=== PATIENT | male | born 1950 | race Caucasian/White ===

== ENCOUNTER 2017-05-16 13:02 | Inpatient (IN) | payer MEDICARE ==
[2017-05-16] MEDS ORDERED: Sodium Chloride 0.9% 1,000 ML IV ONE (13:52)
--- NOTE | 2017-05-16 14:17 | C.PDOC ---
History Of Present Illness 66 y/o male,with history of HTN and diabetes, presents to the ER complaining of cough, sore throat, and subjective fever for the past few days. Patient is also complaining of dizziness and had a near syncopal episode today. 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 Patient does not have any other complaints. Time Seen by Provider: 05/16/17 13:48 Chief Complaint (Nursing): Flu-like Symptoms History Per: Patient History/Exam Limitations: no limitations Onset/Duration Of Symptoms: Days Current Symptoms Are (Timing): Still Present Associated Symptoms: Fever, Sore Throat, Cough Past Medical History Reviewed: Historical Data, Nursing Documentation, Vital Signs Vital Signs: Last Vital Signs Temp 97.9 F 05/16/17 13:12 Pulse 77 05/16/17 16:26 Resp 16 05/16/17 16:26 BP 112/59 L 05/16/17 16:26 Pulse Ox 97 05/16/17 18:13 - Medical History PMH: HTN, Hypercholesterolemia, Seizures Surgical History: No Surg Hx Family History: States: No Known Family Hx - Social History Hx Alcohol Use: No Hx Substance Use: No Review Of Systems Except As Marked, All Systems Reviewed And Found Negative. Constitutional: Positive for: Fever. Negative for: Chills ENT: Positive for: Throat Pain Respiratory: Positive for: Cough. Negative for: Shortness of Breath Neurological: Positive for: Dizziness Physical Exam - Physical Exam Appears: Non-toxic, No Acute Distress Skin: Normal Color, Warm Head: Atraumatic, Normacephalic Eye(s): bilateral: Normal Inspection, PERRL Ear(s): Bilateral: Normal Nose: Normal Oral Mucosa: Moist Throat: Erythema (pharyngeal erythema), No Exudate Neck: Supple Chest: Symmetrical Cardiovascular: Rhythm Regular Respiratory: Normal Breath Sounds, No Accessory Muscle Use, No Rales, No Rhonchi , No Wheezing Extremity: Normal ROM Neurological/Psych: Oriented x3, Normal Speech, Normal Cognition, Normal Motor, Normal Sensation ED Course And Treatment - Laboratory Results Result Diagrams: 05/16/17 14:14 05/16/17 14:14 O2 Sat by Pulse Oximetry: 97 (RA) Pulse Ox Interpretation: Normal Medical Decision Making Medical Decision Making: 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 for sepsis, pna, influenza, lPlan: --Labs --Urinalysis --ECG --CXR --Flu Swab --Rapid Strep pt reassesed, no previous cr. suspect anna. influenza pos. possible infiltrate, mild la. no sirs, no code sepsis. discussed with dr mccain, accepts. Disposition - Disposition Disposition: HOSPITALIZED Disposition Time: 18:13 Condition: STABLE - Clinical Impression Clinical Impression: Influenza, Acute kidney injury, Pneumonia - Scribe Statement The provider has reviewed the documentation as recorded by the Scribe Daquan Solorzano Provider Attestation: All medical record entries made by the Scribe were at my direction and personally dictated by me. I have reviewed the chart and agree that the record accurately reflects my personal performance of the history, physical exam, medical decision making, and the department course for this patient. I have also personally directed, reviewed, and agree with the discharge instructions and disposition. Decision To Admit - Pt Status Changed To: Hospital Disposition Of: Inpatient - Admit Certification Admit to Inpatient:: After my assessment, the patient will require hospitalization for at least two midnights. This is because of the severity of symptoms shown, intensity of services needed, and/or the medical risk in this patient being treated as an outpatient. - InPatient: Physician Admission Certification: I certify that this patient requires 2 or more midnights of care for the following reason:: anna, influenza, needs admission. - . Bed Request Type: Telemetry Admitting Physician: Donta Mccain Jr. Patient Diagnosis: Influenza, Acute kidney injury, Pneumonia
[2017-05-16 14:18] LABS: BASO % 0.1 % (0.0-2.0); EOS # 0.1 K/uL (0.0-0.7); EOS % 2.4 % (0.0-4.0); LYMPH # 0.9 K/uL (1.0-4.3); LYMPH % 16.9 % (20.0-40.0); MEAN CELL VOLUME 93.5 fL (80.0-94.0); MEAN CORPUSCULAR HEMOGLOBIN 31.4 pg (27.0-31.0); MEAN CORPUSCULAR HGB CONC 33.6 g/dL (33.0-37.0); MEAN PLATELET VOLUME 8.3 fL (7.2-11.7); MONO # 0.7 K/uL (0.0-0.8); MONO % 11.8 % (0.0-10.0); NEUT # 3.8 K/uL (1.8-7.0); NEUT % 68.8 % (50.0-75.0); RBC 3.19 Mil/uL (4.40-5.90); RED CELL DISTRIBUTION WIDTH 13.9 % (11.5-14.5); WHITE BLOOD COUNT 5.6 K/uL (4.8-10.8)
[2017-05-16 14:33] LABS: INR 1.2
[2017-05-16 14:35] LABS: ALBUMIN 3.5 g/dL (3.5-5.0); CALCIUM 7.9 mg/dl (8.6-10.4)
[2017-05-16 14:36] LABS: SQUAMOUS EPITHIAL 2 /hpf (0-5); URINE BACTERIA RARE (<OCC); URINE BILIRUBIN NEGATIVE (NEGATIVE); URINE BLOOD NEGATIVE (NEGATIVE); URINE CLARITY Hazy (Clear); URINE COLOR Amber (YELLOW); URINE GLUCOSE (UA) 1+ mg/dL (Normal); URINE LEUKOCYTE ESTERASE NEG Leu/uL (Negative); URINE NITRATE NEGATIVE (NEGATIVE); URINE PROTEIN 3+ mg/dL (NEGATIVE)
--- NOTE | 2017-05-16 14:37 | RAD ---
Chest x-ray single frontal view History: Chest pain. Comparison: None available. Findings: Mild venous congestion. Patchy increased markings at the left lung base and right infrahilar region which may represent mild infiltrate and or atelectasis. Clinical correlation. Cardiomegaly. Degenerative changes in the spine and shoulders. Impression: Mild venous congestion. Patchy increased markings at the left lung base and right infrahilar region which may represent mild infiltrate and or atelectasis. Clinical correlation. Cardiomegaly.
[2017-05-16] MEDS ORDERED: Azithromycin 500 MG in Sodium Chloride 0.9% 250 ML IVPB STA (14:39)
[2017-05-16] MEDS ORDERED: cefTRIAXone 2 GM in Sodium Chloride 0.9% 100 ML IVPB STA (14:39)
[2017-05-16 14:47] LABS: TROPONIN I 0.016 ng/mL (0.00-0.120)
[2017-05-16 14:50] LABS: VENOUS BLOOD GAS BASE EXCESS -5.3 mmol/L (0.0-2.0); VENOUS BLOOD GAS PCO2 49 mmHg (40-60); VENOUS BLOOD GAS PO2 29 mm/Hg (30-55); VENOUS BLOOD PH 7.26 (7.32-7.43)
--- NOTE | 2017-05-16 17:15 | CP.PCM.HP ---
History of Present Illness - History of Present Illness History of Present Illness: 66 year old male with a past medical history of hypertension, Type 2 Diabetes, and seizures who comes in complaining of cough, sore throat for the past three days. The patient reports taking Robutussin with little improvement in his symptoms. The patient reports also reports phlegm that is yellow in color. The patient also reports his being a sick contact. The patient denies any chest pain, nausea, vomiting, abdominal pain, fevers, chills, changes in vision , syncopal episodes, numbness or tingling in the hands or feet, weight loss, or any other complaints. PMD: Dr. Scott PMhx:HTN, seizures, Type 2 Diabetes Medications: Can't name them. Patient said his would bring them in tomorrow. Past surgical history: Foot surgery Social history: Jaiden tobacco use. Drinks alcohol occasionally. Jaiden illicit drug use. Lives with . Doesn't work Present on Admission - Present on Admission Any Indicators Present on Admission: No Review of Systems - Constitutional Constitutional: absent: Chills, Headache, Night Sweats, Weakness - EENT Eyes: absent: Blurred Vision, Discharge, Dry Eye, Other Visual Disturbances, Loss of Vision Ears: absent: Ear Discharge, Dizziness Nose/Mouth/Throat: absent: Nasal Congestion, Nose Pain, Bleeding Gums, Dysphagia , Mouth Pain, Facial Pain - Cardiovascular Cardiovascular: absent: Chest Pain, Irregular Heart Rhythm, Leg Edema, Palpitations, Pedal Edema - Respiratory Respiratory: Cough, Change in Mucous Color. absent: Dyspnea, Hemoptysis, Pain on Inspiration - Gastrointestinal Gastrointestinal: absent: Belching, Change in Stool Character, Diarrhea, Fecal Incontinence, Heartburn, Loose Stools, Nausea, Temesmus, Vomiting - Musculoskeletal Musculoskeletal: absent: Abnormal Gait, Arthralgias, Back Pain, Myalgias - Integumentary Integumentary: absent: Bleeding Lesions, Changing Lesions, Rash, Striae, Swelling, Unusual Bruising - Neurological Neurological: absent: Abnormal Hearing, Dizziness, Numbness, Headaches, Syncope , Vertigo, Weakness - Psychiatric Psychiatric: absent: Anxiety, Confusion, Depression, Hopelessness, Panic Attacks - Endocrine Endocrine: absent: Polydipsia, Polyphagia, Polyuria - Hematologic/Lymphatic Hematologic: absent: Lymphadenopathy Past Patient History - Past Social History Smoking Status: Never Smoked - CARDIAC Hx Hypercholesterolemia: Yes Hx Hypertension: Yes - NEUROLOGICAL Hx Seizures: Yes - ENDOCRINE/METABOLIC Hx Diabetes Mellitus Type 2: Yes - MUSCULOSKELETAL/RHEUMATOLOGICAL Hx Gout: Yes - PSYCHIATRIC Hx Substance Use: No Meds Allergies/Adverse Reactions: Allergies Allergy/AdvReac Type Severity Reaction Status Date / Time No Known Allergies Allergy Verified 05/16/17 13:16 Results - Vital Signs Recent Vital Signs: Last Vital Signs Temp 97.9 F 05/16/17 13:12 Pulse 77 05/16/17 16:26 Resp 16 05/16/17 16:26 BP 112/59 L 05/16/17 16:26 Pulse Ox 97 05/16/17 16:26 - Labs Result Diagrams: 05/16/17 14:14 05/16/17 14:14 Labs: Laboratory Results - last 24 hr 05/16/17 05/16/17 05/16/17 13:18 14:14 14:14 WBC 5.6 RBC 3.19 L Hgb 10.0 L Hct 29.9 L MCV 93.5 MCH 31.4 H MCHC 33.6 RDW 13.9 Plt Count 149 MPV 8.3 Neut % (Auto) 68.8 Lymph % (Auto) 16.9 L [place] % (Auto) 11.8 H Eos % (Auto) 2.4 Baso % (Auto) 0.1 Neut # 3.8 Lymph # 0.9 L [place] # 0.7 Eos # 0.1 Baso # 0.0 PT 13.0 H INR 1.2 APTT 27 pO2 VBG pH VBG pCO2 VBG HCO3 VBG Total CO2 VBG O2 Sat (Calc) VBG Base Excess VBG Potassium Glucose Lactate Sodium Potassium Chloride Carbon Dioxide Anion Gap BUN Creatinine Est GFR ( Amer) Est GFR (Non-Af Amer) POC Glucose (mg/dL) 223 H Random Glucose Calcium Total Bilirubin AST ALT Alkaline Phosphatase Troponin I Total Protein Albumin Globulin Albumin/Globulin Ratio Venous Blood Potassium Urine Color Urine Clarity Urine pH Ur Specific [place] Urine Protein Urine Glucose (UA) Urine Ketones Urine Blood Urine Nitrate Urine Bilirubin Urine Urobilinogen Ur Leukocyte Esterase Urine WBC (Auto) Urine RBC (Auto) Ur Squamous Epith Cells Urine Bacteria Influenza Typ A,B (EIA) Grp A Beta Strep Ag 05/16/17 05/16/17 05/16/17 14:14 14:17 14:17 WBC RBC Hgb Hct MCV MCH MCHC RDW Plt Count MPV Neut % (Auto) Lymph % (Auto) [place] % (Auto) Eos % (Auto) Baso % (Auto) Neut # Lymph # [place] # Eos # Baso # PT INR APTT pO2 VBG pH VBG pCO2 VBG HCO3 VBG Total CO2 VBG O2 Sat (Calc) VBG Base Excess VBG Potassium Glucose Lactate Sodium 131 L Potassium 4.6 Chloride 100 Carbon Dioxide 22 Anion Gap 13 BUN 28 H Creatinine 2.2 H Est GFR ( Amer) 37 Est GFR (Non-Af Amer) 30 POC Glucose (mg/dL) Random Glucose 247 H Calcium 7.9 L Total Bilirubin 0.4 AST 20 ALT 25 Alkaline Phosphatase 103 Troponin I 0.0160 Total Protein 6.9 Albumin 3.5 Globulin 3.4 Albumin/Globulin Ratio 1.0 Venous Blood Potassium Urine Color Urine Clarity Urine pH Ur Specific [place] Urine Protein Urine Glucose (UA) Urine Ketones Urine Blood Urine Nitrate Urine Bilirubin Urine Urobilinogen Ur Leukocyte Esterase Urine WBC (Auto) Urine RBC (Auto) Ur Squamous Epith Cells Urine Bacteria Influenza Typ A,B (EIA) Pos for influenza a H Grp A Beta Strep Ag Negative 05/16/17 05/16/17 14:28 14:35 WBC RBC Hgb Hct MCV MCH MCHC RDW Plt Count MPV Neut % (Auto) Lymph % (Auto) [place] % (Auto) Eos % (Auto) Baso % (Auto) Neut # Lymph # [place] # Eos # Baso # PT INR APTT pO2 29 L VBG pH 7.26 L VBG pCO2 49 VBG HCO3 19.3 VBG Total CO2 23.5 VBG O2 Sat (Calc) 58.0 VBG Base Excess -5.3 L VBG Potassium 4.6 Glucose 266 H Lactate 2.3 H Sodium 132.0 Potassium Chloride 104.0 Carbon Dioxide Anion Gap BUN Creatinine Est GFR ( Amer) Est GFR (Non-Af Amer) POC Glucose (mg/dL) Random Glucose Calcium Total Bilirubin AST ALT Alkaline Phosphatase Troponin I Total Protein Albumin Globulin Albumin/Globulin Ratio Venous Blood Potassium 4.6 Urine Color Holly Urine Clarity Hazy Urine pH 5.0 Ur Specific [place] 1.024 Urine Protein 3+ H Urine Glucose (UA) 1+ H Urine Ketones Negative Urine Blood Negative Urine Nitrate Negative Urine Bilirubin Negative Urine Urobilinogen 2.0 Ur Leukocyte Esterase Neg Urine WBC (Auto) 3 Urine RBC (Auto) 3 Ur Squamous Epith Cells 2 Urine Bacteria Rare Influenza Typ A,B (EIA) Grp A Beta Strep Ag Assessment & Plan - Assessment and Plan (Free Text) Assessment: 66 male with a past medical history of hypertension, Type 2 DM, and seizures who was admitted for flu. Plan: 1. Influenza -Rapid flud positive in the Emergency Department. -Received 75mg [place]fu in the E.D. -Continue Tamiflu 75MG PO BID -IV fluids NS @100cc/hr 2. History of hypertension -Restart home medications -Patient couldn't recall the name of his medications. Patient said he would have a family member bring the prescriptions tomorrow. 3. History of Type 2 D.M. -Hold home medications -I.S.S. low -Carbohydrate consistent diet (Low) -Esthelas MARIFER. 4.History of seizures -Restart home medications Prophylaxis -Pepcid 20mg Daily -Heparin 5000 units Q12. Will discuss with Dr. Meza.
[2017-05-16] MEDS ORDERED: Sodium Chloride 0.9% 1,000 ML ONE (18:00)
[2017-05-16 20:06] VITALS: RESP 20
[2017-05-16] MEDS: (Novolin R) Insulin Human Regular 100 units/ml vial SC SCH (21:41)
[2017-05-17 00:30] VITALS: O2SAT 95
[2017-05-17] MEDS: Sodium Chloride 0.9% 1,000 ML IV SCH ×2 (02:27→06:28)
[2017-05-17] MEDS: (Novolin R) Insulin Human Regular 100 units/ml vial SC SCH ×2 (07:37→12:00)
[2017-05-17 08:01] VITALS: PULSE 63
--- NOTE | 2017-05-17 08:14 | CP.PCM.PN ---
Subjective - Date & Time of Evaluation Date of Evaluation: 05/17/17 Time of Evaluation: 08:14 Objective - Vital Signs/Intake and Output Vital Signs (last 24 hours): Temp Pulse Resp BP Pulse Ox 98.2 F 63 20 136/66 95 05/16/17 23:50 05/17/17 08:00 05/16/17 23:50 05/16/17 23:50 05/16/17 23:50 Intake and Output: 05/17/17 05/17/17 06:59 18:59 Intake Total 700 Balance 700 - Medications Medications: Current Medications Enoxaparin Sodium (Lovenox) 40 mg SC DAILY [facility] Famotidine (Pepcid) 20 mg PO DAILY [facility] Sodium Chloride (Sodium Chloride 0.9%) 1,000 mls @ 100 mls/hr IV .Q10H [facility] Last Admin: 05/17/17 06:28 Dose: 100 mls/hr Insulin Human Regular (Novolin R) 0 unit SC ACHS [facility] PRN Reason: Protocol Last Admin: 05/17/17 07:37 Dose: Not Given Oseltamivir Phosphate (Tamiflu Cap) 75 mg PO BID [facility] Stop: 05/21/17 17:28 Last Admin: 05/16/17 18:31 Dose: 75 mg - Labs Labs: 05/16/17 14:14 05/16/17 14:14 PT 13.0 SECONDS (9.7-12.2) H 05/16/17 14:14 INR 1.2 05/16/17 14:14 APTT 27 SECONDS (21-34) 05/16/17 14:14
[2017-05-17 08:21] VITALS: BP 161/81; TEMP 98
[2017-05-17 08:23] LABS: BASO % 0.5 % (0.0-2.0); EOS # 0.2 K/uL (0.0-0.7); EOS % 5.6 % (0.0-4.0); HEMOGLOBIN 10.4 g/dL (12.0-18.0); LYMPH # 1.4 K/uL (1.0-4.3); LYMPH % 32.7 % (20.0-40.0); MEAN CELL VOLUME 93.4 fL (80.0-94.0); MEAN CORPUSCULAR HEMOGLOBIN 31.2 pg (27.0-31.0); MEAN CORPUSCULAR HGB CONC 33.4 g/dL (33.0-37.0); MEAN PLATELET VOLUME 8.3 fL (7.2-11.7); MONO # 0.5 K/uL (0.0-0.8); MONO % 12.4 % (0.0-10.0); NEUT # 2.1 K/uL (1.8-7.0); NEUT % 48.8 % (50.0-75.0); NRBC % 0.1 % (0.0-2.0); RBC 3.34 Mil/uL (4.40-5.90); RED CELL DISTRIBUTION WIDTH 13.5 % (11.5-14.5); WHITE BLOOD COUNT 4.2 K/uL (4.8-10.8)
[2017-05-17 08:46] LABS: ALB/GLOB RATIO 1.1 (1.0-2.1); ALBUMIN 3.6 g/dL (3.5-5.0); CALCIUM 7.8 mg/dl (8.6-10.4); MAGNESIUM 1.6 mg/dL (1.6-2.3)
[2017-05-17] MEDS ORDERED: Enoxaparin 40 mg Syringe SC SCH (10:00)
--- NOTE | 2017-05-17 12:02 | CP.PCM.DIS ---
Provider - Provider Date of Admission: 05/16/17 14:59 Attending physician: Donta Meza Jr, MD Primary care physician: Dr. Awan Time Spent in preparation of Discharge (in minutes): 45 Hospital Course - Lab Results Lab Results: Most Recent Lab Values WBC 4.2 K/uL (4.8-10.8) L 05/17/17 08:16 RBC 3.34 Mil/uL (4.40-5.90) L 05/17/17 08:16 Hgb 10.4 g/dL (12.0-18.0) L 05/17/17 08:16 Hct 31.2 % (35.0-51.0) L 05/17/17 08:16 MCV 93.4 fL (80.0-94.0) 05/17/17 08:16 MCH 31.2 pg (27.0-31.0) H 05/17/17 08:16 MCHC 33.4 g/dL (33.0-37.0) 05/17/17 08:16 RDW 13.5 % (11.5-14.5) 05/17/17 08:16 Plt Count 156 K/uL (130-400) 05/17/17 08:16 MPV 8.3 fL (7.2-11.7) 05/17/17 08:16 Neut % (Auto) 48.8 % (50.0-75.0) L 05/17/17 08:16 Lymph % (Auto) 32.7 % (20.0-40.0) 05/17/17 08:16 [place] % (Auto) 12.4 % (0.0-10.0) H 05/17/17 08:16 Eos % (Auto) 5.6 % (0.0-4.0) H 05/17/17 08:16 Baso % (Auto) 0.5 % (0.0-2.0) 05/17/17 08:16 Neut # 2.1 K/uL (1.8-7.0) 05/17/17 08:16 Lymph # 1.4 K/uL (1.0-4.3) 05/17/17 08:16 [place] # 0.5 K/uL (0.0-0.8) 05/17/17 08:16 Eos # 0.2 K/uL (0.0-0.7) 05/17/17 08:16 Baso # 0.0 K/uL (0.0-0.2) 05/17/17 08:16 PT 13.0 SECONDS (9.7-12.2) H 05/16/17 14:14 INR 1.2 05/16/17 14:14 APTT 27 SECONDS (21-34) 05/16/17 14:14 pO2 29 mm/Hg (30-55) L 05/16/17 14:35 VBG pH 7.26 (7.32-7.43) L 05/16/17 14:35 VBG pCO2 49 mmHg (40-60) 05/16/17 14:35 VBG HCO3 19.3 mmol/L 05/16/17 14:35 VBG Total CO2 23.5 mmol/L (22-28) 05/16/17 14:35 VBG O2 Sat (Calc) 58.0 % (40-65) 05/16/17 14:35 VBG Base Excess -5.3 mmol/L (0.0-2.0) L 05/16/17 14:35 VBG Potassium 4.6 mmol/L (3.6-5.2) 05/16/17 14:35 Sodium 132.0 mmol/l (132-148) 05/16/17 14:35 Chloride 104.0 mmol/L (98-107) 05/16/17 14:35 Glucose 266 mg/dl (75-110) H 05/16/17 14:35 Lactate 2.3 mmol/L (0.7-2.1) H 05/16/17 14:35 Sodium 135 mmol/L (132-148) 05/17/17 08:16 Potassium 4.3 mmol/L (3.6-5.2) 05/17/17 08:16 Chloride 108 mmol/L (98-107) H 05/17/17 08:16 Carbon Dioxide 21 mmol/L (22-30) L 05/17/17 08:16 Anion Gap 11 (10-20) 05/17/17 08:16 BUN 23 mg/dL (9-20) H 05/17/17 08:16 Creatinine 1.8 mg/dL (0.8-1.5) H 05/17/17 08:16 Est GFR ( Amer) 46 05/17/17 08:16 Est GFR (Non-Af Amer) 38 05/17/17 08:16 POC Glucose (mg/dL) 95 mg/dL (65-110) 05/17/17 06:22 Random Glucose 101 mg/dL (75-110) 05/17/17 08:16 Lactic Acid 1.1 mmol/L (0.7-2.1) 05/16/17 20:55 Calcium 7.8 mg/dl (8.6-10.4) L 05/17/17 08:16 Phosphorus 3.1 mg/dL (2.5-4.5) 05/17/17 08:16 Magnesium 1.6 mg/dL (1.6-2.3) 05/17/17 08:16 Total Bilirubin 0.3 mg/dL (0.2-1.3) 05/17/17 08:16 AST 18 U/L (17-59) 05/17/17 08:16 ALT 19 U/L (21-72) L D 05/17/17 08:16 Alkaline Phosphatase 99 U/L (38-126) 05/17/17 08:16 Troponin I 0.0160 ng/mL (0.00-0.120) 05/16/17 14:14 Total Protein 6.8 g/dL (6.3-8.3) 05/17/17 08:16 Albumin 3.6 g/dL (3.5-5.0) 05/17/17 08:16 Globulin 3.2 gm/dL (2.2-3.9) 05/17/17 08:16 Albumin/Globulin Ratio 1.1 (1.0-2.1) 05/17/17 08:16 Venous Blood Potassium 4.6 mmol/L (3.6-5.2) 05/16/17 14:35 Urine Color [place] (YELLOW) 05/16/17 14:28 Urine Clarity Hazy (Clear) 05/16/17 14:28 Urine pH 5.0 (5.0-8.0) 05/16/17 14:28 Ur Specific [place] 1.024 (1.003-1.030) 05/16/17 14:28 Urine Protein 3+ mg/dL (NEGATIVE) H 05/16/17 14:28 Urine Glucose (UA) 1+ mg/dL (Normal) H 05/16/17 14:28 Urine Ketones Negative mg/dL (NEGATIVE) 05/16/17 14:28 Urine Blood Negative (NEGATIVE) 05/16/17 14:28 Urine Nitrate Negative (NEGATIVE) 05/16/17 14:28 Urine Bilirubin Negative (NEGATIVE) 05/16/17 14:28 Urine Urobilinogen 2.0 mg/dL (0.2-1.0) 05/16/17 14:28 Ur Leukocyte Esterase Neg [place]/uL (Negative) 05/16/17 14:28 Urine WBC (Auto) 3 /hpf (0-5) 05/16/17 14:28 Urine RBC (Auto) 3 /hpf (0-3) 05/16/17 14:28 Ur Squamous Epith Cells 2 /hpf (0-5) 05/16/17 14:28 Urine Bacteria Rare (<OCC) 05/16/17 14:28 Influenza Typ A,B (EIA) Pos for influenza a (NEGATIVE) H 05/16/17 14:17 Grp A Beta Strep Ag Negative (NEGATIVE) 05/16/17 14:17 - Hospital Course Hospital Course: HPI: 66 year old male with a past medical history of hypertension, Type 2 Diabetes, and seizures who comes in complaining of cough, sore throat for the past three days. The patient reports taking Robutussin with little improvement in his symptoms. The patient reports also reports phlegm that is yellow in color. The patient also reports his being a sick contact. The patient denies any chest pain, nausea, vomiting, abdominal pain, fevers, chills, changes in vision, syncopal episodes, numbness or tingling in the hands or feet , weight loss, or any other complaints. PMD: Dr. Scott PMhx:HTN, seizures, Type 2 Diabetes Medications: Can't name them. Patient said his would bring them in tomorrow. Past surgical history: Foot surgery Social history: Jaiden tobacco use. Drinks alcohol occasionally. Jaiden illicit drug use. Lives with . Doesn't work Hospital Course: Patient was admitted on 05/16/17 for influenza. In the ED, labs were drawn and IV fluids and Tamiflu were given. Patient was transferred to the floors and placed on droplet precautions. Patient was continued on influenza twice daily. Patient was seen and examined at bedside today in no acute distress. Patient's was a bedside. Patient reports feeling well and has no complaints. Patient denies chest pain, abdominal pain, nausea, vomiting, fevers , chills, headaches, shortness of breath, cough, and leg pain/swelling. Patient is stable for discharge to home as per Dr. Meza. Patient must continue Tamiflu 75mg PO BID for 3 more days (to complete total of 5 days). Patient should follow up with their PMD within one week of discharge. This is a brief summary of the hospital course. Please see EMR for more details. Discharge Exam - Head Exam Head Exam: ATRAUMATIC, NORMAL INSPECTION - Eye Exam Eye Exam: EOMI, Normal appearance - ENT Exam ENT Exam: Mucous Membranes Moist - Respiratory Exam Respiratory Exam: Clear to PA & Lateral, NORMAL BREATHING PATTERN, UNREMARKABLE. absent: Rales, Rhonchi, Wheezes, Respiratory Distress - Cardiovascular Exam Cardiovascular Exam: REGULAR RHYTHM, +S1, +S2 - GI/Abdominal Exam GI & Abdominal Exam: Normal Bowel Sounds, Soft. absent: Distended, Firm, Tenderness - Extremities Exam Extremities exam: normal inspection - Neurological Exam Neurological exam: Alert, Oriented x3 - Psychiatric Exam Psychiatric exam: Normal Affect, Normal Mood - Skin Skin Exam: Dry, Intact, Normal Color, Warm Discharge Plan - Discharge Medications Prescriptions: Oseltamivir [Tamiflu Cap] 75 mg PO BID 3 Days cap - Follow Up Plan Condition: STABLE Disposition: HOME/ ROUTINE Instructions: Acute Kidney Injury (DC), Influenza (DC), Pneumonia (DC) Additional Instructions: Patient is stable for discharge to home. Patient must continue all home medications. Patient must continue taking new medications as prescribed: Tamiflu 75mg PO BID - take 1 tablet twice a day for 3 days. Patient must follow up with their PMD within one week of discharge. If symptoms worsen or reoccur, patient should return to the ED.
--- NOTE | 2017-05-17 23:10 | CARD ---
APPROVED REPORT EKG Measurement Heart [id number] <Conclusion> Sinus bradycardia Left axis deviation Inferior infarct, age undetermined Abnormal ECG
== END 2017-05-17 15:29 | disposition home or self-care (01) | DRG 194 ==
LOC: C.ER 13:02 → C.9E 14:59 → C.5S 18:33
PROVIDERS: ADMIT Internal Medicine; ATTEND Internal Medicine
DX: J11.00 Influenza due to unidentified influenza virus with unspecified type of pneumonia (principal); J18.9 Pneumonia, unspecified organism; N17.9 Acute kidney failure, unspecified; E11.9 Type 2 diabetes mellitus without complications; I10 Essential (primary) hypertension; E78.00 Pure hypercholesterolemia, unspecified

== ENCOUNTER 2018-05-21 11:43 | Inpatient (IN) | payer MEDICARE ==
[2018-05-21] MEDS ORDERED: Albuterol-Ipratrop 3 mg / 0.5 (3 ml) UD ONE (11:51)
[2018-05-21] MEDS ORDERED: Albuterol-Ipratrop 3 mg / 0.5 (3 ml) UD INH STA (12:18)
--- NOTE | 2018-05-21 12:18 | C.PDOC ---
History Of Present Illness 67 years old male with PMHx of diabetes, HTN, seizures, and CHF presents to ED for complaints of worsening shortness of breath and leg swelling that began 2 weeks ago. Patient states "I can't breathe." Denies fever, chills, or chest pain. Patient is compliant with his medications. Time Seen by Provider: 05/21/18 12:15 Chief Complaint (Nursing): Shortness Of Breath History Per: Patient History/Exam Limitations: no limitations Onset/Duration Of Symptoms: Days Current Symptoms Are (Timing): Still Present Current Respiratory Medications: See Home Med List Associated Symptoms: denies: Fever, Chills Recent travel outside of the [place]: No Past Medical History Reviewed: Historical Data, Nursing Documentation, Vital Signs Vital Signs: Last Vital Signs Temp 97.6 F 05/21/18 11:57 Pulse 75 05/21/18 11:57 Resp 20 05/21/18 11:57 BP 151/69 H 05/21/18 11:57 Pulse Ox 100 05/21/18 11:57 - Medical History PMH: CHF, Diabetes, HTN, Hypercholesterolemia, Seizures Family History: States: No Known Family Hx - Social History Hx Alcohol Use: Yes Hx Substance Use: No - Immunization History Hx Tetanus Toxoid Vaccination: No Hx Influenza Vaccination: No Hx Pneumococcal Vaccination: No Review Of Systems Constitutional: Negative for: Fever, Chills Cardiovascular: Negative for: Chest Pain Respiratory: Positive for: Shortness of Breath, Wheezing. Negative for: Cough Gastrointestinal: Negative for: Nausea, Vomiting, Abdominal Pain, Diarrhea Skin: Positive for: Other (Leg swelling ). Negative for: Rash Neurological: Negative for: Weakness, Numbness Physical Exam - Physical Exam Appears: Non-toxic, No Acute Distress, Other (Uncomfortable. ) Skin: Warm, Dry, No Rash Head: Atraumatic, Normacephalic Eye(s): bilateral: Normal Inspection, PERRL, EOMI Oral Mucosa: Moist Neck: Normal ROM, Supple Chest: Symmetrical, No Tenderness Cardiovascular: Rhythm Regular, No Murmur Respiratory: Rales ([place] upper right side), Wheezing (Scattered expiratory left lower side ), Other (Patient was examined after Duoneb was adminstered. ) Gastrointestinal/Abdominal: Bowel Sounds (Active ), Soft, Tenderness, No Distention, No Guarding, No Rebound Extremity: Normal ROM, Pedal Edema, Other (3+ Pitting edema bilaterally. Darkened appearing skin on bilateral lower extremities) Extremity: Bilateral: Normal ROM Pulses: Left Radial: Normal, Right Radial: Normal Neurological/Psych: Oriented x3, Normal Speech Gait: Steady ED Course And Treatment - Laboratory Results Result Diagrams: 05/21/18 12:18 05/21/18 12:18 O2 Sat by Pulse Oximetry: 100 (RA) Pulse Ox Interpretation: Normal - Other Rad CXR X-Ray: Viewed By Me, Read By Radiologist Interpretation: Impression: Moderate to severe venous congestion. Moderate left and small right pleural effusion. Consolidative changes in the mid to lower lung zones. Cardiomegaly. Medical Decision Making Medical Decision Making: Plan: * EKG * Blood work * CXR * Lasix * Duoneb/peak flow [address] Tiaog Ellington, will admit to telemtery to his service. old lab reviewed form last admit one year ago with worsening renal function. hgb decreasing from 10 to 8.6 with no acitve bleeding. EKG: * Sinus Rhythm at 74 bpm with frequent premature ventricular complexes * Low voltage QRS * Possible inferior infarct, age undetermined * Cannot rule out anterior infarct, age undetermined Disposition Discussed With Dr.: Stephen Ellington Doctor Will See Patient In The: Hospital - Disposition Disposition: HOSPITALIZED Disposition Time: 13:40 Condition: STABLE - Clinical Impression Clinical Impression: CHF exacerbation, Worsening renal function - PA / DESKTOP PUBLISHING OPERATOR / Resident Statement MD/DO has reviewed & agrees with the documentation as recorded. - Scribe Statement The provider has reviewed the documentation as recorded by the Carl Ashley All medical record entries made by the Addisonibpat were at my direction and personally dictated by me. I have reviewed the chart and agree that the record accurately reflects my personal performance of the history, physical exam, medical decision making, and the department course for this patient. I have also personally directed, reviewed, and agree with the discharge instructions and disposition.
[2018-05-21 12:28] LABS: BASO % 0.6 % (0.0-2.0); EOS # 0.3 K/uL (0.0-0.7); EOS % 5.6 % (0.0-4.0); HEMOGLOBIN 8.6 g/dL (12.0-18.0); LYMPH # 1.1 K/uL (1.0-4.3); LYMPH % 20.1 % (20.0-40.0); MEAN CORPUSCULAR HEMOGLOBIN 31.5 pg (27.0-31.0); MEAN CORPUSCULAR HGB CONC 32.3 g/dL (33.0-37.0); MEAN PLATELET VOLUME 9.3 fL (7.2-11.7); MONO # 0.5 K/uL (0.0-0.8); MONO % 8.4 % (0.0-10.0); NEUT # 3.7 K/uL (1.8-7.0); NEUT % 65.3 % (50.0-75.0); RBC 2.72 Mil/uL (4.40-5.90); RED CELL DISTRIBUTION WIDTH 14.7 % (11.5-14.5); WHITE BLOOD COUNT 5.7 K/uL (4.8-10.8)
[2018-05-21 12:32] LABS: MEAN CELL VOLUME 97.6 fL (80.0-94.0)
[2018-05-21 12:33] LABS: INR 1.2; PROTHROMBIN TIME 13.5 SECONDS (9.7-12.2)
[2018-05-21 12:40] LABS: ALB/GLOB RATIO 1.4 (1.0-2.1); ALT/SGPT 22 U/L (21-72); AST/SGOT 22 U/L (17-59); BLOOD UREA NITROGEN 41 mg/dL (9-20); CALCIUM 7.8 mg/dl (8.6-10.4); GFR NON-AFRICAN AMERICAN 23
[2018-05-21 12:53] LABS: B-TYPE NATRIURETIC PEPTIDE 1550 pg/mL (0-900)
--- NOTE | 2018-05-21 13:35 | RAD ---
Chest x-ray single frontal view HISTORY: Shortness of breath. Comparison: 05/16/2017 Findings: Moderate to severe venous congestion. Moderate left and small right pleural effusion. Consolidative changes in the mid to lower lung zones. Cardiomegaly. Degenerative changes in the spine and shoulders. Impression: Moderate to severe venous congestion. Moderate left and small right pleural effusion. Consolidative changes in the mid to lower lung zones. Cardiomegaly.
--- NOTE | 2018-05-21 15:02 | CP.PCM.HP ---
<Rob Baumann E - Last Filed: 05/21/18 19:44> History of Present Illness - History of Present Illness History of Present Illness: CC: Shortness of breath HPI: Patient is a 67 year old female with past medical history of HTN, seizures, Type 2 Diabetes, CHF (diagnosed 5 years ago), Chronic kidney disease, and Gout, who presents to the ED with his with complaints of worsening s hortness of breath and bilateral leg swelling for the past two weeks. Patient states that he has been sleeping more propped up with 3 pillow for the past 2 weeks and he has noted that he can only walk up to a 1/2 block before he has to catch his breath. Patient has noted some weight gain, bilateral leg heaviness and tightness of his footwear for the past 2-3 weeks. Patient admits to shortness of breath, non-productive cough, orthopnea, nocturnal cough, dizziness, subjective fever and chills but denies any symptoms of chest pain, palpitations, nausea, vomiting, abdominal pain, headache, blurry vision, hematochezia, urinary symptoms and recent travels. 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 PMD: Dr. Lance Awan PMHx: HTN, seizures, Type 2 Diabetes, CHF (diagnosed 5 years ago), Chronic k idney disease, and Gout PSHx: Right foot surgery FHx: Father (Heart Disease) and Mother: 85, no medical problems Medications: Norvasc 10mg PO daily, Valsartan-HCTZ 320/12.5mg PO daily, Lipitor 40mg PO HS, Keppra 500mg PO BID, Januvia 100mg PO daily, Tradjenta 5mg PO daily, Allopurinol 100mg PO daily Allergies: NKDA Social Hx: Lives with , Disabled. Denies former or current use of tobacco or illicit drug. Admit social ETOH Present on Admission - Present on Admission Any Indicators Present on Admission: No Review of Systems - Constitutional Constitutional: Chills, Weight Gain. absent: Fever, Headache - EENT Eyes: absent: Blurred Vision, Change in Vision, Discharge - Cardiovascular Cardiovascular: Dyspnea, Dyspnea on Exertion, Edema, Leg Edema, Lightheadedness, Orthopnea, Paroxysmal Nocturnal Dyspnea, Pedal Edema. absent: Chest Pain, Chest Pain with Activity, Diaphoresis, Palpitations - Respiratory Respiratory: Cough, Dyspnea, Dyspnea on Exertion. absent: Wheezing, Snoring, Stridor, Pain on Inspiration - Gastrointestinal Gastrointestinal: absent: Abdominal Pain, Belching, Diarrhea, Hematemesis, Hematochezia, Nausea, Vomiting - Neurological Neurological: Dizziness. absent: Confusion, Headaches, Lack of Coordination, Loss of Vision, Paresthesias, Syncope - Endocrine Endocrine: Fatigue. absent: Palpitations Past Patient History - Past Medical History & Family History Past Medical History?: Yes - Past Social History Smoking Status: Never Smoked - CARDIAC Hx Congestive Heart Failure: Yes Hx Hypercholesterolemia: Yes Hx Hypertension: Yes - PULMONARY Hx Respiratory Disorders: No - NEUROLOGICAL Hx Seizures: Yes - HEENT Hx HEENT Problems: No - RENAL Hx Chronic Kidney Disease: No - ENDOCRINE/METABOLIC Hx Diabetes Mellitus Type 2: Yes - HEMATOLOGICAL/ONCOLOGICAL Hx Blood Disorders: No - INTEGUMENTARY Hx Dermatological Problems: No - MUSCULOSKELETAL/RHEUMATOLOGICAL Hx Falls: No Hx Gout: Yes - GASTROINTESTINAL Hx Gastrointestinal Disorders: No - GENITOURINARY/GYNECOLOGICAL Hx Genitourinary Disorders: No - PSYCHIATRIC Hx Substance Use: No - SURGICAL HISTORY Hx Surgeries: Yes Hx Orthopedic Surgery: Yes (Right foot) - ANESTHESIA Hx Anesthesia: Yes Meds Allergies/Adverse Reactions: Allergies Allergy/AdvReac Type Severity Reaction Status Date / Time No Known Allergies Allergy Verified 05/16/17 13:16 Physical Exam - Constitutional Appears: Non-toxic, No Acute Distress - Head Exam Head Exam: ATRAUMATIC, NORMAL INSPECTION - Eye Exam Eye Exam: EOMI, Normal appearance - ENT Exam ENT Exam: Mucous Membranes Moist - Respiratory Exam Respiratory Exam: Decreased Breath Sounds, Rales, NORMAL BREATHING PATTERN Additional comments: Decreased breath sounds and rales at the lower lobes bilaterally - Cardiovascular Exam Cardiovascular Exam: REGULAR RHYTHM, +S1, +S2. absent: Tachycardia - GI/Abdominal Exam GI & Abdominal Exam: Normal Bowel Sounds, Soft. absent: Distended, Firm, Guarding, Tenderness Additional comments: Mild heptajugular reflex - Extremities Exam Extremities exam: Positive for: pedal edema Additional comments: +3 pitting edema to the level of the knee bilaterally - Neurological Exam Neurological exam: Alert, Oriented x3 - Psychiatric Exam Psychiatric exam: Normal Affect - Skin Skin Exam: Normal Color Results - Vital Signs Recent Vital Signs: Last Vital Signs Temp 97.6 F 05/21/18 11:57 Pulse 72 05/21/18 14:22 Resp 18 05/21/18 14:22 BP 122/68 05/21/18 14:22 Pulse Ox 100 05/21/18 14:22 - Labs Result Diagrams: 05/21/18 12:18 05/21/18 12:18 Labs: Laboratory Results - last 24 hr 05/21/18 05/21/18 05/21/18 12:18 12:18 12:18 WBC 5.7 RBC 2.72 L Hgb 8.6 L Hct 26.5 L MCV 97.6 H D MCH 31.5 H MCHC 32.3 L RDW 14.7 H Plt Count 148 MPV 9.3 Neut % (Auto) 65.3 Lymph % (Auto) 20.1 [place] % (Auto) 8.4 Eos % (Auto) 5.6 H Baso % (Auto) 0.6 Neut # (Auto) 3.7 Lymph # (Auto) 1.1 [place] # (Auto) 0.5 Eos # (Auto) 0.3 Baso # (Auto) 0.0 PT 13.5 H INR 1.2 APTT 34 Sodium 144 Potassium 5.2 Chloride 118 H Carbon Dioxide 16 L Anion Gap 15 BUN 41 H Creatinine 2.8 H Est GFR ( Amer) 28 Est GFR (Non-Af Amer) 23 Random Glucose 226 H D Calcium 7.8 L Total Bilirubin 0.3 AST 22 ALT 22 Alkaline Phosphatase 125 Troponin I < 0.0120 NT-Pro-B Natriuret Pep 1550 H Total Protein 6.9 Albumin 4.0 Globulin 2.9 Albumin/Globulin Ratio 1.4 Assessment & Plan (1) CHF exacerbation Assessment and Plan: Consultation: - Cardiology, Dr. Cage---> help appreciated * Management as per recommendation Labs: Pro-BNP: 1,550 Troponin: <0.0120, f/u subsequent BANDAR X2 and respective EKGs F/u Lipid Panel, TSH and Free T4 and Hemoglobin A1C Imaging: - EKG: NSR, low voltage, T-wave inferiorlateral leads - Chest X-ray: Moderate to severe venous congestion. Moderate left and small right pleural effusion. Consolidative changes in the mid to lower lung zones.Cardiomegaly. Medication * Lasix 20mg IV BID * Continue coreg 25mg PO BID * Hold ACEi or ARBs due to acute on chronic renal failure * Daily weight * Monitor input and output * Fluid restriction at 800ml * Heart healthy with low sodium Status: Acute (2) Pedal edema Assessment and Plan: 2/2 CHF exacerbation * F/u venous doppler Status: Acute (3) Renal failure (ARF), acute on chronic Assessment and Plan: Nephrology, Dr. Morfin * Management as per recommendation Renal US (08/12/15): Increased echogenicity of the bilateral renal cortices suggestive for medical renal disease. Continue to monitor with labs Home dose of HCTZ, Cozaar and Januvia held at the moment. Please clarify with nephro if it is appropriate to resume Status: Acute (4) Diabetes Assessment and Plan: F/u HgbA1c Accuchecks ISS- Medium Dose Home medication: Tradjenta 5mg PO daily not available inpatient Home medication: Januvia 100mg PO daily held in light of acute on chronic renal failure Status: Acute (5) Hypertension Assessment and Plan: Monitor with vital signs Q4H Home medications: Valsartan-HCTZ 320/12.5mg PO daily (Inpatient equivalent- HCTZ 12.5 mg PO QD and Cozaar 100mg PO QD) held in light of acute on chronic renal failure. Please clarify with senior adults director if these medications can be resume Continue coreg 25mg PO BID Status: Acute (6) History of seizure Assessment and Plan: Resume Keppra 500mg PO BID once blood level of keppra as resulted Status: Acute (7) History of gout Assessment and Plan: Continue home medication: * Allopurinol 100mg PO daily Status: Acute (8) Prophylactic measure Assessment and Plan: GI: Protonix 40mg PO daily DVT: Heparin 5,000 units SC Q8H, SCDs contraindicated due to bilateral leg edema All plans and management discussed with Jai Salmeron Status: Acute <Casimiro Salmeron H - Last Filed: 05/28/18 07:04> Results - Vital Signs Recent Vital Signs: Last Vital Signs Temp 98.5 F 05/28/18 01:44 Pulse 75 05/28/18 01:44 Resp 20 05/28/18 01:44 BP 139/72 05/28/18 01:44 Pulse Ox 99 05/28/18 01:44 - Labs Result Diagrams: 05/27/18 08:24 05/27/18 08:24 Labs: Laboratory Results - last 24 hr 05/27/18 05/27/18 05/27/18 08:24 08:24 08:24 WBC 7.1 RBC 2.42 L Hgb 7.8 L Hct 23.7 L MCV 97.9 H MCH 32.4 H MCHC 33.1 RDW 14.5 Plt Count 129 L MPV 9.9 Neut % (Auto) 66.4 Lymph % (Auto) 14.7 L [place] % (Auto) 14.2 H Eos % (Auto) 4.4 H Baso % (Auto) 0.3 Neut # (Auto) 4.7 Lymph # (Auto) 1.0 [place] # (Auto) 1.0 H Eos # (Auto) 0.3 Baso # (Auto) 0.0 Sodium 138 Potassium 4.8 Chloride 106 Carbon Dioxide 21 L Anion Gap 15 BUN 76 H Creatinine 3.6 H Est GFR ( Amer) 21 Est GFR (Non-Af Amer) 17 POC Glucose (mg/dL) Random Glucose 123 H Calcium 7.7 L Phosphorus 4.9 H Magnesium 1.9 Total Bilirubin 0.2 AST 51 ALT 66 Alkaline Phosphatase 126 NT-Pro-B Natriuret Pep 2530 H Total Protein 6.4 Albumin 3.7 Globulin 2.7 Albumin/Globulin Ratio 1.4 Procalcitonin 0.15 L 05/27/18 05/27/18 05/27/18 11:18 17:09 21:17 WBC RBC Hgb Hct MCV MCH MCHC RDW Plt Count MPV Neut % (Auto) Lymph % (Auto) [place] % (Auto) Eos % (Auto) Baso % (Auto) Neut # (Auto) Lymph # (Auto) [place] # (Auto) Eos # (Auto) Baso # (Auto) Sodium Potassium Chloride Carbon Dioxide Anion Gap BUN Creatinine Est GFR ( Amer) Est GFR (Non-Af Amer) POC Glucose (mg/dL) 218 H 276 H 348 H Random Glucose Calcium Phosphorus Magnesium Total Bilirubin AST ALT Alkaline Phosphatase NT-Pro-B Natriuret Pep Total Protein Albumin Globulin Albumin/Globulin Ratio Procalcitonin 05/28/18 05:50 WBC RBC Hgb Hct MCV MCH MCHC RDW Plt Count MPV Neut % (Auto) Lymph % (Auto) [place] % (Auto) Eos % (Auto) Baso % (Auto) Neut # (Auto) Lymph # (Auto) [place] # (Auto) Eos # (Auto) Baso # (Auto) Sodium Potassium Chloride Carbon Dioxide Anion Gap BUN Creatinine Est GFR ( Amer) Est GFR (Non-Af Amer) POC Glucose (mg/dL) 265 H Random Glucose Calcium Phosphorus Magnesium Total Bilirubin AST ALT Alkaline Phosphatase NT-Pro-B Natriuret Pep Total Protein Albumin Globulin Albumin/Globulin Ratio Procalcitonin Attending/Attestation - Attestation I have personally seen and examined this patient.: Yes I have fully participated in the care of the patient.: Yes I have reviewed all pertinent clinical information: Yes
[2018-05-21] MEDS ORDERED: Lactobacillus Acidophilus 500 MU Cap PO SCH (18:00)
[2018-05-21] MEDS ORDERED: Pantoprazole 20 mg EC Tab PO ONE (19:42)
[2018-05-21 20:01] LABS: CK-MB 2.16 ng/mL (0.0-3.38)
--- NOTE | 2018-05-21 23:10 | CP.PCM.CON ---
History of Present Illness - History of Present Illness History of Present Illness: Patient seen and evaluated 67 M with hx of HTN, DM2, CKD admitted for CHF exacerbation Needs full cardiac work up Physical Examination - Head Exam Head Exam: ATRAUMATIC, NORMAL INSPECTION - Eye Exam Eye Exam: EOMI, Normal appearance, PERRL Pupil Exam: NORMAL ACCOMODATION, PERRL. absent: Irregular, Unequal - ENT Exam ENT Exam: Mucous Membranes Moist, Normal Oropharynx - Respiratory Exam Respiratory Exam: Clear to Ausculation Bilateral, NORMAL BREATHING PATTERN. absent: Prolonged Expiratory Phase, Respiratory Distress - Cardiovascular Exam Cardiovascular Exam: REGULAR RHYTHM, +S1, +S2. absent: RRR, Rubs - GI/Abdominal Exam GI & Abdominal Exam: Soft, Normal Bowel Sounds. absent: Hyperactive Bowel Sounds - Extremities Exam Extremities Exam: Full ROM, Pedal Edema - Back Exam Back Exam: NORMAL INSPECTION. absent: CVA tenderness (R), paraspinal tenderness - Neurological Exam Neurological Exam: Alert, Awake, Oriented x3 - Psychiatric Exam Psychiatric exam: Normal Affect, Normal Mood. absent: Depressed - Skin Skin Exam: Dry, Intact Assessment and Plan - Assessment and Plan (Free Text) Assessment: 67 year old male with a past medical history of hypertension, dm2, ckd, gout, and chf who presents to the hospital for chf exacerbation. Plan: 1. Acute on chronic diastolic heart failure Troponin (-)x3 BNP elevated on admission but patient has component of kidney dysfunction. Doppler taken. Final read pending. -NPO after midnight -Lexiscan in the A.M. tomorrow Medications: Lasix 40mg IVP Q12 Coreg 25mg PO BID [facility]AL[facility] Cozaar Held Crestor 10mg PO HS 2.CKD Nephrology consulted. Help appreciated Medications: Procrit 10,000 MWF Ferrlicet 125 mg IVP Daily Fergon 324mg PO TID KALYANI Nephrovite 1 TAB PO 800 KALAYNI 3.DM Januvia 25mg PO Daily Past Patient History - Past Medical History & Family History Past Medical History?: Yes - Past Social History Smoking Status: Never Smoked - CARDIAC Hx Congestive Heart Failure: Yes Hx Hypercholesterolemia: Yes Hx Hypertension: Yes - PULMONARY Hx Respiratory Disorders: No - NEUROLOGICAL Hx Seizures: Yes - HEENT Hx HEENT Problems: No - RENAL Hx Chronic Kidney Disease: No - ENDOCRINE/METABOLIC Hx Diabetes Mellitus Type 2: Yes - HEMATOLOGICAL/ONCOLOGICAL Hx Blood Disorders: No - INTEGUMENTARY Hx Dermatological Problems: No - MUSCULOSKELETAL/RHEUMATOLOGICAL Hx Falls: No Hx Gout: Yes - GASTROINTESTINAL Hx Gastrointestinal Disorders: No - GENITOURINARY/GYNECOLOGICAL Hx Genitourinary Disorders: No - PSYCHIATRIC Hx Substance Use: No - SURGICAL HISTORY Hx Surgeries: Yes Hx Orthopedic Surgery: Yes (Right foot) - ANESTHESIA Hx Anesthesia: Yes Meds Allergies/Adverse Reactions: Allergies Allergy/AdvReac Type Severity Reaction Status Date / Time No Known Allergies Allergy Verified 05/16/17 13:16 - Medications Medications: Current Medications Allopurinol (Zyloprim) 100 mg PO DAILY [facility] Amlodipine Besylate (Norvasc) 10 mg PO DAILY [facility] Carvedilol (Coreg) 25 mg PO BID KALYANI Last Admin: 05/21/18 18:08 Dose: 25 mg Furosemide (Lasix) 20 mg IVP BID [facility] Heparin Sodium (Porcine) (Heparin) 5,000 units SC Q8 [facility] Hydrochlorothiazide (Microzide) 12.5 mg PO DAILY [facility] Insulin Aspart (Novolog) 0 unit SC ACHS [facility]ALYANI; Protocol Losartan Potassium (Cozaar) 100 mg PO DAILY [facility] Rosuvastatin Calcium (Crestor) 20 mg PO HS [facility] Sitagliptin Phosphate (Januvia) 100 mg PO DAILY [facility] Results - Vital Signs Recent Vital Signs: Last Vital Signs Temp 98 F 05/21/18 19:26 Pulse 70 05/21/18 19:26 Resp 16 05/21/18 19:26 BP 126/70 05/21/18 19:26 Pulse Ox 96 05/21/18 19:26 - Labs Result Diagrams: 05/27/18 08:24 05/27/18 08:24 Labs: Laboratory Results - last 24 hr 05/21/18 05/21/18 05/21/18 12:18 12:18 12:18 WBC 5.7 RBC 2.72 L Hgb 8.6 L Hct 26.5 L MCV 97.6 H D MCH 31.5 H MCHC 32.3 L RDW 14.7 H Plt Count 148 MPV 9.3 Neut % (Auto) 65.3 Lymph % (Auto) 20.1 [place] % (Auto) 8.4 Eos % (Auto) 5.6 H Baso % (Auto) 0.6 Neut # (Auto) 3.7 Lymph # (Auto) 1.1 [place] # (Auto) 0.5 Eos # (Auto) 0.3 Baso # (Auto) 0.0 PT 13.5 H INR 1.2 APTT 34 Sodium 144 Potassium 5.2 Chloride 118 H Carbon Dioxide 16 L Anion Gap 15 BUN 41 H Creatinine 2.8 H Est GFR ( Amer) 28 Est GFR (Non-Af Amer) 23 Random Glucose 226 H D Calcium 7.8 L Total Bilirubin 0.3 AST 22 ALT 22 Alkaline Phosphatase 125 Total Creatine Kinase CK-MB (Mass) Troponin I < 0.0120 NT-Pro-B Natriuret Pep 1550 H Total Protein 6.9 Albumin 4.0 Globulin 2.9 Albumin/Globulin Ratio 1.4 05/21/18 19:29 WBC RBC Hgb Hct MCV MCH MCHC RDW Plt Count MPV Neut % (Auto) Lymph % (Auto) [place] % (Auto) Eos % (Auto) Baso % (Auto) Neut # (Auto) Lymph # (Auto) [place] # (Auto) Eos # (Auto) Baso # (Auto) PT INR APTT Sodium Potassium Chloride Carbon Dioxide Anion Gap BUN Creatinine Est GFR ( Amer) Est GFR (Non-Af Amer) Random Glucose Calcium Total Bilirubin AST ALT Alkaline Phosphatase Total Creatine Kinase 140 CK-MB (Mass) 2.16 Troponin I < 0.0120 NT-Pro-B Natriuret Pep Total Protein Albumin Globulin Albumin/Globulin Ratio
[2018-05-22] MEDS: (Novolog) Insulin Aspart, Recombinant 100 u/ml 10 ml vial SC SCH ×5 (00:51→21:40)
[2018-05-22 03:40] LABS: CK-MB 1.69 ng/mL (0.0-3.38)
[2018-05-22 06:34] LABS: ALB/GLOB RATIO 1.3 (1.0-2.1); ALBUMIN 3.7 g/dL (3.5-5.0); CALCIUM 8.3 mg/dl (8.6-10.4)
--- NOTE | 2018-05-22 08:30 | CP.PCM.PN ---
<Cynthia Radford - Last Filed: 05/22/18 19:47> Subjective - Date & Time of Evaluation Date of Evaluation: 05/22/18 Time of Evaluation: 08:29 - Subjective Subjective: PGY-1 Cynthia Radford D.O. Medicine progress note for Dr. Barbosa's service: Patient was seen and examined this morning. He says that he feels a little better. Cough is improved. He says he is fine at rest and sitting down. He becomes SOB when walking and lying flat. He typically uses 3-4 pillows to sleep. He reports his leg swelling is the same. Also, he reports he has had to loosen his belt recently. Denies chest pain. Denies scrotal swelling. Objective - Vital Signs/Intake and Output Vital Signs (last 24 hours): Temp Pulse Resp BP Pulse Ox 98 F 68 17 125/70 96 05/22/18 06:55 05/22/18 06:55 05/22/18 06:55 05/22/18 06:55 05/22/18 06:55 - Medications Medications: Current Medications Allopurinol (Zyloprim) 100 mg PO DAILY [facility] Amlodipine Besylate (Norvasc) 10 mg PO DAILY [facility] Carvedilol (Coreg) 25 mg PO BID [facility] Last Admin: 05/21/18 18:08 Dose: 25 mg Furosemide (Lasix) 20 mg IVP BID [facility] Heparin Sodium (Porcine) (Heparin) 5,000 units SC Q8 [facility] Last Admin: 05/22/18 06:22 Dose: 5,000 units Hydrochlorothiazide (Microzide) 12.5 mg PO DAILY [facility] Insulin Aspart (Novolog) 0 unit SC ACHS [facility]; Protocol Last Admin: 05/22/18 07:37 Dose: Not Given Losartan Potassium (Cozaar) 100 mg PO DAILY [facility] Rosuvastatin Calcium (Crestor) 20 mg PO HS [facility] Sitagliptin Phosphate (Januvia) 100 mg PO DAILY [facility] - Labs Labs: 05/21/18 12:18 05/22/18 06:25 PT 13.5 SECONDS (9.7-12.2) H 05/21/18 12:18 INR 1.2 05/21/18 12:18 APTT 34 SECONDS (21-34) 05/21/18 12:18 - Constitutional Appears: Non-toxic, No Acute Distress - Head Exam Head Exam: ATRAUMATIC, NORMAL INSPECTION - Eye Exam Eye Exam: EOMI, Normal appearance, PERRL - ENT Exam ENT Exam: Mucous Membranes Moist - Neck Exam Neck Exam: Normal Inspection - Respiratory Exam Respiratory Exam: Rales, NORMAL BREATHING PATTERN. absent: Respiratory Distress - Cardiovascular Exam Cardiovascular Exam: RRR, +S1, +S2 - GI/Abdominal Exam GI & Abdominal Exam: Soft. absent: Distended, Tenderness - Extremities Exam Additional comments: b/l pedal edema 3+ up to just below patellas chronic skin changes on ankles and feet consistent with venous stasis - Back Exam Back Exam: NORMAL INSPECTION - Neurological Exam Neurological Exam: Alert, Awake, CN II-XII Intact, Normal Gait (slow), Oriented x3 - Psychiatric Exam Psychiatric exam: Normal Affect, Normal Mood - Skin Skin Exam: Dry, Intact, Normal Color, Warm Assessment and Plan - Assessment and Plan (Free Text) Assessment: Patient is a 67 year old female with history of HTN, seizures, T2DM, CHF, and CKD who presented with SOB and pedal edema. Plan: Congestive heart failure acute exacerbation - BNP 1550 - TSH, free T4 wnl - BANDAR negative x3 - Venous Dopplers: - Echo: normal EF, dilated LA, mod TR - Daily weights - Strict Is&Os - Fluid restriction - Lexiscan pending - Cardiology consulted ([place]) Acute on chronic renal failure - BUN 28, Cr 2.8- monitor - Renal US: enlarged prostate - Procrit 10,000 MWF - Ferrlicet 125 mg IVP daily - Fergon 324mg PO TID - Nephrovite PO daily - Nephrology consulted ([place]) Anemia- suspect related to kidney failure - B12, folate wnl - Iron low (43), ferritin wnl Type 2 diabetes mellitus - A1c 8.6 - Lipids pending - Accuchecks ACHS - Hypoglycemia protocol - ISS medium - Januvia 25 mg PO daily (renally dosed) Hypertension - Vitals Q6H - Coreg 25 mg PO BID Seizure disorder - Keppra level pending - Home dose Keppra 500 mg PO BID- held H/o Gout - Uric acid 8.7 - Allopurinol 100 mg PO daily Ppx: VTE: Heparin 5000 units SC Q8H GI: PTX 40 mg PO daily Code status: full code Case discussed with attending, Dr. Barbosa. <Lynn Barbosa V - Last Filed: 05/26/18 22:49> Objective - Vital Signs/Intake and Output Vital Signs (last 24 hours): Temp Pulse Resp BP Pulse Ox 97.8 F 78 20 147/66 94 L 05/26/18 16:00 05/26/18 16:00 05/26/18 16:00 05/26/18 22:14 05/26/18 16:00 Intake and Output: 05/26/18 05/27/18 18:59 06:59 Intake Total 100 Output Total 500 Balance -400 - Medications Medications: Current Medications Allopurinol (Zyloprim) 300 mg PO DAILY [facility] Last Admin: 05/26/18 09:51 Dose: 300 mg Carvedilol (Coreg) 25 mg PO BID [facility] Last Admin: 05/26/18 17:49 Dose: 25 mg Cyanocobalamin (Vitamin B12 1000 Mcg Tab) 1,000 mcg PO DAILY [facility] Last Admin: 05/26/18 09:52 Dose: 1,000 mcg Epoetin Scott (Procrit) 10,000 unit SC MWF [facility] Last Admin: 05/26/18 09:58 Dose: 10,000 unit Ferrous Gluconate (Fergon) 324 mg PO TID [facility] Last Admin: 05/26/18 17:49 Dose: 324 mg Furosemide (Lasix) 40 mg IVP Q12H [facility] Last Admin: 05/26/18 22:14 Dose: 40 mg Heparin Sodium (Porcine) (Heparin) 5,000 units SC Q8 [facility] Last Admin: 05/26/18 22:16 Dose: 5,000 units Ferric Sodium Gluconate Complex 125 mg/ Sodium Chloride 110 mls @ 100 mls/hr IVPB DAILY [facility] Stop: 05/30/18 17:01 Last Admin: 05/26/18 10:00 Dose: 100 mls/hr Insulin Aspart (Novolog) 0 unit SC ACHS [facility]; Protocol Last Admin: 05/26/18 21:38 Dose: Not Given Levetiracetam (Keppra) 500 mg PO BID [facility] Last Admin: 05/26/18 17:49 Dose: 500 mg Rosuvastatin Calcium (Crestor) 10 mg PO HS [facility] Last Admin: 05/26/18 22:16 Dose: 10 mg Sitagliptin Phosphate (Januvia) 25 mg PO DAILY [facility] Last Admin: 05/26/18 09:51 Dose: 25 mg Sodium Bicarbonate (Sodium Bicarbonate Tab) 1,300 mg PO BID [facility] Last Admin: 05/26/18 17:48 Dose: 1,300 mg Tamsulosin HCl (Flomax) 0.4 mg PO DAILY [facility] Last Admin: 05/26/18 09:52 Dose: 0.4 mg Vitamin B Complex/Vit C/Folic Acid (Nephro-Priscilla) 1 tab PO 0800 [facility] Last Admin: 05/26/18 09:52 Dose: 1 tab - Labs Labs: 05/26/18 07:04 05/26/18 07:04 PT 13.5 SECONDS (9.7-12.2) H 05/21/18 12:18 INR 1.2 05/21/18 12:18 APTT 34 SECONDS (21-34) 05/21/18 12:18 Attending/Attestation - Attestation I have personally seen and examined this patient.: Yes I have fully participated in the care of the patient.: Yes I have reviewed all pertinent clinical information, including history, physical exam and plan: Yes Notes (Text): This is late computer entry for 05/22/18. Patient seen, examined and case discussed with medical lab specialist. Patient seen upstairs on the 5th floor. Patient reports dyspnea on exertion. Attempted to walk the patient over one lap on the floor where patient is visibly short of breathe. Patient has completed venous doppler and echocardiogram and ordered for renal US. Renal and cardiology on board. Assessment/Plan 1. 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 moderate left and small right pleural effusion. consolidative changes in the mid to lower lung zones. cardiomegaly. * Chest xray (05/22/18): right lower lobe infiltrate/right pleural effusion. left bechdalek's hernia. No visible infiltrate left lung. 2. Acute on chronic renal failure Assessment/Plan * Nephrology (Dr. 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 Prevoid urinary bladder volume 81.4ml. Postvoid urinary bladder volume 8.1ML. Right ureteral jet is not identifed. Enlarged prostate gland. * Procrit 10,000 MWF * Ferrlicet 125 mg IVP daily * Fergon 324mg PO TID * Nephrovite PO daily 3. Anemia- suspect related to kidney failure Assessment/Plan * suspect anemia of chronic disease given underlying renal disease * B12, folate wnl * Iron low (43), ferritin wnl * Ferrlicet 125 mg IVP daily * Fergon 324mg PO TID 4. Type 2 diabetes mellitus Assessment/Plan * A1c 8.6 * Lipid panel ordered * Accuchecks ACHS * Hypoglycemia protocol * ISS medium * Changed Januvia 100mg PO to Januvia 25 mg PO daily (renally dosed) 5. Hypertension Assessment/Plan * monitor vital signs * Coreg 25 mg PO BID 6. History of Seizure disorder Assessment/Plan * Keppra level pending * Home dose Keppra 500 mg PO BID- held 7. H/o Gout Assessment/Plan * Uric acid 8.7 * Allopurinol 100 mg PO daily 8. Ppx: Assessment/Plan * VTE: Heparin 5000 units SC Q8H * GI: Protonix 40 mg PO daily
--- NOTE | 2018-05-22 09:42 | CP.PCM.PN ---
<LucilleDeni - Last Filed: 05/22/18 18:01> Subjective - Date & Time of Evaluation Date of Evaluation: 05/22/18 Time of Evaluation: 09:41 - Subjective Subjective: Dr. Cage Cardiology Service. Patient seen and examined at bedside. Per nursing no acute events occurred overnight. Patient does report some shortness of breath and swelling in his lower extremities bilaterally. Patient denies any chest pain, fevers, chills ,headaches, nausea, vomiting, abdominal pain, syncopal episodes, or any other complaints. Objective - Vital Signs/Intake and Output Vital Signs (last 24 hours): Temp Pulse Resp BP Pulse Ox 98 F 68 17 125/70 96 05/22/18 06:55 05/22/18 06:55 05/22/18 06:55 05/22/18 06:55 05/22/18 06:55 - Medications Medications: Current Medications Allopurinol (Zyloprim) 100 mg PO DAILY [facility] Amlodipine Besylate (Norvasc) 10 mg PO DAILY [facility] Carvedilol (Coreg) 25 mg PO BID [facility] Last Admin: 05/21/18 18:08 Dose: 25 mg Furosemide (Lasix) 20 mg IVP BID [facility] Heparin Sodium (Porcine) (Heparin) 5,000 units SC Q8 [facility] Last Admin: 05/22/18 06:22 Dose: 5,000 units Hydrochlorothiazide (Microzide) 12.5 mg PO DAILY [facility] Insulin Aspart (Novolog) 0 unit SC ACHS [facility]; Protocol Last Admin: 05/22/18 07:37 Dose: Not Given Losartan Potassium (Cozaar) 100 mg PO DAILY [facility] Rosuvastatin Calcium (Crestor) 10 mg PO HS [facility] Sitagliptin Phosphate (Januvia) 100 mg PO DAILY [facility] - Labs Labs: 05/21/18 12:18 05/22/18 06:25 PT 13.5 SECONDS (9.7-12.2) H 05/21/18 12:18 INR 1.2 05/21/18 12:18 APTT 34 SECONDS (21-34) 05/21/18 12:18 - Head Exam Head Exam: ATRAUMATIC, NORMAL INSPECTION - Eye Exam Eye Exam: EOMI, Normal appearance, PERRL Pupil Exam: NORMAL ACCOMODATION, PERRL. absent: Irregular, Unequal - ENT Exam ENT Exam: Mucous Membranes Moist, Normal Oropharynx - Respiratory Exam Respiratory Exam: Clear to Ausculation Bilateral, NORMAL BREATHING PATTERN. absent: Prolonged Expiratory Phase, Respiratory Distress - Cardiovascular Exam Cardiovascular Exam: REGULAR RHYTHM, +S1, +S2. absent: RRR, Rubs - GI/Abdominal Exam GI & Abdominal Exam: Soft, Normal Bowel Sounds. absent: Hyperactive Bowel Sounds - Extremities Exam Extremities Exam: Full ROM, Pedal Edema - Back Exam Back Exam: NORMAL INSPECTION. absent: CVA tenderness (R), paraspinal tenderness - Neurological Exam Neurological Exam: Alert, Awake, Oriented x3 - Psychiatric Exam Psychiatric exam: Normal Affect, Normal Mood. absent: Depressed - Skin Skin Exam: Dry, Intact Assessment and Plan - Assessment and Plan (Free Text) Assessment: 67 year old male with a past medical history of hypertension, dm2, ckd, gout, and chf who presents to the hospital for chf exacerbation. Plan: 1. Acute on chronic diastolic heart failure Troponin (-)x3 BNP elevated on admission but patient has component of kidney dysfunction. Doppler taken. Final read pending. -NPO after midnight -Lexiscan in the A.M. tomorrow Medications: Lasix 40mg IVP Q12 Coreg 25mg PO BID [facility] Cozaar Held Crestor 10mg PO HS 2.CKD Nephrology consulted. Help appreciated Medications: Procrit 10,000 MWF Ferrlicet 125 mg IVP Daily Fergon 324mg PO TID [facility] Nephrovite 1 TAB PO 800 [facility] 3.DM Januvia 25mg PO Daily Plan discussed with Attending Dr. Cage. Deni Adkins, PGY-2 <Barrett Cage - Last Filed: 05/22/18 22:05> Objective - Vital Signs/Intake and Output Vital Signs (last 24 hours): Temp Pulse Resp BP Pulse Ox 97.7 F 66 20 125/69 97 05/22/18 17:13 05/22/18 17:13 05/22/18 17:13 05/22/18 21:42 05/22/18 17:13 - Medications Medications: Current Medications Allopurinol (Zyloprim) 100 mg PO DAILY [facility] Last Admin: 05/22/18 12:18 Dose: 100 mg Amlodipine Besylate (Norvasc) 10 mg PO DAILY [facility] Last Admin: 05/22/18 12:18 Dose: 10 mg Carvedilol (Coreg) 25 mg PO BID [facility] Last Admin: 05/22/18 17:39 Dose: 25 mg Epoetin Scott (Procrit) 10,000 unit SC MWF [facility] Last Admin: 05/22/18 13:34 Dose: 10,000 unit Ferric Sodium Gluconate Complex (Ferrlecit) 125 mg IVPB DAILY [facility] Stop: 05/30/18 17:01 Last Admin: 05/22/18 17:40 Dose: 125 mg Ferrous Gluconate (Fergon) 324 mg PO TID [facility] Last Admin: 05/22/18 17:40 Dose: 324 mg Furosemide (Lasix) 40 mg IVP Q12 [facility] Last Admin: 05/22/18 21:42 Dose: 40 mg Heparin Sodium (Porcine) (Heparin) 5,000 units SC Q8 [facility] Last Admin: 05/22/18 21:42 Dose: 5,000 units Hydrochlorothiazide (Microzide) 12.5 mg PO DAILY [facility] Influenza Virus Vaccine (Flucelvax Quad [id number] Syr) 60 mcg IM .ONCE ONE Stop: 05/24/18 10:01 Insulin Aspart (Novolog) 0 unit SC ACHS [facility]; Protocol Last Admin: 05/22/18 21:40 Dose: Not Given Losartan Potassium (Cozaar) 100 mg PO DAILY [facility] Pneumococcal Polyvalent Vaccine (Pneumovax 23 Vaccine) 0.5 ml IM .ONCE ONE Stop: 05/24/18 10:01 Rosuvastatin Calcium (Crestor) 10 mg PO HS [facility] Last Admin: 05/22/18 21:42 Dose: 10 mg Sitagliptin Phosphate (Januvia) 25 mg PO DAILY [facility] Last Admin: 05/22/18 13:34 Dose: 25 mg Sodium Bicarbonate (Sodium Bicarbonate Tab) 1,300 mg PO BID [facility] Last Admin: 05/22/18 17:39 Dose: 1,300 mg Vitamin B Complex/Vit C/Folic Acid (Nephro-Priscilla) 1 tab PO 0800 [facility] - Labs Labs: 05/22/18 19:50 05/22/18 06:25 PT 13.5 SECONDS (9.7-12.2) H 05/21/18 12:18 INR 1.2 05/21/18 12:18 APTT 34 SECONDS (21-34) 05/21/18 12:18 Assessment and Plan - Assessment and Plan (Free Text) Plan: Patient seen and evaluated personally by me. Plan of care d/w the medical staff services manager and as documented
[2018-05-22] MEDS ORDERED: Home Med 1 UNIT (Linagliptin [Tradjenta] 5 MG) PO SCH (10:00)
--- NOTE | 2018-05-22 12:01 | RAD ---
Date of service: 05/22/2018 HISTORY: Shortness of breath COMPARISON: 05/21/2018 single-view chest. 05/16/2017 single-view chest. TECHNIQUE: Chest PA and lateral FINDINGS: LUNGS: Left lower lobe infiltrate better seen on the current study, best seen on the lateral view. Right lower lobe infiltrate. PLEURA: Small right pleural effusion. CARDIOVASCULAR: No aortic atherosclerotic calcification present. Normal cardiac size. No pulmonary vascular congestion. OSSEOUS STRUCTURES: No significant abnormalities. VISUALIZED UPPER ABDOMEN: Normal. OTHER FINDINGS: Diaphragmatic hernia (Bochdalek's) on the left. IMPRESSION: Right lower lobe infiltrate/right pleural effusion. Left Bochdalek's hernia. No visible infiltrate left lung.
[2018-05-22 13:06] LABS: IRON 43 ug/dL (49-181)
[2018-05-22 13:07] LABS: URIC ACID 8.7 mg/dL (3.5-8.5)
[2018-05-22 13:18] LABS: % IRON SATURATION 15 (20-55); TOTAL IRON BINDING CAPACITY 280 ug/dL (250-450)
[2018-05-22 13:19] LABS: COMPLEMENT C4 24.2 mg/dL (14.0-44.0)
[2018-05-22] MEDS: Epoetin Alfa 10,000 unit/ml Dialysis SC SCH (13:34)
[2018-05-22 13:48] LABS: HIV 1&2 ANTIBODY NEGATIVE (NEGATIVE)
[2018-05-22 13:57] LABS: HEPATITIS C ANTIBODY NEGATIVE (NEGATIVE)
--- NOTE | 2018-05-22 15:04 | CP.PCM.CON ---
History of Present Illness - History of Present Illness History of Present Illness: Nephrology Consultation Note: Assessment: Stable Acute Kidney Injury (N17.9) likely due to cardio-renal syndrome. possible progression of CKD 3 Diabetic chronic Kidney Disease (E11.22) Hypertensive Chronic Kidney Disease (I12.9) Chronic Kidney Disease (N18.3) Stage 3 with ? mg proteinuria (R80.9) likely due to DM/HTN Anemia (D64.9), metabolic acidosis HTN (I12.9) CHF exacerbation, fluid overload Plan No acute need for renal replacement therapy at this time. Hypertension control with meds as ordered. Maintain hemodynamics stable. Avoid hypotension. Patient ARB held due to recent MICHELLE. will resume once volume status optimized and stable renal function Monitor Input/Output, daily weights and renal function with basic metabolic panel started iron, MVI and epogen. PRBC as needed added sodium bicarb 1300 mg bid diurese with IV lasix 80 mg bid. may need metolazone to add if not adequate response cardiology evaluation Check urine analysis, spot protein/creatinine, albumin/creatinine ratio, uric acid, renal and bladder sonogram Check GN work up as C3, C4, DINORAH, Anti dsDNA, HIV/Hep B and Hep C serology Anemia work up with TSAT/Ferritin/Vitamin B12/folate, serum protein electrophoresis with immunofixation, serum free light chain assay (Pender/Lambda) Check for 25-OH vitamin D, iPTH, phosphorus level. Dose meds/antibiotics for reduced GFR. Avoid fleets enema/magnesium based laxatives. Avoid nephrotoxins/NSAIDs/ iodinated contrast (unless needed emergently) Glycemic control Further work up/management as per primary team Thanks for allowing me to participate in care of your patient. Will follow patient with you. Please call if any Qs. had d/w team Dr Jovan Haynes Office: [phone] Chief Complaint; SOB Reason for consult: Acute Kidney Injury on CKD HPI: Pt is a with hx of diabetes Mellitus (>10 years) with retinopathy s/p laser surgery, hypertension (>10 years) CKF, CKD 3 with baseline cr 1.8-22 in apr 2017 seizure presented with complaints of worsening SOB on exertion and lying down. admitted for CHF exacerbation. renal consult for MICHELLE on CKD 3. pt c/o leg swelling, cough. admits to drinking etoh 2 times a week, few sips of tequila as per per. denies smoking/drugs. not aware about kidney disease in past Denies OTC/herbal meds or NSAIDs No recent iodinated contrast exposure. No obvious episodes of low BP. ROS: Cardiovascular: No chest pain. Pulmonary: c/o shortness of breath Gastrointestinal: denies abdominal pain No nausea. No vomiting. Genitourinary: No pain while urinating. Denies blood in urine. has nocturia 3-4 times/night All other negative except as mentioned in HPI Physical Examination: General Appearance: Comfortable, in no acute respiratory distress, co-operative . Vitals reviewed and noted as below Head; Atraumatic, normocephalic ENT: no ulcers no thrush. Tongue is midline. Oropharynx: no rash or ulcers. EYES: Pupils are equal, round and reactive to light accommodation. Eye muscles and extraocular movement intact. Sclera is anicteric. Neck; supple no lymphadenopathy, no thyromegaly or bruit Lungs: Normal respiratory rate/effort. Breath sounds bilateral reduced at bases with crackles Heart: Normal rate. s1s2 normal. No rub or gallop. Extremities: 2-3+ edema. No varicose veins Neurological: Patient is alert, awake and oriented to person, place and time. No focal deficit. Strength bilateral appropriate and equal Skin: Warm and dry. Normal turgor. No rash. Palpitation: Normal elasticity for age Abdomen: Abdomen is soft. Bowel sounds +. There is no abdominal tenderness, no guarding/rigidity no organomegaly. ? ascites. Psych: limited insight and normal affect/mood MSK: no joint tenderness or swelling. Digits and nails normal, no deformity : kidney or bladder not palpable Labs/imaging reviewed. Past medical history, past surgical history, family history, social history, allergy reviewed and noted as below Family hx: no hx of CKD. Rest non-contributory Past Patient History - Past Medical History & Family History Past Medical History?: Yes - Past Social History Smoking Status: Never Smoked - CARDIAC Hx Congestive Heart Failure: Yes Hx Hypercholesterolemia: Yes Hx Hypertension: Yes - PULMONARY Hx Respiratory Disorders: No - NEUROLOGICAL Hx Seizures: Yes - HEENT Hx HEENT Problems: No - RENAL Hx Chronic Kidney Disease: No - ENDOCRINE/METABOLIC Hx Diabetes Mellitus Type 2: Yes - HEMATOLOGICAL/ONCOLOGICAL Hx Blood Disorders: No - INTEGUMENTARY Hx Dermatological Problems: No - MUSCULOSKELETAL/RHEUMATOLOGICAL Hx Falls: No Hx Gout: Yes - GASTROINTESTINAL Hx Gastrointestinal Disorders: No - GENITOURINARY/GYNECOLOGICAL Hx Genitourinary Disorders: No - PSYCHIATRIC Hx Substance Use: No - SURGICAL HISTORY Hx Surgeries: Yes Hx Orthopedic Surgery: Yes (Right foot) - ANESTHESIA Hx Anesthesia: Yes Meds Allergies/Adverse Reactions: Allergies Allergy/AdvReac Type Severity Reaction Status Date / Time No Known Allergies Allergy Verified 05/16/17 13:16 - Medications Medications: Current Medications Allopurinol (Zyloprim) 100 mg PO DAILY [facility] Last Admin: 05/22/18 12:18 Dose: 100 mg Amlodipine Besylate (Norvasc) 10 mg PO DAILY [facility] Last Admin: 05/22/18 12:18 Dose: 10 mg Carvedilol (Coreg) 25 mg PO BID [facility] Last Admin: 05/22/18 12:18 Dose: 25 mg Epoetin Scott (Procrit) 10,000 unit SC MWF [facility] Last Admin: 05/22/18 13:34 Dose: 10,000 unit Ferrous Gluconate (Fergon) 324 mg PO TID [facility] Last Admin: 05/22/18 13:46 Dose: 324 mg Furosemide (Lasix) 20 mg IVP BID [facility] Heparin Sodium (Porcine) (Heparin) 5,000 units SC Q8 [facility] Last Admin: 05/22/18 13:34 Dose: 5,000 units Hydrochlorothiazide (Microzide) 12.5 mg PO DAILY [facility] Influenza Virus Vaccine (Flucelvax Quad [id number] Syr) 60 mcg IM .ONCE ONE Stop: 05/24/18 10:01 Insulin Aspart (Novolog) 0 unit SC ACHS [facility]; Protocol Last Admin: 05/22/18 13:35 Dose: 3 units Losartan Potassium (Cozaar) 100 mg PO DAILY [facility] Pneumococcal Polyvalent Vaccine (Pneumovax 23 Vaccine) 0.5 ml IM .ONCE ONE Stop: 05/24/18 10:01 Rosuvastatin Calcium (Crestor) 10 mg PO HS [facility] Sitagliptin Phosphate (Januvia) 25 mg PO DAILY [facility] Last Admin: 05/22/18 13:34 Dose: 25 mg Sodium Bicarbonate (Sodium Bicarbonate Tab) 1,300 mg PO BID [facility] Last Admin: 05/22/18 13:34 Dose: 1,300 mg Vitamin B Complex/Vit C/Folic Acid (Nephro-Priscilla) 1 tab PO 0800 [facility] Results - Vital Signs Recent Vital Signs: Last Vital Signs Temp 97.6 F 05/22/18 13:25 Pulse 69 05/22/18 13:25 Resp 18 05/22/18 13:25 BP 135/75 05/22/18 13:25 Pulse Ox 94 L 05/22/18 13:25 - Labs Result Diagrams: 05/21/18 12:18 05/22/18 06:25 Labs: Laboratory Results - last 24 hr 05/21/18 05/22/18 05/22/18 19:29 00:43 03:09 Sodium Potassium Chloride Carbon Dioxide Anion Gap BUN Creatinine Est GFR ( Amer) Est GFR (Non-Af Amer) POC Glucose (mg/dL) 193 H Random Glucose Hemoglobin A1c Uric Acid Calcium Iron TIBC % Saturation Ferritin Total Bilirubin AST ALT Alkaline Phosphatase Total Creatine Kinase 140 127 CK-MB (Mass) 2.16 1.69 Troponin I < 0.0120 < 0.0120 Total Protein Albumin Globulin Albumin/Globulin Ratio Free T4 TSH 3rd Generation Complement C3 Complement C4 Hep Bs Antibody Hepatitis C Antibody HIV 1&2 Antibody Screen 05/22/18 05/22/18 05/22/18 03:09 03:09 03:09 Sodium Potassium Chloride Carbon Dioxide Anion Gap BUN Creatinine Est GFR ( Amer) Est GFR (Non-Af Amer) POC Glucose (mg/dL) Random Glucose Hemoglobin A1c 8.6 H Uric Acid Calcium Iron TIBC % Saturation Ferritin Total Bilirubin AST ALT Alkaline Phosphatase Total Creatine Kinase CK-MB (Mass) Troponin I Total Protein Albumin Globulin Albumin/Globulin Ratio Free T4 0.80 TSH 3rd Generation 3.12 Complement C3 Complement C4 Hep Bs Antibody Hepatitis C Antibody HIV 1&2 Antibody Screen 05/22/18 05/22/18 05/22/18 06:25 07:18 12:17 Sodium 144 Potassium 5.2 Chloride 120 H Carbon Dioxide 14 L Anion Gap 15 BUN 52 H Creatinine 2.8 H Est GFR ( Amer) 28 Est GFR (Non-Af Amer) 23 POC Glucose (mg/dL) 139 H 201 H Random Glucose 160 H D Hemoglobin A1c Uric Acid Calcium 8.3 L Iron TIBC % Saturation Ferritin Total Bilirubin 0.2 AST 28 ALT 28 Alkaline Phosphatase 124 Total Creatine Kinase CK-MB (Mass) Troponin I Total Protein 6.5 Albumin 3.7 Globulin 2.8 Albumin/Globulin Ratio 1.3 Free T4 TSH 3rd Generation Complement C3 Complement C4 Hep Bs Antibody Hepatitis C Antibody HIV 1&2 Antibody Screen 05/22/18 05/22/18 05/22/18 12:49 12:49 12:49 Sodium Potassium Chloride Carbon Dioxide Anion Gap BUN Creatinine Est GFR ( Amer) Est GFR (Non-Af Amer) POC Glucose (mg/dL) Random Glucose Hemoglobin A1c Uric Acid 8.7 H Calcium Iron 43 L TIBC 280 % Saturation 15 L Ferritin 49.0 Total Bilirubin AST ALT Alkaline Phosphatase Total Creatine Kinase CK-MB (Mass) Troponin I Total Protein Albumin Globulin Albumin/Globulin Ratio Free T4 TSH 3rd Generation Complement C3 Complement C4 Hep Bs Antibody Negative Hepatitis C Antibody Negative HIV 1&2 Antibody Screen Negative 05/22/18 12:49 Sodium Potassium Chloride Carbon Dioxide Anion Gap BUN Creatinine Est GFR ( Amer) Est GFR (Non-Af Amer) POC Glucose (mg/dL) Random Glucose Hemoglobin A1c Uric Acid Calcium Iron TIBC % Saturation Ferritin Total Bilirubin AST ALT Alkaline Phosphatase Total Creatine Kinase CK-MB (Mass) Troponin I Total Protein Albumin Globulin Albumin/Globulin Ratio Free T4 TSH 3rd Generation Complement C3 104.0 Complement C4 24.2 Hep Bs Antibody Hepatitis C Antibody HIV 1&2 Antibody Screen
[2018-05-22 15:21] LABS: HEPATITIS B SURFACE AG Negative (NEGATIVE)
[2018-05-22 15:25] LABS: HEPATITIS B CORE AB NEGATIVE (NEGATIVE)
[2018-05-22 15:55] LABS: FOLATE 9.9 ng/mL
[2018-05-22] MEDS: Ferric Sodium Gluconat Complex 62.5 mg/5 ml Vial IVPB SCH (17:40)
--- NOTE | 2018-05-22 18:40 | US ---
Date of service: 05/22/2018 PROCEDURE: Renal/urinary bladder ultrasound HISTORY: MICHELLE. please assess for PVR as well COMPARISON: None available. TECHNIQUE: Sonogram of the kidneys and urinary bladder. FINDINGS: RIGHT KIDNEY: Measures: 10.4 x 5.4 x 5.6 cm. No obstructing calculus, hydronephrosis, or renal cyst identified. LEFT KIDNEY: Measures: 11.9 x 5.4 x 5.0 cm. No obstructing calculus, hydronephrosis, or renal cyst identified. OTHER FINDINGS: Prevoid urinary bladder measures 6.7 x 3.8 x 4.1 cm, calculated volume 81.4 mL. Postvoid urinary bladder 3.8 x 1.5 x 2.7 cm, calculated volume 8.1 mL. Right ureteral jet is not identified. Right ureteral jet is present. The prostate gland measures approximately 4.3 x 3.4 x 4.3 cm. IMPRESSION: No obstructing calculus, hydronephrosis, or renal cyst identified. Prevoid urinary bladder volume 81.4 mL. Postvoid urinary bladder volume 8.1 mL. Right ureteral jet is not identified. Right ureteral jet is present. Enlarged prostate gland. Recommend correlation with PSA.
--- NOTE | 2018-05-22 18:44 | CARD ---
APPROVED REPORT Date of service: 05/22/2018 EXAM: Two-dimensional and M-mode echocardiogram with Doppler and color Doppler. INDICATION Dyspnea Congestive Heart Failure pedal edema ,ckd RISK FACTORS Hypertension Hyperlipidemia Diabetes 2D DIMENSIONS IVSd0.9 (0.7-1.1cm)LVDd5.8 (3.9-5.9cm) PWd1.1 (0.7-1.1cm)LA [id number] (18-58mL) LVDs4.0 (2.5-4.0cm)FS (%) 30.6 % LVEF (%)57.3 (>50%)LVEF (Calderon's)54.25 % M-Mode DIMENSIONS Left Atrium (MM)4.89 (2.5-4.0cm)IVSd0.81 (0.7-1.1cm) Aortic Root3.43 (2.2-3.7cm)LVDd7.17 (4.0-5.6cm) Aortic Cusp Exc.2.30 (1.5-2.0cm)PWd0.89 (0.7-1.1cm) FS (%) 32 %LVDs4.87 (2.0-3.8cm) LVEF (%)59 (>50%) Mitral Valve MV E Gyzkgbtj700.4cm/sMV A Xqsafczh48.8cm/sE/A ratio1.6 TDI Lateral E' Peak V8.29cm/sMedial E' Peak V6.74cm/sE/Lateral E'15.4 E/Medial E'18.9 Tricuspid Valve TR Peak [id number]/sTR Peak Gr.[id number] LEFT VENTRICLE The left ventricle is normal size. There is normal left ventricular wall thickness. The left ventricular function is normal. The left ventricular ejection fraction is within the normal range. There is normal LV segmental wall motion. The left ventricular diastolic function is normal. RIGHT VENTRICLE The right ventricle is normal size. ATRIA The left atrium is mildly dilated. The right atrium size is normal. AORTIC VALVE The aortic valve is normal in structure. MITRAL VALVE Mitral regurgitation is trace. TRICUSPID VALVE There is moderate tricuspid regurgitation. <Conclusion> Normal LV systolic function. Dilated LA. Trace MR. Moderate TR.
[2018-05-22 20:11] LABS: BASO % 0.5 % (0.0-2.0); EOS # 0.3 K/uL (0.0-0.7); EOS % 5.2 % (0.0-4.0); HEMOGLOBIN 7.8 g/dL (12.0-18.0); LYMPH # 1.4 K/uL (1.0-4.3); LYMPH % 20.9 % (20.0-40.0); MEAN CELL VOLUME 97.8 fL (80.0-94.0); MEAN CORPUSCULAR HEMOGLOBIN 31.4 pg (27.0-31.0); MEAN CORPUSCULAR HGB CONC 32.1 g/dL (33.0-37.0); MEAN PLATELET VOLUME 9.3 fL (7.2-11.7); MONO # 0.7 K/uL (0.0-0.8); MONO % 10.5 % (0.0-10.0); NEUT # 4.2 K/uL (1.8-7.0); NEUT % 62.9 % (50.0-75.0); RBC 2.49 Mil/uL (4.40-5.90); RED CELL DISTRIBUTION WIDTH 14.6 % (11.5-14.5); WHITE BLOOD COUNT 6.6 K/uL (4.8-10.8)
--- NOTE | 2018-05-23 07:21 | CP.PCM.PN ---
<Cynthia Radford - Last Filed: 05/23/18 19:53> Subjective - Date & Time of Evaluation Date of Evaluation: 05/23/18 Time of Evaluation: 07:20 - Subjective Subjective: PGY-1 Cynthia Radford D.O. Medicine progress note for Dr. Barbosa's service: Patient was seen and examined this morning. He says his breathing is better but he is still concerned about his edema. He is tolerating diet and urinating without symptoms. Denies chest pain. Objective - Vital Signs/Intake and Output Vital Signs (last 24 hours): Temp Pulse Resp BP Pulse Ox 97.4 F L 70 20 133/74 98 05/22/18 23:00 05/23/18 04:17 05/22/18 23:00 05/22/18 23:00 05/22/18 23:00 - Medications Medications: Current Medications Allopurinol (Zyloprim) 100 mg PO DAILY [facility] Last Admin: 05/22/18 12:18 Dose: 100 mg Amlodipine Besylate (Norvasc) 10 mg PO DAILY [facility] Last Admin: 05/22/18 12:18 Dose: 10 mg Carvedilol (Coreg) 25 mg PO BID [facility] Last Admin: 05/22/18 17:39 Dose: 25 mg Epoetin Scott (Procrit) 10,000 unit SC MWF [facility] Last Admin: 05/22/18 13:34 Dose: 10,000 unit Ferric Sodium Gluconate Complex (Ferrlecit) 125 mg IVPB DAILY [facility] Stop: 05/30/18 17:01 Last Admin: 05/22/18 17:40 Dose: 125 mg Ferrous Gluconate (Fergon) 324 mg PO TID [facility] Last Admin: 05/22/18 17:40 Dose: 324 mg Furosemide (Lasix) 40 mg IVP Q12 [facility] Last Admin: 05/22/18 21:42 Dose: 40 mg Heparin Sodium (Porcine) (Heparin) 5,000 units SC Q8 [facility] Last Admin: 05/23/18 05:48 Dose: 5,000 units Hydrochlorothiazide (Microzide) 12.5 mg PO DAILY [facility] Influenza Virus Vaccine (Flucelvax Quad [id number] Syr) 60 mcg IM .ONCE ONE Stop: 05/24/18 10:01 Insulin Aspart (Novolog) 0 unit SC ACHS [facility]; Protocol Last Admin: 05/22/18 21:40 Dose: Not Given Losartan Potassium (Cozaar) 100 mg PO DAILY [facility] Pneumococcal Polyvalent Vaccine (Pneumovax 23 Vaccine) 0.5 ml IM .ONCE ONE Stop: 05/24/18 10:01 Rosuvastatin Calcium (Crestor) 10 mg PO HS [facility] Last Admin: 05/22/18 21:42 Dose: 10 mg Sitagliptin Phosphate (Januvia) 25 mg PO DAILY [facility] Last Admin: 05/22/18 13:34 Dose: 25 mg Sodium Bicarbonate (Sodium Bicarbonate Tab) 1,300 mg PO BID [facility] Last Admin: 05/22/18 17:39 Dose: 1,300 mg Vitamin B Complex/Vit C/Folic Acid (Nephro-Priscilla) 1 tab PO 0800 [facility] - Labs Labs: 05/22/18 19:50 05/22/18 06:25 PT 13.5 SECONDS (9.7-12.2) H 05/21/18 12:18 INR 1.2 05/21/18 12:18 APTT 34 SECONDS (21-34) 05/21/18 12:18 - Additional Findings Additional findings: - Constitutional Appears: Non-toxic, No Acute Distress - Head Exam Head Exam: ATRAUMATIC, NORMAL INSPECTION - Eye Exam Eye Exam: EOMI, Normal appearance, PERRL - ENT Exam ENT Exam: Mucous Membranes Moist - Neck Exam Neck Exam: Normal Inspection - Respiratory Exam Respiratory Exam: Rales, NORMAL BREATHING PATTERN. absent: Respiratory Distress - Cardiovascular Exam Cardiovascular Exam: RRR, +S1, +S2 - GI/Abdominal Exam GI & Abdominal Exam: Soft. absent: Distended, Tenderness - Extremities Exam Additional comments: b/l pedal edema 2+ up to just below patellas chronic skin changes on ankles and feet consistent with venous stasis - Back Exam Back Exam: NORMAL INSPECTION - Neurological Exam Neurological Exam: Alert, Awake, CN II-XII Intact, Normal Gait (slow), Oriented x3 - Psychiatric Exam Psychiatric exam: Normal Affect, Normal Mood - Skin Skin Exam: Dry, Intact, Normal Color, Warm Assessment and Plan - Assessment and Plan (Free Text) Assessment: Patient is a 67 year old female with history of HTN, seizures, T2DM, CHF, and CKD who presented with SOB and pedal edema. Treatign acute CHF exacerbation. Also found to have acute on chronic renal failure. Patient had stress test and cardiology recommends a cardiac cath. Plan: Congestive heart failure acute exacerbation - BNP 1550 - TSH, free T4 wnl - BANDAR negative x3 - Venous Dopplers: no DVT - Echo: normal EF, dilated LA, mod TR - Daily weights - Strict Is&Os - Fluid restriction - f/u Lexiscan - Compression stockings - Lasix 40 mg IV Q12H - Coreg 25 mg PO BID - Cardiology consulted ([place])- rec cardiac cath Acute on chronic renal failure - BUN 49, Cr 2.5- monitor - Renal US: enlarged prostate - Procrit 10,000 MWF - Ferrlicet 125 mg IVP daily - Fergon 324mg PO TID - Nephrovite PO daily - Sodium bicarb 1300 mg PO BID - Nephrology consulted ([place]) Anemia- suspect related to kidney failure - B12, folate wnl - Iron low (43), ferritin wnl - Procrit 10,000 MWF Type 2 diabetes mellitus - A1c 8.6 - Lipids pending - Accuchecks ACHS - Hypoglycemia protocol - ISS medium - Januvia 25 mg PO daily (renally dosed) Hypertension - Vitals Q6H - Patient on Losartan and HCTZ at home- holding due to kidney function - Coreg 25 mg PO BID - Lasix 40 mg IV Q12H Seizure disorder - Keppra level pending - Home dose Keppra 500 mg PO BID- held H/o Gout - Uric acid 8.7 - Allopurinol 100 mg PO daily Ppx: VTE: Heparin 5000 units SC Q8H GI: PTX 40 mg PO daily Code status: full code Case discussed with attending, Dr. Barbosa. <Lynn Barbosa V - Last Filed: 05/26/18 22:57> Objective - Vital Signs/Intake and Output Vital Signs (last 24 hours): Temp Pulse Resp BP Pulse Ox 97.8 F 78 20 147/66 94 L 05/26/18 16:00 05/26/18 16:00 05/26/18 16:00 05/26/18 22:14 05/26/18 16:00 Intake and Output: 05/26/18 05/27/18 18:59 06:59 Intake Total 100 Output Total 500 Balance -400 - Medications Medications: Current Medications Allopurinol (Zyloprim) 300 mg PO DAILY [facility] Last Admin: 05/26/18 09:51 Dose: 300 mg Carvedilol (Coreg) 25 mg PO BID [facility] Last Admin: 05/26/18 17:49 Dose: 25 mg Cyanocobalamin (Vitamin B12 1000 Mcg Tab) 1,000 mcg PO DAILY [facility] Last Admin: 05/26/18 09:52 Dose: 1,000 mcg Epoetin Scott (Procrit) 10,000 unit SC MWF [facility] Last Admin: 05/26/18 09:58 Dose: 10,000 unit Ferrous Gluconate (Fergon) 324 mg PO TID [facility] Last Admin: 05/26/18 17:49 Dose: 324 mg Furosemide (Lasix) 40 mg IVP Q12H [facility] Last Admin: 05/26/18 22:14 Dose: 40 mg Heparin Sodium (Porcine) (Heparin) 5,000 units SC Q8 [facility] Last Admin: 05/26/18 22:16 Dose: 5,000 units Ferric Sodium Gluconate Complex 125 mg/ Sodium Chloride 110 mls @ 100 mls/hr I VPB DAILY [facility] Stop: 05/30/18 17:01 Last Admin: 05/26/18 10:00 Dose: 100 mls/hr Insulin Aspart (Novolog) 0 unit SC ACHS [facility]; Protocol Last Admin: 05/26/18 21:38 Dose: Not Given Levetiracetam (Keppra) 500 mg PO BID [facility] Last Admin: 05/26/18 17:49 Dose: 500 mg Rosuvastatin Calcium (Crestor) 10 mg PO HS [facility] Last Admin: 05/26/18 22:16 Dose: 10 mg Sitagliptin Phosphate (Januvia) 25 mg PO DAILY [facility] Last Admin: 05/26/18 09:51 Dose: 25 mg Sodium Bicarbonate (Sodium Bicarbonate Tab) 1,300 mg PO BID [facility] Last Admin: 05/26/18 17:48 Dose: 1,300 mg Tamsulosin HCl (Flomax) 0.4 mg PO DAILY [facility] Last Admin: 05/26/18 09:52 Dose: 0.4 mg Vitamin B Complex/Vit C/Folic Acid (Nephro-Priscilla) 1 tab PO 0800 [facility] Last Admin: 05/26/18 09:52 Dose: 1 tab - Labs Labs: 05/26/18 07:04 05/26/18 07:04 PT 13.5 SECONDS (9.7-12.2) H 05/21/18 12:18 INR 1.2 05/21/18 12:18 APTT 34 SECONDS (21-34) 05/21/18 12:18 Attending/Attestation - Attestation I have personally seen and examined this patient.: Yes I have fully participated in the care of the patient.: Yes I have reviewed all pertinent clinical information, including history, physical exam and plan: Yes Notes (Text): This is late computer entry for 05/23/18. Patient seen, examined and case discussed with day-time resident. Patient underwent stress test in the morning with cardiology; patient seen in the afternoon. Patient reports symptoms about the same. W Assessment/Plan 1. Congestive heart failure acute exacerbation, suspected systolic Assessment/Plan * Cardiology (Dr. Cage) employment educational coord-->help appreciated * Ordered for stress test-->follow-up * Monitor on telemetry * Daily weights * Monitor intake and output * Coreg 25mg PO BID * HCTZ 12.5mg PO daily * Cozaar 100mg PO daily--Hold given borderline hyperkalemia * Crestor 10mg POqHS * BNP 1550 * TSH, free T4 wnl * BANDAR negative x3 * Venous Dopplers: no evidence of deep or superficial vein thrombosis, valvular incompetence of right and left poplitel and greater saphenous veins. * Echo: normal EF, dilated LA, mod TR * Diuresis; dosing adjusted between cardiology and nephrology * Chest xray (05/21/18): moderate to severe venous congestion. moderate left and small right pleural effusion. consolidative changes in the mid to lower lung zones. cardiomegaly. * Chest xray (05/22/18): right lower lobe infiltrate/right pleural effusion. left bechdalek's hernia. No visible infiltrate left lung. 2. Acute on chronic renal failure Assessment/Plan * Nephrology (Dr. Morfin) employment educational coord-->help appreciated * BUN 28, Cr 2.8- monitor * Renal US (05/22/18): no obstructing calculus, hydronephrosis, or renal cyst identified. Prevoid urinary bladder volume 81.4ml. Postvoid urinary bladder volume 8.1ML. Right ureteral jet is not identifed. Enlarged prostate gland. * Procrit 10,000 MWF * Ferrlicet 125 mg IVP daily * Fergon 324mg PO TID * Nephrovite PO daily 3. Anemia- suspect related to kidney failure Assessment/Plan * suspect anemia of chronic disease given underlying renal disease * B12, folate wnl * Iron low (43), ferritin wnl * Ferrlicet 125 mg IVP daily * Fergon 324mg PO TID 4. Type 2 diabetes mellitus Assessment/Plan * A1c 8.6 * Lipid panel ordered * Accuchecks ACHS * Hypoglycemia protocol * ISS medium * Changed Januvia 100mg PO to Januvia 25 mg PO daily (renally dosed) 5. Hypertension Assessment/Plan * monitor vital signs * Coreg 25 mg PO BID 6. History of Seizure disorder Assessment/Plan * Keppra level pending * Home dose Keppra 500 mg PO BID- held 7. H/o Gout Assessment/Plan * Uric acid 8.7 * Allopurinol 100 mg PO daily 8. Leg edema Assessment/Plan * suspect secondary to CHF * venous dopplers negative for DVT * Will provide aron stockings and elevate the legs to reduce edema 9. Ppx: Assessment/Plan * VTE: Heparin 5000 units SC Q8H * GI: Protonix 40 mg PO daily
[2018-05-23 07:23] LABS: BASO % 0.4 % (0.0-2.0); EOS # 0.4 K/uL (0.0-0.7); EOS % 5.9 % (0.0-4.0); HEMOGLOBIN 9.1 g/dL (12.0-18.0); LYMPH # 1.3 K/uL (1.0-4.3); LYMPH % 18.6 % (20.0-40.0); MEAN CELL VOLUME 96.7 fL (80.0-94.0); MEAN CORPUSCULAR HEMOGLOBIN 31.7 pg (27.0-31.0); MEAN CORPUSCULAR HGB CONC 32.8 g/dL (33.0-37.0); MEAN PLATELET VOLUME 9.4 fL (7.2-11.7); MONO # 0.7 K/uL (0.0-0.8); MONO % 9.9 % (0.0-10.0); NEUT # 4.6 K/uL (1.8-7.0); NEUT % 65.2 % (50.0-75.0); RBC 2.86 Mil/uL (4.40-5.90); RED CELL DISTRIBUTION WIDTH 14.2 % (11.5-14.5)
[2018-05-23 07:40] LABS: SQUAMOUS EPITHIAL 1 /hpf (0-5); URINE BILIRUBIN NEGATIVE (NEGATIVE); URINE BLOOD NEGATIVE (NEGATIVE); URINE CLARITY Clear (Clear); URINE COLOR Yellow (YELLOW); URINE GLUCOSE (UA) NORMAL (Normal); URINE HYALINE CAST 0-2 /lpf (0-2); URINE LEUKOCYTE ESTERASE NEG Leu/uL (Negative); URINE PROTEIN 1+ mg/dL (NEGATIVE); URINE UROBILINOGEN NORMAL mg/dL (0.2-1.0)
[2018-05-23] MEDS: (Novolog) Insulin Aspart, Recombinant 100 u/ml 10 ml vial SC SCH ×4 (07:43→21:20)
[2018-05-23 08:12] LABS: ALB/GLOB RATIO 1.4 (1.0-2.1); ALBUMIN 4.4 g/dL (3.5-5.0); CALCIUM 8.6 mg/dl (8.6-10.4)
[2018-05-23] MEDS ORDERED: Caffeine Citrated **INJ** 20 MG/ML IV ONE (08:33)
[2018-05-23] MEDS: Multivitamin Vitamin B Complex (Nephro-Vite) Tab PO SCH (08:53)
[2018-05-23] MEDS ORDERED: Ergocalciferol 50,000 Intl Units Cap PO ONE (10:28)
[2018-05-23] MEDS: Ferric Sodium Gluconat Complex 62.5 mg/5 ml Vial IVPB SCH (10:53)
--- NOTE | 2018-05-23 11:06 | VASCLAB ---
Date of service: 05/22/2018 PROCEDURE: Lower Extremity Venous Duplex Exam. HISTORY: Bilateral pedal edema PRIORS: None. TECHNIQUE: Bilateral common femoral, femoral, popliteal and posterior tibial, peroneal and great saphenous veins were evaluated. Flow was assessed with color Doppler, compressibility, assessment of phasic flow and augmentation response. Report prepared by Shaka Glover, BS, RVT FINDINGS: RIGHT: 1. Common Femoral Vein: 1.1. Compressibility - Fully compressible: Thrombus - None : Flow - Phasic: Augmentation -Normal: Reflux - None. 2. Femoral Vein: 2.1. Compressibility - Fully compressible: Thrombus - None : Flow - Phasic: Augmentation -Normal: Reflux - None. 3. Popliteal Vein: 3.1. Compressibility - Fully compressible: Thrombus - None : Flow - Phasic: Augmentation -Normal: Reflux - Yes. 4. Posterior Tibial Vein: 4.1. Compressibility - Fully compressible: Thrombus - None: Flow - Phasic: Augmentation -Normal: Reflux - None. 5. Peroneal Vein: 5.1. Compressibility - Fully compressible: Thrombus - None: Flow - Phasic: Augmentation -Normal: Reflux - None. 6. Great Saphenous Vein: 6.1. Compressibility - Fully compressible: Thrombus - None: Flow - Phasic: Augmentation - Normal: Reflux - Yes. LEFT: 1. Common Femoral Vein: 1.1. Compressibility - Fully compressible: Thrombus - None: Flow - Phasic: Augmentation -Normal: Reflux - None. 2. Femoral Vein: 2.1. Compressibility - Fully compressible: Thrombus - None: Flow - Phasic: Augmentation -Normal: Reflux - None. 3. Popliteal Vein: 3.1. Compressibility - Fully compressible: Thrombus - None : Flow - Phasic: Augmentation -Normal: Reflux - Yes. 4. Posterior Tibial Vein: 4.1. Compressibility - Fully compressible: Thrombus - None: Flow - Phasic: Augmentation -Normal: Reflux - None. 5. Peroneal Vein: 5.1. Compressibility - Fully compressible: Thrombus - None: Flow - Phasic: Augmentation -Normal: Reflux - None. 6. Great Saphenous Vein: 6.1. Compressibility - Fully compressible: Thrombus - None: Flow - Phasic: Augmentation - Normal: Reflux - Yes. OTHER FINDINGS: Right: None significant. Left: None significant. IMPRESSION: Right: No evidence of deep or superficial vein thrombosis of the right lower extremity. Valvular incompetence of the right popliteal and greater saphenous veins. Left: No evidence of deep or superficial vein thrombosis of the left lower extremity. Valvular incompetence of the left popliteal and greater saphenous veins.
--- NOTE | 2018-05-23 12:39 | CP.PCM.PN ---
Subjective - Date & Time of Evaluation Date of Evaluation: 05/23/18 Time of Evaluation: 12:38 - Subjective Subjective: Nephrology Consultation Note: Assessment: Stable Acute Kidney Injury (N17.9) likely due to cardio-renal syndrome. possible progression of CKD 3 Diabetic chronic Kidney Disease (E11.22) Hypertensive Chronic Kidney Disease (I12.9) Chronic Kidney Disease (N18.3) Stage 3 with ? mg proteinuria (R80.9) likely due to DM/HTN Anemia (D64.9), metabolic acidosis HTN (I12.9) CHF exacerbation, fluid overload Plan No acute need for renal replacement therapy at this time. Hypertension control with meds as ordered. Maintain hemodynamics stable. Avoid hypotension. Patient ARB held due to recent MICHELLE. will resume once volume status optimized and stable renal function Monitor Input/Output, daily weights and renal function with basic metabolic panel started iron, MVI and epogen. PRBC as needed added sodium bicarb 1300 mg bid diurese with IV lasix bid. may need metolazone to add and/or increase lasix dose if not adequate response cardiology evaluation added b12 and vitamin d once a month as well Check urine analysis, spot protein/creatinine, albumin/creatinine ratio, uric acid, renal and bladder sonogram Check GN work up as C3, C4, DINORAH, Anti dsDNA, HIV/Hep B and Hep C serology Anemia work up with TSAT/Ferritin/Vitamin B12/folate, serum protein electrophoresis with immunofixation, serum free light chain assay ([place]/Lambda) Check for 25-OH vitamin D, iPTH, phosphorus level. Dose meds/antibiotics for reduced GFR. Avoid fleets enema/magnesium based laxatives. Avoid nephrotoxins/NSAIDs/ iodinated contrast (unless needed emergent ly) Glycemic control Further work up/management as per primary team Thanks for allowing me to participate in care of your patient. Will follow patient with you. Please call if any Qs. had d/w team Dr Jovan Haynes Office: [phone] Chief Complaint; SOB Reason for consult: Acute Kidney Injury on CKD HPI: Pt is a with hx of diabetes Mellitus (>10 years) with retinopathy s/p laser surgery, hypertension (>10 years) CKF, CKD 3 with baseline cr 1.8-22 in apr 2017 seizure presented with complaints of worsening SOB on exertion and lying down. admitted for CHF exacerbation. renal consult for MICHELLE on CKD 3. pt c/o leg swelling, cough. admits to drinking etoh 2 times a week, few sips of tequila as per per. denies smoking/drugs. not aware about kidney disease in past Denies OTC/herbal meds or NSAIDs No recent iodinated contrast exposure. No obvious episodes of low BP. ROS: Cardiovascular: No chest pain. Pulmonary: improved shortness of breath Gastrointestinal: denies abdominal pain No nausea. No vomiting. Genitourinary: No pain while urinating. Denies blood in urine. has nocturia 3-4 times/night All other negative except as mentioned in HPI Physical Examination: General Appearance: Comfortable, in no acute respiratory distress, co-operative . Vitals reviewed and noted as below Head; Atraumatic, normocephalic ENT: no ulcers no thrush. Tongue is midline. Oropharynx: no rash or ulcers. EYES: Pupils are equal, round and reactive to light accommodation. Eye muscles and extraocular movement intact. Sclera is anicteric. Neck; supple no lymphadenopathy, no thyromegaly or bruit Lungs: Normal respiratory rate/effort. Breath sounds bilateral reduced at bases with crackles Heart: Normal rate. s1s2 normal. No rub or gallop. Extremities: 2-3+ edema. No varicose veins Neurological: Patient is alert, awake and oriented to person, place and time. No focal deficit. Strength bilateral appropriate and equal Skin: Warm and dry. Normal turgor. No rash. Palpitation: Normal elasticity for age Abdomen: Abdomen is soft. Bowel sounds +. There is no abdominal tenderness, no guarding/rigidity no organomegaly. ? ascites. Psych: limited insight and normal affect/mood MSK: no joint tenderness or swelling. Digits and nails normal, no deformity : kidney or bladder not palpable Labs/imaging reviewed. Past medical history, past surgical history, family history, social history, allergy reviewed and noted as below Family hx: no hx of CKD. Rest non-contributory Objective - Vital Signs/Intake and Output Vital Signs (last 24 hours): Temp Pulse Resp BP Pulse Ox 97.9 F 68 20 131/65 97 05/23/18 08:00 05/23/18 12:00 05/23/18 08:00 05/23/18 08:00 05/23/18 08:00 Intake and Output: 05/23/18 05/23/18 06:59 18:59 Intake Total 0 Balance 0 - Medications Medications: Current Medications Allopurinol (Zyloprim) 300 mg PO DAILY [facility] Amlodipine Besylate (Norvasc) 10 mg PO DAILY [facility] Last Admin: 05/23/18 10:53 Dose: Not Given Carvedilol (Coreg) 25 mg PO BID [facility] Last Admin: 05/23/18 10:52 Dose: Not Given Cyanocobalamin (Vitamin B12 1000 Mcg Tab) 1,000 mcg PO DAILY [facility] Last Admin: 05/23/18 10:53 Dose: Not Given Epoetin Scott (Procrit) 10,000 unit SC MWF [facility] Last Admin: 05/22/18 13:34 Dose: 10,000 unit Ferric Sodium Gluconate Complex (Ferrlecit) 125 mg IVPB DAILY [facility] Stop: 05/30/18 17:01 Last Admin: 05/23/18 10:53 Dose: Not Given Ferrous Gluconate (Fergon) 324 mg PO TID [facility] Last Admin: 05/23/18 10:53 Dose: Not Given Furosemide (Lasix) 40 mg IVP Q12 [facility] Last Admin: 05/23/18 10:53 Dose: Not Given Heparin Sodium (Porcine) (Heparin) 5,000 units SC Q8 [facility] Last Admin: 05/23/18 05:48 Dose: 5,000 units Hydrochlorothiazide (Microzide) 12.5 mg PO DAILY [facility] Influenza Virus Vaccine (Flucelvax Quad [id number] Syr) 60 mcg IM .ONCE ONE Stop: 05/24/18 10:01 Insulin Aspart (Novolog) 0 unit SC ACHS [facility]; Protocol Last Admin: 05/23/18 07:43 Dose: Not Given Losartan Potassium (Cozaar) 100 mg PO DAILY [facility] Pneumococcal Polyvalent Vaccine (Pneumovax 23 Vaccine) 0.5 ml IM .ONCE ONE Stop: 05/24/18 10:01 Rosuvastatin Calcium (Crestor) 10 mg PO HS [facility] Last Admin: 05/22/18 21:42 Dose: 10 mg Sitagliptin Phosphate (Januvia) 25 mg PO DAILY [facility] Last Admin: 05/23/18 10:53 Dose: Not Given Sodium Bicarbonate (Sodium Bicarbonate Tab) 1,300 mg PO BID [facility] Last Admin: 05/23/18 10:53 Dose: Not Given Vitamin B Complex/Vit C/Folic Acid (Nephro-Priscilla) 1 tab PO 0800 [facility] Last Admin: 05/23/18 08:53 Dose: Not Given - Labs Labs: 05/23/18 07:14 05/23/18 07:14 PT 13.5 SECONDS (9.7-12.2) H 05/21/18 12:18 INR 1.2 05/21/18 12:18 APTT 34 SECONDS (21-34) 05/21/18 12:18
--- NOTE | 2018-05-23 17:50 | CP.PCM.PN ---
<Deni Adkins - Last Filed: 05/23/18 17:55> Subjective - Date & Time of Evaluation Date of Evaluation: 05/23/18 Time of Evaluation: 09:50 - Subjective Subjective: Dr. Cage Cardiology Service. Patient seen and examined at bedside. Per nursing no acute events occurred overnight. Patient does report some shortness of breath. Patient denies any chest pain, fevers, chills ,headaches, nausea, vomiting, abdominal pain, syncopal episodes, or any other complaints. Objective - Vital Signs/Intake and Output Vital Signs (last 24 hours): Temp Pulse Resp BP Pulse Ox 97.3 F L 67 20 139/79 97 05/23/18 16:00 05/23/18 16:00 05/23/18 16:00 05/23/18 17:36 05/23/18 16:00 Intake and Output: 05/23/18 05/23/18 06:59 18:59 Intake Total 0 Balance 0 - Medications Medications: Current Medications Allopurinol (Zyloprim) 300 mg PO DAILY [facility] Amlodipine Besylate (Norvasc) 10 mg PO DAILY [facility] Last Admin: 05/23/18 10:53 Dose: Not Given Carvedilol (Coreg) 25 mg PO BID [facility] Last Admin: 05/23/18 17:36 Dose: 25 mg Cyanocobalamin (Vitamin B12 1000 Mcg Tab) 1,000 mcg PO DAILY [facility] Last Admin: 05/23/18 10:53 Dose: Not Given Epoetin Scott (Procrit) 10,000 unit SC MWF [facility] Last Admin: 05/22/18 13:34 Dose: 10,000 unit Ferric Sodium Gluconate Complex (Ferrlecit) 125 mg IVPB DAILY [facility] Stop: 05/30/18 17:01 Last Admin: 05/23/18 10:53 Dose: Not Given Ferrous Gluconate (Fergon) 324 mg PO TID [facility] Last Admin: 05/23/18 17:37 Dose: 324 mg Furosemide (Lasix) 40 mg IVP Q12 [facility] Last Admin: 05/23/18 10:53 Dose: Not Given Heparin Sodium (Porcine) (Heparin) 5,000 units SC Q8 [facility] Last Admin: 05/23/18 14:26 Dose: Not Given Hydrochlorothiazide (Microzide) 12.5 mg PO DAILY [facility] Influenza Virus Vaccine (Flucelvax Quad [id number] Syr) 60 mcg IM .ONCE ONE Stop: 05/24/18 10:01 Insulin Aspart (Novolog) 0 unit SC ACHS [facility]; Protocol Last Admin: 05/23/18 17:37 Dose: 2 units Losartan Potassium (Cozaar) 100 mg PO DAILY [facility] Pneumococcal Polyvalent Vaccine (Pneumovax 23 Vaccine) 0.5 ml IM .ONCE ONE Stop: 05/24/18 10:01 Rosuvastatin Calcium (Crestor) 10 mg PO HS [facility] Last Admin: 05/22/18 21:42 Dose: 10 mg Sitagliptin Phosphate (Januvia) 25 mg PO DAILY [facility] Last Admin: 05/23/18 10:53 Dose: Not Given Sodium Bicarbonate (Sodium Bicarbonate Tab) 1,300 mg PO BID [facility] Last Admin: 05/23/18 17:37 Dose: 1,300 mg Vitamin B Complex/Vit C/Folic Acid (Nephro-Priscilla) 1 tab PO 0800 [facility] Last Admin: 05/23/18 08:53 Dose: Not Given - Labs Labs: 05/23/18 07:14 05/23/18 07:14 PT 13.5 SECONDS (9.7-12.2) H 05/21/18 12:18 INR 1.2 05/21/18 12:18 APTT 34 SECONDS (21-34) 05/21/18 12:18 - Head Exam Head Exam: ATRAUMATIC, NORMAL INSPECTION - Eye Exam Eye Exam: EOMI, Normal appearance, PERRL Pupil Exam: NORMAL ACCOMODATION - ENT Exam ENT Exam: Mucous Membranes Moist, Normal Oropharynx - Respiratory Exam Respiratory Exam: Clear to Ausculation Bilateral, NORMAL BREATHING PATTERN. absent: Respiratory Distress - Cardiovascular Exam Cardiovascular Exam: REGULAR RHYTHM, +S1, +S2. absent: Rubs - GI/Abdominal Exam GI & Abdominal Exam: Soft, Normal Bowel Sounds. absent: Hyperactive Bowel Sounds - Neurological Exam Neurological Exam: Alert, Awake, Oriented x3 - Psychiatric Exam Psychiatric exam: Normal Affect, Normal Mood - Skin Skin Exam: Dry, Intact Assessment and Plan - Assessment and Plan (Free Text) Assessment: 67 year old male with a past medical history of hypertension, dm2, ckd, gout, and chf who presents to the hospital for chf exacerbation. Plan: 1. Acute on chronic diastolic heart failure Troponin (-)x3 BNP elevated on admission but patient has component of kidney dysfunction. Doppler Negative Patient would benefit from Cardiac catherization. Will obtain Nephrology Clearance from Dr. Haynes. Medications: Lasix 40mg IVP Q12 Coreg 25mg PO BID [facility] Cozaar Held Crestor 10mg PO HS Novasc 10mg PO Daily 2.CKD Nephrology consulted. Help appreciated Medications: Procrit 10,000 MWF Ferrlicet 125 mg IVP Daily Fergon 324mg PO TID [facility] Nephrovite 1 TAB PO 800 [facility] 3.DM Januvia 25mg PO Daily 4.Gout Allopurinol 300mg PO Daily PPX -Heparin 5000 units SC Q8 [facility] Dispo: Patient will undergo Cardiac cath pending Nephrology clearance from Dr. Haynes. Plan discussed with Attending Dr. Cage. Deni Adkins, PGY-2 <Barrett Cage - Last Filed: 05/24/18 23:00> Objective - Vital Signs/Intake and Output Vital Signs (last 24 hours): Temp Pulse Resp BP Pulse Ox 97.8 F 62 20 118/66 95 05/24/18 18:23 05/24/18 20:36 05/24/18 18:23 05/24/18 18:23 05/24/18 18:23 Intake and Output: 05/24/18 05/25/18 18:59 06:59 Intake Total 400 Balance 400 - Medications Medications: Current Medications Allopurinol (Zyloprim) 300 mg PO DAILY [facility] Last Admin: 05/24/18 10:15 Dose: 300 mg Amlodipine Besylate (Norvasc) 10 mg PO DAILY [facility] Last Admin: 05/24/18 10:14 Dose: 10 mg Carvedilol (Coreg) 25 mg PO BID [facility] Last Admin: 05/24/18 17:22 Dose: 25 mg Cyanocobalamin (Vitamin B12 1000 Mcg Tab) 1,000 mcg PO DAILY [facility] Last Admin: 05/24/18 10:15 Dose: 1,000 mcg Epoetin Scott (Procrit) 10,000 unit SC MWF [facility] Last Admin: 05/24/18 08:37 Dose: 10,000 unit Ferrous Gluconate (Fergon) 324 mg PO TID [facility] Last Admin: 05/24/18 17:23 Dose: 324 mg Furosemide (Lasix) 40 mg IVP Q12 [facility] Last Admin: 05/23/18 21:42 Dose: 40 mg Heparin Sodium (Porcine) (Heparin) 5,000 units SC Q8 [facility] Last Admin: 05/24/18 21:31 Dose: 5,000 units Hydrochlorothiazide (Microzide) 12.5 mg PO DAILY [facility] Ferric Sodium Gluconate Complex 125 mg/ Sodium Chloride 110 mls @ 100 mls/hr IVPB DAILY [facility] Stop: 05/30/18 17:01 Last Admin: 05/24/18 10:15 Dose: 100 mls/hr Insulin Aspart (Novolog) 0 unit SC ACHS [facility]; Protocol Last Admin: 05/24/18 21:28 Dose: Not Given Losartan Potassium (Cozaar) 100 mg PO DAILY [facility] Rosuvastatin Calcium (Crestor) 10 mg PO HS [facility] Last Admin: 05/24/18 21:32 Dose: 10 mg Sitagliptin Phosphate (Januvia) 25 mg PO DAILY [facility] Last Admin: 05/24/18 10:15 Dose: 25 mg Sodium Bicarbonate (Sodium Bicarbonate Tab) 1,300 mg PO BID [facility] Last Admin: 05/24/18 18:02 Dose: 1,300 mg Vitamin B Complex/Vit C/Folic Acid (Nephro-Priscilla) 1 tab PO 0800 [facility] Last Admin: 05/24/18 08:37 Dose: 1 tab - Labs Labs: 05/24/18 07:34 05/24/18 07:34 PT 13.5 SECONDS (9.7-12.2) H 05/21/18 12:18 INR 1.2 05/21/18 12:18 APTT 34 SECONDS (21-34) 05/21/18 12:18 Assessment and Plan - Assessment and Plan (Free Text) Assessment: Patient seen and evaluated personally by me. Plan of care d/w the certified medical asst and as documented
--- NOTE | 2018-05-24 06:57 | CP.PCM.PN ---
<Cynthia Radford - Last Filed: 05/24/18 10:41> Subjective - Date & Time of Evaluation Date of Evaluation: 05/24/18 Time of Evaluation: 06:57 - Subjective Subjective: PGY-1 Cynthia Radford D.O. Medicine progress note for Dr. Barbosa's service: social services director [place] #[id number] Patient was seen and examined this morning. Explained to patient the potential need for cardiac cath and the coinciding risk of needing dialysis following contrast. All concerns and questions were addressed. Patient says that his breathing is better, and he used just 2 pillows last night. His leg swelling is still present but improved. He is now wearing the compression stockings. He has not walked around much. Denies fevers/chills, chest pain, N/V/D/C. Objective - Vital Signs/Intake and Output Vital Signs (last 24 hours): Temp Pulse Resp BP Pulse Ox 97.8 F 69 20 110/62 94 L 05/23/18 23:13 05/23/18 23:35 05/23/18 23:13 05/23/18 23:13 05/23/18 23:13 - Medications Medications: Current Medications Allopurinol (Zyloprim) 300 mg PO DAILY [facility] Amlodipine Besylate (Norvasc) 10 mg PO DAILY [facility] Last Admin: 05/23/18 10:53 Dose: Not Given Carvedilol (Coreg) 25 mg PO BID [facility] Last Admin: 05/23/18 17:36 Dose: 25 mg Cyanocobalamin (Vitamin B12 1000 Mcg Tab) 1,000 mcg PO DAILY [facility] Last Admin: 05/23/18 10:53 Dose: Not Given Epoetin Scott (Procrit) 10,000 unit SC MWF [facility] Last Admin: 05/22/18 13:34 Dose: 10,000 unit Ferric Sodium Gluconate Complex (Ferrlecit) 125 mg IVPB DAILY [facility] Stop: 05/30/18 17:01 Last Admin: 05/23/18 10:53 Dose: Not Given Ferrous Gluconate (Fergon) 324 mg PO TID [facility] Last Admin: 05/23/18 17:37 Dose: 324 mg Furosemide (Lasix) 40 mg IVP Q12 [facility] Last Admin: 05/23/18 21:42 Dose: 40 mg Heparin Sodium (Porcine) (Heparin) 5,000 units SC Q8 [facility] Last Admin: 05/24/18 06:38 Dose: 5,000 units Hydrochlorothiazide (Microzide) 12.5 mg PO DAILY [facility] Influenza Virus Vaccine (Flucelvax Quad [id number] Syr) 60 mcg IM .ONCE ONE Stop: 05/24/18 10:01 Insulin Aspart (Novolog) 0 unit SC ACHS [facility]; Protocol Last Admin: 05/23/18 21:20 Dose: Not Given Losartan Potassium (Cozaar) 100 mg PO DAILY [facility] Pneumococcal Polyvalent Vaccine (Pneumovax 23 Vaccine) 0.5 ml IM .ONCE ONE Stop: 05/24/18 10:01 Rosuvastatin Calcium (Crestor) 10 mg PO HS [facility] Last Admin: 05/23/18 21:41 Dose: 10 mg Sitagliptin Phosphate (Januvia) 25 mg PO DAILY [facility] Last Admin: 05/23/18 10:53 Dose: Not Given Sodium Bicarbonate (Sodium Bicarbonate Tab) 1,300 mg PO BID [facility] Last Admin: 05/23/18 17:37 Dose: 1,300 mg Vitamin B Complex/Vit C/Folic Acid (Nephro-Priscilla) 1 tab PO 0800 [facility] Last Admin: 05/23/18 08:53 Dose: Not Given - Labs Labs: 05/23/18 07:14 05/23/18 07:14 PT 13.5 SECONDS (9.7-12.2) H 05/21/18 12:18 INR 1.2 05/21/18 12:18 APTT 34 SECONDS (21-34) 05/21/18 12:18 - Additional Findings Additional findings: - Constitutional Appears: Non-toxic, No Acute Distress - Head Exam Head Exam: ATRAUMATIC, NORMAL INSPECTION - Eye Exam Eye Exam: EOMI, Normal appearance, PERRL - ENT Exam ENT Exam: Mucous Membranes Moist - Neck Exam Neck Exam: Normal Inspection - Respiratory Exam Respiratory Exam: NORMAL BREATHING PATTERN, Clear to auscultation. absent: Respiratory Distress - Cardiovascular Exam Cardiovascular Exam: RRR, +S1, +S2 - GI/Abdominal Exam GI & Abdominal Exam: Soft. absent: Distended, Tenderness - Extremities Exam Additional comments: b/l pedal edema 2+ up to mid tibia chronic skin changes on ankles and feet consistent with venous stasis - Back Exam Back Exam: NORMAL INSPECTION - Neurological Exam Neurological Exam: Alert, Awake, CN II-XII Intact, Oriented x3 - Psychiatric Exam Psychiatric exam: Normal Affect, Normal Mood - Skin Skin Exam: Dry, Intact, Normal Color, Warm Assessment and Plan - Assessment and Plan (Free Text) Assessment: Patient is a 67 year old female with history of HTN, seizures, T2DM, CHF, and CKD who presented with SOB and pedal edema. Treating acute CHF exacerbation. Also found to have acute on chronic renal failure. Patient had stress test and cardiology recommends a cardiac cath. Nephrology reports that the patient is high risk for nephropathy and needing dialysis following cath/contrast. Plan: Congestive heart failure acute exacerbation - BNP 1550 on admission - TSH, free T4 wnl - BANDAR negative x3 - Venous Dopplers: no DVT - Echo: normal EF, dilated LA, mod TR - Daily weights - Strict Is&Os - Fluid restriction - Lexiscan: abnormal- f/u full report - Compression stockings - Lasix 40 mg IV Q12H- hold for 2 days as per nephro - Coreg 25 mg PO BID - Cardiology consulted ([place])- rec cardiac cath Acute on chronic renal failure - BUN 52, Cr 2.6- monitor - Renal US: enlarged prostate - Microalb/Cr ratio elevated (111) - Random urine total protein elevated (315) - Vit D low (24.3) - Complement, dsDNA Ab, random urine creatinen wnl - Procrit 10,000 MWF - Ferrlicet 125 mg IV daily - Fergon 324 mg PO TID - Nephrovite PO daily - Sodium bicarb 1300 mg PO BID - Nephrology consulted ([place])- high risk for PCI, Oz score 16 (post- PCI nephropathy risk 57.3%, requiring dialysis 12.6%) Anemia- suspect related to kidney failure/chronic disease - B12, folate wnl - Iron low (43), ferritin wnl - Procrit 10,000 MWF - Vit B12 1000 mcg PO daily Type 2 diabetes mellitus, chronic - A1c 8.6 - Lipids pending - Accuchecks ACHS - Hypoglycemia protocol - ISS medium - Januvia 25 mg PO daily (renally dosed) Hypertension - Vitals Q6H - Patient on Losartan and HCTZ at home- holding due to kidney function - Coreg 25 mg PO BID - Norvasc 10 mg PO daily - Lasix 40 mg IV Q12H- hold for 2 days as per nephro Seizure disorder - Keppra level pending - Home dose Keppra 500 mg PO BID- held H/o Gout - Uric acid 8.7 - Allopurinol 100 mg PO daily Ppx: VTE: Heparin 5000 units SC Q8H GI: PTX 40 mg PO daily Code status: full code Case discussed with attending, Dr. Barbosa. <Lynn Barbosa V - Last Filed: 05/26/18 23:04> Objective - Vital Signs/Intake and Output Vital Signs (last 24 hours): Temp Pulse Resp BP Pulse Ox 97.8 F 67 20 118/66 95 05/24/18 18:23 05/24/18 18:23 05/24/18 18:23 05/24/18 18:23 05/24/18 18:23 - Medications Medications: Current Medications Allopurinol (Zyloprim) 300 mg PO DAILY [facility] Last Admin: 05/24/18 10:15 Dose: 300 mg Amlodipine Besylate (Norvasc) 10 mg PO DAILY [facility] Last Admin: 05/24/18 10:14 Dose: 10 mg Carvedilol (Coreg) 25 mg PO BID [facility] Last Admin: 05/24/18 17:22 Dose: 25 mg Cyanocobalamin (Vitamin B12 1000 Mcg Tab) 1,000 mcg PO DAILY [facility] Last Admin: 05/24/18 10:15 Dose: 1,000 mcg Epoetin Scott (Procrit) 10,000 unit SC MWF [facility] Last Admin: 05/24/18 08:37 Dose: 10,000 unit Ferrous Gluconate (Fergon) 324 mg PO TID [facility] Last Admin: 05/24/18 17:23 Dose: 324 mg Furosemide (Lasix) 40 mg IVP Q12 [facility] Last Admin: 05/23/18 21:42 Dose: 40 mg Heparin Sodium (Porcine) (Heparin) 5,000 units SC Q8 [facility] Last Admin: 05/24/18 13:21 Dose: 5,000 units Hydrochlorothiazide (Microzide) 12.5 mg PO DAILY [facility] Ferric Sodium Gluconate Complex 125 mg/ Sodium Chloride 110 mls @ 100 mls/hr IVPB DAILY [facility] Stop: 05/30/18 17:01 Last Admin: 05/24/18 10:15 Dose: 100 mls/hr Insulin Aspart (Novolog) 0 unit SC ACHS [facility]; Protocol Last Admin: 05/24/18 17:24 Dose: 2 units Losartan Potassium (Cozaar) 100 mg PO DAILY [facility] Rosuvastatin Calcium (Crestor) 10 mg PO HS [facility] Last Admin: 05/23/18 21:41 Dose: 10 mg Sitagliptin Phosphate (Januvia) 25 mg PO DAILY [facility] Last Admin: 05/24/18 10:15 Dose: 25 mg Sodium Bicarbonate (Sodium Bicarbonate Tab) 1,300 mg PO BID [facility] Last Admin: 05/24/18 18:02 Dose: 1,300 mg Vitamin B Complex/Vit C/Folic Acid (Nephro-Priscilla) 1 tab PO 0800 [facility] Last Admin: 05/24/18 08:37 Dose: 1 tab - Labs Labs: 05/24/18 07:34 05/24/18 07:34 PT 13.5 SECONDS (9.7-12.2) H 05/21/18 12:18 INR 1.2 05/21/18 12:18 APTT 34 SECONDS (21-34) 05/21/18 12:18 Attending/Attestation - Attestation I have personally seen and examined this patient.: Yes I have fully participated in the care of the patient.: Yes I have reviewed all pertinent clinical information, including history, physical exam and plan: Yes Notes (Text): This is late computer entry for 05/24/18. Patient seen, examined, and case discussed with day-time resident. Patient seen this morning with [employer] financial aid. Nephrology has seen to the patient has indicated given cardiology's recommendation for cardiac cath that patient is high risk for contrast induced nephropathy and would likely need dialysis. He has had brief discussion with patient but it is shocked from hearing the news. I have spoken with the patient followin with the assistance of the [employer] financial aid given cardiology is on concern there is a problem of patient's coronary arteries based on the stress test (official report is pending) however the cath requires contrast to allow the procurement buyer to view the coronaries but will adversely impact his kidneys which may prompted dialysis. I did speak with the residents on the cardiology service to better explain to patient regarding his heart issue. Nephrology has recommended diuretic today and tomorrow to see if creatinine improves and has informed cardiology who will hold off cath until kidneys are improved. Assessment/Plan 1. 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 * Echo: normal EF, dilated LA, mod TR * hold Diuresis until 05/25/18 * Chest xray (05/21/18): moderate to severe venous congestion. moderate left and small right pleural effusion. consolidative changes in the mid to lower lung zones. cardiomegaly. * Chest xray (05/22/18): right lower lobe infiltrate/right pleural effusion. left bechdalek's hernia. No visible infiltrate left lung. 2. Acute on chronic renal failure Assessment/Plan * Nephrology (Dr. 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 Prevoid urinary bladder volume 81.4ml. Postvoid urinary bladder volume 8.1ML. Right ureteral jet is not identifed. Enlarged prostate gland. * Procrit 10,000 MWF * Ferrlicet 125 mg IVP daily * Fergon 324mg PO TID * Nephrovite PO daily * lasix on hold per nephrology 3. Anemia- suspect related to kidney failure Assessment/Plan * suspect anemia of chronic disease given underlying renal disease * B12, folate wnl * Iron low (43), ferritin wnl * Ferrlicet 125 mg IVP daily * Fergon 324mg PO TID 4. Type 2 diabetes mellitus Assessment/Plan * A1c 8.6 * Lipid panel ordered * Accuchecks ACHS * Hypoglycemia protocol * ISS medium * Changed Januvia 100mg PO to Januvia 25 mg PO daily (renally dosed) 5. Hypertension Assessment/Plan * monitor vital signs * Coreg 25 mg PO BID 6. History of Seizure disorder Assessment/Plan * Keppra level pending * Home dose Keppra 500 mg PO BID- held 7. H/o Gout Assessment/Plan * Uric acid 8.7 * Allopurinol 100 mg PO daily 8. Leg edema Assessment/Plan * suspect secondary to CHF * venous dopplers negative for DVT * Will provide aron stockings and elevate the legs to reduce edema 9. Ppx: Assessment/Plan * VTE: Heparin 5000 units SC Q8H * GI: Protonix 40 mg PO daily
[2018-05-24] MEDS: (Novolog) Insulin Aspart, Recombinant 100 u/ml 10 ml vial SC SCH ×4 (07:09→21:28)
[2018-05-24 07:42] LABS: BASO % 0.2 % (0.0-2.0); EOS # 0.3 K/uL (0.0-0.7); EOS % 5.3 % (0.0-4.0); HEMOGLOBIN 8.1 g/dL (12.0-18.0); LYMPH # 1.4 K/uL (1.0-4.3); LYMPH % 22.8 % (20.0-40.0); MEAN CELL VOLUME 97.3 fL (80.0-94.0); MEAN CORPUSCULAR HEMOGLOBIN 31.9 pg (27.0-31.0); MEAN CORPUSCULAR HGB CONC 32.8 g/dL (33.0-37.0); MEAN PLATELET VOLUME 9.6 fL (7.2-11.7); MONO # 0.8 K/uL (0.0-0.8); MONO % 12.9 % (0.0-10.0); NEUT # 3.7 K/uL (1.8-7.0); NEUT % 58.8 % (50.0-75.0); NRBC % 0.1 % (0.0-2.0); RBC 2.53 Mil/uL (4.40-5.90); RED CELL DISTRIBUTION WIDTH 14.2 % (11.5-14.5); WHITE BLOOD COUNT 6.3 K/uL (4.8-10.8)
[2018-05-24 08:01] LABS: ALB/GLOB RATIO 1.3 (1.0-2.1); ALBUMIN 3.7 g/dL (3.5-5.0); CALCIUM 8.3 mg/dl (8.6-10.4)
[2018-05-24] MEDS: Multivitamin Vitamin B Complex (Nephro-Vite) Tab PO SCH (08:37)
[2018-05-24] MEDS: Epoetin Alfa 10,000 unit/ml Dialysis SC SCH (08:37)
--- NOTE | 2018-05-24 09:49 | CP.PCM.PN ---
<Deni Adkins - Last Filed: 05/24/18 18:20> Subjective - Date & Time of Evaluation Date of Evaluation: 05/24/18 Time of Evaluation: 09:49 - Subjective Subjective: Dr. Cage Cardiology Service. Patient seen and examined at bedside. Per nursing no acute events occurred overnight. Patient does report some shortness of breath. Patient denies any chest pain, fevers, chills ,headaches, nausea, vomiting, abdominal pain, syncopal episodes, or any other complaints. Objective - Vital Signs/Intake and Output Vital Signs (last 24 hours): Temp Pulse Resp BP Pulse Ox 97.8 F 69 20 110/62 94 L 05/23/18 23:13 05/23/18 23:35 05/23/18 23:13 05/23/18 23:13 05/23/18 23:13 - Medications Medications: Current Medications Allopurinol (Zyloprim) 300 mg PO DAILY [facility] Amlodipine Besylate (Norvasc) 10 mg PO DAILY [facility] Last Admin: 05/23/18 10:53 Dose: Not Given Carvedilol (Coreg) 25 mg PO BID [facility] Last Admin: 05/23/18 17:36 Dose: 25 mg Cyanocobalamin (Vitamin B12 1000 Mcg Tab) 1,000 mcg PO DAILY [facility] Last Admin: 05/23/18 10:53 Dose: Not Given Epoetin Scott (Procrit) 10,000 unit SC MWF [facility] Last Admin: 05/24/18 08:37 Dose: 10,000 unit Ferrous Gluconate (Fergon) 324 mg PO TID [facility] Last Admin: 05/23/18 17:37 Dose: 324 mg Furosemide (Lasix) 40 mg IVP Q12 [facility] Last Admin: 05/23/18 21:42 Dose: 40 mg Heparin Sodium (Porcine) (Heparin) 5,000 units SC Q8 [facility] Last Admin: 05/24/18 06:38 Dose: 5,000 units Hydrochlorothiazide (Microzide) 12.5 mg PO DAILY [facility] Ferric Sodium Gluconate Complex 125 mg/ Sodium Chloride 110 mls @ 100 mls/hr IVPB DAILY [facility] Stop: 05/30/18 17:01 Influenza Virus Vaccine (Flucelvax Quad [id number] Syr) 60 mcg IM .ONCE ONE Stop: 05/24/18 10:01 Insulin Aspart (Novolog) 0 unit SC ACHS [facility]; Protocol Last Admin: 05/24/18 07:09 Dose: Not Given Losartan Potassium (Cozaar) 100 mg PO DAILY [facility] Pneumococcal Polyvalent Vaccine (Pneumovax 23 Vaccine) 0.5 ml IM .ONCE ONE Stop: 05/24/18 10:01 Rosuvastatin Calcium (Crestor) 10 mg PO HS [facility] Last Admin: 05/23/18 21:41 Dose: 10 mg Sitagliptin Phosphate (Januvia) 25 mg PO DAILY [facility] Last Admin: 05/23/18 10:53 Dose: Not Given Sodium Bicarbonate (Sodium Bicarbonate Tab) 1,300 mg PO BID [facility] Last Admin: 05/23/18 17:37 Dose: 1,300 mg Vitamin B Complex/Vit C/Folic Acid (Nephro-Priscilla) 1 tab PO 0800 [facility] Last Admin: 05/24/18 08:37 Dose: 1 tab - Labs Labs: 05/24/18 07:34 05/24/18 07:34 PT 13.5 SECONDS (9.7-12.2) H 05/21/18 12:18 INR 1.2 05/21/18 12:18 APTT 34 SECONDS (21-34) 05/21/18 12:18 - Head Exam Head Exam: ATRAUMATIC, NORMAL INSPECTION - Eye Exam Eye Exam: EOMI, Normal appearance, PERRL Pupil Exam: NORMAL ACCOMODATION - ENT Exam ENT Exam: Mucous Membranes Moist, Normal Oropharynx - Neck Exam Neck Exam: Normal Inspection. absent: Lymphadenopathy, Thyromegaly - Respiratory Exam Respiratory Exam: Clear to Ausculation Bilateral, NORMAL BREATHING PATTERN. absent: Prolonged Expiratory Phase, Respiratory Distress - Cardiovascular Exam Cardiovascular Exam: +S1, +S2 - GI/Abdominal Exam GI & Abdominal Exam: Soft, Normal Bowel Sounds. absent: Hyperactive Bowel So unds - Extremities Exam Extremities Exam: Full ROM. absent: Pedal Edema - Back Exam Back Exam: NORMAL INSPECTION. absent: CVA tenderness (R), paraspinal tenderness - Neurological Exam Neurological Exam: Alert, Awake, CN II-XII Intact - Psychiatric Exam Psychiatric exam: Normal Affect, Normal Mood - Skin Skin Exam: Dry, Intact Assessment and Plan - Assessment and Plan (Free Text) Assessment: 67 year old male with a past medical history of hypertension, dm2, ckd, gout, and chf who presents to the hospital for chf exacerbation. Plan: Plan: 1. Acute on chronic diastolic heart failure Troponin (-)x3 BNP elevated on admission but patient has component of kidney dysfunction. Doppler Negative Patient would benefit from Cardiac catherization, however patient current kidney dysfunction puts him at a high risk for complications post cardiac cath. At this time patient not cleared for cardiac catherization. Medications: Lasix 40mg IVP Q12 Held Coreg 25mg PO BID [facility] Cozaar Held Crestor 10mg PO HS Novasc 10mg PO Daily 2.CKD Nephrology consulted. Help appreciated Medications: Procrit 10,000 MWF Ferrlicet 125 mg IVP Daily Fergon 324mg PO TID [facility] Nephrovite 1 TAB PO 800 [facility] 3.DM Januvia 25mg PO Daily 4.Gout Allopurinol 300mg PO Daily PPX -Heparin 5000 units SC Q8 [facility] Dispo: Patient will hold off on cardiac catherization at this time. Plan discussed with Attending Dr. Cage. Deni Adkins, PGY-2 <Barrett Cage - Last Filed: 05/24/18 23:01> Objective - Vital Signs/Intake and Output Vital Signs (last 24 hours): Temp Pulse Resp BP Pulse Ox 97.8 F 62 20 118/66 95 05/24/18 18:23 05/24/18 20:36 05/24/18 18:23 05/24/18 18:23 05/24/18 18:23 Intake and Output: 05/24/18 05/25/18 18:59 06:59 Intake Total 400 Balance 400 - Medications Medications: Current Medications Allopurinol (Zyloprim) 300 mg PO DAILY [facility] Last Admin: 05/24/18 10:15 Dose: 300 mg Amlodipine Besylate (Norvasc) 10 mg PO DAILY [facility] Last Admin: 05/24/18 10:14 Dose: 10 mg Carvedilol (Coreg) 25 mg PO BID [facility] Last Admin: 05/24/18 17:22 Dose: 25 mg Cyanocobalamin (Vitamin B12 1000 Mcg Tab) 1,000 mcg PO DAILY [facility] Last Admin: 05/24/18 10:15 Dose: 1,000 mcg Epoetin Scott (Procrit) 10,000 unit SC MWF [facility] Last Admin: 05/24/18 08:37 Dose: 10,000 unit Ferrous Gluconate (Fergon) 324 mg PO TID [facility] Last Admin: 05/24/18 17:23 Dose: 324 mg Furosemide (Lasix) 40 mg IVP Q12 [facility] Last Admin: 05/23/18 21:42 Dose: 40 mg Heparin Sodium (Porcine) (Heparin) 5,000 units SC Q8 [facility] Last Admin: 05/24/18 21:31 Dose: 5,000 units Hydrochlorothiazide (Microzide) 12.5 mg PO DAILY [facility] Ferric Sodium Gluconate Complex 125 mg/ Sodium Chloride 110 mls @ 100 mls/hr IVPB DAILY [facility] Stop: 05/30/18 17:01 Last Admin: 05/24/18 10:15 Dose: 100 mls/hr Insulin Aspart (Novolog) 0 unit SC ACHS [facility]; Protocol Last Admin: 05/24/18 21:28 Dose: Not Given Losartan Potassium (Cozaar) 100 mg PO DAILY [facility] Rosuvastatin Calcium (Crestor) 10 mg PO HS [facility] Last Admin: 05/24/18 21:32 Dose: 10 mg Sitagliptin Phosphate (Januvia) 25 mg PO DAILY [facility] Last Admin: 05/24/18 10:15 Dose: 25 mg Sodium Bicarbonate (Sodium Bicarbonate Tab) 1,300 mg PO BID [facility] Last Admin: 05/24/18 18:02 Dose: 1,300 mg Vitamin B Complex/Vit C/Folic Acid (Nephro-Priscilla) 1 tab PO 0800 [facility] Last Admin: 05/24/18 08:37 Dose: 1 tab - Labs Labs: 05/24/18 07:34 05/24/18 07:34 PT 13.5 SECONDS (9.7-12.2) H 05/21/18 12:18 INR 1.2 05/21/18 12:18 APTT 34 SECONDS (21-34) 05/21/18 12:18 Assessment and Plan - Assessment and Plan (Free Text) Plan: Patient seen and evaluated personally by me. Plan of care d/w the medical re sident and as documented
[2018-05-24] MEDS ORDERED: Pneumococcal 23-Valent Vaccine IM ONE (10:00)
[2018-05-24] MEDS ORDERED: Influenza Vaccine 60 mcg/0.5 mL SYR (4YR UP) IM ONE (10:00)
[2018-05-24] MEDS: Ferric Sodium Gluconat Complex 125 MG in Sodium Chloride 0.9% 100 ML IVPB SCH (10:15)
[2018-05-24 11:20] LABS: ALBUMIN (PEP) 3.7 g/dL (3.8-4.8); ALPHA-1-GLOBULIN (PEP) 0.4 g/dL (0.2-0.3)
--- NOTE | 2018-05-24 11:24 | CP.PCM.PN ---
Subjective - Date & Time of Evaluation Date of Evaluation: 05/24/18 Time of Evaluation: 11:20 - Subjective Subjective: Nephrology Consultation Note: Assessment: Stable Acute Kidney Injury (N17.9) likely due to cardio-renal syndrome. possible progression of CKD 3 Diabetic chronic Kidney Disease (E11.22) Hypertensive Chronic Kidney Disease (I12.9) Chronic Kidney Disease (N18.3) Stage 3 with ? mg proteinuria (R80.9) likely due to DM/HTN Anemia (D64.9), metabolic acidosis HTN (I12.9) CHF exacerbation, fluid overload Plan No acute need for renal replacement therapy at this time. Hypertension control with meds as ordered. Maintain hemodynamics stable. Avoid hypotension. Patient ARB held due to recent MICHELLE. will resume once volume status optimized and stable renal function Monitor Input/Output, daily weights and renal function with basic metabolic panel started iron, MVI and epogen. PRBC as needed added sodium bicarb 1300 mg bid diurese with IV lasix bid. may need metolazone to add and/or increase lasix dose if not adequate response cardiology evaluation added b12 and vitamin d once a month as well he is planned for cardiac cath as with abnormal stress test. pt will be at increased risk of contrast induced nephropathy including need for dialysis. unable to give him IVF to reduce risk. suggest to hold lasix x 2 days. minimize volume to contrast. 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 Check urine analysis, spot protein/creatinine, albumin/creatinine ratio, uric acid, renal and bladder sonogram Check GN work up as C3, C4, DINORAH, Anti dsDNA, HIV/Hep B and Hep C serology Anemia work up with TSAT/Ferritin/Vitamin B12/folate, serum protein electrophoresis with immunofixation, serum free light chain assay ([place]/Lambda) Check for 25-OH vitamin D, iPTH, phosphorus level. Dose meds/antibiotics for reduced GFR. Avoid fleets enema/magnesium based laxatives. Avoid nephrotoxins/NSAIDs/ iodinated contrast (unless needed emergently) Glycemic control Further work up/management as per primary team Thanks for allowing me to participate in care of your patient. Will follow patient with you. Please call if any Qs. had d/w team and patient Dr Jovan Haynes Office: [phone] Chief Complaint; SOB Reason for consult: Acute Kidney Injury on CKD HPI: Pt is a with hx of diabetes Mellitus (>10 years) with retinopathy s/p las er surgery, hypertension (>10 years) CKF, CKD 3 with baseline cr 1.8-22 in apr 2017 seizure presented with complaints of worsening SOB on exertion and lying down. admitted for CHF exacerbation. renal consult for MICHELLE on CKD 3. pt c/o leg swelling, cough. admits to drinking etoh 2 times a week, few sips of tequila as per per. denies smoking/drugs. not aware about kidney disease in past Denies OTC/herbal meds or NSAIDs No recent iodinated contrast exposure. No obvious episodes of low BP. ROS: Cardiovascular: No chest pain. Pulmonary: improved shortness of breath Gastrointestinal: denies abdominal pain No nausea. No vomiting. Genitourinary: No pain while urinating. Denies blood in urine. has nocturia 3-4 times/night All other negative except as mentioned in HPI Physical Examination: General Appearance: Comfortable, in no acute respiratory distress, co-operative . Vitals reviewed and noted as below Head; Atraumatic, normocephalic ENT: no ulcers no thrush. Tongue is midline. Oropharynx: no rash or ulcers. EYES: Pupils are equal, round and reactive to light accommodation. Eye muscles and extraocular movement intact. Sclera is anicteric. Neck; supple no lymphadenopathy, no thyromegaly or bruit Lungs: Normal respiratory rate/effort. Breath sounds bilateral clearer Heart: Normal rate. s1s2 normal. No rub or gallop. Extremities: 2-3+ edema. No varicose veins Neurological: Patient is alert, awake and oriented to person, place and time. No focal deficit. Strength bilateral appropriate and equal Skin: Warm and dry. Normal turgor. No rash. Palpitation: Normal elasticity for age Abdomen: Abdomen is soft. Bowel sounds +. There is no abdominal tenderness, no guarding/rigidity no organomegaly. ? ascites. Psych: limited insight and normal affect/mood MSK: no joint tenderness or swelling. Digits and nails normal, no deformity : kidney or bladder not palpable Labs/imaging reviewed. Past medical history, past surgical history, family history, social history, allergy reviewed and noted as below Family hx: no hx of CKD. Rest non-contributory Objective - Vital Signs/Intake and Output Vital Signs (last 24 hours): Temp Pulse Resp BP Pulse Ox 97.8 F 69 20 127/54 L 94 L 05/23/18 23:13 05/23/18 23:35 05/23/18 23:13 05/24/18 10:15 05/23/18 23:13 - Medications Medications: Current Medications Allopurinol (Zyloprim) 300 mg PO DAILY [facility] Last Admin: 05/24/18 10:15 Dose: 300 mg Amlodipine Besylate (Norvasc) 10 mg PO DAILY [facility] Last Admin: 05/24/18 10:14 Dose: 10 mg Carvedilol (Coreg) 25 mg PO BID [facility] Last Admin: 05/24/18 10:15 Dose: 25 mg Cyanocobalamin (Vitamin B12 1000 Mcg Tab) 1,000 mcg PO DAILY [facility] Last Admin: 05/24/18 10:15 Dose: 1,000 mcg Epoetin Scott (Procrit) 10,000 unit SC MWF [facility] Last Admin: 05/24/18 08:37 Dose: 10,000 unit Ferrous Gluconate (Fergon) 324 mg PO TID [facility] Last Admin: 05/24/18 10:15 Dose: 324 mg Furosemide (Lasix) 40 mg IVP Q12 [facility] Last Admin: 05/23/18 21:42 Dose: 40 mg Heparin Sodium (Porcine) (Heparin) 5,000 units SC Q8 [facility] Last Admin: 05/24/18 06:38 Dose: 5,000 units Hydrochlorothiazide (Microzide) 12.5 mg PO DAILY [facility] Ferric Sodium Gluconate Complex 125 mg/ Sodium Chloride 110 mls @ 100 mls/hr IVPB DAILY [facility] Stop: 05/30/18 17:01 Last Admin: 05/24/18 10:15 Dose: 100 mls/hr Insulin Aspart (Novolog) 0 unit SC ACHS [facility]; Protocol Last Admin: 05/24/18 07:09 Dose: Not Given Losartan Potassium (Cozaar) 100 mg PO DAILY [facility] Rosuvastatin Calcium (Crestor) 10 mg PO HS [facility] Last Admin: 05/23/18 21:41 Dose: 10 mg Sitagliptin Phosphate (Januvia) 25 mg PO DAILY [facility] Last Admin: 05/24/18 10:15 Dose: 25 mg Sodium Bicarbonate (Sodium Bicarbonate Tab) 1,300 mg PO BID [facility] Last Admin: 05/24/18 10:15 Dose: 1,300 mg Vitamin B Complex/Vit C/Folic Acid (Nephro-Priscilla) 1 tab PO 0800 [facility] Last Admin: 05/24/18 08:37 Dose: 1 tab - Labs Labs: 05/24/18 07:34 05/24/18 07:34 PT 13.5 SECONDS (9.7-12.2) H 05/21/18 12:18 INR 1.2 05/21/18 12:18 APTT 34 SECONDS (21-34) 05/21/18 12:18
--- NOTE | 2018-05-24 22:41 | CARD ---
APPROVED REPORT Date of service: 05/21/2018 EKG Measurement Heart [id number] [id number] <Conclusion> Complete Heart block premature ventricular complexes Low voltage QRS Possible Inferior infarct, age undetermined Cannot rule out Anterior infarct, age undetermined Abnormal ECG
--- NOTE | 2018-05-24 22:54 | CARD ---
APPROVED REPORT Date of service: 05/23/2018 Protocol: LEXISCAN Test Type: LEXISCAN Test Indications: CP Medications: LIST Medical History: CP Target HR: 154 bpm Resting ECG: NSR W/ POOR RWAVE FROM V1-V3 Resting Heart Rate: 71 bpm Resting Blood Pressure: 132/80mmHg submaximum (85%): 131 bpm TEST SUMMARY PREINFSNHYPERV.03:[id number]/80.1. INFUSIONDOSE 100:[id number]/80.0. [id number]/80.0. PROCEDURE Pharmacologic stress testing was performed using 0.4mg per 5ml of regadenoson given intravenously over 7-10 seconds. POST EXERCISE Reason for Termination: Protocol Completed Target HR: No Max HR: 71 bpm 51% of Maximum Predicted HR: 154 bpm Exercise duration: 00:30 min:sec, 0 Stage Exercise capacity: 1.0METs Max Blood Pressure: 134/80mmHg Blood Pressure response to exercise: normal resting BP - appropriate response Heart Rate response to exercise: appropriate Chest Pain: No, none Angina index: 0 Arrhythmia: Yes, VPB'S ST Change: No, none Deviation: 0 mm INTERPRETATION Stress EKG Conclusion: NEGATIVE LEXISCAN STRESS TEST VPB NORMAL BP RESPONSE TO LEXISCAN NUCLEAR STUDIES TO BE READ SEPARATELY EXAM: Myocardial Perfusion STRESS/REST Imaging Protocol The imaging protocol used to acquire images was Stress Tc-99m/rest Tc-99m 1 day Rest Spect myocardial perfusion imaging was performed in supine position 45 minutes following the injection of 32.5 mCi of Tc-99 Myoview. Gated Stress Spect was performed 45 minutes after intravenous 12.8 mCi Tc-99 Myoview injection. The images were gated to evaluate regional wall motion and calculate ventricular ejection fraction.Images were reconstructed using backfilter projection method in short horizontal and verticle long axis. Spect slices were generated. RESTING DATA EOO715.57cyWD8.50L/min1/3 Pk. Filling Rate1.00EDV/sec LV Time to Pk. Filling Sotv421.85msec FZZ961.00mlMyocardial Wkjf357.00gLV Time to Pk. Ejection Dlrc396.25msec Pk. Fill Rate2.40EDV/secAv. Heart Rate65.00bpm EF45.00%Pk. Emptying Rate2.13ESV/sec STRESS DATA OBM750.40joVX2.60L/min ESV91.00mlMyocardial Tlnt742.00g Pk. Fill Rate1.93EDV/sec EF52.00%Pk. Emptying Rate2.17ESV/sec 1/3 Pk. Filling Rate0.87EDV/secRegional WT score at stress:0.00 LV Time to Pk. Filling Rate:202.77msecRegional WM score at stress:0.00 LV Time to Pk. Ejection Rate:306.58msecSummed WT score at stress:8.00 Av. Heart Rate68.00bpmSummed WM score at stress:2.00 LV Perf. Quant 17 Seg. SSS6.00 17 Seg. SRS3.00 17 Seg. SDS3.00 Stress Defect Extent (% LAD)6.90Rest Defect Extent (% LAD)0.00Rev. Defect Extent (% LAD)6.90 Stress Defect Extent (% LCX)8.80Rest Defect Extent (% LCX)10.00Rev. Defect Extent (% LCX)0.00 Stress Defect Extent (% RCA)5.60Rest Defect Extent (% RCA)1.10Rev. Defect Extent (% RCA)2.20 Stress Defect Extent (% SANG)10.00Rest Defect Extent (% SANG)7.00Rev. Defect Extent (% SANG)5.70 IMPRESSION Normal Myocardial Perfusion exercise stress study Left Ventricle LV Function:Left ventricle systolic function is normal. The Ejection Fraction is 50-55%. Regional Wall Motion:No regional wall motion abnormalities noted. Metabolism/Perfusion Defects: There is no stress-induced ischemia. There are no perfusion/metabolism defects. Conclusion 1. There is no stress-induced ischemia. 2. Left ventricle systolic function is normal. 3. The Ejection Fraction is 50-55%.
--- NOTE | 2018-05-25 06:24 | CP.PCM.PN ---
<Cynthia Radford - Last Filed: 05/25/18 16:39> Subjective - Date & Time of Evaluation Date of Evaluation: 05/25/18 Time of Evaluation: 06:23 - Subjective Subjective: PGY-1 Cynthia Radford D.O. Medicine progress note for Dr. Barbosa's service: Patient was seen and examined this morning. Patient is sitting up in a chair at bedside. He says that his breathing is still bothering him but nasal cannula makes him more comfortable. He reprots his leg swelling has improved since starting to wear the comrpession stocking. He denies VILLALPADNO, chest pain, abdominal pain, N/V/D/C. Objective - Vital Signs/Intake and Output Vital Signs (last 24 hours): Temp Pulse Resp BP Pulse Ox 97.9 F 69 20 116/71 97 05/24/18 23:00 05/24/18 23:25 05/24/18 23:00 05/24/18 23:00 05/24/18 23:00 Intake and Output: 05/24/18 05/25/18 18:59 06:59 Intake Total 400 Balance 400 - Medications Medications: Current Medications Allopurinol (Zyloprim) 300 mg PO DAILY [facility] Last Admin: 05/24/18 10:15 Dose: 300 mg Amlodipine Besylate (Norvasc) 10 mg PO DAILY [facility] Last Admin: 05/24/18 10:14 Dose: 10 mg Carvedilol (Coreg) 25 mg PO BID [facility] Last Admin: 05/24/18 17:22 Dose: 25 mg Cyanocobalamin (Vitamin B12 1000 Mcg Tab) 1,000 mcg PO DAILY [facility] Last Admin: 05/24/18 10:15 Dose: 1,000 mcg Epoetin Scott (Procrit) 10,000 unit SC MWF [facility] Last Admin: 05/24/18 08:37 Dose: 10,000 unit Ferrous Gluconate (Fergon) 324 mg PO TID [facility] Last Admin: 05/24/18 17:23 Dose: 324 mg Furosemide (Lasix) 40 mg IVP Q12 [facility] Last Admin: 05/23/18 21:42 Dose: 40 mg Heparin Sodium (Porcine) (Heparin) 5,000 units SC Q8 [facility] Last Admin: 05/24/18 21:31 Dose: 5,000 units Hydrochlorothiazide (Microzide) 12.5 mg PO DAILY [facility] Ferric Sodium Gluconate Complex 125 mg/ Sodium Chloride 110 mls @ 100 mls/hr IVPB DAILY [facility] Stop: 05/30/18 17:01 Last Admin: 05/24/18 10:15 Dose: 100 mls/hr Insulin Aspart (Novolog) 0 unit SC ACHS [facility]; Protocol Last Admin: 05/24/18 21:28 Dose: Not Given Losartan Potassium (Cozaar) 100 mg PO DAILY [facility] Rosuvastatin Calcium (Crestor) 10 mg PO HS [facility] Last Admin: 05/24/18 21:32 Dose: 10 mg Sitagliptin Phosphate (Januvia) 25 mg PO DAILY [facility] Last Admin: 05/24/18 10:15 Dose: 25 mg Sodium Bicarbonate (Sodium Bicarbonate Tab) 1,300 mg PO BID [facility] Last Admin: 05/24/18 18:02 Dose: 1,300 mg Vitamin B Complex/Vit C/Folic Acid (Nephro-Priscilla) 1 tab PO 0800 [facility] Last Admin: 05/24/18 08:37 Dose: 1 tab - Labs Labs: 05/24/18 07:34 05/24/18 07:34 PT 13.5 SECONDS (9.7-12.2) H 05/21/18 12:18 INR 1.2 05/21/18 12:18 APTT 34 SECONDS (21-34) 05/21/18 12:18 - Additional Findings Additional findings: - Constitutional Appears: Non-toxic, No Acute Distress - Head Exam Head Exam: ATRAUMATIC, NORMAL INSPECTION - Eye Exam Eye Exam: EOMI, Normal appearance, PERRL - ENT Exam ENT Exam: Mucous Membranes Moist - Neck Exam Neck Exam: Normal Inspection - Respiratory Exam Respiratory Exam: NORMAL BREATHING PATTERN, Rales L>R. absent: Respiratory Distress NC 2L - Cardiovascular Exam Cardiovascular Exam: RRR, +S1, +S2 - GI/Abdominal Exam GI & Abdominal Exam: Soft. absent: Distended, Tenderness - Extremities Exam Additional comments: b/l knee-high compression stockings- 2+ pedal edema - Back Exam Back Exam: NORMAL INSPECTION - Neurological Exam Neurological Exam: Alert, Awake, CN II-XII Intact, Oriented x3 - Psychiatric Exam Psychiatric exam: Normal Affect, Normal Mood - Skin Skin Exam: Dry, Intact, Normal Color, Warm Assessment and Plan - Assessment and Plan (Free Text) Assessment: Patient is a 67 year old female with history of HTN, seizures, T2DM, CHF, and CKD who presented with SOB and pedal edema. Treating acute CHF exacerbation. Also found to have acute on chronic renal failure. Patient had stress test and cardiology recommends a cardiac cath. Nephrology reports that the patient is high risk for nephropathy and needing dialysis following cath/contrast. Patient is now complaining of urinary retention. Abdomen is distended. Plan: Congestive heart failure acute exacerbation - BNP 1550 on admission - TSH, free T4 wnl - BANDAR negative x3 - Venous Dopplers: no DVT - Echo: normal EF, dilated LA, mod TR - Lexiscan: normal, EF 50-55% - Daily weights - Strict Is&Os - Fluid restriction - Compression stockings - Lasix 40 mg IV Q12H- hold for 2 days as per nephro - Coreg 25 mg PO BID - Cardiology consulted ([place])- rec cardiac cath when kidney fucntion improves Acute on chronic renal failure, worsening - BUN 52, Cr 2.6- monitor - Renal US: enlarged prostate - Microalb/Cr ratio elevated (111) - Random urine total protein elevated (315) - Vit D low (24.3) - Complement, dsDNA Ab, random urine creatinen wnl - Procrit 10,000 MWF - Ferrlicet 125 mg IV daily - Fergon 324 mg PO TID - Nephrovite PO daily - Sodium bicarb 1300 mg PO BID - Nephrology consulted ([place])- high risk for PCI, Oz score 16 (post- PCI nephropathy risk 57.3%, requiring dialysis 12.6%) Abdominal distention- reported history of heavy alcohol use - LFTs wnl - INR wnl - Liver US pending Urinary retention - Bladder scan PRN - Straight cath PRN - Repeat renal/bladder US pending Anemia, stable- suspect related to kidney failure/chronic disease - B12, folate wnl - Iron low (43), ferritin wnl - Procrit 10,000 MWF - Vit B12 1000 mcg PO daily Type 2 diabetes mellitus, chronic - A1c 8.6 - Lipid panel wnl: TG 116, chol 84, LDL 45, HDL 25 - Accuchecks ACHS - Hypoglycemia protocol - ISS medium - Januvia 25 mg PO daily (renally dosed) Hypertension, controlled - Vitals Q6H - Patient on Losartan and HCTZ at home- holding due to kidney function - Coreg 25 mg PO BID - Norvasc 10 mg PO daily - Lasix 40 mg IV Q12H- hold for 2 days as per nephro () Seizure disorder - Keppra level 21.9 - Resume Keppra 500 mg PO BID H/o Gout - Uric acid 8.7 - Allopurinol 100 mg PO daily Ppx: VTE: Heparin 5000 units SC Q8H GI: Protonix 40 mg PO daily Code status: full code Case discussed with attending, Dr. Barbosa. <Lynn Barbosa V - Last Filed: 05/26/18 23:13> Objective - Vital Signs/Intake and Output Vital Signs (last 24 hours): Temp Pulse Resp BP Pulse Ox 97.8 F 78 20 147/66 94 L 05/26/18 16:00 05/26/18 16:00 05/26/18 16:00 05/26/18 22:14 05/26/18 16:00 Intake and Output: 05/26/18 05/27/18 18:59 06:59 Intake Total 100 Output Total 500 450 Balance -400 -450 - Medications Medications: Current Medications Allopurinol (Zyloprim) 300 mg PO DAILY [facility] Last Admin: 05/26/18 09:51 Dose: 300 mg Carvedilol (Coreg) 25 mg PO BID [facility] Last Admin: 05/26/18 17:49 Dose: 25 mg Cyanocobalamin (Vitamin B12 1000 Mcg Tab) 1,000 mcg PO DAILY [facility] Last Admin: 05/26/18 09:52 Dose: 1,000 mcg Epoetin Scott (Procrit) 10,000 unit SC MWF [facility] Last Admin: 05/26/18 09:58 Dose: 10,000 unit Ferrous Gluconate (Fergon) 324 mg PO TID [facility] Last Admin: 05/26/18 17:49 Dose: 324 mg Furosemide (Lasix) 40 mg IVP Q12H [facility] Last Admin: 05/26/18 22:14 Dose: 40 mg Heparin Sodium (Porcine) (Heparin) 5,000 units SC Q8 [facility] Last Admin: 05/26/18 22:16 Dose: 5,000 units Ferric Sodium Gluconate Complex 125 mg/ Sodium Chloride 110 mls @ 100 mls/hr IVPB DAILY [facility] Stop: 05/30/18 17:01 Last Admin: 05/26/18 10:00 Dose: 100 mls/hr Insulin Aspart (Novolog) 0 unit SC ACHS [facility]; Protocol Last Admin: 05/26/18 21:38 Dose: Not Given Levetiracetam (Keppra) 500 mg PO BID [facility] Last Admin: 05/26/18 17:49 Dose: 500 mg Rosuvastatin Calcium (Crestor) 10 mg PO HS [facility] Last Admin: 05/26/18 22:16 Dose: 10 mg Sitagliptin Phosphate (Januvia) 25 mg PO DAILY [facility] Last Admin: 05/26/18 09:51 Dose: 25 mg Sodium Bicarbonate (Sodium Bicarbonate Tab) 1,300 mg PO BID [facility] Last Admin: 05/26/18 17:48 Dose: 1,300 mg Tamsulosin HCl (Flomax) 0.4 mg PO DAILY [facility] Last Admin: 05/26/18 09:52 Dose: 0.4 mg Vitamin B Complex/Vit C/Folic Acid (Nephro-Priscilla) 1 tab PO 0800 [facility] Last Admin: 05/26/18 09:52 Dose: 1 tab - Labs Labs: 05/26/18 07:04 05/26/18 07:04 PT 13.5 SECONDS (9.7-12.2) H 05/21/18 12:18 INR 1.2 05/21/18 12:18 APTT 34 SECONDS (21-34) 05/21/18 12:18 Attending/Attestation - Attestation I have personally seen and examined this patient.: Yes I have fully participated in the care of the patient.: Yes I have reviewed all pertinent clinical information, including history, physical exam and plan: Yes Notes (Text): This is late computer entry for 05/25/18. Patient seen, examined and case discussed with day-time resident. Discussed with nephrology, patient has admitted that his alcohol use is not as occasional as he had originally described; f/u abdominal US to check liver for cirrhosis/ascites. Patient reports he is having bowel movements. Patient also he is urinating less. Patient ordered for bladder scan by nursing staff, but it is limited secondary to obese habitus. Will check renal/bladder US given abrupt increase in Creatinine, straight cath which patient has refused. and start Flomax given enlarged prostate noted in prior scan. Will ordered chest xray given patient is off diuresis to attempt to optimize kidney for potential cardiac cath. Assessment/Plan 1. Congestive heart failure acute exacerbation, suspected systolic Assessment/Plan * Cardiology (Dr. 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 * Echo: normal EF, dilated LA, mod TR * hold Diuresis until 05/25/18 * Chest xray (05/21/18): moderate to severe venous congestion. moderate left and small right pleural effusion. consolidative changes in the mid to lower lung zones. cardiomegaly. * Chest xray (05/22/18): right lower lobe infiltrate/right pleural effusion. left bechdalek's hernia. No visible infiltrate left lung. 2. Acute on chronic renal failure Assessment/Plan * Nephrology (Dr. Morfin) cable television program director-->help appreciated * BUN 28, Cr 2.8- monitor * Renal US (05/22/18): no obstructing calculus, hydronephrosis, or renal cyst i dentified. Prevoid urinary bladder volume 81.4ml. Postvoid urinary bladder volume 8.1ML. Right ureteral jet is not identifed. Enlarged prostate gland. * Procrit 10,000 MWF * Ferrlicet 125 mg IVP daily * Fergon 324mg PO TID * Nephrovite PO daily * lasix on hold per nephrology * Sodium bicarbonate tab 1300mg PO BID 3. Anemia- suspect related to kidney failure Assessment/Plan * suspect anemia of chronic disease given underlying renal disease * B12, folate wnl * Iron low (43), ferritin wnl * Ferrlicet 125 mg IVP daily * Fergon 324mg PO TID 4. Type 2 diabetes mellitus Assessment/Plan * A1c 8.6 * Lipid panel ordered * Accuchecks ACHS * Hypoglycemia protocol * ISS medium * Changed Januvia 100mg PO to Januvia 25 mg PO daily (renally dosed) 5. Hypertension Assessment/Plan * monitor vital signs * Coreg 25 mg PO BID * Norvasc 10mg PO daily 6. History of Seizure disorder Assessment/Plan * Keppra level pending * Home dose Keppra 500 mg PO BID- held 7. H/o Gout Assessment/Plan * Uric acid 8.7 * Allopurinol 300 mg PO daily 8. Leg edema Assessment/Plan * suspect secondary to CHF * venous dopplers negative for DVT * Will provide aron stockings and elevate the legs to reduce edema 9. Hyperkalemia Assessment/Plan * Given duoneb X1, and Kayexlate 15gm PO X1 * monitor BMP 10. Abdominal Distension Assessment/Plan * Check abdominal US r/o cirrhosis in light of alcohol use history 11. Urinary retention Assessment/Plan * Renal US (05/22/18): no obstructing calculus, hydronephrosis, or renal cyst identified. Prevoid urinary bladder volume 81.4ml. Postvoid urinary bladder v olume 8.1ML. Right ureteral jet is not identifed. Enlarged prostate gland. * Urinary straight cath-->patient refusing * Bladder scan by nursing staff * Repeat bladder/renal US * Patient off diuresis since 05/24/18 12. Ppx: Assessment/Plan * VTE: Heparin 5000 units SC Q8H * GI: Protonix 40 mg PO daily
[2018-05-25] MEDS: (Novolog) Insulin Aspart, Recombinant 100 u/ml 10 ml vial SC SCH ×4 (07:52→22:20)
[2018-05-25 07:55] LABS: BASO % 0.4 % (0.0-2.0); EOS # 0.3 K/uL (0.0-0.7); EOS % 4.8 % (0.0-4.0); HEMOGLOBIN 8.4 g/dL (12.0-18.0); LYMPH # 1.1 K/uL (1.0-4.3); LYMPH % 16.6 % (20.0-40.0); MEAN CELL VOLUME 97.8 fL (80.0-94.0); MEAN CORPUSCULAR HEMOGLOBIN 32.1 pg (27.0-31.0); MEAN CORPUSCULAR HGB CONC 32.8 g/dL (33.0-37.0); MEAN PLATELET VOLUME 9.8 fL (7.2-11.7); MONO # 0.8 K/uL (0.0-0.8); MONO % 12.4 % (0.0-10.0); NEUT # 4.3 K/uL (1.8-7.0); NEUT % 65.8 % (50.0-75.0); NRBC % 0.1 % (0.0-2.0); RBC 2.62 Mil/uL (4.40-5.90); RED CELL DISTRIBUTION WIDTH 14.4 % (11.5-14.5); WHITE BLOOD COUNT 6.6 K/uL (4.8-10.8)
[2018-05-25] MEDS: Multivitamin Vitamin B Complex (Nephro-Vite) Tab PO SCH (08:20)
[2018-05-25 09:00] LABS: ALB/GLOB RATIO 1.4 (1.0-2.1); ALBUMIN 4.1 g/dL (3.5-5.0); CALCIUM 8.2 mg/dl (8.6-10.4)
[2018-05-25] MEDS: Ferric Sodium Gluconat Complex 125 MG in Sodium Chloride 0.9% 100 ML IVPB SCH (10:51)
[2018-05-25] MEDS ORDERED: Albuterol-Ipratrop 3 mg / 0.5 (3 ml) UD INH STA (11:45)
--- NOTE | 2018-05-25 14:17 | CP.PCM.PN ---
Subjective - Date & Time of Evaluation Date of Evaluation: 05/25/18 Time of Evaluation: 14:15 - Subjective Subjective: Nephrology Consultation Note: Assessment: Stable Acute Kidney Injury (N17.9) likely due to cardio-renal syndrome. possible progression of CKD 3 Diabetic chronic Kidney Disease (E11.22) Hypertensive Chronic Kidney Disease (I12.9) Chronic Kidney Disease (N18.3) Stage 3 with ? mg proteinuria (R80.9) likely due to DM/HTN Anemia (D64.9), metabolic acidosis HTN (I12.9) CHF exacerbation, fluid overload Plan No acute need for renal replacement therapy at this time. Hypertension control with meds as ordered. Maintain hemodynamics stable. Avoid hypotension. Patient ARB held due to recent MICHELLE. will resume once volume status optimized and stable renal function. d/c norvasc as BP low side Monitor Input/Output, daily weights and renal function with basic metabolic panel started iron, MVI and epogen. PRBC as needed added sodium bicarb 1300 mg bid diuretics on hold due to MICHELLE and possible need of cardiac cath cardiology evaluation added b12 and vitamin d once a month as well check urine Na/cr, Eos and liver sono eval for alcoholic cirrhosis he is planned for cardiac cath as with abnormal stress test. pt will be at in creased risk of contrast induced nephropathy including need for dialysis. unable to give him IVF to reduce risk. suggest to hold lasix x 2 days. minimize volume to contrast. pt and dry curer to further decide on pros/cons, risks/benefits of coronary angiogram. Check urine analysis, spot protein/creatinine, albumin/creatinine ratio, uric acid, renal and bladder sonogram Check GN work up as C3, C4, DINORAH, Anti dsDNA, HIV/Hep B and Hep C serology Anemia work up with TSAT/Ferritin/Vitamin B12/folate, serum protein electrophoresis with immunofixation, serum free light chain assay ([place]/Lambda) Check for 25-OH vitamin D, iPTH, phosphorus level. Dose meds/antibiotics for reduced GFR. Avoid fleets enema/magnesium based laxatives. Avoid nephrotoxins/NSAIDs/ iodinated contrast (unless needed emergently) Glycemic control Further work up/management as per primary team Thanks for allowing me to participate in care of your patient. Will follow patient with you. Please call if any Qs. had d/w team and patient, Dr Jovan Haynes Office: [phone] Chief Complaint; SOB Reason for consult: Acute Kidney Injury on CKD HPI: Pt is a with hx of diabetes Mellitus (>10 years) with retinopathy s/p laser surgery, hypertension (>10 years) CKF, CKD 3 with baseline cr 1.8-22 in apr 2017 seizure presented with complaints of worsening SOB on exertion and lying down. admitted for CHF exacerbation. renal consult for MICHELLE on CKD 3. pt c/o leg swelling, cough. admits to drinking etoh 2 times a week, few sips of tequila as per per. denies smoking/drugs. not aware about kidney disease in past Denies OTC/herbal meds or NSAIDs No recent iodinated contrast exposure. No obvious episodes of low BP. ROS: Cardiovascular: No chest pain. Pulmonary: improved shortness of breath Gastrointestinal: denies abdominal pain No nausea. No vomiting. Genitourinary: No pain while urinating. Denies blood in urine. All other negative except as mentioned in HPI Physical Examination: General Appearance: Comfortable, in no acute respiratory distress, co-operative . Vitals reviewed and noted as below Head; Atraumatic, normocephalic ENT: no ulcers no thrush. Tongue is midline. Oropharynx: no rash or ulcers. EYES: Pupils are equal, round and reactive to light accommodation. Eye muscles and extraocular movement intact. Sclera is anicteric. Neck; supple no lymphadenopathy, no thyromegaly or bruit Lungs: Normal respiratory rate/effort. Breath sounds bilateral clearer Heart: Normal rate. s1s2 normal. No rub or gallop. Extremities: 1-2+ edema. No varicose veins. hyperpigmented changes in legs with some rash noted, pt says long time Neurological: Patient is alert, awake and oriented to person, place and time. No focal deficit. Strength bilateral appropriate and equal Skin: Warm and dry. Normal turgor. Palpitation: Normal elasticity for age Abdomen: Abdomen is soft. Bowel sounds +. There is no abdominal tenderness, no guarding/rigidity no organomegaly. ? ascites. Psych: limited insight and normal affect/mood MSK: no joint tenderness or swelling. Digits and nails normal, no deformity : kidney or bladder not palpable Labs/imaging reviewed. Past medical history, past surgical history, family history, social history, allergy reviewed and noted as below Family hx: no hx of CKD. Rest non-contributory Objective - Vital Signs/Intake and Output Vital Signs (last 24 hours): Temp Pulse Resp BP Pulse Ox 98.5 F 70 20 96/61 L 96 05/25/18 07:00 05/25/18 12:03 05/25/18 07:00 05/25/18 07:00 05/25/18 07:00 Intake and Output: 05/25/18 05/25/18 06:59 18:59 Intake Total 400 Balance 400 - Medications Medications: Current Medications Allopurinol (Zyloprim) 300 mg PO DAILY [facility] Last Admin: 05/25/18 09:19 Dose: 300 mg Carvedilol (Coreg) 25 mg PO BID [facility] Last Admin: 05/25/18 09:20 Dose: Not Given Cyanocobalamin (Vitamin B12 1000 Mcg Tab) 1,000 mcg PO DAILY [facility] Last Admin: 05/25/18 09:19 Dose: 1,000 mcg Epoetin Scott (Procrit) 10,000 unit SC MWF [facility] Last Admin: 05/24/18 08:37 Dose: 10,000 unit Ferrous Gluconate (Fergon) 324 mg PO TID [facility] Last Admin: 05/25/18 09:20 Dose: 324 mg Furosemide (Lasix) 40 mg IVP Q12 [facility] Last Admin: 05/23/18 21:42 Dose: 40 mg Heparin Sodium (Porcine) (Heparin) 5,000 units SC Q8 [facility] Last Admin: 05/25/18 13:41 Dose: 5,000 units Ferric Sodium Gluconate Complex 125 mg/ Sodium Chloride 110 mls @ 100 mls/hr IVPB DAILY [facility] Stop: 05/30/18 17:01 Last Admin: 05/25/18 10:51 Dose: 100 mls/hr Insulin Aspart (Novolog) 0 unit SC ACHS [facility]; Protocol Last Admin: 05/25/18 12:21 Dose: 2 units Rosuvastatin Calcium (Crestor) 10 mg PO HS [facility] Last Admin: 05/24/18 21:32 Dose: 10 mg Sitagliptin Phosphate (Januvia) 25 mg PO DAILY [facility] Last Admin: 05/25/18 09:19 Dose: 25 mg Sodium Bicarbonate (Sodium Bicarbonate Tab) 1,300 mg PO BID [facility] Last Admin: 05/25/18 09:19 Dose: 1,300 mg Vitamin B Complex/Vit C/Folic Acid (Nephro-Priscilla) 1 tab PO 0800 [facility] Last Admin: 05/25/18 08:20 Dose: 1 tab - Labs Labs: 05/25/18 07:30 05/25/18 07:30 PT 13.5 SECONDS (9.7-12.2) H 05/21/18 12:18 INR 1.2 05/21/18 12:18 APTT 34 SECONDS (21-34) 05/21/18 12:18
--- NOTE | 2018-05-25 18:18 | US ---
Date of service: 05/25/2018 PROCEDURE: Ultrasound urinary bladder HISTORY: eval for retention/obstruction COMPARISON: None TECHNIQUE: Standard protocol for this study/examination. FINDINGS: Urinary bladder is not visible. The patient voided prior to the examination. IMPRESSION: Nondiagnostic examination of the urinary bladder.
--- NOTE | 2018-05-25 18:19 | US ---
Date of service: 05/25/2018 HISTORY: Please eval for ascites and cirrhosis COMPARISON: None. TECHNIQUE: 05/22/2018 renal ultrasound.. FINDINGS: LIVER: Measures 21.1 cm in length. Hepatopedal blood flow. Fatty infiltration manifest ultrasonographically as increased echogenicity of the liver parenchyma. No mass. No intrahepatic bile duct dilatation. Nodular contour to the liver consistent with clinically suspected cirrhosis. GALLBLADDER: Unremarkable. No gallstones. COMMON BILE DUCT: Measures 4.3 mm. No stones. No dilatation. PANCREAS: Unremarkable as visualized. No mass. No ductal dilatation. RIGHT KIDNEY: Measures 5.8 x 11.2 cm in length. Normal echogenicity. No calculus, mass, or hydronephrosis. AORTA: No aneurysmal dilatation. IVC: Unremarkable. OTHER FINDINGS: None . IMPRESSION: Hepatomegaly, hepatic steatosis. Nodular contour to the liver consistent with cirrhosis. No visible ascites.
--- NOTE | 2018-05-25 18:31 | RAD ---
Date of service: 05/25/2018 HISTORY: chf COMPARISON: 05/22/2018. FINDINGS: LUNGS: No discrete infiltrate currently seen. PLEURA: No significant pleural effusion identified, no pneumothorax apparent. CARDIOVASCULAR: No atherosclerotic calcification present Cardiomegaly, pulmonary vascular congestion. OSSEOUS STRUCTURES: No significant abnormalities. VISUALIZED UPPER ABDOMEN: Normal. OTHER FINDINGS: None. IMPRESSION: Acute CHF.
--- NOTE | 2018-05-25 23:42 | CP.PCM.PN ---
Subjective - Date & Time of Evaluation Date of Evaluation: 05/25/18 Time of Evaluation: 18:20 - Subjective Subjective: Patient's creatine is worsening Will hold off cath till renal function baseline Renal on case Physical Examination - Head Exam Head Exam: ATRAUMATIC, NORMAL INSPECTION - Eye Exam Eye Exam: EOMI, Normal appearance, PERRL Pupil Exam: NORMAL ACCOMODATION - ENT Exam ENT Exam: Mucous Membranes Moist, Normal Oropharynx - Neck Exam Neck Exam: Normal Inspection. absent: Lymphadenopathy, Thyromegaly - Respiratory Exam Respiratory Exam: Clear to Ausculation Bilateral, NORMAL BREATHING PATTERN. absent: Prolonged Expiratory Phase, Respiratory Distress - Cardiovascular Exam Cardiovascular Exam: +S1, +S2 - GI/Abdominal Exam GI & Abdominal Exam: Soft, Normal Bowel Sounds. absent: Hyperactive Bowel Sounds - Extremities Exam Extremities Exam: Full ROM. absent: Pedal Edema - Back Exam Back Exam: NORMAL INSPECTION. absent: CVA tenderness (R), paraspinal tenderness - Neurological Exam Neurological Exam: Alert, Awake, CN II-XII Intact - Psychiatric Exam Psychiatric exam: Normal Affect, Normal Mood - Skin Skin Exam: Dry, Intact Assessment and Plan - Assessment and Plan (Free Text) Assessment: 67 year old male with a past medical history of hypertension, dm2, ckd, gout, and chf who presents to the hospital for chf exacerbation. Plan: Plan: 1. Acute on chronic diastolic heart failure Troponin (-)x3 BNP elevated on admission but patient has component of kidney dysfunction. Doppler Negative Patient would benefit from Cardiac catherization, however patient current kidney dysfunction puts him at a high risk for complications post cardiac cath. At this time patient not cleared for cardiac catherization. Medications: Lasix 40mg IVP Q12 Held Coreg 25mg PO BID [facility] Cozaar Held Crestor 10mg PO HS Novasc 10mg PO Daily 2.CKD Nephrology consulted. Help appreciated Medications: Procrit 10,000 MWF Ferrlicet 125 mg IVP Daily Fergon 324mg PO TID [facility] Nephrovite 1 TAB PO 800 [facility] 3.DM Januvia 25mg PO Daily 4.Gout Allopurinol 300mg PO Daily PPX -Heparin 5000 units SC Q8 [facility] Dispo: Patient will hold off on cardiac catherization at this time. Plan discussed with Attending Dr. Cage. Deni Adkins, PGY-2 <Barrett Cage - Last Filed: 05/24/18 23:01> Objective - Vital Signs/Intake and Output Vital Signs (last 24 hours): Temp Pulse Resp BP Pulse Ox 97.8 F 62 20 118/66 95 05/24/18 18:23 05/24/18 20:36 05/24/18 18:23 05/24/18 18:23 05/24/18 18:23 Intake and Output: 05/24/18 05/25/18 18:59 06:59 Intake Total 400 Balance 400 Objective - Vital Signs/Intake and Output Vital Signs (last 24 hours): Temp Pulse Resp BP Pulse Ox 97.9 F 76 20 120/75 95 05/25/18 16:00 05/25/18 23:25 05/25/18 16:00 05/25/18 18:12 05/25/18 16:00 - Medications Medications: Current Medications Allopurinol (Zyloprim) 300 mg PO DAILY [facility] Last Admin: 05/25/18 09:19 Dose: 300 mg Carvedilol (Coreg) 25 mg PO BID [facility] Last Admin: 05/25/18 18:12 Dose: 25 mg Cyanocobalamin (Vitamin B12 1000 Mcg Tab) 1,000 mcg PO DAILY [facility] Last Admin: 05/25/18 09:19 Dose: 1,000 mcg Epoetin Scott (Procrit) 10,000 unit SC MWF [facility] Last Admin: 05/24/18 08:37 Dose: 10,000 unit Ferrous Gluconate (Fergon) 324 mg PO TID [facility] Last Admin: 05/25/18 18:12 Dose: 324 mg Furosemide (Lasix) 40 mg IVP Q12 [facility] Last Admin: 05/23/18 21:42 Dose: 40 mg Heparin Sodium (Porcine) (Heparin) 5,000 units SC Q8 [facility] Last Admin: 05/25/18 22:19 Dose: 5,000 units Ferric Sodium Gluconate Complex 125 mg/ Sodium Chloride 110 mls @ 100 mls/hr IVPB DAILY [facility] Stop: 05/30/18 17:01 Last Admin: 05/25/18 10:51 Dose: 100 mls/hr Insulin Aspart (Novolog) 0 unit SC ACHS [facility]; Protocol Last Admin: 05/25/18 22:20 Dose: Not Given Levetiracetam (Keppra) 500 mg PO BID [facility] Last Admin: 05/25/18 18:12 Dose: 500 mg Rosuvastatin Calcium (Crestor) 10 mg PO HS [facility] Last Admin: 05/25/18 22:20 Dose: 10 mg Sitagliptin Phosphate (Januvia) 25 mg PO DAILY [facility] Last Admin: 05/25/18 09:19 Dose: 25 mg Sodium Bicarbonate (Sodium Bicarbonate Tab) 1,300 mg PO BID [facility] Last Admin: 05/25/18 18:12 Dose: 1,300 mg Tamsulosin HCl (Flomax) 0.4 mg PO DAILY [facility] Last Admin: 05/25/18 18:12 Dose: 0.4 mg Vitamin B Complex/Vit C/Folic Acid (Nephro-Priscilla) 1 tab PO 0800 [facility] Last Admin: 05/25/18 08:20 Dose: 1 tab - Labs Labs: 05/25/18 07:30 05/25/18 07:30 PT 13.5 SECONDS (9.7-12.2) H 05/21/18 12:18 INR 1.2 05/21/18 12:18 APTT 34 SECONDS (21-34) 05/21/18 12:18
--- NOTE | 2018-05-26 07:10 | CP.PCM.PN ---
<Cynthia Radford - Last Filed: 05/26/18 14:16> Subjective - Date & Time of Evaluation Date of Evaluation: 05/26/18 Time of Evaluation: 07:10 - Subjective Subjective: PGY-1 Cynthia Radford D.O. Medicine progress note for Dr. Barbosa's service: Patient was seen and examined this morning. He is complaining of increased shortness of breath and is requiring nasal cannula. Patient had urinary retention yesterday but was able to urinate on his own afterwards (200 cc). His swelling is improved from admission but still present with the compression stockings. Patient denies VILLALPANDO, chest pain, abdominal pain. Additionally, patient told another provider that he typically drinks 1 pint of vodka per day. Addressed this with patient as his abdomen is becoming more distended as well. Objective - Vital Signs/Intake and Output Vital Signs (last 24 hours): Temp Pulse Resp BP Pulse Ox 97.9 F 72 20 145/69 97 05/26/18 00:00 05/26/18 00:00 05/26/18 00:00 05/26/18 00:00 05/26/18 00:00 - Medications Medications: Current Medications Allopurinol (Zyloprim) 300 mg PO DAILY [facility] Last Admin: 05/25/18 09:19 Dose: 300 mg Carvedilol (Coreg) 25 mg PO BID [facility] Last Admin: 05/25/18 18:12 Dose: 25 mg Cyanocobalamin (Vitamin B12 1000 Mcg Tab) 1,000 mcg PO DAILY [facility] Last Admin: 05/25/18 09:19 Dose: 1,000 mcg Epoetin Scott (Procrit) 10,000 unit SC MWF [facility] Last Admin: 05/24/18 08:37 Dose: 10,000 unit Ferrous Gluconate (Fergon) 324 mg PO TID [facility] Last Admin: 05/25/18 18:12 Dose: 324 mg Furosemide (Lasix) 40 mg IVP Q12 [facility] Last Admin: 05/23/18 21:42 Dose: 40 mg Heparin Sodium (Porcine) (Heparin) 5,000 units SC Q8 [facility] Last Admin: 05/26/18 06:39 Dose: 5,000 units Ferric Sodium Gluconate Complex 125 mg/ Sodium Chloride 110 mls @ 100 mls/hr IVPB DAILY [facility] Stop: 05/30/18 17:01 Last Admin: 05/25/18 10:51 Dose: 100 mls/hr Insulin Aspart (Novolog) 0 unit SC ACHS [facility]; Protocol Last Admin: 05/25/18 22:20 Dose: Not Given Levetiracetam (Keppra) 500 mg PO BID [facility] Last Admin: 05/25/18 18:12 Dose: 500 mg Rosuvastatin Calcium (Crestor) 10 mg PO HS [facility] Last Admin: 05/25/18 22:20 Dose: 10 mg Sitagliptin Phosphate (Januvia) 25 mg PO DAILY [facility] Last Admin: 05/25/18 09:19 Dose: 25 mg Sodium Bicarbonate (Sodium Bicarbonate Tab) 1,300 mg PO BID [facility] Last Admin: 05/25/18 18:12 Dose: 1,300 mg Tamsulosin HCl (Flomax) 0.4 mg PO DAILY [facility] Last Admin: 05/25/18 18:12 Dose: 0.4 mg Vitamin B Complex/Vit C/Folic Acid (Nephro-Priscilla) 1 tab PO 0800 [facility] Last Admin: 05/25/18 08:20 Dose: 1 tab - Labs Labs: 05/25/18 07:30 05/25/18 07:30 PT 13.5 SECONDS (9.7-12.2) H 05/21/18 12:18 INR 1.2 05/21/18 12:18 APTT 34 SECONDS (21-34) 05/21/18 12:18 - Additional Findings Additional findings: - Constitutional Appears: Non-toxic, No Acute Distress - Head Exam Head Exam: ATRAUMATIC, NORMAL INSPECTION - Eye Exam Eye Exam: EOMI, Normal appearance, PERRL - ENT Exam ENT Exam: Mucous Membranes Moist - Neck Exam Neck Exam: Normal Inspection - Respiratory Exam Respiratory Exam: Tachypnea, Rales L>R. absent: Respiratory Distress NC 4L - Cardiovascular Exam Cardiovascular Exam: RRR, +S1, +S2 - GI/Abdominal Exam GI & Abdominal Exam: Soft. absent: Distended, Tenderness - Extremities Exam Additional comments: b/l knee-high compression stockings, 2+ pedal edema - Back Exam Back Exam: NORMAL INSPECTION - Neurological Exam Neurological Exam: Alert, Awake, CN II-XII Intact, Oriented x3 - Psychiatric Exam Psychiatric exam: Normal Affect, Normal Mood - Skin Skin Exam: Dry, Intact, Normal Color, Warm Assessment and Plan - Assessment and Plan (Free Text) Assessment: Patient is a 67 year old female with history of HTN, seizures, T2DM, CHF, and CKD who presented with SOB and pedal edema. Treating acute CHF exacerbation. Also found to have acute on chronic renal failure. Patient had stress test and cardiology recommends a cardiac cath. Nephrology reports that the patient is high risk for nephropathy and needing dialysis following cath/contrast. Kidney function continues to decline. Nephrology recommended holding Lasix for 2 days, but patient is retaining more fluid and breathing is worsening. Plan: Congestive heart failure acute exacerbation - BNP 1550 on admission - TSH, free T4 wnl - BANDAR negative x3 - Venous Dopplers: no DVT - Echo: normal EF, dilated LA, mod TR - Lexiscan: normal, EF 50-55% - CXR (05/25): acute CHF - f/u repeat CXR post IV Lasix - Daily weights - Strict Is&Os - Fluid restriction 1200 mL - Compression stockings - Lasix 40 mg IV Q12H- hold for 2 days as per nephro - Resume on 05/26 - Coreg 25 mg PO BID - BiPAP started on 05/26 - Cardiology consulted ([place])- rec cardiac cath when kidney function improves - Pulmonology consulted ([place]) Acute on chronic renal failure, worsening - BUN 71, Cr 3.9 - Renal US: enlarged prostate - Microalb/Cr ratio elevated (111) - Random urine total protein elevated (315) - Vit D low (24.3) - Complement, dsDNA Ab, random urine creatinine wnl - Procrit 10,000 MWF - Ferrlicet 125 mg IV daily - Fergon 324 mg PO TID - Nephrovite PO daily - Sodium bicarb 1300 mg PO BID - Nephrology consulted ([place])- high risk for PCI, Oz score 16 (post- PCI nephropathy risk 57.3%, requiring dialysis 12.6%) Abdominal distention- suspect cirrhosis/ascites +/- urinary retention - LFTs wnl - INR wnl - Liver US: hepatomegaly, steatosis, nodular (cirrhosis) Urinary retention - Bladder scan PRN - Repeat bladder US: inconclusive as patient voided before imaging - Insert Lemons 05/26 - Start Flomax 0.4 mg PO daily Anemia, stable- suspect related to kidney failure/chronic disease - B12, folate wnl - Iron low (43), ferritin wnl - Procrit 10,000 MWF - Vit B12 1000 mcg PO daily Type 2 diabetes mellitus, chronic - A1c 8.6 - Lipid panel wnl: TG 116, chol 84, LDL 45, HDL 25 - Accuchecks ACHS - Hypoglycemia protocol - ISS medium - Januvia 25 mg PO daily (renally dosed) Hypertension, controlled - Vitals Q6H - Patient on Losartan and HCTZ at home- holding due to kidney function - Coreg 25 mg PO BID - Norvasc 10 mg PO daily - Lasix 40 mg IV Q12H Seizure disorder - Keppra level 21.9 - Resume Keppra 500 mg PO BID Alcohol use disorder - Liver US: hepatomegaly, steatosis, nodular (cirrhosis) - Cessation counseling H/o Gout - Uric acid 8.7 - Allopurinol 100 mg PO daily Ppx: VTE: Heparin 5000 units SC Q8H GI: Protonix 40 mg PO daily Code status: full code Case discussed with attending, Dr. Barbosa. <Lynn Barbosa V - Last Filed: 05/26/18 23:23> Objective - Vital Signs/Intake and Output Vital Signs (last 24 hours): Temp Pulse Resp BP Pulse Ox 97.8 F 78 20 147/66 94 L 05/26/18 16:00 05/26/18 16:00 05/26/18 16:00 05/26/18 22:14 05/26/18 16:00 Intake and Output: 05/26/18 05/27/18 18:59 06:59 Intake Total 100 Output Total 500 450 Balance -400 -450 - Medications Medications: Current Medications Allopurinol (Zyloprim) 300 mg PO DAILY [facility] Last Admin: 05/26/18 09:51 Dose: 300 mg Carvedilol (Coreg) 25 mg PO BID [facility] Last Admin: 05/26/18 17:49 Dose: 25 mg Cyanocobalamin (Vitamin B12 1000 Mcg Tab) 1,000 mcg PO DAILY [facility] Last Admin: 05/26/18 09:52 Dose: 1,000 mcg Epoetin Scott (Procrit) 10,000 unit SC MWF [facility] Last Admin: 05/26/18 09:58 Dose: 10,000 unit Ferrous Gluconate (Fergon) 324 mg PO TID [facility] Last Admin: 05/26/18 17:49 Dose: 324 mg Furosemide (Lasix) 40 mg IVP Q12H [facility] Last Admin: 05/26/18 22:14 Dose: 40 mg Heparin Sodium (Porcine) (Heparin) 5,000 units SC Q8 [facility] Last Admin: 05/26/18 22:16 Dose: 5,000 units Ferric Sodium Gluconate Complex 125 mg/ Sodium Chloride 110 mls @ 100 mls/hr IVPB DAILY [facility] Stop: 05/30/18 17:01 Last Admin: 05/26/18 10:00 Dose: 100 mls/hr Insulin Aspart (Novolog) 0 unit SC ACHS [facility]; Protocol Last Admin: 05/26/18 21:38 Dose: Not Given Levetiracetam (Keppra) 500 mg PO BID [facility] Last Admin: 05/26/18 17:49 Dose: 500 mg Rosuvastatin Calcium (Crestor) 10 mg PO HS [facility] Last Admin: 05/26/18 22:16 Dose: 10 mg Sitagliptin Phosphate (Januvia) 25 mg PO DAILY [facility] Last Admin: 05/26/18 09:51 Dose: 25 mg Sodium Bicarbonate (Sodium Bicarbonate Tab) 1,300 mg PO BID [facility] Last Admin: 05/26/18 17:48 Dose: 1,300 mg Tamsulosin HCl (Flomax) 0.4 mg PO DAILY [facility] Last Admin: 05/26/18 09:52 Dose: 0.4 mg Vitamin B Complex/Vit C/Folic Acid (Nephro-Priscilla) 1 tab PO 0800 [facility] Last Admin: 05/26/18 09:52 Dose: 1 tab - Labs Labs: 05/26/18 07:04 05/26/18 07:04 PT 13.5 SECONDS (9.7-12.2) H 05/21/18 12:18 INR 1.2 05/21/18 12:18 APTT 34 SECONDS (21-34) 05/21/18 12:18 Attending/Attestation - Attestation I have personally seen and examined this patient.: Yes I have fully participated in the care of the patient.: Yes I have reviewed all pertinent clinical information, including history, physical exam and plan: Yes Notes (Text): Patient seen, examined and case discussed with day-time resident. Patient noted increase work of breathing; likely fluid overload. Gave dose of Lasiv 40mg IV and placed on bipap on the patient. Discussed with cardiology who has recommended pulm eval for COPD. Discussed with pulm, recommend for duonebs, continue bipap, and likely SOB secondary to fluid overload state by both renal/cardiac issues. Patient's UA noted for esinophila-->discussed with pulm and renal; renal will re-evaluate the patient for starting steroids tomorrow. Renal is also considering renal biopsy for the patient for possible AIN. Note patient has not been on antibiotics nor NSAId on the admission, Abdominal US noted for cirrhosis. We had the assistance for translation by resident PGY1- Beny Aguilar to explain to and patient that patient is having issues with both his heart and renal which are both involved with regulating fluid and causing the fluid to essentially to back up for the patient. Patient after much needing convincing allowed us to put in a lemons. Assessment/Plan 1. Congestive heart failure acute exacerbation, diastolic Assessment/Plan * Cardiology (Dr. Cage) expanded function dental assistant-->help appreciated * Ordered for stress test-->follow-up * Monitor on telemetry * Daily weights * Monitor intake and output * Coreg 25mg PO BID * HCTZ 12.5mg PO daily * Cozaar 100mg PO daily--Hold given borderline hyperkalemia * Crestor 10mg POqHS * BNP 1550-->repeat BNP tomorrow * TSH, free T4 wnl * BANDAR negative x3 * Venous Dopplers: no evidence of deep or superficial vein thrombosis, valvular incompetence of right and left poplitel and greater saphenous veins. * Echo: normal EF, dilated LA, mod TR * hold Diuresis until 05/25/18 * Chest xray (05/21/18): moderate to severe venous congestion. moderate left and small right pleural effusion. consolidative changes in the mid to lower lung zones. cardiomegaly. * Chest xray (05/22/18): right lower lobe infiltrate/right pleural effusion. left bechdalek's hernia. No visible infiltrate left lung. * Chest xray (05/26/18): no active disease 2. Acute on chronic renal failure Assessment/Plan * Nephrology (Dr. Morfin) expanded function dental assistant-->help appreciated * BUN 28, Cr 2.8- monitor * Renal US (05/22/18): no obstructing calculus, hydronephrosis, or renal cyst identified. Prevoid urinary bladder volume 81.4ml. Postvoid urinary bladder volume 8.1ML. Right ureteral jet is not identifed. Enlarged prostate gland. * Procrit 10,000 MWF * Ferrlicet 125 mg IVP daily * Fergon 324mg PO TID * Nephrovite PO daily * lasix on hold per nephrology * Sodium bicarbonate tab 1300mg PO BID 3. Anemia- suspect related to kidney failure Assessment/Plan * suspect anemia of chronic disease given underlying renal disease * B12, folate wnl * Iron low (43), ferritin wnl * Ferrlicet 125 mg IVP daily * Fergon 324mg PO TID 4. Type 2 diabetes mellitus Assessment/Plan * A1c 8.6 * Lipid panel ordered * Accuchecks ACHS * Hypoglycemia protocol * ISS medium * Changed Januvia 100mg PO to Januvia 25 mg PO daily (renally dosed) 5. Hypertension Assessment/Plan * monitor vital signs * Coreg 25 mg PO BID * Norvasc 10mg PO daily 6. History of Seizure disorder Assessment/Plan * Keppra level pending * Home dose Keppra 500 mg PO BID- held 7. H/o Gout Assessment/Plan * Uric acid 8.7 * Allopurinol 300 mg PO daily 8. Leg edema Assessment/Plan * suspect secondary to CHF * venous dopplers negative for DVT * Will provide aron stockings and elevate the legs to reduce edema 9. Hyperkalemia Assessment/Plan * Given duoneb X1, and Kayexlate 15gm PO X1 * monitor BMP 10. Abdominal Distension Assessment/Plan * Abdominal US (05/25/18): hepatomeglay, hepatic steatosis. nodular contour to the liver consistent with cirrhosis. no visible ascites 11. Urinary retention Assessment/Plan * Renal US (05/22/18): no obstructing calculus, hydronephrosis, or renal cyst identified. Prevoid urinary bladder volume 81.4ml. Postvoid urinary bladder volume 8.1ML. Right ureteral jet is not identifed. Enlarged prostate gland. 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 Ppx: Assessment/Plan * VTE: Heparin 5000 units SC Q8H * GI: Protonix 40 mg PO daily
[2018-05-26 07:19] LABS: EOS # 0.3 K/uL (0.0-0.7); HEMOGLOBIN 8.1 g/dL (12.0-18.0); LYMPH # 1.2 K/uL (1.0-4.3); MONO # 0.9 K/uL (0.0-0.8); WHITE BLOOD COUNT 6.5 K/uL (4.8-10.8)
[2018-05-26 07:25] LABS: BASO % 0.3 % (0.0-2.0); EOS % 4.5 % (0.0-4.0); LYMPH % 17.9 % (20.0-40.0); MEAN CELL VOLUME 97.3 fL (80.0-94.0); MEAN CORPUSCULAR HEMOGLOBIN 32.3 pg (27.0-31.0); MEAN CORPUSCULAR HGB CONC 33.2 g/dL (33.0-37.0); MONO % 13.3 % (0.0-10.0); NEUT # 4.2 K/uL (1.8-7.0); NRBC % 0.2 % (0.0-2.0); RBC 2.52 Mil/uL (4.40-5.90); RED CELL DISTRIBUTION WIDTH 14.5 % (11.5-14.5)
[2018-05-26 07:48] LABS: ALB/GLOB RATIO 1.4 (1.0-2.1); ALBUMIN 3.7 g/dL (3.5-5.0); CALCIUM 7.7 mg/dl (8.6-10.4)
[2018-05-26] MEDS: (Novolog) Insulin Aspart, Recombinant 100 u/ml 10 ml vial SC SCH ×4 (07:51→21:38)
[2018-05-26 09:19] LABS: CREATININE, RANDOM URINE 207.7 mg/dL
[2018-05-26] MEDS: Multivitamin Vitamin B Complex (Nephro-Vite) Tab PO SCH (09:52)
[2018-05-26] MEDS: Epoetin Alfa 10,000 unit/ml Dialysis SC SCH (09:58)
[2018-05-26] MEDS: Ferric Sodium Gluconat Complex 125 MG in Sodium Chloride 0.9% 100 ML IVPB SCH (10:00)
--- NOTE | 2018-05-26 14:20 | RAD ---
Date of service: 05/26/2018 HISTORY: copd COMPARISON: 05/25/2018 FINDINGS: LUNGS: No active pulmonary disease. PLEURA: No significant pleural effusion identified, no pneumothorax apparent. CARDIOVASCULAR: No aortic atherosclerotic calcification present. Normal cardiac size. No pulmonary vascular congestion. OSSEOUS STRUCTURES: No significant abnormalities. VISUALIZED UPPER ABDOMEN: Normal. OTHER FINDINGS: None. IMPRESSION: No active disease.
--- NOTE | 2018-05-26 15:35 | CP.PCM.PN ---
Subjective - Date & Time of Evaluation Date of Evaluation: 05/26/18 Time of Evaluation: 15:32 - Subjective Subjective: Nephrology Consultation Note: Assessment: Stable Acute Kidney Injury (N17.9) ? hemodynamic. ? AIN as also with eosinophiluria and peripheral eosinophilia Diabetic chronic Kidney Disease (E11.22) Hypertensive Chronic Kidney Disease (I12.9) Chronic Kidney Disease (N18.3) Stage 3 with ? mg proteinuria (R80.9) likely due to DM/HTN Anemia (D64.9), metabolic acidosis HTN (I12.9) CHF exacerbation, fluid overload alcoholic cirrhosis of liver Plan No acute need for renal replacement therapy at this time but may be needed soon and will need close follow up. d/w pt and using italian interpretor and they agreed for it if needed Hypertension control with meds as ordered. Maintain hemodynamics stable. Avoid hypotension. Patient ARB held due to recent MICHELLE. will resume once volume status optimized and stable renal function. Monitor Input/Output, daily weights and renal function with basic metabolic panel started iron, MVI and epogen. PRBC as needed added sodium bicarb 1300 mg bid diuretics resumed and agreed with it cardiology evaluation added b12 and vitamin d once a month as well may consider kidney biopsy next week Check urine analysis, spot protein/creatinine, albumin/creatinine ratio, uric acid, renal and bladder sonogram Check GN work up as C3, C4, DINORAH, Anti dsDNA, HIV/Hep B and Hep C serology Anemia work up with TSAT/Ferritin/Vitamin B12/folate, serum protein electrophoresis with immunofixation, serum free light chain assay ([place]/Lambda) Check for 25-OH vitamin D, iPTH, phosphorus level. Dose meds/antibiotics for reduced GFR. Avoid fleets enema/magnesium based laxatives. Avoid nephrotoxins/NSAIDs/ iodinated contrast (unless needed emergently) Glycemic control Further work up/management as per primary team Thanks for allowing me to participate in care of your patient. Will follow patient with you. Please call if any Qs. had d/w team and patient, Dr Jovan Haynes Office: [phone] Chief Complaint; SOB Reason for consult: Acute Kidney Injury on CKD HPI: Pt is a with hx of diabetes Mellitus (>10 years) with retinopathy s/p laser surgery, hypertension (>10 years) CKF, CKD 3 with baseline cr 1.8-22 in apr 2017 seizure presented with complaints of worsening SOB on exertion and lying down. admitted for CHF exacerbation. renal consult for MICHELLE on CKD 3. pt c/o leg swelling, cough. admits to drinking etoh 2 times a week, few sips of tequila as per per. denies smoking/drugs. not aware about kidney disease in past Denies OTC/herbal meds or NSAIDs No recent iodinated contrast exposure. No obvious episodes of low BP. ROS: Cardiovascular: No chest pain. Pulmonary: c/o shortness of breath Gastrointestinal: denies abdominal pain No nausea. No vomiting. Genitourinary: No pain while urinating. Denies blood in urine. All other negative except as mentioned in HPI Physical Examination: General Appearance: Comfortable, in no acute respiratory distress, co-operative . Vitals reviewed and noted as below Head; Atraumatic, normocephalic ENT: no ulcers no thrush. Tongue is midline. Oropharynx: no rash or ulcers. EYES: Pupils are equal, round and reactive to light accommodation. Eye muscles and extraocular movement intact. Sclera is anicteric. Neck; supple no lymphadenopathy, no thyromegaly or bruit Lungs: Normal respiratory rate/effort. Breath sounds bilateral reduced at bases with crackles Heart: Normal rate. s1s2 normal. No rub or gallop. Extremities: 1-2+ edema. No varicose veins. hyperpigmented changes in legs with some rash noted, pt says long time Neurological: Patient is alert, awake and oriented to person, place and time. No focal deficit. Strength bilateral appropriate and equal Skin: Warm and dry. Normal turgor. Palpitation: Normal elasticity for age Abdomen: Abdomen is soft. Bowel sounds +. There is no abdominal tenderness, no guarding/rigidity no organomegaly. ? ascites. Psych: limited insight and normal affect/mood MSK: no joint tenderness or swelling. Digits and nails normal, no deformity : kidney or bladder not palpable Labs/imaging reviewed. Past medical history, past surgical history, family history, social history, allergy reviewed and noted as below Family hx: no hx of CKD. Rest non-contribu Objective - Vital Signs/Intake and Output Vital Signs (last 24 hours): Temp Pulse Resp BP Pulse Ox 97.9 F 77 20 122/67 100 05/26/18 07:52 05/26/18 08:07 05/26/18 08:00 05/26/18 09:52 05/26/18 08:00 Intake and Output: 05/26/18 05/26/18 06:59 18:59 Intake Total 100 Output Total 500 Balance -400 - Medications Medications: Current Medications Allopurinol (Zyloprim) 300 mg PO DAILY [facility] Last Admin: 05/26/18 09:51 Dose: 300 mg Carvedilol (Coreg) 25 mg PO BID [facility] Last Admin: 05/26/18 09:52 Dose: 25 mg Cyanocobalamin (Vitamin B12 1000 Mcg Tab) 1,000 mcg PO DAILY [facility] Last Admin: 05/26/18 09:52 Dose: 1,000 mcg Epoetin Scott (Procrit) 10,000 unit SC MWF [facility] Last Admin: 05/26/18 09:58 Dose: 10,000 unit Ferrous Gluconate (Fergon) 324 mg PO TID [facility] Last Admin: 05/26/18 13:10 Dose: 324 mg Furosemide (Lasix) 40 mg IVP Q12H [facility] Heparin Sodium (Porcine) (Heparin) 5,000 units SC Q8 [facility] Last Admin: 05/26/18 13:10 Dose: 5,000 units Ferric Sodium Gluconate Complex 125 mg/ Sodium Chloride 110 mls @ 100 mls/hr IVPB DAILY [facility] Stop: 05/30/18 17:01 Last Admin: 05/26/18 10:00 Dose: 100 mls/hr Insulin Aspart (Novolog) 0 unit SC ACHS [facility]; Protocol Last Admin: 05/26/18 13:11 Dose: Not Given Levetiracetam (Keppra) 500 mg PO BID [facility] Last Admin: 05/26/18 09:51 Dose: 500 mg Rosuvastatin Calcium (Crestor) 10 mg PO HS [facility] Last Admin: 05/25/18 22:20 Dose: 10 mg Sitagliptin Phosphate (Januvia) 25 mg PO DAILY [facility] Last Admin: 05/26/18 09:51 Dose: 25 mg Sodium Bicarbonate (Sodium Bicarbonate Tab) 1,300 mg PO BID [facility] Last Admin: 05/26/18 09:52 Dose: 1,300 mg Tamsulosin HCl (Flomax) 0.4 mg PO DAILY [facility] Last Admin: 05/26/18 09:52 Dose: 0.4 mg Vitamin B Complex/Vit C/Folic Acid (Nephro-Priscilla) 1 tab PO 0800 [facility] Last Admin: 05/26/18 09:52 Dose: 1 tab - Labs Labs: 05/26/18 07:04 05/26/18 07:04 PT 13.5 SECONDS (9.7-12.2) H 05/21/18 12:18 INR 1.2 05/21/18 12:18 APTT 34 SECONDS (21-34) 05/21/18 12:18
--- NOTE | 2018-05-26 15:53 | CP.PCM.CON ---
History of Present Illness - History of Present Illness History of Present Illness: Reason for consultation: Shortness of breath 67-year-old male with history of hypertension, CKD, seizure disorder presented with worsening shortness of breath. Shortness of breath initially on exertion but now complaining of shortness of breath at rest. Patient was placed on BiPAP. Patient also history of acute on chronic diastolic CHF. Patient complaining of swelling of the legs and cough. Patient admits to drinking alcohol 2 times a week but denies smoking or any drug use. Review of Systems - Review of Systems All systems: reviewed and no additional remarkable complaints except (Shortness of breath) Past Patient History - Past Medical History & Family History Past Medical History?: Yes - Past Social History Smoking Status: Former Smoker - CARDIAC Hx Congestive Heart Failure: Yes Hx Hypercholesterolemia: Yes Hx Hypertension: Yes - PULMONARY Hx Respiratory Disorders: No - NEUROLOGICAL Hx Seizures: Yes - HEENT Hx HEENT Problems: No - RENAL Hx Chronic Kidney Disease: No - ENDOCRINE/METABOLIC Hx Diabetes Mellitus Type 2: Yes - HEMATOLOGICAL/ONCOLOGICAL Hx Blood Disorders: No - INTEGUMENTARY Hx Dermatological Problems: No - MUSCULOSKELETAL/RHEUMATOLOGICAL Hx Falls: No - GASTROINTESTINAL Hx Gastrointestinal Disorders: No - GENITOURINARY/GYNECOLOGICAL Hx Genitourinary Disorders: No - PSYCHIATRIC Hx Substance Use: No - SURGICAL HISTORY Hx Surgeries: Yes Hx Orthopedic Surgery: Yes (Right foot) - ANESTHESIA Hx Anesthesia: Yes Meds Allergies/Adverse Reactions: Allergies Allergy/AdvReac Type Severity Reaction Status Date / Time No Known Allergies Allergy Verified 05/16/17 13:16 - Medications Medications: Current Medications Allopurinol (Zyloprim) 300 mg PO DAILY [facility] Last Admin: 05/26/18 09:51 Dose: 300 mg Carvedilol (Coreg) 25 mg PO BID [facility] Last Admin: 05/26/18 09:52 Dose: 25 mg Cyanocobalamin (Vitamin B12 1000 Mcg Tab) 1,000 mcg PO DAILY [facility] Last Admin: 05/26/18 09:52 Dose: 1,000 mcg Epoetin Scott (Procrit) 10,000 unit SC MWF [facility] Last Admin: 05/26/18 09:58 Dose: 10,000 unit Ferrous Gluconate (Fergon) 324 mg PO TID [facility] Last Admin: 05/26/18 13:10 Dose: 324 mg Furosemide (Lasix) 40 mg IVP Q12H [facility] Heparin Sodium (Porcine) (Heparin) 5,000 units SC Q8 [facility] Last Admin: 05/26/18 13:10 Dose: 5,000 units Ferric Sodium Gluconate Complex 125 mg/ Sodium Chloride 110 mls @ 100 mls/hr IVPB DAILY [facility] Stop: 05/30/18 17:01 Last Admin: 05/26/18 10:00 Dose: 100 mls/hr Insulin Aspart (Novolog) 0 unit SC ACHS [facility]; Protocol Last Admin: 05/26/18 13:11 Dose: Not Given Levetiracetam (Keppra) 500 mg PO BID [facility] Last Admin: 05/26/18 09:51 Dose: 500 mg Rosuvastatin Calcium (Crestor) 10 mg PO HS [facility] Last Admin: 05/25/18 22:20 Dose: 10 mg Sitagliptin Phosphate (Januvia) 25 mg PO DAILY [facility] Last Admin: 05/26/18 09:51 Dose: 25 mg Sodium Bicarbonate (Sodium Bicarbonate Tab) 1,300 mg PO BID [facility] Last Admin: 05/26/18 09:52 Dose: 1,300 mg Tamsulosin HCl (Flomax) 0.4 mg PO DAILY [facility] Last Admin: 05/26/18 09:52 Dose: 0.4 mg Vitamin B Complex/Vit C/Folic Acid (Nephro-Priscilla) 1 tab PO 0800 [facility] Last Admin: 05/26/18 09:52 Dose: 1 tab Physical Exam - Head Exam Head Exam: ATRAUMATIC, NORMOCEPHALIC - ENT Exam ENT Exam: Mucous Membranes Moist - Neck Exam Neck exam: Positive for: Normal Inspection - Respiratory Exam Respiratory Exam: Rales - Cardiovascular Exam Cardiovascular Exam: REGULAR RHYTHM - GI/Abdominal Exam GI & Abdominal Exam: Normal Bowel Sounds, Soft - Extremities Exam Extremities exam: Positive for: pedal edema Results - Vital Signs Recent Vital Signs: Last Vital Signs Temp 97.9 F 05/26/18 07:52 Pulse 77 05/26/18 08:07 Resp 20 05/26/18 08:00 BP 122/67 05/26/18 09:52 Pulse Ox 100 05/26/18 08:00 - Labs Result Diagrams: 05/26/18 07:04 05/26/18 07:04 Labs: Laboratory Results - last 24 hr 05/23/18 05/25/18 05/25/18 07:14 16:40 21:20 WBC RBC Hgb Hct MCV MCH MCHC RDW Plt Count MPV Neut % (Auto) Lymph % (Auto) [place] % (Auto) Eos % (Auto) Baso % (Auto) Neut # (Auto) Lymph # (Auto) [place] # (Auto) Eos # (Auto) Baso # (Auto) Sodium Potassium Chloride Carbon Dioxide Anion Gap BUN Creatinine Est GFR ( Amer) Est GFR (Non-Af Amer) POC Glucose (mg/dL) 140 H 181 H Random Glucose Calcium Phosphorus Magnesium Total Bilirubin AST ALT Alkaline Phosphatase Total Protein Albumin Globulin Albumin/Globulin Ratio Urine Eosinophils Ur Random Creatinine Ur Random Sodium Tot Jane/Lambda Ratio 2.65 H Jane Light Chain Anal 350 Lambda Light Chain Anal 132 05/26/18 05/26/18 05/26/18 07:04 07:04 07:46 WBC 6.5 RBC 2.52 L Hgb 8.1 L Hct 24.5 L MCV 97.3 H MCH 32.3 H MCHC 33.2 RDW 14.5 Plt Count 130 MPV 10.0 Neut % (Auto) 64.0 Lymph % (Auto) 17.9 L [place] % (Auto) 13.3 H Eos % (Auto) 4.5 H Baso % (Auto) 0.3 Neut # (Auto) 4.2 Lymph # (Auto) 1.2 [place] # (Auto) 0.9 H Eos # (Auto) 0.3 Baso # (Auto) 0.0 Sodium 137 Potassium 4.8 Chloride 108 H Carbon Dioxide 21 L Anion Gap 14 BUN 71 H Creatinine 3.9 H Est GFR ( Amer) 19 Est GFR (Non-Af Amer) 16 POC Glucose (mg/dL) 134 H Random Glucose 141 H Calcium 7.7 L Phosphorus 4.4 Magnesium 1.8 Total Bilirubin 0.2 AST 69 H D ALT 62 Alkaline Phosphatase 125 Total Protein 6.4 Albumin 3.7 Globulin 2.7 Albumin/Globulin Ratio 1.4 Urine Eosinophils Ur Random Creatinine Ur Random Sodium Tot Jane/Lambda Ratio Jane Light Chain Anal Lambda Light Chain Anal 05/26/18 05/26/18 05/26/18 09:09 09:09 11:41 WBC RBC Hgb Hct MCV MCH MCHC RDW Plt Count MPV Neut % (Auto) Lymph % (Auto) [place] % (Auto) Eos % (Auto) Baso % (Auto) Neut # (Auto) Lymph # (Auto) [place] # (Auto) Eos # (Auto) Baso # (Auto) Sodium Potassium Chloride Carbon Dioxide Anion Gap BUN Creatinine Est GFR ( Amer) Est GFR (Non-Af Amer) POC Glucose (mg/dL) 158 H Random Glucose Calcium Phosphorus Magnesium Total Bilirubin AST ALT Alkaline Phosphatase Total Protein Albumin Globulin Albumin/Globulin Ratio Urine Eosinophils Positive H Ur Random Creatinine 207.7 Ur Random Sodium 29 Tot Jane/Lambda Ratio Jane Light Chain Anal Lambda Light Chain Anal Assessment & Plan (1) CHF exacerbation Assessment and Plan: Shortness of breath most likely secondary to renal failure/fluid overload and acute on chronic diastolic CHF Continue BiPAP as needed Nephrology workup including autoimmune panel. Consider hemodialysis Follow-up chest x-ray Trial of bronchodilators and steroids Status: Acute (2) Pedal edema Status: Acute (3) Renal failure (ARF), acute on chronic Status: Acute
[2018-05-27] MEDS: Albuterol-Ipratrop 3 mg / 0.5 (3 ml) UD INH SCH ×4 (01:30→19:12)
[2018-05-27] MEDS: (Novolog) Insulin Aspart, Recombinant 100 u/ml 10 ml vial SC SCH ×4 (08:05→21:52)
[2018-05-27] MEDS: Multivitamin Vitamin B Complex (Nephro-Vite) Tab PO SCH (08:13)
[2018-05-27 08:38] LABS: BASO % 0.3 % (0.0-2.0); EOS # 0.3 K/uL (0.0-0.7); EOS % 4.4 % (0.0-4.0); HEMOGLOBIN 7.8 g/dL (12.0-18.0); LYMPH % 14.7 % (20.0-40.0); MEAN CELL VOLUME 97.9 fL (80.0-94.0); MEAN CORPUSCULAR HEMOGLOBIN 32.4 pg (27.0-31.0); MEAN CORPUSCULAR HGB CONC 33.1 g/dL (33.0-37.0); MEAN PLATELET VOLUME 9.9 fL (7.2-11.7); MONO % 14.2 % (0.0-10.0); NEUT # 4.7 K/uL (1.8-7.0); NEUT % 66.4 % (50.0-75.0); NRBC % 0.1 % (0.0-2.0); RBC 2.42 Mil/uL (4.40-5.90); RED CELL DISTRIBUTION WIDTH 14.5 % (11.5-14.5); WHITE BLOOD COUNT 7.1 K/uL (4.8-10.8)
[2018-05-27 08:56] LABS: ALB/GLOB RATIO 1.4 (1.0-2.1); ALBUMIN 3.7 g/dL (3.5-5.0); CALCIUM 7.7 mg/dl (8.6-10.4)
[2018-05-27] MEDS: Ferric Sodium Gluconat Complex 125 MG in Sodium Chloride 0.9% 100 ML IVPB SCH (10:55)
--- NOTE | 2018-05-27 12:02 | CP.PCM.PN ---
Subjective - Date & Time of Evaluation Date of Evaluation: 05/27/18 Time of Evaluation: 12:00 - Subjective Subjective: Nephrology Consultation Note: Assessment: Stable Acute Kidney Injury (N17.9) ? hemodynamic. ? AIN as also with eosinophiluria and peripheral eosinophilia Diabetic chronic Kidney Disease (E11.22) Hypertensive Chronic Kidney Disease (I12.9) Chronic Kidney Disease (N18.3) Stage 3 with ? mg proteinuria (R80.9) likely due to DM/HTN Anemia (D64.9), metabolic acidosis HTN (I12.9) CHF exacerbation, fluid overload alcoholic cirrhosis of liver Plan No acute need for renal replacement therapy at this time but may be needed soon and will need close follow up. d/w pt and using kinyarwanda interpretor and they agreed for it if needed Hypertension control with meds as ordered. Maintain hemodynamics stable. Avoid hypotension. Patient ARB held due to recent MICHELLE. will resume once volume status optimized and stable renal function. Monitor Input/Output, daily weights and renal function with basic metabolic panel started iron, MVI and epogen. PRBC as needed added sodium bicarb 1300 mg bid diuretics resumed and agreed with it cardiology evaluation added b12 and vitamin d once a month as well plan for kidney biopsy next week. he was recommended about it and gave educational material to read. will address further questions, if pt or family has them. DDAVP 15 mcg before biopsy. consulted IR. likely will need PRBC transfusion to target 9-10 atleast before the biopsy. empiric prednisone 60 mg/d added for possible AIN. d/c allopurinol Check urine analysis, spot protein/creatinine, albumin/creatinine ratio, uric acid, renal and bladder sonogram Check GN work up as C3, C4, DINORAH, Anti dsDNA, HIV/Hep B and Hep C serology Anemia work up with TSAT/Ferritin/Vitamin B12/folate, serum protein electrophoresis with immunofixation, serum free light chain assay ([place]/Lambda) Check for 25-OH vitamin D, iPTH, phosphorus level. Dose meds/antibiotics for reduced GFR. Avoid fleets enema/magnesium based laxatives. Avoid nephrotoxins/NSAIDs/ iodinated contrast (unless needed emergently) Glycemic control Further work up/management as per primary team Thanks for allowing me to participate in care of your patient. Will follow patient with you. Please call if any Qs. had d/w team and patient, Dr Jovan Haynes Office: [phone] Chief Complaint; SOB Reason for consult: Acute Kidney Injury on CKD HPI: Pt is a with hx of diabetes Mellitus (>10 years) with retinopathy s/p laser surgery, hypertension (>10 years) CKF, CKD 3 with baseline cr 1.8-22 in apr 2017 seizure presented with complaints of worsening SOB on exertion and lying down. admitted for CHF exacerbation. renal consult for MICHELLE on CKD 3. pt c/o leg swelling, cough. admits to drinking etoh 2 times a week, few sips of tequila as per per. denies smoking/drugs. not aware about kidney disease in past Denies OTC/herbal meds or NSAIDs No recent iodinated contrast exposure. No obvious episodes of low BP. ROS: Cardiovascular: No chest pain. Pulmonary: improved shortness of breath Gastrointestinal: denies abdominal pain No nausea. No vomiting. Genitourinary: No pain while urinating. Denies blood in urine. All other negative except as mentioned in HPI Physical Examination: General Appearance: Comfortable, in no acute respiratory distress, co-operative . Vitals reviewed and noted as below Head; Atraumatic, normocephalic ENT: no ulcers no thrush. Tongue is midline. Oropharynx: no rash or ulcers. EYES: Pupils are equal, round and reactive to light accommodation. Eye muscles and extraocular movement intact. Sclera is anicteric. Neck; supple no lymphadenopathy, no thyromegaly or bruit Lungs: Normal respiratory rate/effort. Breath sounds bilateral improved Heart: Normal rate. s1s2 normal. No rub or gallop. Extremities: 1+ edema. No varicose veins. hyperpigmented changes in legs with some rash noted, pt says long time Neurological: Patient is alert, awake and oriented to person, place and time. No focal deficit. Strength bilateral appropriate and equal Skin: Warm and dry. Normal turgor. Palpitation: Normal elasticity for age Abdomen: Abdomen is soft. Bowel sounds +. There is no abdominal tenderness, no guarding/rigidity no organomegaly. ? ascites. Psych: limited insight and normal affect/mood MSK: no joint tenderness or swelling. Digits and nails normal, no deformity : kidney or bladder not palpable Labs/imaging reviewed. Past medical history, past surgical history, family history, social history, allergy reviewed and noted as below Family hx: no hx of CKD. Rest non-contribu Objective - Vital Signs/Intake and Output Vital Signs (last 24 hours): Temp Pulse Resp BP Pulse Ox 98.0 F 78 18 128/65 96 05/27/18 07:51 05/27/18 11:54 05/27/18 07:51 05/27/18 10:21 05/27/18 10:21 Intake and Output: 05/27/18 05/27/18 06:59 18:59 Output Total 1100 Balance -1100 - Medications Medications: Current Medications Albuterol/Ipratropium (Duoneb 3 Mg/0.5 Mg (3 Ml) Ud) 3 ml INH RQ6 [facility] Last Admin: 05/27/18 08:01 Dose: 3 ml Carvedilol (Coreg) 25 mg PO BID [facility] Last Admin: 05/27/18 10:16 Dose: 25 mg Cyanocobalamin (Vitamin B12 1000 Mcg Tab) 1,000 mcg PO DAILY [facility] Last Admin: 05/27/18 10:19 Dose: 1,000 mcg Epoetin Scott (Procrit) 10,000 unit SC MWF [facility] Last Admin: 05/26/18 09:58 Dose: 10,000 unit Ferrous Gluconate (Fergon) 324 mg PO TID [facility] Last Admin: 05/27/18 10:19 Dose: 324 mg Furosemide (Lasix) 40 mg IVP Q12H [facility] Last Admin: 05/27/18 08:13 Dose: 40 mg Ferric Sodium Gluconate Complex 125 mg/ Sodium Chloride 110 mls @ 100 mls/hr IVPB DAILY [facility] Stop: 05/30/18 17:01 Last Admin: 05/27/18 10:55 Dose: 100 mls/hr Desmopressin Acetate 15 mcg/ (Sodium Chloride) 53.75 mls @ 100 mls/hr IV ONCE ONE Stop: 05/29/18 12:29 Insulin Aspart (Novolog) 0 unit SC ACHS [facility]; Protocol Last Admin: 05/27/18 08:05 Dose: Not Given Levetiracetam (Keppra) 500 mg PO BID [facility] Last Admin: 05/27/18 10:16 Dose: 500 mg Prednisone (Prednisone Tab) 60 mg PO DAILY [facility] Stop: 06/09/18 10:01 Last Admin: 05/27/18 10:17 Dose: 60 mg Rosuvastatin Calcium (Crestor) 10 mg PO HS [facility] Last Admin: 05/26/18 22:16 Dose: 10 mg Sitagliptin Phosphate (Januvia) 25 mg PO DAILY [facility] Last Admin: 05/27/18 10:16 Dose: 25 mg Sodium Bicarbonate (Sodium Bicarbonate Tab) 1,300 mg PO BID [facility] Last Admin: 05/27/18 10:16 Dose: 1,300 mg Tamsulosin HCl (Flomax) 0.4 mg PO DAILY [facility] Last Admin: 05/27/18 10:16 Dose: 0.4 mg Vitamin B Complex/Vit C/Folic Acid (Nephro-Priscilla) 1 tab PO 0800 [facility] Last Admin: 05/27/18 08:13 Dose: 1 tab - Labs Labs: 05/27/18 08:24 05/27/18 08:24 PT 13.5 SECONDS (9.7-12.2) H 05/21/18 12:18 INR 1.2 05/21/18 12:18 APTT 34 SECONDS (21-34) 05/21/18 12:18
--- NOTE | 2018-05-27 12:23 | CP.PCM.PN ---
Subjective - Date & Time of Evaluation Date of Evaluation: 05/27/18 Time of Evaluation: 11:00 - Subjective Subjective: Patient seen and examined Patient states that breathing is slightly better On BiPAP during the night and as needed Denies cough, denies fever chills, denies chest pain Objective - Vital Signs/Intake and Output Vital Signs (last 24 hours): Temp Pulse Resp BP Pulse Ox 98.0 F 78 18 128/65 96 05/27/18 07:51 05/27/18 11:54 05/27/18 07:51 05/27/18 10:21 05/27/18 10:21 Intake and Output: 05/27/18 05/27/18 06:59 18:59 Output Total 1100 Balance -1100 - Medications Medications: Current Medications Albuterol/Ipratropium (Duoneb 3 Mg/0.5 Mg (3 Ml) Ud) 3 ml INH RQ6 [facility] Last Admin: 05/27/18 08:01 Dose: 3 ml Carvedilol (Coreg) 25 mg PO BID [facility] Last Admin: 05/27/18 10:16 Dose: 25 mg Cyanocobalamin (Vitamin B12 1000 Mcg Tab) 1,000 mcg PO DAILY [facility] Last Admin: 05/27/18 10:19 Dose: 1,000 mcg Epoetin Scott (Procrit) 10,000 unit SC MWF [facility] Last Admin: 05/26/18 09:58 Dose: 10,000 unit Ferrous Gluconate (Fergon) 324 mg PO TID [facility] Last Admin: 05/27/18 10:19 Dose: 324 mg Furosemide (Lasix) 40 mg IVP Q12H [facility] Last Admin: 05/27/18 08:13 Dose: 40 mg Ferric Sodium Gluconate Complex 125 mg/ Sodium Chloride 110 mls @ 100 mls/hr IVPB DAILY [facility] Stop: 05/30/18 17:01 Last Admin: 05/27/18 10:55 Dose: 100 mls/hr Desmopressin Acetate 15 mcg/ (Sodium Chloride) 53.75 mls @ 100 mls/hr IV ONCE ONE Stop: 05/29/18 13:32 Insulin Aspart (Novolog) 0 unit SC ACHS [facility]; Protocol Last Admin: 05/27/18 08:05 Dose: Not Given Levetiracetam (Keppra) 500 mg PO BID [facility] Last Admin: 05/27/18 10:16 Dose: 500 mg Prednisone (Prednisone Tab) 60 mg PO DAILY [facility] Stop: 06/09/18 10:01 Last Admin: 05/27/18 10:17 Dose: 60 mg Rosuvastatin Calcium (Crestor) 10 mg PO HS [facility] Last Admin: 05/26/18 22:16 Dose: 10 mg Sitagliptin Phosphate (Januvia) 25 mg PO DAILY [facility] Last Admin: 05/27/18 10:16 Dose: 25 mg Sodium Bicarbonate (Sodium Bicarbonate Tab) 1,300 mg PO BID [facility] Last Admin: 05/27/18 10:16 Dose: 1,300 mg Tamsulosin HCl (Flomax) 0.4 mg PO DAILY [facility] Last Admin: 05/27/18 10:16 Dose: 0.4 mg Vitamin B Complex/Vit C/Folic Acid (Nephro-Priscilla) 1 tab PO 0800 [facility] Last Admin: 05/27/18 08:13 Dose: 1 tab - Labs Labs: 05/27/18 08:24 05/27/18 08:24 PT 13.5 SECONDS (9.7-12.2) H 05/21/18 12:18 INR 1.2 05/21/18 12:18 APTT 34 SECONDS (21-34) 05/21/18 12:18 - Head Exam Head Exam: ATRAUMATIC, NORMOCEPHALIC - ENT Exam ENT Exam: Mucous Membranes Moist - Neck Exam Neck Exam: Normal Inspection - Respiratory Exam Respiratory Exam: Clear to Ausculation Bilateral - Cardiovascular Exam Cardiovascular Exam: REGULAR RHYTHM - GI/Abdominal Exam GI & Abdominal Exam: Soft, Normal Bowel Sounds Assessment and Plan (1) Renal failure (ARF), acute on chronic Assessment & Plan: Shortness of breath multifactorial Started on p.o. prednisone Continue BiPAP as needed For renal biopsy next week Status: Acute (2) CHF exacerbation Status: Acute (3) Pedal edema Status: Acute
--- NOTE | 2018-05-27 15:22 | CP.PCM.PN ---
Subjective - Date & Time of Evaluation Date of Evaluation: 05/26/18 Time of Evaluation: 16:20 - Subjective Subjective: Patient's creatine is worsening Will hold off cath till renal function baseline Renal on case Physical Examination - Head Exam Head Exam: ATRAUMATIC, NORMAL INSPECTION - Eye Exam Eye Exam: EOMI, Normal appearance, PERRL Pupil Exam: NORMAL ACCOMODATION - ENT Exam ENT Exam: Mucous Membranes Moist, Normal Oropharynx - Neck Exam Neck Exam: Normal Inspection. absent: Lymphadenopathy, Thyromegaly - Respiratory Exam Respiratory Exam: Clear to Ausculation Bilateral, NORMAL BREATHING PATTERN. absent: Prolonged Expiratory Phase, Respiratory Distress - Cardiovascular Exam Cardiovascular Exam: +S1, +S2 - GI/Abdominal Exam GI & Abdominal Exam: Soft, Normal Bowel Sounds. absent: Hyperactive Bowel Sounds - Extremities Exam Extremities Exam: Full ROM. absent: Pedal Edema - Back Exam Back Exam: NORMAL INSPECTION. absent: CVA tenderness (R), paraspinal tenderness - Neurological Exam Neurological Exam: Alert, Awake, CN II-XII Intact - Psychiatric Exam Psychiatric exam: Normal Affect, Normal Mood - Skin Skin Exam: Dry, Intact Assessment and Plan - Assessment and Plan (Free Text) Assessment: 67 year old male with a past medical history of hypertension, dm2, ckd, gout, and chf who presents to the hospital for chf exacerbation. Plan: Plan: 1. Acute on chronic diastolic heart failure Troponin (-)x3 BNP elevated on admission but patient has component of kidney dysfunction. Doppler Negative Patient would benefit from Cardiac catherization, however patient current kidney dysfunction puts him at a high risk for complications post cardiac cath. At this time patient not cleared for cardiac catherization. Medications: Lasix 40mg IVP Q12 Held Coreg 25mg PO BID [facility] Cozaar Held Crestor 10mg PO HS Novasc 10mg PO Daily 2.CKD Nephrology consulted. Help appreciated Medications: Procrit 10,000 MWF Ferrlicet 125 mg IVP Daily Fergon 324mg PO TID [facility] Nephrovite 1 TAB PO 800 [facility] 3.DM Januvia 25mg PO Daily 4.Gout Allopurinol 300mg PO Daily PPX -Heparin 5000 units SC Q8 [facility] Dispo: Patient will hold off on cardiac catherization at this time. Objective - Vital Signs/Intake and Output Vital Signs (last 24 hours): Temp Pulse Resp BP Pulse Ox 98.0 F 78 18 128/65 96 02/02/19 07:51 05/27/18 11:54 05/27/18 07:51 05/27/18 10:21 05/27/18 10:21 Intake and Output: 05/27/18 05/27/18 06:59 18:59 Intake Total 110 Output Total 1100 550 Balance -1100 -440 - Medications Medications: Current Medications Albuterol/Ipratropium (Duoneb 3 Mg/0.5 Mg (3 Ml) Ud) 3 ml INH RQ6 [facility] Last Admin: 05/27/18 13:41 Dose: 3 ml Carvedilol (Coreg) 25 mg PO BID [facility] Last Admin: 05/27/18 10:16 Dose: 25 mg Cyanocobalamin (Vitamin B12 1000 Mcg Tab) 1,000 mcg PO DAILY [facility] Last Admin: 05/27/18 10:19 Dose: 1,000 mcg Epoetin Scott (Procrit) 10,000 unit SC MWF [facility] Last Admin: 05/26/18 09:58 Dose: 10,000 unit Ferrous Gluconate (Fergon) 324 mg PO TID [facility] Last Admin: 05/27/18 13:02 Dose: 324 mg Furosemide (Lasix) 40 mg IVP Q12H [facility] Last Admin: 05/27/18 08:13 Dose: 40 mg Ferric Sodium Gluconate Complex 125 mg/ Sodium Chloride 110 mls @ 100 mls/hr IVPB DAILY [facility] Stop: 05/30/18 17:01 Last Admin: 05/27/18 10:55 Dose: 100 mls/hr Desmopressin Acetate 15 mcg/ (Sodium Chloride) 53.75 mls @ 100 mls/hr IV ONCE ONE Stop: 05/29/18 13:32 Insulin Aspart (Novolog) 0 unit SC ACHS [facility]; Protocol Last Admin: 05/27/18 12:25 Dose: 3 units Levetiracetam (Keppra) 500 mg PO BID [facility] Last Admin: 05/27/18 10:16 Dose: 500 mg Prednisone (Prednisone Tab) 60 mg PO DAILY [facility] Stop: 06/09/18 10:01 Last Admin: 05/27/18 10:17 Dose: 60 mg Rosuvastatin Calcium (Crestor) 10 mg PO HS [facility] Last Admin: 05/26/18 22:16 Dose: 10 mg Sitagliptin Phosphate (Januvia) 25 mg PO DAILY [facility] Last Admin: 05/27/18 10:16 Dose: 25 mg Sodium Bicarbonate (Sodium Bicarbonate Tab) 1,300 mg PO BID [facility] Last Admin: 05/27/18 10:16 Dose: 1,300 mg Tamsulosin HCl (Flomax) 0.4 mg PO DAILY [facility] Last Admin: 05/27/18 10:16 Dose: 0.4 mg Vitamin B Complex/Vit C/Folic Acid (Nephro-Priscilla) 1 tab PO 0800 [facility] Last Admin: 05/27/18 08:13 Dose: 1 tab - Labs Labs: 05/27/18 08:24 05/27/18 08:24 PT 13.5 SECONDS (9.7-12.2) H 05/21/18 12:18 INR 1.2 05/21/18 12:18 APTT 34 SECONDS (21-34) 05/21/18 12:18
--- NOTE | 2018-05-27 22:23 | CP.PCM.PN ---
<Jesus Manuel Martinez - Last Filed: 05/27/18 22:20> Subjective - Date & Time of Evaluation Date of Evaluation: 05/27/18 Time of Evaluation: 11:35 - Subjective Subjective: PGY2 Medicine Note for Dr. Barbosa Patient seen and examined this morning at bedside. No acute events overnight. Patient feels like his breathing is greatly improved. He is still using BiPAP during the night. He is surrounded by his family members and they are all hopeful that he will be able to go home soon. Objective - Vital Signs/Intake and Output Vital Signs (last 24 hours): Temp Pulse Resp BP Pulse Ox 97.6 F 75 20 129/66 100 05/27/18 15:30 05/27/18 16:00 05/27/18 15:30 05/27/18 21:53 05/27/18 15:30 Intake and Output: 05/27/18 05/28/18 18:59 06:59 Intake Total 110 Output Total 550 Balance -440 - Medications Medications: Current Medications Albuterol/Ipratropium (Duoneb 3 Mg/0.5 Mg (3 Ml) Ud) 3 ml INH RQ6 [facility] Last Admin: 05/27/18 19:12 Dose: 3 ml Carvedilol (Coreg) 25 mg PO BID [facility] Last Admin: 05/27/18 18:08 Dose: 25 mg Cyanocobalamin (Vitamin B12 1000 Mcg Tab) 1,000 mcg PO DAILY [facility] Last Admin: 05/27/18 10:19 Dose: 1,000 mcg Epoetin Scott (Procrit) 10,000 unit SC MWF [facility] Last Admin: 05/26/18 09:58 Dose: 10,000 unit Ferrous Gluconate (Fergon) 324 mg PO TID [facility] Last Admin: 05/27/18 18:08 Dose: 324 mg Furosemide (Lasix) 40 mg IVP Q12H [facility] Last Admin: 05/27/18 21:53 Dose: 40 mg Ferric Sodium Gluconate Complex 125 mg/ Sodium Chloride 110 mls @ 100 mls/hr IVPB DAILY [facility] Stop: 05/30/18 17:01 Last Admin: 05/27/18 10:55 Dose: 100 mls/hr Desmopressin Acetate 15 mcg/ (Sodium Chloride) 53.75 mls @ 100 mls/hr IV ONCE ONE Stop: 05/29/18 13:32 Insulin Aspart (Novolog) 0 unit SC ACHS [facility]; Protocol Last Admin: 05/27/18 21:52 Dose: 2 units Levetiracetam (Keppra) 500 mg PO BID [facility] Last Admin: 05/27/18 18:08 Dose: 500 mg Prednisone (Prednisone Tab) 60 mg PO DAILY [facility] Stop: 06/09/18 10:01 Last Admin: 05/27/18 10:17 Dose: 60 mg Rosuvastatin Calcium (Crestor) 10 mg PO HS [facility] Last Admin: 05/27/18 21:52 Dose: 10 mg Sitagliptin Phosphate (Januvia) 25 mg PO DAILY [facility] Last Admin: 05/27/18 10:16 Dose: 25 mg Sodium Bicarbonate (Sodium Bicarbonate Tab) 1,300 mg PO BID [facility] Last Admin: 05/27/18 18:08 Dose: 1,300 mg Tamsulosin HCl (Flomax) 0.4 mg PO DAILY [facility] Last Admin: 05/27/18 10:16 Dose: 0.4 mg Vitamin B Complex/Vit C/Folic Acid (Nephro-Priscilla) 1 tab PO 0800 [facility] Last Admin: 05/27/18 08:13 Dose: 1 tab - Labs Labs: 05/27/18 08:24 05/27/18 08:24 PT 13.5 SECONDS (9.7-12.2) H 05/21/18 12:18 INR 1.2 05/21/18 12:18 APTT 34 SECONDS (21-34) 05/21/18 12:18 - Constitutional Appears: Non-toxic, No Acute Distress - Head Exam Head Exam: ATRAUMATIC, NORMOCEPHALIC - Eye Exam Eye Exam: Normal appearance - ENT Exam ENT Exam: Mucous Membranes Moist - Neck Exam Neck Exam: Normal Inspection. absent: Lymphadenopathy - Respiratory Exam Respiratory Exam: Clear to Ausculation Bilateral, NORMAL BREATHING PATTERN. absent: Accessory Muscle Use, Rales, Rhonchi, Wheezes, Respiratory Distress - Cardiovascular Exam Cardiovascular Exam: REGULAR RHYTHM, +S1 - GI/Abdominal Exam GI & Abdominal Exam: Soft. absent: Distended, Firm, Guarding, Rigid - Exam Additional comments: lemons in place - Extremities Exam Extremities Exam: Pedal Edema (pitting b/l). absent: Calf Tenderness Additional comments: knee-high compression stockings - pitting pedal edema b/l - Neurological Exam Neurological Exam: Alert, Awake - Psychiatric Exam Psychiatric exam: Normal Affect, Normal Mood - Skin Skin Exam: Dry, Warm Assessment and Plan - Assessment and Plan (Free Text) Plan: Congestive heart failure acute exacerbation - Cardiology consulted ([place])- rec cardiac cath when kidney function improves - Pulmonology consulted ([place]) - BNP 1550 on admission * repeat BNP 05/27/18 - 2530 - TSH, free T4 wnl - BANDAR negative x3 - Venous Dopplers: no DVT - Echo: normal EF, dilated LA, mod TR - Lexiscan: normal, EF 50-55% - CXR (05/25): acute CHF - Daily weights - Strict Is&Os - Fluid restriction 1200 mL - Compression stockings - Lasix 40 mg IV Q12H - Coreg 25 mg PO BID - Duoneb q6h - BiPAP started on 05/26 - pt only using at night. speaking in full sentences at bedside today. Acute on chronic renal failure, improving - Nephrology consulted ([place])- high risk for PCI, Oz score 16 (post- PCI nephropathy risk 57.3%, requiring dialysis 12.6%) - BUN 76, Cr 3.6 * was BUN 71, Cr 3.9 on 05/26 - Renal US: enlarged prostate - Microalb/Cr ratio elevated (111) - Random urine total protein elevated (315) - Vit D low (24.3) - Complement, dsDNA Ab, random urine creatinine wnl - Procrit 10,000 MWF - Ferrlicet 125 mg IV daily - Fergon 324 mg PO TID - Nephrovite PO daily - Sodium bicarb 1300 mg PO BID Abdominal distention- suspect cirrhosis/ascites +/- urinary retention - LFTs wnl - INR wnl - Liver US: hepatomegaly, steatosis, nodular (cirrhosis) Urinary retention Esinophila - Nephrology consulted, Dr. Haynes - Bladder scan PRN - Repeat bladder US: inconclusive as patient voided before imaging - Insert Lemons 05/26 - Urine positive for Esinophil - Started on Prednisone 60mg PO daily (1 of 14 doses given) - Flomax 0.4 mg PO daily Anemia, stable - suspect related to kidney failure/chronic disease - B12, folate wnl - Iron low (43), ferritin wnl - Procrit 10,000 MWF - Vit B12 1000 mcg PO daily Type 2 diabetes mellitus, chronic - A1c 8.6 - Lipid panel wnl: TG 116, chol 84, LDL 45, HDL 25 - Accuchecks ACHS - Hypoglycemia protocol - ISS medium - Januvia 25 mg PO daily (renally dosed) Hypertension, controlled - Vitals Q6H - Patient on Losartan and HCTZ at home- holding due to kidney function - Coreg 25 mg PO BID - Norvasc 10 mg PO daily - Lasix 40 mg IV Q12H Seizure disorder - Keppra level 21.9 (05/21) - Keppra 500 mg PO BID Alcohol use disorder - Liver US: hepatomegaly, steatosis, nodular (cirrhosis) - Cessation counseling H/o Gout - Uric acid 8.7 - Allopurinol 100 mg PO daily Ppx: VTE: Heparin 5000 units SC Q8H GI: Protonix 40 mg PO daily Code status: full code Case discussed with attending Dr. Chelsey Martinez PGY2 <Lynn Barbosa V - Last Filed: 05/28/18 15:51> Objective - Vital Signs/Intake and Output Vital Signs (last 24 hours): Temp Pulse Resp BP Pulse Ox 98 F 86 20 152/80 H 95 05/28/18 15:11 05/28/18 15:11 05/28/18 15:11 05/28/18 15:11 05/28/18 08:14 Intake and Output: 05/28/18 05/28/18 06:59 18:59 Intake Total 105 Output Total 900 775 Balance -900 -670 - Medications Medications: Current Medications Albuterol/Ipratropium (Duoneb 3 Mg/0.5 Mg (3 Ml) Ud) 3 ml INH RQ6 [facility] Last Admin: 05/28/18 13:33 Dose: 3 ml Carvedilol (Coreg) 25 mg PO BID [facility] Last Admin: 05/28/18 09:43 Dose: 25 mg Cyanocobalamin (Vitamin B12 1000 Mcg Tab) 1,000 mcg PO DAILY [facility] Last Admin: 05/28/18 09:43 Dose: 1,000 mcg Epoetin Scott (Procrit) 10,000 unit SC MWF [facility] Last Admin: 05/26/18 09:58 Dose: 10,000 unit Ferrous Gluconate (Fergon) 324 mg PO TID [facility] Last Admin: 05/28/18 14:25 Dose: 324 mg Furosemide (Lasix) 40 mg IVP Q12H [facility] Last Admin: 05/28/18 08:27 Dose: 40 mg Ferric Sodium Gluconate Complex 125 mg/ Sodium Chloride 110 mls @ 100 mls/hr IVPB DAILY [facility] Stop: 05/30/18 17:01 Last Admin: 05/28/18 10:11 Dose: 100 mls/hr Desmopressin Acetate 15 mcg/ (Sodium Chloride) 53.75 mls @ 100 mls/hr IV ONCE ONE Stop: 05/29/18 13:32 Insulin Aspart (Novolog) 0 unit SC ACHS [facility]; Protocol Last Admin: 05/28/18 12:26 Dose: 6 units Levetiracetam (Keppra) 500 mg PO BID [facility] Last Admin: 05/28/18 09:43 Dose: 500 mg Prednisone (Prednisone Tab) 60 mg PO DAILY [facility] Stop: 06/09/18 10:01 Last Admin: 05/28/18 09:43 Dose: 60 mg Rosuvastatin Calcium (Crestor) 10 mg PO HS [facility] Last Admin: 05/27/18 21:52 Dose: 10 mg Sitagliptin Phosphate (Januvia) 25 mg PO DAILY [facility] Last Admin: 05/28/18 09:43 Dose: 25 mg Sodium Bicarbonate (Sodium Bicarbonate Tab) 1,300 mg PO BID [facility] Last Admin: 05/28/18 09:43 Dose: 1,300 mg Tamsulosin HCl (Flomax) 0.4 mg PO DAILY [facility] Last Admin: 05/28/18 09:43 Dose: 0.4 mg Thiamine HCl (Vitamin B1 Tab) 100 mg PO DAILY [facility] Last Admin: 05/28/18 10:50 Dose: 100 mg Vitamin B Complex/Vit C/Folic Acid (Nephro-Priscilla) 1 tab PO 0800 [facility] Last Admin: 05/28/18 08:26 Dose: 1 tab - Labs Labs: 05/28/18 08:02 05/28/18 08:02 PT 13.9 SECONDS (9.7-12.2) H 05/28/18 11:11 INR 1.3 05/28/18 11:11 APTT 34 SECONDS (21-34) 05/21/18 12:18 Attending/Attestation - Attestation I have personally seen and examined this patient.: Yes I have fully participated in the care of the patient.: Yes I have reviewed all pertinent clinical information, including history, physical exam and plan: Yes Notes (Text): This is a late computer entry for May 27, 2018. Patient seen, examined, case discussed with medical record librarians teacher. Patient breathing improving status post BiPAP started yesterday morning for tachypnea and work of breathing. Patient was started on Lasix yesterday. Patient reportedly has improved. Abdominal ultrasound noted for cirrhosis. Unclear if it is related to his heart failure or if it is related to his alcohol. There is no ascites noted on ultrasound. Discussed with nephrology patient to start prednisone 60 mg once a day for potential AIN recommended for renal biopsy unclear when. And recommended for blood transfusion with a goal of 9-10. Potential source of AIN secondary to allopurinol which was discontinued by nephrology. Patient seen and reevaluated later in the afternoon noted for scrotal edema. I did speak with patient's nurse Melody for a scrotal strap as well as indicated to put towels underneath to elevate the scrotum remain the edema. I did reemphasize this to patient and her and his at bedside. We will need to follow-up with cardiology in regards to if he still requires a potential catheter not when her renal status has improved. Assessment/Plan 1. Congestive heart failure acute exacerbation, diastolic Assessment/Plan * Cardiology (Dr. Cage) international student counselor-->help appreciated * Stress test official report notes no stress-induced ischemia. Left ventricular systolic function is normal. Ejection fraction is 50. We will need to follow-up cardiac cath follow-up in regards to the recommendation with Dr. Cage. * Monitor on telemetry * Daily weights * Monitor intake and output * Coreg 25mg PO BID * HCTZ 12.5mg PO daily * Cozaar 100mg PO daily--Hold given borderline hyperkalemia * Crestor 10mg POqHS * BNP 1550-->repeat BNP tomorrow * TSH, free T4 wnl * BANDAR negative x3 * Venous Dopplers: no evidence of deep or superficial vein thrombosis, valvular incompetence of right and left poplitel and greater saphenous veins. * Echo: normal EF, dilated LA, mod TR * Patient received Lasix 40 once in the morning 05/26/18; Standing order Lasix 30mg IV Q12. * Chest xray (05/21/18): moderate to severe venous congestion. moderate left and small right pleural effusion. consolidative changes in the mid to lower lung zones. cardiomegaly. * Chest xray (05/22/18): right lower lobe infiltrate/right pleural effusion. left bechdalek's hernia. No visible infiltrate left lung. * Chest xray (05/26/18): no active disease 2. Acute on chronic renal failure Possible AIN Assessment/Plan * Nephrology (Dr. Morfin) international student counselor-->help appreciated * BUN 28, Cr 2.8 on admission * Renal US (05/22/18): no obstructing calculus, hydronephrosis, or renal cyst identified. Prevoid urinary bladder volume 81.4ml. Postvoid urinary bladder volume 8.1ML. Right ureteral jet is not identifed. Enlarged prostate gland. * Procrit 10,000 MWF * Ferrlicet 125 mg IVP daily * Fergon 324mg PO TID * Nephrovite PO daily * Lasix 40mg IV Q12H * Sodium bicarbonate tab 1300mg PO BID * Patient started prednisone 60mg PO daily (active since 05/27/18) and allopurinol d/c as potential inciting factor for AIN 3. Anemia- suspect related to kidney failure Assessment/Plan * suspect anemia of chronic disease given underlying renal disease * B12, folate wnl * Iron low (43), ferritin wnl * Ferrlicet 125 mg IVP daily * Fergon 324mg PO TID 4. Type 2 diabetes mellitus Assessment/Plan * A1c 8.6 * Lipid panel ordered * Accuchecks ACHS * Hypoglycemia protocol * ISS medium * Changed Januvia 100mg PO to Januvia 25 mg PO daily (renally dosed) 5. Hypertension Assessment/Plan * monitor vital signs * Coreg 25 mg PO BID * Norvasc 10mg PO daily 6. History of Seizure disorder Assessment/Plan * Keppra level pending * Home dose Keppra 500 mg PO BID- held 7. H/o Gout Assessment/Plan * Uric acid 8.7 * d/c Allopurinol 300 mg PO daily as potential inciting factor for AIN 8. Leg edema Assessment/Plan * suspect secondary to CHF/Fluid Overload * venous dopplers negative for DVT * Will provide aron stockings and elevate the legs to reduce edema 9. Hyperkalemia (resolved) Assessment/Plan * Given duoneb X1, and Kayexlate 15gm PO X1 * monitor BMP 10. Abdominal Distension Cirrhosis Assessment/Plan * Abdominal US (05/25/18): hepatomeglay, hepatic steatosis. nodular contour to the liver consistent with cirrhosis. no visible ascites * Patient is on Lasix 40mg IV Q12H * Unclear if related to CHF vs alcohol * prior INR normal * Hepatitis panel: normal 11. Urinary retention Assessment/Plan * secondary to lack of diuresis and enlarged prostate * Renal US (05/22/18): no obstructing calculus, hydronephrosis, or renal cyst identified. Prevoid urinary bladder volume 81.4ml. Postvoid urinary bladder volume 8.1ML. Right ureteral jet is not identifed. Enlarged prostate gland. 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 Scrotal edema Assessment/Plan * likely secondary to fluid overload since renal function is poor, possible diastolic chf, and cirrhosis * patient is on diuresis * Advise scrotal girdle and to place towel underneath to relieve edema; no tenderness to palpation 14. Ppx: Assessment/Plan * Off Heparin 5000 units SC Q8H secondary to anemia * GI: Protonix 40 mg PO daily
[2018-05-28] MEDS: Albuterol-Ipratrop 3 mg / 0.5 (3 ml) UD INH SCH ×4 (01:00→19:58)
[2018-05-28 08:21] LABS: HEMOGLOBIN 7.9 g/dL (12.0-18.0); LYMPH # 0.6 K/uL (1.0-4.3); LYMPH % 7.6 % (20.0-40.0); MEAN CELL VOLUME 97.7 fL (80.0-94.0); MEAN CORPUSCULAR HEMOGLOBIN 32.9 pg (27.0-31.0); MEAN CORPUSCULAR HGB CONC 33.7 g/dL (33.0-37.0); MONO # 0.6 K/uL (0.0-0.8); MONO % 7.4 % (0.0-10.0); NEUT # 6.4 K/uL (1.8-7.0); NRBC % 0.1 % (0.0-2.0); PLATELET COUNT 140 K/uL (130-400); RED CELL DISTRIBUTION WIDTH 14.5 % (11.5-14.5); WHITE BLOOD COUNT 7.5 K/uL (4.8-10.8)
[2018-05-28] MEDS: (Novolog) Insulin Aspart, Recombinant 100 u/ml 10 ml vial SC SCH ×4 (08:26→21:41)
[2018-05-28] MEDS: Multivitamin Vitamin B Complex (Nephro-Vite) Tab PO SCH (08:26)
[2018-05-28 08:41] LABS: ALB/GLOB RATIO 1.4 (1.0-2.1); ALBUMIN 3.8 g/dL (3.5-5.0); CALCIUM 7.5 mg/dl (8.6-10.4)
[2018-05-28 08:56] LABS: BANDS 1 % (0-2); LYMPHOCYTE 7 % (20-40); MONOCYTE 7 % (0-10); NEUTROPHIL 85 % (50-75); NUCLEATED RED BLOOD CELL 1 % (0-0); PLATELET ESTIMATE NORMAL (NORMAL); TOTAL CELLS COUNTED 100
[2018-05-28 08:57] LABS: ANISOCYTOSIS SLIGHT; HYPOCHROMIC SLIGHT; OVALOCYTES SLIGHT; POIKILOCYTOSIS SLIGHT; POLYCHROMIC SLIGHT; TEARDROP CELLS SLIGHT
[2018-05-28] MEDS: Ferric Sodium Gluconat Complex 125 MG in Sodium Chloride 0.9% 100 ML IVPB SCH (10:11)
--- NOTE | 2018-05-28 10:11 | CP.PCM.PN ---
<Lynn Barbosa V - Last Filed: 05/28/18 15:53> Objective - Vital Signs/Intake and Output Vital Signs (last 24 hours): Temp Pulse Resp BP Pulse Ox 98 F 86 20 152/80 H 95 05/28/18 15:11 05/28/18 15:11 05/28/18 15:11 05/28/18 15:11 05/28/18 08:14 Intake and Output: 05/28/18 05/28/18 06:59 18:59 Intake Total 105 Output Total 900 775 Balance -900 -670 - Medications Medications: Current Medications Albuterol/Ipratropium (Duoneb 3 Mg/0.5 Mg (3 Ml) Ud) 3 ml INH RQ6 [facility] Last Admin: 05/28/18 13:33 Dose: 3 ml Carvedilol (Coreg) 25 mg PO BID [facility] Last Admin: 05/28/18 09:43 Dose: 25 mg Cyanocobalamin (Vitamin B12 1000 Mcg Tab) 1,000 mcg PO DAILY [facility] Last Admin: 05/28/18 09:43 Dose: 1,000 mcg Epoetin Scott (Procrit) 10,000 unit SC MWF [facility] Last Admin: 05/26/18 09:58 Dose: 10,000 unit Ferrous Gluconate (Fergon) 324 mg PO TID [facility] Last Admin: 05/28/18 14:25 Dose: 324 mg Furosemide (Lasix) 40 mg IVP Q12H [facility] Last Admin: 05/28/18 08:27 Dose: 40 mg Ferric Sodium Gluconate Complex 125 mg/ Sodium Chloride 110 mls @ 100 mls/hr IVPB DAILY [facility] Stop: 05/30/18 17:01 Last Admin: 05/28/18 10:11 Dose: 100 mls/hr Desmopressin Acetate 15 mcg/ (Sodium Chloride) 53.75 mls @ 100 mls/hr IV ONCE ONE Stop: 05/29/18 13:32 Insulin Aspart (Novolog) 0 unit SC ACHS [facility]; Protocol Last Admin: 05/28/18 12:26 Dose: 6 units Levetiracetam (Keppra) 500 mg PO BID [facility] Last Admin: 05/28/18 09:43 Dose: 500 mg Prednisone (Prednisone Tab) 60 mg PO DAILY [facility] Stop: 06/09/18 10:01 Last Admin: 05/28/18 09:43 Dose: 60 mg Rosuvastatin Calcium (Crestor) 10 mg PO HS [facility] Last Admin: 05/27/18 21:52 Dose: 10 mg Sitagliptin Phosphate (Januvia) 25 mg PO DAILY [facility] Last Admin: 05/28/18 09:43 Dose: 25 mg Sodium Bicarbonate (Sodium Bicarbonate Tab) 1,300 mg PO BID [facility] Last Admin: 05/28/18 09:43 Dose: 1,300 mg Tamsulosin HCl (Flomax) 0.4 mg PO DAILY [facility] Last Admin: 05/28/18 09:43 Dose: 0.4 mg Thiamine HCl (Vitamin B1 Tab) 100 mg PO DAILY [facility] Last Admin: 05/28/18 10:50 Dose: 100 mg Vitamin B Complex/Vit C/Folic Acid (Nephro-Priscilla) 1 tab PO 0800 [facility] Last Admin: 05/28/18 08:26 Dose: 1 tab - Labs Labs: 05/28/18 08:02 05/28/18 08:02 PT 13.9 SECONDS (9.7-12.2) H 05/28/18 11:11 INR 1.3 05/28/18 11:11 APTT 34 SECONDS (21-34) 05/21/18 12:18 Attending/Attestation - Attestation I have personally seen and examined this patient.: Yes I have fully participated in the care of the patient.: Yes I have reviewed all pertinent clinical information, including history, physical exam and plan: Yes Notes (Text): Patient seen, examined and case discussed with dental assistant medical assistant. Patient's breathing has improved. Patient started on Predisone yesterday for suspected AIN. Patient's hemoglobin 7.8. Chest xray taken prior to blood transfusion. Will need to monitor while patient will get 1 unit of PRBC today. patient's INR is normal. Patient is on Lasix 40mg IV Q12H. Will need post transfusion CBC. Unclear when IR will perform renal biopsy; will f/u with nephrology. Goal Hgb prior is 9-10. Unclear if patient's liver cirrhosis is related to heart failure or alcohol use. There is no ascites on Ab US. Hepatitis panel will consult GI for further recommendation. Patient is on lasix given fluid overload state with known worsening kidney disease. Assessment/Plan 1. Congestive heart failure acute exacerbation, diastolic Assessment/Plan * Cardiology (Dr. Cage) service station cashier-->help appreciated * Stress test official report notes no stress-induced ischemia. Left ventricular systolic function is normal. Ejection fraction is 50. We will need to follow-up cardiac cath follow-up in regards to the recommendation with Dr. Cage. * Monitor on telemetry * Daily weights * Monitor intake and output * Coreg 25mg PO BID * HCTZ 12.5mg PO daily * Cozaar 100mg PO daily--Hold given borderline hyperkalemia * Crestor 10mg POqHS * BNP 1550-->repeat BNP tomorrow * TSH, free T4 wnl * BANDAR negative x3 * Venous Dopplers: no evidence of deep or superficial vein thrombosis, valvular incompetence of right and left poplitel and greater saphenous veins. * Echo: normal EF, dilated LA, mod TR * Patient received Lasix 40 once in the morning 05/26/18; Standing order Lasix 30mg IV Q12. * Chest xray (05/21/18): moderate to severe venous congestion. moderate left and small right pleural effusion. consolidative changes in the mid to lower lung zones. cardiomegaly. * Chest xray (05/22/18): right lower lobe infiltrate/right pleural effusion. left bechdalek's hernia. No visible infiltrate left lung. * Chest xray (05/26/18): no active disease 2. Acute on chronic renal failure Possible AIN Assessment/Plan * Nephrology (Dr. Morfin) service station cashier-->help appreciated * BUN 28, Cr 2.8 on admission * Renal US (05/22/18): no obstructing calculus, hydronephrosis, or renal cyst identified. Prevoid urinary bladder volume 81.4ml. Postvoid urinary bladder volume 8.1ML. Right ureteral jet is not identifed. Enlarged prostate gland. * Procrit 10,000 MWF * Ferrlicet 125 mg IVP daily * Fergon 324mg PO TID * Nephrovite PO daily * Lasix 40mg IV Q12H * Sodium bicarbonate tab 1300mg PO BID * Patient started prednisone 60mg PO daily (active since 05/27/18) and allopurinol d/c as potential inciting factor for AIN 3. Anemia- suspect related to kidney failure Assessment/Plan * suspect anemia of chronic disease given underlying renal disease * B12, folate wnl * Iron low (43), ferritin wnl * Ferrlicet 125 mg IVP daily * Fergon 324mg PO TID 4. Type 2 diabetes mellitus Assessment/Plan * A1c 8.6 * Lipid panel ordered * Accuchecks ACHS * Hypoglycemia protocol * ISS medium * Changed Januvia 100mg PO to Januvia 25 mg PO daily (renally dosed) 5. Hypertension Assessment/Plan * monitor vital signs * Coreg 25 mg PO BID * Norvasc 10mg PO daily 6. History of Seizure disorder Assessment/Plan * Keppra level pending * Home dose Keppra 500 mg PO BID- held 7. H/o Gout Assessment/Plan * Uric acid 8.7 * d/c Allopurinol 300 mg PO daily as potential inciting factor for AIN 8. Leg edema Assessment/Plan * suspect secondary to CHF/Fluid Overload * venous dopplers negative for DVT * Will provide aron stockings and elevate the legs to reduce edema 9. Hyperkalemia (resolved) Assessment/Plan * Given duoneb X1, and Kayexlate 15gm PO X1 * monitor BMP 10. Abdominal Distension Cirrhosis Assessment/Plan * Abdominal US (05/25/18): hepatomeglay, hepatic steatosis. nodular contour to the liver consistent with cirrhosis. no visible ascites * Patient is on Lasix 40mg IV Q12H * Unclear if related to CHF vs alcohol * prior INR normal * Hepatitis panel: normal 11. Urinary retention Assessment/Plan * secondary to lack of diuresis and enlarged prostate * Renal US (05/22/18): no obstructing calculus, hydronephrosis, or renal cyst identified. Prevoid urinary bladder volume 81.4ml. Postvoid urinary bladder volume 8.1ML. Right ureteral jet is not identifed. Enlarged prostate gland. 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 Scrotal edema Assessment/Plan * likely secondary to fluid overload since renal function is poor, possible diastolic chf, and cirrhosis * patient is on diuresis * Advise scrotal girdle and to place towel underneath to relieve edema; no tenderness to palpation 14. Ppx: Assessment/Plan * Off Heparin 5000 units SC Q8H secondary to anemia * GI: Protonix 40 mg PO daily <Jesus Manuel Martinez - Last Filed: 05/28/18 19:43> Subjective - Date & Time of Evaluation Date of Evaluation: 05/28/18 Time of Evaluation: 10:08 - Subjective Subjective: PGY2 Medicine Note for Dr. Barbosa Patient seen and examined this morning at bedside. Patient was started on Prednisone yesterday for empiric treatment of possible AIN. His blood sugar is greatly elevated likely secondary to the prednisone as his BS was controlled prior. He is currently feeling well, sitting on the side of the bed, talking in full sentences with NC only. He is still using BiPAP only at night. He is fe eling well and has no complaints at this time. Denies fevers, chills, nausea, vomiting, diarrhea, constipation, chest pain or shortness of breath. Objective - Vital Signs/Intake and Output Vital Signs (last 24 hours): Temp Pulse Resp BP Pulse Ox 98.2 F 84 20 149/69 95 05/28/18 08:14 05/28/18 09:42 05/28/18 08:14 05/28/18 09:43 05/28/18 08:14 Intake and Output: 05/28/18 05/28/18 06:59 18:59 Output Total 900 Balance -900 - Medications Medications: Current Medications Albuterol/Ipratropium (Duoneb 3 Mg/0.5 Mg (3 Ml) Ud) 3 ml INH RQ6 [facility] Last Admin: 05/28/18 07:39 Dose: 3 ml Carvedilol (Coreg) 25 mg PO BID [facility] Last Admin: 05/28/18 09:43 Dose: 25 mg Cyanocobalamin (Vitamin B12 1000 Mcg Tab) 1,000 mcg PO DAILY [facility] Last Admin: 05/28/18 09:43 Dose: 1,000 mcg Epoetin Scott (Procrit) 10,000 unit SC MWF [facility] Last Admin: 05/26/18 09:58 Dose: 10,000 unit Ferrous Gluconate (Fergon) 324 mg PO TID [facility] Last Admin: 05/28/18 09:43 Dose: 324 mg Furosemide (Lasix) 40 mg IVP Q12H [facility] Last Admin: 05/28/18 08:27 Dose: 40 mg Ferric Sodium Gluconate Complex 125 mg/ Sodium Chloride 110 mls @ 100 mls/hr IVPB DAILY [facility] Stop: 05/30/18 17:01 Last Admin: 05/27/18 10:55 Dose: 100 mls/hr Desmopressin Acetate 15 mcg/ (Sodium Chloride) 53.75 mls @ 100 mls/hr IV ONCE ONE Stop: 05/29/18 13:32 Insulin Aspart (Novolog) 0 unit SC [facility]; Protocol Last Admin: 05/28/18 08:26 Dose: 4 units Levetiracetam (Keppra) 500 mg PO BID [facility] Last Admin: 05/28/18 09:43 Dose: 500 mg Prednisone (Prednisone Tab) 60 mg PO DAILY [facility] Stop: 06/09/18 10:01 Last Admin: 05/28/18 09:43 Dose: 60 mg Rosuvastatin Calcium (Crestor) 10 mg PO HS [facility] Last Admin: 05/27/18 21:52 Dose: 10 mg Sitagliptin Phosphate (Januvia) 25 mg PO DAILY [facility] Last Admin: 05/28/18 09:43 Dose: 25 mg Sodium Bicarbonate (Sodium Bicarbonate Tab) 1,300 mg PO BID [facility] Last Admin: 05/28/18 09:43 Dose: 1,300 mg Tamsulosin HCl (Flomax) 0.4 mg PO DAILY [facility] Last Admin: 05/28/18 09:43 Dose: 0.4 mg Thiamine HCl (Vitamin B1 Tab) 100 mg PO DAILY [facility] Vitamin B Complex/Vit C/Folic Acid (Nephro-Priscilla) 1 tab PO 0800 [facility] Last Admin: 05/28/18 08:26 Dose: 1 tab - Labs Labs: 05/28/18 08:02 05/28/18 08:02 PT 13.5 SECONDS (9.7-12.2) H 05/21/18 12:18 INR 1.2 05/21/18 12:18 APTT 34 SECONDS (21-34) 05/21/18 12:18 - Additional Findings Additional findings: - Constitutional Appears: Non-toxic, No Acute Distress - Head Exam Head Exam: ATRAUMATIC, NORMOCEPHALIC - Eye Exam Eye Exam: Normal appearance - ENT Exam ENT Exam: Mucous Membranes Moist - Neck Exam Neck Exam: Normal Inspection. absent: Lymphadenopathy - Respiratory Exam Respiratory Exam: Clear to Ausculation Bilateral, NORMAL BREATHING PATTERN. absent: Accessory Muscle Use, Rales, Rhonchi, Wheezes, Respiratory Distress - Cardiovascular Exam Cardiovascular Exam: REGULAR RHYTHM, +S1 - GI/Abdominal Exam GI & Abdominal Exam: Soft. absent: Distended, Firm, Guarding, Rigid - Exam Additional comments: lemons in place - Extremities Exam Extremities Exam: Pedal Edema (pitting b/l). absent: Calf Tenderness Additional comments: knee-high compression stockings - trace pitting pedal edema b/l - Neurological Exam Neurological Exam: Alert, Awake - Psychiatric Exam Psychiatric exam: Normal Affect, Normal Mood Assessment and Plan - Assessment and Plan (Free Text) Plan: Congestive heart failure acute exacerbation - Cardiology consulted ([place])- rec cardiac cath when kidney function improves - Pulmonology consulted ([place]) - BNP 1550 on admission * repeat BNP 05/27/18 - 2530 - TSH, free T4 wnl - BANDAR negative x3 - Venous Dopplers: no DVT - Echo: normal EF, dilated LA, mod TR - Lexiscan: normal, EF 50-55% - CXR (05/25): acute CHF - Daily weights - Strict Is&Os - Fluid restriction 1200 mL - Compression stockings - Lasix 40 mg IV Q12H - Coreg 25 mg PO BID - Duoneb q6h - BiPAP started on 05/26 - pt only using at night. speaking in full sentences at bedside today. Acute on chronic renal failure, improving - Nephrology consulted (Morfin/[place])- high risk for PCI, Oz score 16 (post- PCI nephropathy risk 57.3%, requiring dialysis 12.6%) * Patient is for renal biopsy this week * Goal Hgb is 9-10 prior to biopsy * Transfused 1 unit of pRBCs on 05/28/18 (Hgb was 7.9) * f/u repeat CXR * prn Lasix as needed - BUN 82, Cr 3.5 * was BUN 71, Cr 3.9 on 05/26 - Renal US: enlarged prostate - Microalb/Cr ratio elevated (111) - Random urine total protein elevated (315) - Vit D low (24.3) - Complement, dsDNA Ab, random urine creatinine wnl - Procrit 10,000 MWF - Ferrlicet 125 mg IV daily - Fergon 324 mg PO TID - Nephrovite PO daily - Sodium bicarb 1300 mg PO BID Abdominal distention- suspect cirrhosis/ascites +/- urinary retention - GI consulted, Dr. Degroot - LFTs wnl - INR wnl - Liver US: hepatomegaly, steatosis, nodular (cirrhosis) Urinary retention Esinophila - Nephrology consulted, Dr. Haynes - Bladder scan PRN - Repeat bladder US: inconclusive as patient voided before imaging - Insert Lemons 05/26 - Urine positive for Esinophil - Started on Prednisone 60mg PO daily (2 of 14 doses given) - Flomax 0.4 mg PO daily Anemia, stable - suspect related to kidney failure/chronic disease - B12, folate wnl - Iron low (43), ferritin wnl - Procrit 10,000 MWF - Vit B12 1000 mcg PO daily Type 2 diabetes mellitus, chronic - A1c 8.6 - Lipid panel wnl: TG 116, chol 84, LDL 45, HDL 25 - Accuchecks ACHS - Hypoglycemia protocol - ISS medium - Januvia 25 mg PO daily (renally dosed) Hypertension, controlled - Vitals Q6H - Patient on Losartan and HCTZ at home- holding due to kidney function - Coreg 25 mg PO BID - Norvasc 10 mg PO daily - Lasix 40 mg IV Q12H Seizure disorder - Keppra level 21.9 (05/21) - Keppra 500 mg PO BID Alcohol use disorder - Liver US: hepatomegaly, steatosis, nodular (cirrhosis) - Cessation counseling H/o Gout - Uric acid 8.7 - Allopurinol 100 mg PO daily Ppx: VTE: Heparin 5000 units SC Q8H GI: Protonix 40 mg PO daily Code status: full code Case discussed with attending Dr. Chelsey Ken Michelle PGY2
[2018-05-28 11:24] LABS: INR 1.3; PROTHROMBIN TIME 13.9 SECONDS (9.7-12.2)
--- NOTE | 2018-05-28 12:50 | CP.PCM.PN ---
Subjective - Date & Time of Evaluation Date of Evaluation: 05/28/18 Time of Evaluation: 12:48 - Subjective Subjective: Nephrology Consultation Note: Assessment: Stable Acute Kidney Injury (N17.9) ? hemodynamic. ? AIN as also with eosinophiluria and peripheral eosinophilia Diabetic chronic Kidney Disease (E11.22) Hypertensive Chronic Kidney Disease (I12.9) Chronic Kidney Disease (N18.3) Stage 3 with ? mg proteinuria (R80.9) likely due to DM/HTN Anemia (D64.9), metabolic acidosis HTN (I12.9) CHF exacerbation, fluid overload alcoholic cirrhosis of liver Plan No acute need for renal replacement therapy at this time Hypertension control with meds as ordered. Maintain hemodynamics stable. Avoid hypotension. Patient ARB held due to recent MICHELLE. will resume once volume status optimized and stable renal function. Monitor Input/Output, daily weights and renal function with basic metabolic panel started iron, MVI and epogen. PRBC as needed added sodium bicarb 1300 mg bid diuretics resumed and agreed with it cardiology evaluation added b12, thiamine and vitamin d once a month as well plan for kidney biopsy next week. he was recommended about it and gave educational material to read. addressed further questions DDAVP 15 mcg before biopsy. consulted IR. likely will need PRBC transfusion to target 9-10 atleast before the biopsy. empiric prednisone 60 mg/d added for possible AIN. d/c allopurinol Dose meds/antibiotics for reduced GFR. Avoid fleets enema/magnesium based laxatives. Avoid nephrotoxins/NSAIDs/ iodinated contrast (unless needed emergently) Glycemic control Further work up/management as per primary team Thanks for allowing me to participate in care of your patient. Will follow patient with you. Please call if any Qs. had d/w team and patient, Dr Jovan Haynes Office: [phone] Chief Complaint; SOB Reason for consult: Acute Kidney Injury on CKD HPI: Pt is a with hx of diabetes Mellitus (>10 years) with retinopathy s/p laser surgery, hypertension (>10 years) CKF, CKD 3 with baseline cr 1.8-22 in apr 2017 seizure presented with complaints of worsening SOB on exertion and lying down. admitted for CHF exacerbation. renal consult for MICHELLE on CKD 3. pt c/o leg swelling, cough. admits to drinking etoh 2 times a week, few sips of tequila as per per. denies smoking/drugs. not aware about kidney disease in past Denies OTC/herbal meds or NSAIDs No recent iodinated contrast exposure. No obvious episodes of low BP. ROS: Cardiovascular: No chest pain. Pulmonary: improved shortness of breath Gastrointestinal: denies abdominal pain No nausea. No vomiting. Genitourinary: No pain while urinating. Denies blood in urine. All other negative except as mentioned in HPI Physical Examination: General Appearance: Comfortable, in no acute respiratory distress, co-operative . Vitals reviewed and noted as below Head; Atraumatic, normocephalic ENT: no ulcers no thrush. Tongue is midline. Oropharynx: no rash or ulcers. EYES: Pupils are equal, round and reactive to light accommodation. Eye muscles and extraocular movement intact. Sclera is anicteric. Neck; supple no lymphadenopathy, no thyromegaly or bruit Lungs: Normal respiratory rate/effort. Breath sounds bilateral improved Heart: Normal rate. s1s2 normal. No rub or gallop. Extremities: 1+ edema. No varicose veins. hyperpigmented changes in legs with some rash noted, pt says long time Neurological: Patient is alert, awake and oriented to person, place and time. No focal deficit. Strength bilateral appropriate and equal Skin: Warm and dry. Normal turgor. Palpitation: Normal elasticity for age Abdomen: Abdomen is soft. Bowel sounds +. There is no abdominal tenderness, no guarding/rigidity no organomegaly. ? ascites. Psych: limited insight and normal affect/mood MSK: no joint tenderness or swelling. Digits and nails normal, no deformity : kidney or bladder not palpable Labs/imaging reviewed. Past medical history, past surgical history, family history, social history, allergy reviewed and noted as below Family hx: no hx of CKD. Rest non-contribu Objective - Vital Signs/Intake and Output Vital Signs (last 24 hours): Temp Pulse Resp BP Pulse Ox 98.2 F 84 20 149/69 95 05/28/18 08:14 05/28/18 09:42 05/28/18 08:14 05/28/18 09:43 05/28/18 08:14 Intake and Output: 05/28/18 05/28/18 06:59 18:59 Output Total 900 Balance -900 - Medications Medications: Current Medications Albuterol/Ipratropium (Duoneb 3 Mg/0.5 Mg (3 Ml) Ud) 3 ml INH RQ6 [facility] Last Admin: 05/28/18 07:39 Dose: 3 ml Carvedilol (Coreg) 25 mg PO BID [facility] Last Admin: 05/28/18 09:43 Dose: 25 mg Cyanocobalamin (Vitamin B12 1000 Mcg Tab) 1,000 mcg PO DAILY [facility] Last Admin: 05/28/18 09:43 Dose: 1,000 mcg Epoetin Scott (Procrit) 10,000 unit SC MWF [facility] Last Admin: 05/26/18 09:58 Dose: 10,000 unit Ferrous Gluconate (Fergon) 324 mg PO TID [facility] Last Admin: 05/28/18 09:43 Dose: 324 mg Furosemide (Lasix) 40 mg IVP Q12H [facility] Last Admin: 05/28/18 08:27 Dose: 40 mg Ferric Sodium Gluconate Complex 125 mg/ Sodium Chloride 110 mls @ 100 mls/hr IVPB DAILY [facility] Stop: 05/30/18 17:01 Last Admin: 05/28/18 10:11 Dose: 100 mls/hr Desmopressin Acetate 15 mcg/ (Sodium Chloride) 53.75 mls @ 100 mls/hr IV ONCE ONE Stop: 05/29/18 13:32 Insulin Aspart (Novolog) 0 unit SC [facility]; Protocol Last Admin: 05/28/18 08:26 Dose: 4 units Levetiracetam (Keppra) 500 mg PO BID [facility] Last Admin: 05/28/18 09:43 Dose: 500 mg Prednisone (Prednisone Tab) 60 mg PO DAILY [facility] Stop: 06/09/18 10:01 Last Admin: 05/28/18 09:43 Dose: 60 mg Rosuvastatin Calcium (Crestor) 10 mg PO HS [facility] Last Admin: 05/27/18 21:52 Dose: 10 mg Sitagliptin Phosphate (Januvia) 25 mg PO DAILY [facility] Last Admin: 05/28/18 09:43 Dose: 25 mg Sodium Bicarbonate (Sodium Bicarbonate Tab) 1,300 mg PO BID [facility] Last Admin: 05/28/18 09:43 Dose: 1,300 mg Tamsulosin HCl (Flomax) 0.4 mg PO DAILY [facility] Last Admin: 05/28/18 09:43 Dose: 0.4 mg Thiamine HCl (Vitamin B1 Tab) 100 mg PO DAILY [facility] Last Admin: 05/28/18 10:50 Dose: 100 mg Vitamin B Complex/Vit C/Folic Acid (Nephro-Priscilla) 1 tab PO 0800 [facility] Last Admin: 05/28/18 08:26 Dose: 1 tab - Labs Labs: 05/28/18 08:02 05/28/18 08:02 PT 13.9 SECONDS (9.7-12.2) H 05/28/18 11:11 INR 1.3 05/28/18 11:11 APTT 34 SECONDS (21-34) 05/21/18 12:18
--- NOTE | 2018-05-28 14:21 | RAD ---
Date of service: 05/28/2018 HISTORY: cough COMPARISON: Portable chest 05/26/2018. FINDINGS: LUNGS: No active pulmonary disease. PLEURA: No significant pleural effusion identified, no pneumothorax apparent. CARDIOVASCULAR: No aortic atherosclerotic calcification present. Mild cardiomegaly reiterated. No pulmonary vascular congestion. OSSEOUS STRUCTURES: No significant abnormalities. VISUALIZED UPPER ABDOMEN: Normal. OTHER FINDINGS: None. IMPRESSION: Stable cardiomegaly. No pulmonary vascular congestion or infiltrate appreciable.
--- NOTE | 2018-05-28 15:02 | CP.PCM.PN ---
Subjective - Date & Time of Evaluation Date of Evaluation: 05/28/18 Time of Evaluation: 13:20 - Subjective Subjective: Patient seen and examined. Off BiPAP during the daytime Getting packed RBCs Patient states breathing better Afebrile Patient is alert and oriented x3 Objective - Vital Signs/Intake and Output Vital Signs (last 24 hours): Temp Pulse Resp BP Pulse Ox 98.3 F 82 20 146/84 95 05/28/18 14:41 05/28/18 14:41 05/28/18 14:41 05/28/18 14:41 05/28/18 08:14 Intake and Output: 05/28/18 05/28/18 06:59 18:59 Intake Total 105 Output Total 900 775 Balance -900 -670 - Medications Medications: Current Medications Albuterol/Ipratropium (Duoneb 3 Mg/0.5 Mg (3 Ml) Ud) 3 ml INH RQ6 [facility] Last Admin: 05/28/18 13:33 Dose: 3 ml Carvedilol (Coreg) 25 mg PO BID [facility] Last Admin: 05/28/18 09:43 Dose: 25 mg Cyanocobalamin (Vitamin B12 1000 Mcg Tab) 1,000 mcg PO DAILY [facility] Last Admin: 05/28/18 09:43 Dose: 1,000 mcg Epoetin Scott (Procrit) 10,000 unit SC MWF [facility] Last Admin: 05/26/18 09:58 Dose: 10,000 unit Ferrous Gluconate (Fergon) 324 mg PO TID [facility] Last Admin: 05/28/18 14:25 Dose: 324 mg Furosemide (Lasix) 40 mg IVP Q12H [facility] Last Admin: 05/28/18 08:27 Dose: 40 mg Ferric Sodium Gluconate Complex 125 mg/ Sodium Chloride 110 mls @ 100 mls/hr IVPB DAILY [facility] Stop: 05/30/18 17:01 Last Admin: 05/28/18 10:11 Dose: 100 mls/hr Desmopressin Acetate 15 mcg/ (Sodium Chloride) 53.75 mls @ 100 mls/hr IV ONCE ONE Stop: 05/29/18 13:32 Insulin Aspart (Novolog) 0 unit SC ACHS [facility]; Protocol Last Admin: 05/28/18 12:26 Dose: 6 units Levetiracetam (Keppra) 500 mg PO BID [facility] Last Admin: 05/28/18 09:43 Dose: 500 mg Prednisone (Prednisone Tab) 60 mg PO DAILY [facility] Stop: 06/09/18 10:01 Last Admin: 05/28/18 09:43 Dose: 60 mg Rosuvastatin Calcium (Crestor) 10 mg PO HS [facility] Last Admin: 05/27/18 21:52 Dose: 10 mg Sitagliptin Phosphate (Januvia) 25 mg PO DAILY [facility] Last Admin: 05/28/18 09:43 Dose: 25 mg Sodium Bicarbonate (Sodium Bicarbonate Tab) 1,300 mg PO BID [facility] Last Admin: 05/28/18 09:43 Dose: 1,300 mg Tamsulosin HCl (Flomax) 0.4 mg PO DAILY [facility] Last Admin: 05/28/18 09:43 Dose: 0.4 mg Thiamine HCl (Vitamin B1 Tab) 100 mg PO DAILY [facility] Last Admin: 05/28/18 10:50 Dose: 100 mg Vitamin B Complex/Vit C/Folic Acid (Nephro-Priscilla) 1 tab PO 0800 [facility] Last Admin: 05/28/18 08:26 Dose: 1 tab - Labs Labs: 05/28/18 08:02 05/28/18 08:02 PT 13.9 SECONDS (9.7-12.2) H 05/28/18 11:11 INR 1.3 05/28/18 11:11 APTT 34 SECONDS (21-34) 05/21/18 12:18 - Head Exam Head Exam: ATRAUMATIC, NORMOCEPHALIC - ENT Exam ENT Exam: Mucous Membranes Moist - Neck Exam Neck Exam: Normal Inspection - Respiratory Exam Respiratory Exam: Decreased Breath Sounds - Cardiovascular Exam Cardiovascular Exam: REGULAR RHYTHM - GI/Abdominal Exam GI & Abdominal Exam: Soft, Normal Bowel Sounds Assessment and Plan (1) Renal failure (ARF), acute on chronic Assessment & Plan: Continue present treatment for now Continue steroids Renal biopsy BiPAP at night Status: Acute (2) CHF exacerbation Status: Acute (3) Pedal edema Status: Acute
--- NOTE | 2018-05-28 23:18 | CP.PCM.PN ---
Subjective - Date & Time of Evaluation Date of Evaluation: 05/28/18 Time of Evaluation: 17:45 - Subjective Subjective: Patient seen and evaluated Denies chest pain and dyspnea Physical Examination - Head Exam Head Exam: ATRAUMATIC, NORMAL INSPECTION - Eye Exam Eye Exam: EOMI, Normal appearance, PERRL Pupil Exam: NORMAL ACCOMODATION - ENT Exam ENT Exam: Mucous Membranes Moist, Normal Oropharynx - Neck Exam Neck Exam: Normal Inspection. absent: Lymphadenopathy, Thyromegaly - Respiratory Exam Respiratory Exam: Clear to Ausculation Bilateral, NORMAL BREATHING PATTERN. absent: Prolonged Expiratory Phase, Respiratory Distress - Cardiovascular Exam Cardiovascular Exam: +S1, +S2 - GI/Abdominal Exam GI & Abdominal Exam: Soft, Normal Bowel Sounds. absent: Hyperactive Bowel Sounds - Extremities Exam Extremities Exam: Full ROM. absent: Pedal Edema - Back Exam Back Exam: NORMAL INSPECTION. absent: CVA tenderness (R), paraspinal tenderness - Neurological Exam Neurological Exam: Alert, Awake, CN II-XII Intact - Psychiatric Exam Psychiatric exam: Normal Affect, Normal Mood - Skin Skin Exam: Dry, Intact Assessment and Plan - Assessment and Plan (Free Text) Assessment: 67 year old male with a past medical history of hypertension, dm2, ckd, gout, and chf who presents to the hospital for chf exacerbation. Plan: Plan: 1. Acute on chronic diastolic heart failure Troponin (-)x3 BNP elevated on admission but patient has component of kidney dysfunction. Doppler Negative Patient would benefit from Cardiac catherization, however patient current kidney dysfunction puts him at a high risk for complications post cardiac cath. At this time patient not cleared for cardiac catherization. Medications: Lasix 40mg IVP Q12 Held Coreg 25mg PO BID [facility] Cozaar Held Crestor 10mg PO HS Novasc 10mg PO Daily 2.CKD Nephrology consulted. Help appreciated Medications: Procrit 10,000 MWF Ferrlicet 125 mg IVP Daily Fergon 324mg PO TID [facility] Nephrovite 1 TAB PO 800 [facility] 3.DM Januvia 25mg PO Daily 4.Gout Allopurinol 300mg PO Daily PPX -Heparin 5000 units SC Q8 [facility] Dispo: As per official stress test report patient stress test is normal No need for cardiac cath at this time Continue medical management Objective - Vital Signs/Intake and Output Vital Signs (last 24 hours): Temp Pulse Resp BP Pulse Ox 98 F 87 16 148/69 96 02/03/19 21:56 05/28/18 21:56 05/28/18 17:39 05/28/18 21:56 05/28/18 15:36 Intake and Output: 05/28/18 05/29/18 18:59 06:59 Intake Total 680 300 Output Total 775 700 Balance -95 -400 - Medications Medications: Current Medications Albuterol/Ipratropium (Duoneb 3 Mg/0.5 Mg (3 Ml) Ud) 3 ml INH RQ6 [facility] Last Admin: 05/28/18 19:58 Dose: 3 ml Carvedilol (Coreg) 25 mg PO BID [facility] Last Admin: 05/28/18 17:33 Dose: 25 mg Cyanocobalamin (Vitamin B12 1000 Mcg Tab) 1,000 mcg PO DAILY [facility] Last Admin: 05/28/18 09:43 Dose: 1,000 mcg Epoetin Scott (Procrit) 10,000 unit SC MWF [facility] Last Admin: 05/26/18 09:58 Dose: 10,000 unit Ferrous Gluconate (Fergon) 324 mg PO TID [facility] Last Admin: 05/28/18 17:34 Dose: 324 mg Furosemide (Lasix) 40 mg IVP Q12H [facility] Last Admin: 05/28/18 19:37 Dose: 40 mg Ferric Sodium Gluconate Complex 125 mg/ Sodium Chloride 110 mls @ 100 mls/hr IVPB DAILY [facility] Stop: 05/30/18 17:01 Last Admin: 05/28/18 10:11 Dose: 100 mls/hr Desmopressin Acetate 15 mcg/ (Sodium Chloride) 53.75 mls @ 100 mls/hr IV ONCE ONE Stop: 05/29/18 13:32 Insulin Aspart (Novolog) 0 unit SC ACHS [facility]; Protocol Last Admin: 05/28/18 21:41 Dose: 2 units Levetiracetam (Keppra) 500 mg PO BID [facility] Last Admin: 05/28/18 17:33 Dose: 500 mg Prednisone (Prednisone Tab) 60 mg PO DAILY [facility] Stop: 06/09/18 10:01 Last Admin: 05/28/18 09:43 Dose: 60 mg Rosuvastatin Calcium (Crestor) 10 mg PO HS [facility] Last Admin: 05/28/18 21:31 Dose: 10 mg Sitagliptin Phosphate (Januvia) 25 mg PO DAILY [facility] Last Admin: 05/28/18 09:43 Dose: 25 mg Sodium Bicarbonate (Sodium Bicarbonate Tab) 1,300 mg PO BID [facility] Last Admin: 05/28/18 17:33 Dose: 1,300 mg Tamsulosin HCl (Flomax) 0.4 mg PO DAILY [facility] Last Admin: 05/28/18 09:43 Dose: 0.4 mg Thiamine HCl (Vitamin B1 Tab) 100 mg PO DAILY [facility] Last Admin: 05/28/18 10:50 Dose: 100 mg Vitamin B Complex/Vit C/Folic Acid (Nephro-Priscilla) 1 tab PO 0800 [facility] Last Admin: 05/28/18 08:26 Dose: 1 tab - Labs Labs: 05/28/18 08:02 05/28/18 08:02 PT 13.9 SECONDS (9.7-12.2) H 05/28/18 11:11 INR 1.3 05/28/18 11:11 APTT 34 SECONDS (21-34) 05/21/18 12:18
[2018-05-29 01:01] VITALS: RESP 20
[2018-05-29] MEDS: Albuterol-Ipratrop 3 mg / 0.5 (3 ml) UD INH SCH ×3 (01:20→13:25)
[2018-05-29 07:32] LABS: BASO % 0.2 % (0.0-2.0); HEMOGLOBIN 8.8 g/dL (12.0-18.0); LYMPH # 0.6 K/uL (1.0-4.3); LYMPH % 6.8 % (20.0-40.0); MEAN CELL VOLUME 96.3 fL (80.0-94.0); MEAN CORPUSCULAR HEMOGLOBIN 31.9 pg (27.0-31.0); MEAN CORPUSCULAR HGB CONC 33.1 g/dL (33.0-37.0); MEAN PLATELET VOLUME 9.7 fL (7.2-11.7); MONO # 0.9 K/uL (0.0-0.8); NEUT # 7.7 K/uL (1.8-7.0); NRBC % 0.3 % (0.0-2.0); PLATELET COUNT 159 K/uL (130-400); RBC 2.76 Mil/uL (4.40-5.90); RED CELL DISTRIBUTION WIDTH 15.8 % (11.5-14.5); WHITE BLOOD COUNT 9.3 K/uL (4.8-10.8)
[2018-05-29] MEDS: (Novolog) Insulin Aspart, Recombinant 100 u/ml 10 ml vial SC SCH ×4 (08:04→22:26)
[2018-05-29 08:15] LABS: ALB/GLOB RATIO 1.4 (1.0-2.1); ALBUMIN 3.7 g/dL (3.5-5.0); CALCIUM 7.6 mg/dl (8.6-10.4)
[2018-05-29] MEDS: Multivitamin Vitamin B Complex (Nephro-Vite) Tab PO SCH (08:22)
--- NOTE | 2018-05-29 08:27 | CP.PCM.PN ---
Subjective - Date & Time of Evaluation Date of Evaluation: 05/29/18 Time of Evaluation: 08:24 - Subjective Subjective: HOSPITALIST SERVICE Pt seen and examined at bedside, no longer on BIPAP, on NC and tolerating well, Pt has no complaints overnight, denies cp sob fc nv syncope dizziness vision changes. Pt understands and agrees with plan for renal bx but needs a Hg of >9. Objective - Vital Signs/Intake and Output Vital Signs (last 24 hours): Temp Pulse Resp BP Pulse Ox 97.9 F 74 20 163/75 H 96 05/28/18 23:00 05/29/18 07:38 05/28/18 23:00 05/29/18 08:23 05/28/18 15:36 Intake and Output: 05/29/18 05/29/18 06:59 18:59 Intake Total 300 Output Total 1700 Balance -1400 - Medications Medications: Current Medications Albuterol/Ipratropium (Duoneb 3 Mg/0.5 Mg (3 Ml) Ud) 3 ml INH RQ6 [facility] Last Admin: 05/29/18 01:20 Dose: 3 ml Carvedilol (Coreg) 25 mg PO BID [facility] Last Admin: 05/28/18 17:33 Dose: 25 mg Cyanocobalamin (Vitamin B12 1000 Mcg Tab) 1,000 mcg PO DAILY [facility] Last Admin: 05/28/18 09:43 Dose: 1,000 mcg Epoetin Scott (Procrit) 10,000 unit SC MWF [facility] Last Admin: 05/26/18 09:58 Dose: 10,000 unit Ferrous Gluconate (Fergon) 324 mg PO TID [facility] Last Admin: 05/28/18 17:34 Dose: 324 mg Furosemide (Lasix) 40 mg IVP Q12H [facility] Last Admin: 05/29/18 08:23 Dose: 40 mg Ferric Sodium Gluconate Complex 125 mg/ Sodium Chloride 110 mls @ 100 mls/hr IVPB DAILY [facility] Stop: 05/30/18 17:01 Last Admin: 05/28/18 10:11 Dose: 100 mls/hr Desmopressin Acetate 15 mcg/ (Sodium Chloride) 53.75 mls @ 100 mls/hr IV ONCE ONE Stop: 05/29/18 13:32 Insulin Aspart (Novolog) 0 unit SC ACHS [facility]; Protocol Last Admin: 05/28/18 21:41 Dose: 2 units Levetiracetam (Keppra) 500 mg PO BID [facility] Last Admin: 05/28/18 17:33 Dose: 500 mg Prednisone (Prednisone Tab) 60 mg PO DAILY [facility] Stop: 06/09/18 10:01 Last Admin: 05/28/18 09:43 Dose: 60 mg Rosuvastatin Calcium (Crestor) 10 mg PO HS [facility] Last Admin: 05/28/18 21:31 Dose: 10 mg Sitagliptin Phosphate (Januvia) 25 mg PO DAILY [facility] Last Admin: 05/28/18 09:43 Dose: 25 mg Sodium Bicarbonate (Sodium Bicarbonate Tab) 1,300 mg PO BID [facility] Last Admin: 05/28/18 17:33 Dose: 1,300 mg Tamsulosin HCl (Flomax) 0.4 mg PO DAILY [facility] Last Admin: 05/28/18 09:43 Dose: 0.4 mg Thiamine HCl (Vitamin B1 Tab) 100 mg PO DAILY [facility] Last Admin: 05/28/18 10:50 Dose: 100 mg Vitamin B Complex/Vit C/Folic Acid (Nephro-Priscilla) 1 tab PO 0800 [facility] Last Admin: 05/29/18 08:22 Dose: 1 tab - Labs Labs: 05/29/18 07:23 05/29/18 07:23 PT 13.9 SECONDS (9.7-12.2) H 05/28/18 11:11 INR 1.3 05/28/18 11:11 APTT 34 SECONDS (21-34) 05/21/18 12:18 - Additional Findings Additional findings: - Constitutional Appears: Non-toxic, No Acute Distress - Head Exam Head Exam: ATRAUMATIC, NORMOCEPHALIC - Eye Exam Eye Exam: Normal appearance - ENT Exam ENT Exam: Mucous Membranes Moist - Neck Exam Neck Exam: Normal Inspection. absent: Lymphadenopathy - Respiratory Exam Respiratory Exam: Clear to Ausculation Bilateral, NORMAL BREATHING PATTERN. absent: Accessory Muscle Use, Rales, Rhonchi, Wheezes, Respiratory Distress on Nasal Canula - Cardiovascular Exam Cardiovascular Exam: REGULAR RHYTHM, +S1 - GI/Abdominal Exam GI & Abdominal Exam: Soft. absent: Distended, Firm, Guarding, Rigid - Exam Additional comments: lemons in place - Extremities Exam Extremities Exam: Pedal Edema (pitting b/l). absent: Calf Tenderness Additional comments: knee-high compression stockings - trace pitting pedal edema b/l - Neurological Exam Neurological Exam: Alert, Awake - Psychiatric Exam Psychiatric exam: Normal Affect, Normal Mood Assessment and Plan - Assessment and Plan (Free Text) Assessment: Plan: Possible Diastolic heart failure acute exacerbation - Cardiology consulted ([place])- rec cardiac cath when kidney function improves still could be diastolic CHF f/u outpt w/ dr mcguire - Pulmonology consulted ([place]) - BNP 1550 on admission * repeat BNP 05/27/18 - 2530 - TSH, free T4 wnl - BANDAR negative x3 - Venous Dopplers: no DVT - Echo: normal EF, dilated LA, mod TR - Lexiscan: normal, EF 50-55% - CXR (05/25): acute CHF - Daily weights - Strict Is&Os - Fluid restriction 1200 mL - Compression stockings - Lasix 40 mg IV Q12H - Coreg 25 mg PO BID - Duoneb q6h - BiPAP started on 05/26 - pt only using at night. speaking in full sentences at bedside today. Acute on chronic renal failure, improving - Nephrology consulted ([place])- high risk for PCI, Oz score 16 (post- PCI nephropathy risk 57.3%, requiring dialysis 12.6%) * Patient is for renal biopsy this week * Goal Hgb is 9-10 prior to biopsy * Transfused 1 unit of pRBCs on 05/28/18 (Hgb was 7.9) * f/u repeat CXR * prn Lasix as needed - BUN 82, Cr 3.5 * was BUN 71, Cr 3.9 on 05/26 - Renal US: enlarged prostate - Microalb/Cr ratio elevated (111) - Random urine total protein elevated (315) - Vit D low (24.3) - Complement, dsDNA Ab, random urine creatinine wnl - Procrit 10,000 MWF - Ferrlicet 125 mg IV daily - Fergon 324 mg PO TID - Nephrovite PO daily - Sodium bicarb 1300 mg PO BID Abdominal distention- suspect cirrhosis/ascites +/- urinary retention - GI consulted, Dr. Degroot - LFTs wnl - INR wnl - Liver US: hepatomegaly, steatosis, nodular (cirrhosis) Urinary retention Esinophila - Nephrology consulted, Dr. Haynes - Bladder scan PRN - Repeat bladder US: inconclusive as patient voided before imaging - Insert Lemons 05/26 - Urine positive for Esinophil - Started on Prednisone 60mg PO daily (2 of 14 doses given) - Flomax 0.4 mg PO daily Anemia, stable - suspect related to kidney failure/chronic disease - B12, folate wnl - Iron low (43), ferritin wnl - Procrit 10,000 MWF - Vit B12 1000 mcg PO daily Type 2 diabetes mellitus, chronic - A1c 8.6 - Lipid panel wnl: TG 116, chol 84, LDL 45, HDL 25 - Accuchecks ACHS - Hypoglycemia protocol - ISS medium - Januvia 25 mg PO daily (renally dosed) Hypertension, controlled - Vitals Q6H - Patient on Losartan and HCTZ at home- holding due to kidney function - Coreg 25 mg PO BID - Norvasc 10 mg PO daily - Lasix 40 mg IV Q12H Seizure disorder - Keppra level 21.9 (05/21) - Keppra 500 mg PO BID Alcohol use disorder - Liver US: hepatomegaly, steatosis, nodular (cirrhosis) - Cessation counseling H/o Gout - Uric acid 8.7 - Allopurinol 100 mg PO daily Ppx: VTE: Heparin 5000 units SC Q8H GI: Protonix 40 mg PO daily DISPO: f/u Cardio and Nephro recs
[2018-05-29 08:45] LABS: ANISOCYTOSIS SLIGHT; BANDS 1 % (0-2); HYPOCHROMIC SLIGHT; LYMPHOCYTE 7 % (20-40); METAMYELOCYTE 1 % (0-0); MONOCYTE 6 % (0-10); NEUTROPHIL 84 % (50-75); PLATELET ESTIMATE NORMAL (NORMAL); POIKILOCYTOSIS SLIGHT; REACTIVE LYMPHOCYTES 1 % (0-0); TOTAL CELLS COUNTED 100
[2018-05-29 08:46] LABS: MICROCYTOSIS SLIGHT; OVALOCYTES SLIGHT; TEARDROP CELLS SLIGHT
[2018-05-29] MEDS: Epoetin Alfa 10,000 unit/ml Dialysis SC SCH (09:21)
--- NOTE | 2018-05-29 09:23 | RAD ---
Date of service: 05/29/2018 HISTORY: cough COMPARISON: 05/28/2018 FINDINGS: LUNGS: No active pulmonary disease. PLEURA: Questionable very small left pleural effusion. Follow-up advised. No right pleural effusion. No pneumothorax. CARDIOVASCULAR: No aortic atherosclerotic calcification present. Normal cardiac size. No pulmonary vascular congestion. OSSEOUS STRUCTURES: No significant abnormalities. VISUALIZED UPPER ABDOMEN: Normal. OTHER FINDINGS: None. IMPRESSION: Questionable small left pleural effusion. No infiltrate. Follow-up advised.
--- NOTE | 2018-05-29 09:26 | CP.PCM.PN ---
<Deni Adkins - Last Filed: 05/29/18 17:22> Subjective - Date & Time of Evaluation Date of Evaluation: 05/29/18 Time of Evaluation: 09:26 - Subjective Subjective: Dr. Cage Cardiology Service. Patient seen and examined at bedside. Per nursing no acute events occurred overnight. Patient denies any chest pain, fevers, chills ,headaches, nausea, vomiting, abdominal pain, syncopal episodes, or any other complaints. Objective - Vital Signs/Intake and Output Vital Signs (last 24 hours): Temp Pulse Resp BP Pulse Ox 98.1 F 96 H 20 160/77 H 97 05/29/18 07:00 05/29/18 09:16 05/29/18 07:00 05/29/18 09:17 05/29/18 07:00 Intake and Output: 05/29/18 05/29/18 06:59 18:59 Intake Total 300 Output Total 1700 Balance -1400 - Medications Medications: Current Medications Albuterol/Ipratropium (Duoneb 3 Mg/0.5 Mg (3 Ml) Ud) 3 ml INH RQ6 [facility] Last Admin: 05/29/18 01:20 Dose: 3 ml Carvedilol (Coreg) 25 mg PO BID [facility] Last Admin: 05/29/18 09:17 Dose: 25 mg Cyanocobalamin (Vitamin B12 1000 Mcg Tab) 1,000 mcg PO DAILY [facility] Last Admin: 05/28/18 09:43 Dose: 1,000 mcg Epoetin Scott (Procrit) 10,000 unit SC MWF [facility] Last Admin: 05/29/18 09:21 Dose: 10,000 unit Ferrous Gluconate (Fergon) 324 mg PO TID [facility] Last Admin: 05/28/18 17:34 Dose: 324 mg Furosemide (Lasix) 40 mg IVP Q12H [facility] Last Admin: 05/29/18 08:23 Dose: 40 mg Ferric Sodium Gluconate Complex 125 mg/ Sodium Chloride 110 mls @ 100 mls/hr IVPB DAILY [facility] Stop: 05/30/18 17:01 Last Admin: 05/28/18 10:11 Dose: 100 mls/hr Desmopressin Acetate 15 mcg/ (Sodium Chloride) 53.75 mls @ 100 mls/hr IV ONCE ONE Stop: 05/29/18 10:02 Insulin Aspart (Novolog) 0 unit SC ACHS [facility]; Protocol Last Admin: 05/28/18 21:41 Dose: 2 units Levetiracetam (Keppra) 500 mg PO BID [facility] Last Admin: 05/29/18 09:17 Dose: 500 mg Prednisone (Prednisone Tab) 60 mg PO DAILY [facility] Stop: 06/09/18 10:01 Last Admin: 05/29/18 09:17 Dose: 60 mg Rosuvastatin Calcium (Crestor) 10 mg PO HS [facility] Last Admin: 05/28/18 21:31 Dose: 10 mg Sitagliptin Phosphate (Januvia) 25 mg PO DAILY [facility] Last Admin: 05/29/18 09:17 Dose: 25 mg Sodium Bicarbonate (Sodium Bicarbonate Tab) 1,300 mg PO BID [facility] Last Admin: 05/29/18 09:17 Dose: 1,300 mg Tamsulosin HCl (Flomax) 0.4 mg PO DAILY [facility] Last Admin: 05/29/18 09:17 Dose: 0.4 mg Thiamine HCl (Vitamin B1 Tab) 100 mg PO DAILY [facility] Last Admin: 05/29/18 09:17 Dose: 100 mg Vitamin B Complex/Vit C/Folic Acid (Nephro-Priscilla) 1 tab PO 0800 [facility] Last Admin: 05/29/18 08:22 Dose: 1 tab - Labs Labs: 05/29/18 07:23 05/29/18 07:23 PT 13.9 SECONDS (9.7-12.2) H 05/28/18 11:11 INR 1.3 05/28/18 11:11 APTT 34 SECONDS (21-34) 05/21/18 12:18 - Head Exam Head Exam: ATRAUMATIC, NORMAL INSPECTION - Eye Exam Eye Exam: EOMI, Normal appearance, PERRL Pupil Exam: NORMAL ACCOMODATION - ENT Exam ENT Exam: Mucous Membranes Moist, Normal Oropharynx - Respiratory Exam Respiratory Exam: Clear to Ausculation Bilateral, NORMAL BREATHING PATTERN. absent: Respiratory Distress - Cardiovascular Exam Cardiovascular Exam: REGULAR RHYTHM, +S1, +S2 - GI/Abdominal Exam GI & Abdominal Exam: Soft, Normal Bowel Sounds. absent: Rigid, Hyperactive Bowel Sounds - Extremities Exam Extremities Exam: absent: Pedal Edema - Back Exam Back Exam: NORMAL INSPECTION. absent: CVA tenderness (R), paraspinal tenderness - Neurological Exam Neurological Exam: Alert, Awake, CN II-XII Intact - Psychiatric Exam Psychiatric exam: Normal Affect, Normal Mood. absent: Depressed, Flat Affect - Skin Skin Exam: Dry, Intact Assessment and Plan - Assessment and Plan (Free Text) Assessment: 67 year old male with a past medical history of hypertension, dm2, ckd, gout, and chf who presents to the hospital for chf exacerbation. Plan: Plan: 1. Acute on chronic diastolic heart failure Troponin (-)x3 BNP elevated on admission but patient has component of kidney dysfunction. Doppler Negative Patient would benefit from Cardiac catherization, however patient current kidney dysfunction puts him at a high risk for complications post cardiac cath. At this time patient not cleared for cardiac catherization. Medications: Lasix 40mg IVP Q12 Held Coreg 25mg PO BID [facility] Crestor 10mg PO HS Novasc 10mg PO Daily 2.CKD Nephrology consulted. Help appreciated Medications: Procrit 10,000 MWF Ferrlicet 125 mg IVP Daily Fergon 324mg PO TID [facility] Nephrovite 1 TAB PO 800 [facility] 3.DM Januvia 25mg PO Daily 4. bph -Flomax .4mg PO Daily [facility] Deni Adkins, PGY-2 <Barrett Cage - Last Filed: 05/29/18 23:42> Objective - Vital Signs/Intake and Output Vital Signs (last 24 hours): Temp Pulse Resp BP Pulse Ox 97.7 F 76 20 155/85 H 95 05/29/18 16:38 05/29/18 18:00 05/29/18 16:38 05/29/18 20:37 05/29/18 15:15 Intake and Output: 05/29/18 05/30/18 18:59 06:59 Intake Total 500 500 Output Total 1000 500 Balance -500 0 - Medications Medications: Current Medications Albuterol/Ipratropium (Duoneb 3 Mg/0.5 Mg (3 Ml) Ud) 3 ml INH RQ6 [facility] Last Admin: 05/29/18 13:25 Dose: 3 ml Amlodipine Besylate (Norvasc) 10 mg PO DAILY [facility] Last Admin: 05/29/18 11:25 Dose: 10 mg Carvedilol (Coreg) 25 mg PO BID [facility] Last Admin: 05/29/18 18:19 Dose: 25 mg Cyanocobalamin (Vitamin B12 1000 Mcg Tab) 1,000 mcg PO DAILY [facility] Last Admin: 05/29/18 11:12 Dose: 1,000 mcg Diphenhydramine HCl (Benadryl) 25 mg PO Q6 [facility] Last Admin: 05/29/18 19:25 Dose: Not Given Epoetin Scott (Procrit) 10,000 unit SC MWF [facility] Last Admin: 05/29/18 09:21 Dose: 10,000 unit Ferrous Gluconate (Fergon) 324 mg PO TID [facility] Last Admin: 05/29/18 18:23 Dose: 324 mg Furosemide (Lasix) 40 mg IVP Q12H [facility] Last Admin: 05/29/18 20:37 Dose: 40 mg Ferric Sodium Gluconate Complex 125 mg/ Sodium Chloride 110 mls @ 100 mls/hr IVPB DAILY [facility] Stop: 05/30/18 17:01 Last Admin: 05/29/18 11:12 Dose: 100 mls/hr Insulin Aspart (Novolog) 0 unit SC ACHS [facility]; Protocol Last Admin: 05/29/18 22:26 Dose: 2 units Levetiracetam (Keppra) 500 mg PO BID [facility] Last Admin: 05/29/18 18:21 Dose: 500 mg Prednisone (Prednisone Tab) 60 mg PO DAILY [facility] Stop: 06/09/18 10:01 Last Admin: 05/29/18 09:17 Dose: 60 mg Rosuvastatin Calcium (Crestor) 10 mg PO HS [facility] Last Admin: 05/29/18 22:28 Dose: 10 mg Sitagliptin Phosphate (Januvia) 25 mg PO DAILY [facility] Last Admin: 05/29/18 09:17 Dose: 25 mg Sodium Bicarbonate (Sodium Bicarbonate Tab) 1,300 mg PO BID [facility] Last Admin: 05/29/18 18:21 Dose: 1,300 mg Tamsulosin HCl (Flomax) 0.4 mg PO DAILY [facility] Last Admin: 05/29/18 09:17 Dose: 0.4 mg Thiamine HCl (Vitamin B1 Tab) 100 mg PO DAILY [facility] Last Admin: 05/29/18 09:17 Dose: 100 mg Vitamin B Complex/Vit C/Folic Acid (Nephro-Priscilla) 1 tab PO 0800 [facility] Last Admin: 05/29/18 08:22 Dose: 1 tab - Labs Labs: 05/29/18 07:23 05/29/18 07:23 PT 13.9 SECONDS (9.7-12.2) H 05/28/18 11:11 INR 1.3 05/28/18 11:11 APTT 34 SECONDS (21-34) 05/21/18 12:18 Assessment and Plan - Assessment and Plan (Free Text) Assessment: Patient seen and evaluated personally by me. Plan of care d/w the resident and as documented
[2018-05-29] MEDS ORDERED: Desmopressin 15 MCG in Sodium Chloride 0.9% 50 ML IV ONE ×2 (09:30→13:00)
[2018-05-29] MEDS ORDERED: Midazolam 2 MG/2 ML VIAL ONE (10:23)
[2018-05-29] MEDS ORDERED: Absorbable Gelatin Sponge Size 12-7 ONE (10:33)
--- NOTE | 2018-05-29 10:40 | PCM.SURG1 ---
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 Three 18-g core specimen removed and sent for routine histology. Biopsy tract embolized with gelfoam. Specimen/Specimens Removed: 18-gauge core x 3 Estimated Blood Loss: EBL {In ML}: 2 Blood Products Given: N/A Drains Used: No Drains Post-Op Condition: Fair Date of Surgery/Procedure: 05/29/18 Time of Surgery/Procedure: 10:35
[2018-05-29] MEDS: Ferric Sodium Gluconat Complex 125 MG in Sodium Chloride 0.9% 100 ML IVPB SCH (11:12)
--- NOTE | 2018-05-29 12:53 | CP.PCM.PN ---
Subjective - Date & Time of Evaluation Date of Evaluation: 05/29/18 Time of Evaluation: 12:51 - Subjective Subjective: Nephrology Consultation Note: Assessment: Stable Acute Kidney Injury (N17.9) ? hemodynamic. ? AIN as also with eosinophiluria and peripheral eosinophilia Diabetic chronic Kidney Disease (E11.22) Hypertensive Chronic Kidney Disease (I12.9) Chronic Kidney Disease (N18.3) Stage 3 with ? mg proteinuria (R80.9) likely due to DM/HTN Anemia (D64.9), metabolic acidosis HTN (I12.9) CHF exacerbation, fluid overload alcoholic cirrhosis of liver Plan No acute need for renal replacement therapy at this time Hypertension control with meds as ordered. Maintain hemodynamics stable. Avoid hypotension. Patient ARB held due to recent MICHELLE. will resume once volume status optimized and stable renal function. resume norvasc 10 Monitor Input/Output, daily weights and renal function with basic metabolic panel started iron, MVI and epogen. PRBC as needed added sodium bicarb 1300 mg bid diuretics resumed and agreed with it cardiology pulmonary following added b12, thiamine and vitamin d once a month as well empiric prednisone 60 mg/d added for possible AIN. d/c allopurinol. f/up biopsy results. No NSAIDs. repeat CBC today and then tomorrow again. so far pt doing well and no complaints after biopsy. Dose meds/antibiotics for reduced GFR. Avoid fleets enema/magnesium based laxatives. Avoid nephrotoxins/NSAIDs/ iodinated contrast (unless needed emergently) Glycemic control Further work up/management as per primary team Thanks for allowing me to participate in care of your patient. Will follow patient with you. Please call if any Qs. had d/w team and patient, Jovan Haynes Office: [phone] Chief Complaint; SOB Reason for consult: Acute Kidney Injury on CKD HPI: Pt is a with hx of diabetes Mellitus (>10 years) with retinopathy s/p laser surgery, hypertension (>10 years) CKF, CKD 3 with baseline cr 1.8-22 in apr 2017 seizure presented with complaints of worsening SOB on exertion and lying down. admitted for CHF exacerbation. renal consult for MICHELLE on CKD 3. pt c/o leg swelling, cough. admits to drinking etoh 2 times a week, few sips of tequila as per per. denies smoking/drugs. not aware about kidney disease in past Denies OTC/herbal meds or NSAIDs No recent iodinated contrast exposure. No obvious episodes of low BP. ROS: s/p kidney biopsy 05/29/18 Cardiovascular: No chest pain. Pulmonary: improved shortness of breath Gastrointestinal: denies abdominal pain No nausea. No vomiting. Genitourinary: No pain while urinating. Denies blood in urine. All other negative except as mentioned in HPI Physical Examination: General Appearance: Comfortable, in no acute respiratory distress, co-operative . Vitals reviewed and noted as below Head; Atraumatic, normocephalic ENT: no ulcers no thrush. Tongue is midline. Oropharynx: no rash or ulcers. EYES: Pupils are equal, round and reactive to light accommodation. Eye muscles and extraocular movement intact. Sclera is anicteric. Neck; supple no lymphadenopathy, no thyromegaly or bruit Lungs: Normal respiratory rate/effort. Breath sounds bilateral improved Heart: Normal rate. s1s2 normal. No rub or gallop. Extremities: 1+ edema. No varicose veins. hyperpigmented changes in legs with some rash noted, pt says long time Neurological: Patient is alert, awake and oriented to person, place and time. No focal deficit. Strength bilateral appropriate and equal Skin: Warm and dry. Normal turgor. Palpitation: Normal elasticity for age Abdomen: Abdomen is soft. Bowel sounds +. There is no abdominal tenderness, no guarding/rigidity no organomegaly. ? ascites. Psych: limited insight and normal affect/mood MSK: no joint tenderness or swelling. Digits and nails normal, no deformity : kidney or bladder not palpable Labs/imaging reviewed. Past medical history, past surgical history, family history, social history, allergy reviewed and noted as below Family hx: no hx of CKD. Rest non-contribu Objective - Vital Signs/Intake and Output Vital Signs (last 24 hours): Temp Pulse Resp BP Pulse Ox 98.1 F 83 20 160/77 H 97 05/29/18 07:00 05/29/18 12:00 05/29/18 07:00 05/29/18 09:17 05/29/18 07:00 Intake and Output: 05/29/18 05/29/18 06:59 18:59 Intake Total 300 Output Total 1700 Balance -1400 - Medications Medications: Current Medications Albuterol/Ipratropium (Duoneb 3 Mg/0.5 Mg (3 Ml) Ud) 3 ml INH RQ6 [facility] Last Admin: 05/29/18 07:20 Dose: 3 ml Amlodipine Besylate (Norvasc) 10 mg PO DAILY [facility] Carvedilol (Coreg) 25 mg PO BID [facility] Last Admin: 05/29/18 09:17 Dose: 25 mg Cyanocobalamin (Vitamin B12 1000 Mcg Tab) 1,000 mcg PO DAILY [facility] Last Admin: 05/29/18 11:12 Dose: 1,000 mcg Diphenhydramine HCl (Benadryl) 25 mg PO Q6 [facility] Epoetin Scott (Procrit) 10,000 unit SC MWF [facility] Last Admin: 05/29/18 09:21 Dose: 10,000 unit Ferrous Gluconate (Fergon) 324 mg PO TID [facility] Last Admin: 05/29/18 11:12 Dose: 324 mg Furosemide (Lasix) 40 mg IVP Q12H [facility] Last Admin: 05/29/18 08:23 Dose: 40 mg Ferric Sodium Gluconate Complex 125 mg/ Sodium Chloride 110 mls @ 100 mls/hr IVPB DAILY [facility] Stop: 05/30/18 17:01 Last Admin: 05/29/18 11:12 Dose: 100 mls/hr Insulin Aspart (Novolog) 0 unit SC ACHS [facility]; Protocol Last Admin: 05/29/18 08:04 Dose: 6 units Levetiracetam (Keppra) 500 mg PO BID [facility] Last Admin: 05/29/18 09:17 Dose: 500 mg Prednisone (Prednisone Tab) 60 mg PO DAILY [facility] Stop: 06/09/18 10:01 Last Admin: 05/29/18 09:17 Dose: 60 mg Rosuvastatin Calcium (Crestor) 10 mg PO HS [facility] Last Admin: 05/28/18 21:31 Dose: 10 mg Sitagliptin Phosphate (Januvia) 25 mg PO DAILY [facility] Last Admin: 05/29/18 09:17 Dose: 25 mg Sodium Bicarbonate (Sodium Bicarbonate Tab) 1,300 mg PO BID [facility] Last Admin: 05/29/18 09:17 Dose: 1,300 mg Tamsulosin HCl (Flomax) 0.4 mg PO DAILY [facility] Last Admin: 05/29/18 09:17 Dose: 0.4 mg Thiamine HCl (Vitamin B1 Tab) 100 mg PO DAILY [facility] Last Admin: 05/29/18 09:17 Dose: 100 mg Vitamin B Complex/Vit C/Folic Acid (Nephro-Priscilla) 1 tab PO 0800 [facility] Last Admin: 05/29/18 08:22 Dose: 1 tab - Labs Labs: 05/29/18 07:23 05/29/18 07:23 PT 13.9 SECONDS (9.7-12.2) H 05/28/18 11:11 INR 1.3 05/28/18 11:11 APTT 34 SECONDS (21-34) 05/21/18 12:18
--- NOTE | 2018-05-29 13:31 | US ---
PROCEDURE: Date of procedure: 05/29/2018 Procedure: Ultrasound-guided left renal biopsy, CPT 49899 Ultrasound guidance for biopsy, 300[address] Medication: 8 cc 2% Lidocaine, 1 milligram Versed and 50 microgram fentanyl by the interventional radiology nurse along with physiologic monitoring. HISTORY: Proteinuria TECHNIQUE: Following informed consent and procedure time-out, the patient was placed prone on the interventional table and a limited ultrasound showed slightly echogenic left kidney consistent with medical renal disease. There is no hydronephrosis or mass. The patient left back was prepped and draped in the usual sterile fashion. After patient sedated by the anesthesiologist and the skin anesthetized with lidocaine, an 18 gauge core needle was advanced percutaneously towards the lower pole cortex. Upon confirmation of needle position, three-18 gauge core specimens were obtained and sent for routine pathology. The biopsy tract was then embolized with Gelfoam. A post biopsy ultrasound showed no hematoma. There were no immediate complications. IMPRESSION: Ultrasound-guided left renal biopsy.
--- NOTE | 2018-05-29 15:15 | CP.PCM.CON ---
History of Present Illness - History of Present Illness History of Present Illness: GI Service Consult CC: possible cirrhosis HPI: 67 year old Diabetic man admitted for dyspnea and anasarca which is progressive. Patient found to have acute kidney injury and anemia. He underwent renal biopsy today. Abdominal sonogram incidentally reported liver to have nodular contour, consistent with fatty infiltration and cirrhosis. There was no visualized ascites. We are asked to evaluate for cirrhosis. Patient has a history of significant alcohol drinking, denies signs or complications of alcoholism. Review of Systems - Cardiovascular Cardiovascular: Claudication, Edema, Leg Edema, Orthopnea - Respiratory Respiratory: Dyspnea - Gastrointestinal Gastrointestinal: Bloating. absent: Abdominal Pain, Melena Past Patient History - Past Medical History & Family History Past Medical History?: Yes - Past Social History Smoking Status: Never Smoked - CARDIAC Hx Congestive Heart Failure: Yes Hx Hypercholesterolemia: Yes Hx Hypertension: Yes - PULMONARY Hx Respiratory Disorders: No - NEUROLOGICAL Hx Seizures: Yes - HEENT Hx HEENT Problems: No - RENAL Hx Chronic Kidney Disease: No - ENDOCRINE/METABOLIC Hx Diabetes Mellitus Type 2: Yes - HEMATOLOGICAL/ONCOLOGICAL Hx Blood Disorders: No - INTEGUMENTARY Hx Dermatological Problems: No - MUSCULOSKELETAL/RHEUMATOLOGICAL Hx Falls: No Hx Gout: Yes - GASTROINTESTINAL Hx Gastrointestinal Disorders: No - GENITOURINARY/GYNECOLOGICAL Hx Genitourinary Disorders: No - PSYCHIATRIC Hx Substance Use: No - SURGICAL HISTORY Hx Surgeries: Yes Hx Orthopedic Surgery: Yes (Right foot) - ANESTHESIA Hx Anesthesia: Yes Meds Allergies/Adverse Reactions: Allergies Allergy/AdvReac Type Severity Reaction Status Date / Time No Known Allergies Allergy Verified 05/16/17 13:16 - Medications Medications: Current Medications Albuterol/Ipratropium (Duoneb 3 Mg/0.5 Mg (3 Ml) Ud) 3 ml INH RQ6 [facility] Last Admin: 05/29/18 13:25 Dose: 3 ml Amlodipine Besylate (Norvasc) 10 mg PO DAILY [facility] Last Admin: 05/29/18 11:25 Dose: 10 mg Carvedilol (Coreg) 25 mg PO BID [facility] Last Admin: 05/29/18 09:17 Dose: 25 mg Cyanocobalamin (Vitamin B12 1000 Mcg Tab) 1,000 mcg PO DAILY [facility] Last Admin: 05/29/18 11:12 Dose: 1,000 mcg Diphenhydramine HCl (Benadryl) 25 mg PO Q6 [facility] Last Admin: 05/29/18 13:25 Dose: 25 mg Epoetin Scott (Procrit) 10,000 unit SC MWF [facility] Last Admin: 05/29/18 09:21 Dose: 10,000 unit Ferrous Gluconate (Fergon) 324 mg PO TID [facility] Last Admin: 05/29/18 14:28 Dose: 324 mg Furosemide (Lasix) 40 mg IVP Q12H [facility] Last Admin: 05/29/18 08:23 Dose: 40 mg Ferric Sodium Gluconate Complex 125 mg/ Sodium Chloride 110 mls @ 100 mls/hr IVPB DAILY [facility] Stop: 05/30/18 17:01 Last Admin: 05/29/18 11:12 Dose: 100 mls/hr Insulin Aspart (Novolog) 0 unit SC ACHS [facility]; Protocol Last Admin: 05/29/18 12:25 Dose: 6 units Levetiracetam (Keppra) 500 mg PO BID [facility] Last Admin: 05/29/18 09:17 Dose: 500 mg Prednisone (Prednisone Tab) 60 mg PO DAILY [facility] Stop: 06/09/18 10:01 Last Admin: 05/29/18 09:17 Dose: 60 mg Rosuvastatin Calcium (Crestor) 10 mg PO HS [facility] Last Admin: 05/28/18 21:31 Dose: 10 mg Sitagliptin Phosphate (Januvia) 25 mg PO DAILY [facility] Last Admin: 05/29/18 09:17 Dose: 25 mg Sodium Bicarbonate (Sodium Bicarbonate Tab) 1,300 mg PO BID [facility] Last Admin: 05/29/18 09:17 Dose: 1,300 mg Tamsulosin HCl (Flomax) 0.4 mg PO DAILY [facility] Last Admin: 05/29/18 09:17 Dose: 0.4 mg Thiamine HCl (Vitamin B1 Tab) 100 mg PO DAILY [facility] Last Admin: 05/29/18 09:17 Dose: 100 mg Vitamin B Complex/Vit C/Folic Acid (Nephro-Priscilla) 1 tab PO 0800 [facility] Last Admin: 05/29/18 08:22 Dose: 1 tab Physical Exam - Constitutional Appears: Well, No Acute Distress - Head Exam Head Exam: NORMOCEPHALIC - Eye Exam Eye Exam: absent: Scleral icterus - ENT Exam ENT Exam: Normal Exam - Respiratory Exam Respiratory Exam: Clear to Auscultation Bilateral - Cardiovascular Exam Cardiovascular Exam: REGULAR RHYTHM - GI/Abdominal Exam GI & Abdominal Exam: absent: Distended, Mass, Organomegaly, Tenderness - Rectal Exam Rectal Exam: Deferred - Extremities Exam Extremities exam: Positive for: pedal edema - Neurological Exam Neurological exam: Alert, Oriented x3 - Psychiatric Exam Psychiatric exam: Normal Affect, Normal Mood Results - Vital Signs Recent Vital Signs: Last Vital Signs Temp 97.9 F 05/29/18 14:32 Pulse 82 05/29/18 14:32 Resp 20 05/29/18 14:32 BP 144/76 05/29/18 14:32 Pulse Ox 97 05/29/18 07:00 - Labs Result Diagrams: 05/29/18 07:23 05/29/18 07:23 Labs: Laboratory Results - last 24 hr 05/28/18 05/28/18 05/28/18 08:01 16:29 21:36 WBC RBC Hgb Hct MCV MCH MCHC RDW Plt Count MPV Neut % (Auto) Lymph % (Auto) [place] % (Auto) Eos % (Auto) Baso % (Auto) Neut # (Auto) Lymph # (Auto) [place] # (Auto) Eos # (Auto) Baso # (Auto) Neutrophils % (Manual) Band Neutrophils % Lymphocytes % (Manual) Reactive Lymphs % Monocytes % (Manual) Metamyelocytes % Platelet Estimate Hypochromasia (manual) Poikilocytosis (manual Anisocytosis (manual) Microcytosis (manual) Macrocytosis (manual) Tear Drop Cells Ovalocytes Sodium Potassium Chloride Carbon Dioxide Anion Gap BUN Creatinine Est GFR ( Amer) Est GFR (Non-Af Amer) POC Glucose (mg/dL) 316 H 329 H Random Glucose Calcium Phosphorus Magnesium Total Bilirubin AST ALT Alkaline Phosphatase Total Protein Albumin Globulin Albumin/Globulin Ratio Blood Type B POSITIVE Blood Type Confirm B POSITIVE Antibody Screen Negative 05/29/18 05/29/18 05/29/18 06:06 07:23 07:23 WBC 9.3 RBC 2.76 L Hgb 8.8 L Hct 26.6 L MCV 96.3 H MCH 31.9 H MCHC 33.1 RDW 15.8 H Plt Count 159 MPV 9.7 Neut % (Auto) 83.0 H Lymph % (Auto) 6.8 L [place] % (Auto) 10.0 Eos % (Auto) 0.0 Baso % (Auto) 0.2 Neut # (Auto) 7.7 H Lymph # (Auto) 0.6 L [place] # (Auto) 0.9 H Eos # (Auto) 0.0 Baso # (Auto) 0.0 Neutrophils % (Manual) 84 H Band Neutrophils % 1 Lymphocytes % (Manual) 7 L Reactive Lymphs % 1 H Monocytes % (Manual) 6 Metamyelocytes % 1 H Platelet Estimate Normal Hypochromasia (manual) Slight Poikilocytosis (manual Slight Anisocytosis (manual) Slight Microcytosis (manual) Slight Macrocytosis (manual) Slight Tear Drop Cells Slight Ovalocytes Slight Sodium 135 Potassium 5.3 H Chloride 103 Carbon Dioxide 23 Anion Gap 14 BUN 91 H Creatinine 3.3 H Est GFR ( Amer) 23 Est GFR (Non-Af Amer) 19 POC Glucose (mg/dL) 349 H Random Glucose 369 H D Calcium 7.6 L Phosphorus 3.7 Magnesium 2.0 Total Bilirubin 0.2 AST 24 ALT 46 Alkaline Phosphatase 118 Total Protein 6.5 Albumin 3.7 Globulin 2.8 Albumin/Globulin Ratio 1.4 Blood Type Blood Type Confirm Antibody Screen 05/29/18 11:05 WBC RBC Hgb Hct MCV MCH MCHC RDW Plt Count MPV Neut % (Auto) Lymph % (Auto) [place] % (Auto) Eos % (Auto) Baso % (Auto) Neut # (Auto) Lymph # (Auto) [place] # (Auto) Eos # (Auto) Baso # (Auto) Neutrophils % (Manual) Band Neutrophils % Lymphocytes % (Manual) Reactive Lymphs % Monocytes % (Manual) Metamyelocytes % Platelet Estimate Hypochromasia (manual) Poikilocytosis (manual Anisocytosis (manual) Microcytosis (manual) Macrocytosis (manual) Tear Drop Cells Ovalocytes Sodium Potassium Chloride Carbon Dioxide Anion Gap BUN Creatinine Est GFR ( Amer) Est GFR (Non-Af Amer) POC Glucose (mg/dL) 336 H Random Glucose Calcium Phosphorus Magnesium Total Bilirubin AST ALT Alkaline Phosphatase Total Protein Albumin Globulin Albumin/Globulin Ratio Blood Type Blood Type Confirm Antibody Screen Assessment & Plan (1) Abnormal ultrasound of liver Assessment and Plan: findings consistent with cirrhosis Pt with normal synthetic liver function and does not have ascites + anemia of chronic disease (most likely on basis of longstanding Diabetes/PVD, and renal disease) Recommend echocardiogram if not yet done Follow up in office after discharge Status: Acute (2) CHF exacerbation Status: Acute (3) Renal failure (ARF), acute on chronic Assessment and Plan: managed by design drafter chief Status: Acute - Date & Time Date: 05/29/18 Time: 15:19
--- NOTE | 2018-05-29 15:36 | CP.PCM.PN ---
Subjective - Date & Time of Evaluation Date of Evaluation: 05/29/18 Time of Evaluation: 08:00 - Subjective Subjective: Patient seen and examined Sitting comfortably in no distress Status post left kidney biopsy Good urine output Less shortness of breath On BiPAP at night Objective - Vital Signs/Intake and Output Vital Signs (last 24 hours): Temp Pulse Resp BP Pulse Ox 97.6 F 82 20 145/77 95 05/29/18 15:15 05/29/18 15:15 05/29/18 15:15 05/29/18 15:15 05/29/18 15:15 Intake and Output: 05/29/18 05/29/18 06:59 18:59 Intake Total 300 150 Output Total 1700 1000 Balance -1400 -850 - Medications Medications: Current Medications Albuterol/Ipratropium (Duoneb 3 Mg/0.5 Mg (3 Ml) Ud) 3 ml INH RQ6 [facility] Last Admin: 05/29/18 13:25 Dose: 3 ml Amlodipine Besylate (Norvasc) 10 mg PO DAILY [facility] Last Admin: 05/29/18 11:25 Dose: 10 mg Carvedilol (Coreg) 25 mg PO BID [facility] Last Admin: 05/29/18 09:17 Dose: 25 mg Cyanocobalamin (Vitamin B12 1000 Mcg Tab) 1,000 mcg PO DAILY [facility] Last Admin: 05/29/18 11:12 Dose: 1,000 mcg Diphenhydramine HCl (Benadryl) 25 mg PO Q6 [facility] Last Admin: 05/29/18 13:25 Dose: 25 mg Epoetin Scott (Procrit) 10,000 unit SC MWF [facility] Last Admin: 05/29/18 09:21 Dose: 10,000 unit Ferrous Gluconate (Fergon) 324 mg PO TID [facility] Last Admin: 05/29/18 14:28 Dose: 324 mg Furosemide (Lasix) 40 mg IVP Q12H [facility] Last Admin: 05/29/18 08:23 Dose: 40 mg Ferric Sodium Gluconate Complex 125 mg/ Sodium Chloride 110 mls @ 100 mls/hr IVPB DAILY [facility] Stop: 05/30/18 17:01 Last Admin: 05/29/18 11:12 Dose: 100 mls/hr Insulin Aspart (Novolog) 0 unit SC ACHS [facility]; Protocol Last Admin: 05/29/18 12:25 Dose: 6 units Levetiracetam (Keppra) 500 mg PO BID [facility] Last Admin: 05/29/18 09:17 Dose: 500 mg Prednisone (Prednisone Tab) 60 mg PO DAILY [facility] Stop: 06/09/18 10:01 Last Admin: 05/29/18 09:17 Dose: 60 mg Rosuvastatin Calcium (Crestor) 10 mg PO HS [facility] Last Admin: 05/28/18 21:31 Dose: 10 mg Sitagliptin Phosphate (Januvia) 25 mg PO DAILY [facility] Last Admin: 05/29/18 09:17 Dose: 25 mg Sodium Bicarbonate (Sodium Bicarbonate Tab) 1,300 mg PO BID [facility] Last Admin: 05/29/18 09:17 Dose: 1,300 mg Tamsulosin HCl (Flomax) 0.4 mg PO DAILY [facility] Last Admin: 05/29/18 09:17 Dose: 0.4 mg Thiamine HCl (Vitamin B1 Tab) 100 mg PO DAILY [facility] Last Admin: 05/29/18 09:17 Dose: 100 mg Vitamin B Complex/Vit C/Folic Acid (Nephro-Priscilla) 1 tab PO 0800 [facility] Last Admin: 05/29/18 08:22 Dose: 1 tab - Labs Labs: 05/29/18 07:23 05/29/18 07:23 PT 13.9 SECONDS (9.7-12.2) H 05/28/18 11:11 INR 1.3 05/28/18 11:11 APTT 34 SECONDS (21-34) 05/21/18 12:18 - Head Exam Head Exam: ATRAUMATIC, NORMOCEPHALIC - Eye Exam Eye Exam: Normal appearance - ENT Exam ENT Exam: Mucous Membranes Moist - Neck Exam Neck Exam: Normal Inspection - Respiratory Exam Respiratory Exam: Decreased Breath Sounds - Cardiovascular Exam Cardiovascular Exam: REGULAR RHYTHM Assessment and Plan (1) Renal failure (ARF), acute on chronic Assessment & Plan: Status post kidney biopsy Continue steroids Breathing improved BiPAP at night or as needed Continue diuretics Status: Acute (2) CHF exacerbation Status: Acute (3) Pedal edema Status: Acute
[2018-05-30] MEDS: Albuterol-Ipratrop 3 mg / 0.5 (3 ml) UD INH SCH ×4 (01:29→20:40)
[2018-05-30 07:40] LABS: BASO % 0.2 % (0.0-2.0); HEMOGLOBIN 9.9 g/dL (12.0-18.0); LYMPH # 0.9 K/uL (1.0-4.3); LYMPH % 8.6 % (20.0-40.0); MEAN CELL VOLUME 95.8 fL (80.0-94.0); MEAN CORPUSCULAR HEMOGLOBIN 31.3 pg (27.0-31.0); MEAN CORPUSCULAR HGB CONC 32.7 g/dL (33.0-37.0); MEAN PLATELET VOLUME 9.4 fL (7.2-11.7); MONO # 1.3 K/uL (0.0-0.8); MONO % 12.4 % (0.0-10.0); NEUT # 8.1 K/uL (1.8-7.0); NEUT % 78.8 % (50.0-75.0); NRBC % 0.3 % (0.0-2.0); PLATELET COUNT 172 K/uL (130-400); RBC 3.16 Mil/uL (4.40-5.90); WHITE BLOOD COUNT 10.2 K/uL (4.8-10.8)
[2018-05-30 07:58] LABS: CALCIUM 7.3 mg/dl (8.6-10.4)
[2018-05-30] MEDS: (Novolog) Insulin Aspart, Recombinant 100 u/ml 10 ml vial SC SCH ×4 (08:28→21:29)
[2018-05-30] MEDS: Multivitamin Vitamin B Complex (Nephro-Vite) Tab PO SCH (08:33)
--- NOTE | 2018-05-30 09:12 | CP.PCM.PN ---
Subjective - Date & Time of Evaluation Date of Evaluation: 05/30/18 Time of Evaluation: 08:30 - Subjective Subjective: f/u liver dis. Denease CP, RB, melena, fever, SZ, [place], cough Objective - Vital Signs/Intake and Output Vital Signs (last 24 hours): Temp Pulse Resp BP Pulse Ox 97.8 F 86 20 170/78 H 92 L 05/30/18 07:00 05/30/18 09:07 05/30/18 07:00 05/30/18 09:07 05/30/18 07:00 Intake and Output: 05/30/18 05/30/18 06:59 18:59 Intake Total 500 Output Total 1300 Balance -800 - Medications Medications: Current Medications Albuterol/Ipratropium (Duoneb 3 Mg/0.5 Mg (3 Ml) Ud) 3 ml INH RQ6 [facility] Last Admin: 05/30/18 07:10 Dose: 3 ml Amlodipine Besylate (Norvasc) 10 mg PO DAILY [facility] Last Admin: 05/30/18 09:06 Dose: 10 mg Carvedilol (Coreg) 25 mg PO BID [facility] Last Admin: 05/30/18 09:06 Dose: 25 mg Cyanocobalamin (Vitamin B12 1000 Mcg Tab) 1,000 mcg PO DAILY [facility] Last Admin: 05/30/18 09:06 Dose: 1,000 mcg Epoetin Scott (Procrit) 10,000 unit SC MWF [facility] Last Admin: 05/29/18 09:21 Dose: 10,000 unit Ferrous Gluconate (Fergon) 324 mg PO TID [facility] Last Admin: 05/30/18 09:06 Dose: 324 mg Furosemide (Lasix) 40 mg IVP Q12H [facility] Last Admin: 05/30/18 08:33 Dose: 40 mg Ferric Sodium Gluconate Complex 125 mg/ Sodium Chloride 110 mls @ 100 mls/hr IVPB DAILY [facility] Stop: 05/30/18 17:01 Last Admin: 05/29/18 11:12 Dose: 100 mls/hr Insulin Aspart (Novolog) 0 unit SC ACHS [facility]; Protocol Last Admin: 05/30/18 08:28 Dose: 8 units Levetiracetam (Keppra) 500 mg PO BID [facility] Last Admin: 05/30/18 09:06 Dose: 500 mg Prednisone (Prednisone Tab) 60 mg PO DAILY [facility] Stop: 06/09/18 10:01 Last Admin: 05/30/18 09:06 Dose: 60 mg Rosuvastatin Calcium (Crestor) 10 mg PO HS [facility] Last Admin: 05/29/18 22:28 Dose: 10 mg Sitagliptin Phosphate (Januvia) 25 mg PO DAILY [facility] Last Admin: 05/30/18 09:05 Dose: 25 mg Sodium Bicarbonate (Sodium Bicarbonate Tab) 1,300 mg PO BID [facility] Last Admin: 05/30/18 09:05 Dose: 1,300 mg Tamsulosin HCl (Flomax) 0.4 mg PO DAILY [facility] Last Admin: 05/30/18 09:06 Dose: 0.4 mg Thiamine HCl (Vitamin B1 Tab) 100 mg PO DAILY [facility] Last Admin: 05/30/18 09:06 Dose: 100 mg Vitamin B Complex/Vit C/Folic Acid (Nephro-Priscilla) 1 tab PO 0800 [facility] Last Admin: 05/30/18 08:33 Dose: 1 tab - Labs Labs: 05/30/18 07:31 05/30/18 07:31 PT 13.9 SECONDS (9.7-12.2) H 05/28/18 11:11 INR 1.3 05/28/18 11:11 APTT 34 SECONDS (21-34) 05/21/18 12:18 - Constitutional Appears: Well - Respiratory Exam Respiratory Exam: Clear to Ausculation Bilateral - Cardiovascular Exam Cardiovascular Exam: RRR - GI/Abdominal Exam GI & Abdominal Exam: Soft, Normal Bowel Sounds. absent: Tenderness - Extremities Exam Extremities Exam: absent: Pedal Edema - Neurological Exam Neurological Exam: Alert, Oriented x3 Assessment and Plan (1) Anemia Status: Acute (2) Abnormal ultrasound of liver Assessment & Plan: consider liver dis. Consdier secondary to cardiac. P- Check echo, avoid alcohol Status: Acute (3) CHF exacerbation Status: Acute (4) Diabetes Status: Acute
[2018-05-30 09:30] LABS: BANDS 2 % (0-2); NUCLEATED RED BLOOD CELL 1 % (0-0); TOTAL CELLS COUNTED 100
[2018-05-30 09:31] LABS: ANISOCYTOSIS SLIGHT; LYMPHOCYTE 10 % (20-40); MONOCYTE 11 % (0-10); NEUTROPHIL 77 % (50-75); PLATELET ESTIMATE NORMAL (NORMAL)
[2018-05-30 09:32] LABS: HYPOCHROMIC MODERATE; POIKILOCYTOSIS SLIGHT; TARGET CELLS SLIGHT
[2018-05-30 09:33] LABS: OVALOCYTES SLIGHT; TEARDROP CELLS SLIGHT
[2018-05-30] MEDS: Ferric Sodium Gluconat Complex 125 MG in Sodium Chloride 0.9% 100 ML IVPB SCH (09:47)
--- NOTE | 2018-05-30 12:44 | CP.PCM.PN ---
Subjective - Date & Time of Evaluation Date of Evaluation: 05/30/18 Time of Evaluation: 12:43 - Subjective Subjective: Nephrology Consultation Note: Assessment: Stable Acute Kidney Injury (N17.9) ? hemodynamic. ? AIN as also with eosinophiluria and peripheral eosinophilia Diabetic chronic Kidney Disease (E11.22) Hypertensive Chronic Kidney Disease (I12.9) Chronic Kidney Disease (N18.3) Stage 3 with ? mg proteinuria (R80.9) likely due to DM/HTN Anemia (D64.9), metabolic acidosis HTN (I12.9) CHF exacerbation, fluid overload alcoholic cirrhosis of liver Plan No acute need for renal replacement therapy at this time Hypertension control with meds as ordered. Maintain hemodynamics stable. Avoid hypotension. Patient ARB held due to recent MICHELLE. will resume once volume status optimized and stable renal function. resume norvasc 10 Monitor Input/Output, daily weights and renal function with basic metabolic panel started iron, MVI and epogen. PRBC as needed added sodium bicarb 1300 mg bid diuretics resumed and agreed with it, changed to PO cardiology pulmonary following added b12, thiamine and vitamin d once a month as well empiric prednisone 40 mg/d added for possible AIN. d/c allopurinol. f/up biopsy results. No NSAIDs. anticipate prelim results by tomorrow, please continue to manage pt in hospital until then Dose meds/antibiotics for reduced GFR. Avoid fleets enema/magnesium based laxatives. Avoid nephrotoxins/NSAIDs/ iodinated contrast (unless needed emergently) Glycemic control Further work up/management as per primary team Thanks for allowing me to participate in care of your patient. Will follow patie nt with you. Please call if any Qs. had d/w team and patient, Jovan Haynes Office: [phone] Chief Complaint; SOB Reason for consult: Acute Kidney Injury on CKD HPI: Pt is a with hx of diabetes Mellitus (>10 years) with retinopathy s/p laser surgery, hypertension (>10 years) CKF, CKD 3 with baseline cr 1.8-22 in apr 2017 seizure presented with complaints of worsening SOB on exertion and lying down. admitted for CHF exacerbation. renal consult for MICHELLE on CKD 3. pt c/o leg swelling, cough. admits to drinking etoh 2 times a week, few sips of tequila as per per. denies smoking/drugs. not aware about kidney disease in past Denies OTC/herbal meds or NSAIDs No recent iodinated contrast exposure. No obvious episodes of low BP. ROS: s/p kidney biopsy 05/29/18 Cardiovascular: No chest pain. Pulmonary: improved shortness of breath Gastrointestinal: denies abdominal pain No nausea. No vomiting. Genitourinary: No pain while urinating. Denies blood in urine. All other negative except as mentioned in HPI Physical Examination: General Appearance: Comfortable, in no acute respiratory distress, co-operative . Vitals reviewed and noted as below Head; Atraumatic, normocephalic ENT: no ulcers no thrush. Tongue is midline. Oropharynx: no rash or ulcers. EYES: Pupils are equal, round and reactive to light accommodation. Eye muscles and extraocular movement intact. Sclera is anicteric. Neck; supple no lymphadenopathy, no thyromegaly or bruit Lungs: Normal respiratory rate/effort. Breath sounds bilateral improved Heart: Normal rate. s1s2 normal. No rub or gallop. Extremities: trace edema. No varicose veins. hyperpigmented changes in legs with some rash noted, pt says long time Neurological: Patient is alert, awake and oriented to person, place and time. No focal deficit. Strength bilateral appropriate and equal Skin: Warm and dry. Normal turgor. Palpitation: Normal elasticity for age Abdomen: Abdomen is soft. Bowel sounds +. There is no abdominal tenderness, no guarding/rigidity no organomegaly. ? ascites. Psych: limited insight and normal affect/mood MSK: no joint tenderness or swelling. Digits and nails normal, no deformity : kidney or bladder not palpable Labs/imaging reviewed. Past medical history, past surgical history, family history, social history, allergy reviewed and noted as below Family hx: no hx of CKD. Rest non-contribu Objective - Vital Signs/Intake and Output Vital Signs (last 24 hours): Temp Pulse Resp BP Pulse Ox 97.8 F 84 20 146/78 92 L 05/30/18 07:00 05/30/18 10:43 05/30/18 07:00 05/30/18 10:43 05/30/18 07:00 Intake and Output: 05/30/18 05/30/18 06:59 18:59 Intake Total 500 Output Total 1300 Balance -800 - Medications Medications: Current Medications Albuterol/Ipratropium (Duoneb 3 Mg/0.5 Mg (3 Ml) Ud) 3 ml INH RQ6 [facility] Last Admin: 05/30/18 07:10 Dose: 3 ml Amlodipine Besylate (Norvasc) 10 mg PO DAILY [facility] Last Admin: 05/30/18 09:06 Dose: 10 mg Carvedilol (Coreg) 25 mg PO BID [facility] Last Admin: 05/30/18 09:06 Dose: 25 mg Cyanocobalamin (Vitamin B12 1000 Mcg Tab) 1,000 mcg PO DAILY [facility] Last Admin: 05/30/18 09:06 Dose: 1,000 mcg Epoetin Scott (Procrit) 10,000 unit SC MWF [facility] Last Admin: 05/29/18 09:21 Dose: 10,000 unit Ferrous Gluconate (Fergon) 324 mg PO TID [facility] Last Admin: 05/30/18 09:06 Dose: 324 mg Furosemide (Lasix) 40 mg PO BID [facility] Hydralazine HCl (Apresoline) 50 mg PO BID [facility] Last Admin: 05/30/18 10:50 Dose: 50 mg Ferric Sodium Gluconate Complex 125 mg/ Sodium Chloride 110 mls @ 100 mls/hr IVPB DAILY [facility] Stop: 05/30/18 17:01 Last Admin: 05/30/18 09:47 Dose: 100 mls/hr Insulin Aspart (Novolog) 0 unit SC ACHS [facility]; Protocol Last Admin: 05/30/18 08:28 Dose: 8 units Levetiracetam (Keppra) 500 mg PO BID [facility] Last Admin: 05/30/18 09:06 Dose: 500 mg Prednisone (Prednisone Tab) 40 mg PO DAILY [facility] Stop: 06/09/18 10:01 Rosuvastatin Calcium (Crestor) 10 mg PO HS [facility] Last Admin: 05/29/18 22:28 Dose: 10 mg Sitagliptin Phosphate (Januvia) 25 mg PO DAILY [facility] Last Admin: 05/30/18 09:05 Dose: 25 mg Sodium Bicarbonate (Sodium Bicarbonate Tab) 1,300 mg PO BID [facility] Last Admin: 05/30/18 09:05 Dose: 1,300 mg Tamsulosin HCl (Flomax) 0.4 mg PO DAILY [facility] Last Admin: 05/30/18 09:06 Dose: 0.4 mg Thiamine HCl (Vitamin B1 Tab) 100 mg PO DAILY [facility] Last Admin: 05/30/18 09:06 Dose: 100 mg Vitamin B Complex/Vit C/Folic Acid (Nephro-Priscilla) 1 tab PO 0800 [facility] Last Admin: 05/30/18 08:33 Dose: 1 tab - Labs Labs: 05/30/18 07:31 05/30/18 07:31 PT 13.9 SECONDS (9.7-12.2) H 05/28/18 11:11 INR 1.3 05/28/18 11:11 APTT 34 SECONDS (21-34) 05/21/18 12:18
--- NOTE | 2018-05-30 14:40 | CP.PCM.PN ---
<Deni Adkins - Last Filed: 05/30/18 17:12> Subjective - Date & Time of Evaluation Date of Evaluation: 05/30/18 Time of Evaluation: 14:39 - Subjective Subjective: Dr. Cage Cardiology Service. Patient seen and examined at bedside. Per nursing no acute events occurred overnight. Patient denies any chest pain, fevers, chills ,headaches, nausea, vomiting, abdominal pain, syncopal episodes, or any other complaints. Objective - Vital Signs/Intake and Output Vital Signs (last 24 hours): Temp Pulse Resp BP Pulse Ox 97.8 F 84 20 146/78 92 L 05/30/18 07:00 05/30/18 10:43 05/30/18 07:00 05/30/18 10:43 05/30/18 07:00 Intake and Output: 05/30/18 05/30/18 06:59 18:59 Intake Total 500 Output Total 1300 Balance -800 - Medications Medications: Current Medications Albuterol/Ipratropium (Duoneb 3 Mg/0.5 Mg (3 Ml) Ud) 3 ml INH RQ6 [facility] Last Admin: 05/30/18 13:15 Dose: 3 ml Amlodipine Besylate (Norvasc) 10 mg PO DAILY [facility] Last Admin: 05/30/18 09:06 Dose: 10 mg Carvedilol (Coreg) 25 mg PO BID [facility] Last Admin: 05/30/18 09:06 Dose: 25 mg Cyanocobalamin (Vitamin B12 1000 Mcg Tab) 1,000 mcg PO DAILY [facility] Last Admin: 05/30/18 09:06 Dose: 1,000 mcg Epoetin Scott (Procrit) 10,000 unit SC MWF [facility] Last Admin: 05/29/18 09:21 Dose: 10,000 unit Ferrous Gluconate (Fergon) 324 mg PO TID [facility] Last Admin: 05/30/18 13:40 Dose: 324 mg Furosemide (Lasix) 40 mg PO BID [facility] Hydralazine HCl (Apresoline) 50 mg PO BID [facility] Last Admin: 05/30/18 10:50 Dose: 50 mg Ferric Sodium Gluconate Complex 125 mg/ Sodium Chloride 110 mls @ 100 mls/hr IVPB DAILY [facility] Stop: 05/30/18 17:01 Last Admin: 05/30/18 09:47 Dose: 100 mls/hr Insulin Aspart (Novolog) 0 unit SC ACHS [facility]; Protocol Last Admin: 05/30/18 12:25 Dose: 4 units Levetiracetam (Keppra) 500 mg PO BID [facility] Last Admin: 05/30/18 09:06 Dose: 500 mg Prednisone (Prednisone Tab) 40 mg PO DAILY [facility] Stop: 06/09/18 10:01 Rosuvastatin Calcium (Crestor) 10 mg PO HS [facility] Last Admin: 05/29/18 22:28 Dose: 10 mg Sitagliptin Phosphate (Januvia) 25 mg PO DAILY [facility] Last Admin: 05/30/18 09:05 Dose: 25 mg Sodium Bicarbonate (Sodium Bicarbonate Tab) 1,300 mg PO BID [facility] Last Admin: 05/30/18 09:05 Dose: 1,300 mg Tamsulosin HCl (Flomax) 0.4 mg PO DAILY [facility] Last Admin: 05/30/18 09:06 Dose: 0.4 mg Thiamine HCl (Vitamin B1 Tab) 100 mg PO DAILY [facility] Last Admin: 05/30/18 09:06 Dose: 100 mg Vitamin B Complex/Vit C/Folic Acid (Nephro-Priscilla) 1 tab PO 0800 [facility] Last Admin: 05/30/18 08:33 Dose: 1 tab - Labs Labs: 05/30/18 07:31 05/30/18 07:31 PT 13.9 SECONDS (9.7-12.2) H 05/28/18 11:11 INR 1.3 05/28/18 11:11 APTT 34 SECONDS (21-34) 05/21/18 12:18 - Head Exam Head Exam: ATRAUMATIC, NORMAL INSPECTION, NORMOCEPHALIC - Eye Exam Eye Exam: EOMI, Normal appearance, PERRL Pupil Exam: NORMAL ACCOMODATION - ENT Exam ENT Exam: Mucous Membranes Moist, Normal Exam - Respiratory Exam Respiratory Exam: Clear to Ausculation Bilateral, NORMAL BREATHING PATTERN. absent: Prolonged Expiratory Phase - Cardiovascular Exam Cardiovascular Exam: +S1, +S2 - GI/Abdominal Exam GI & Abdominal Exam: Soft, Normal Bowel Sounds - Neurological Exam Neurological Exam: Alert, Awake, CN II-XII Intact - Psychiatric Exam Psychiatric exam: Normal Affect, Normal Mood - Skin Skin Exam: Dry, Intact, Warm Assessment and Plan - Assessment and Plan (Free Text) Assessment: 67 year old male with a past medical history of hypertension, dm2, ckd, gout, and chf who presents to the hospital for chf exacerbation. Plan: Plan: 1. Acute on chronic diastolic heart failure Troponin (-)x3 BNP elevated on admission but patient has component of kidney dysfunction. Doppler Negative Patient would benefit from Cardiac catherization, however patient current kidney dysfunction puts him at a high risk for complications post cardiac cath. At this time patient not cleared for cardiac catherization. Medications: Lasix 40mg IVP Q12 Held Coreg 25mg PO BID [facility] Crestor 10mg PO HS Novasc 10mg PO Daily 2.CKD Nephrology consulted. Help appreciated Medications: Procrit 10,000 MWF Ferrlicet 125 mg IVP Daily Fergon 324mg PO TID [facility] Nephrovite 1 TAB PO 800 [facility] 3.DM Januvia 25mg PO Daily 4. bph -Flomax .4mg PO Daily [facility] Deni Adkins, PGY-2 <Barrett Cage - Last Filed: 05/30/18 23:06> Objective - Vital Signs/Intake and Output Vital Signs (last 24 hours): Temp Pulse Resp BP Pulse Ox 98.1 F 75 20 148/72 91 L 05/30/18 15:30 05/30/18 20:40 05/30/18 15:30 05/30/18 17:38 05/30/18 15:30 Intake and Output: 05/30/18 05/31/18 18:59 06:59 Output Total 1200 450 Balance -1200 -450 - Medications Medications: Current Medications Albuterol/Ipratropium (Duoneb 3 Mg/0.5 Mg (3 Ml) Ud) 3 ml INH RQ6 [facility] Last Admin: 05/30/18 20:40 Dose: 3 ml Amlodipine Besylate (Norvasc) 10 mg PO DAILY [facility] Last Admin: 05/30/18 09:06 Dose: 10 mg Carvedilol (Coreg) 25 mg PO BID [facility] Last Admin: 05/30/18 17:38 Dose: 25 mg Cyanocobalamin (Vitamin B12 1000 Mcg Tab) 1,000 mcg PO DAILY [facility] Last Admin: 05/30/18 09:06 Dose: 1,000 mcg Epoetin Scott (Procrit) 10,000 unit SC MWF [facility] Last Admin: 05/29/18 09:21 Dose: 10,000 unit Ferrous Gluconate (Fergon) 324 mg PO TID [facility] Last Admin: 05/30/18 17:38 Dose: 324 mg Furosemide (Lasix) 40 mg PO BID [facility] Last Admin: 05/30/18 17:38 Dose: 40 mg Hydralazine HCl (Apresoline) 50 mg PO BID [facility] Last Admin: 05/30/18 17:38 Dose: 50 mg Insulin Aspart (Novolog) 0 unit SC ACHS [facility]; Protocol Last Admin: 05/30/18 21:29 Dose: 4 units Levetiracetam (Keppra) 500 mg PO BID [facility] Last Admin: 05/30/18 17:38 Dose: 500 mg Prednisone (Prednisone Tab) 40 mg PO DAILY [facility] Stop: 06/09/18 10:01 Rosuvastatin Calcium (Crestor) 10 mg PO HS [facility] Last Admin: 05/30/18 21:29 Dose: 10 mg Sitagliptin Phosphate (Januvia) 25 mg PO DAILY [facility] Last Admin: 05/30/18 09:05 Dose: 25 mg Sodium Bicarbonate (Sodium Bicarbonate Tab) 1,300 mg PO BID [facility] Last Admin: 05/30/18 17:38 Dose: 1,300 mg Tamsulosin HCl (Flomax) 0.4 mg PO DAILY [facility] Last Admin: 05/30/18 09:06 Dose: 0.4 mg Thiamine HCl (Vitamin B1 Tab) 100 mg PO DAILY [facility] Last Admin: 05/30/18 09:06 Dose: 100 mg Vitamin B Complex/Vit C/Folic Acid (Nephro-Priscilla) 1 tab PO 0800 [facility] Last Admin: 05/30/18 08:33 Dose: 1 tab - Labs Labs: 05/30/18 07:31 05/30/18 07:31 PT 13.9 SECONDS (9.7-12.2) H 05/28/18 11:11 INR 1.3 05/28/18 11:11 APTT 34 SECONDS (21-34) 05/21/18 12:18 Assessment and Plan - Assessment and Plan (Free Text) Assessment: Patient seen and evaluated personally by me. Plan of care d/w the resident and as documented
--- NOTE | 2018-05-30 16:33 | CP.PCM.PN ---
Subjective - Date & Time of Evaluation Date of Evaluation: 05/30/18 Time of Evaluation: 10:00 - Subjective Subjective: Patient seen and examined Breathing much improved On BiPAP at night Good urine output Status post renal biopsy Follow-up pathology report Continue steroids Objective - Vital Signs/Intake and Output Vital Signs (last 24 hours): Temp Pulse Resp BP Pulse Ox 97.8 F 84 20 146/78 92 L 05/30/18 07:00 05/30/18 10:43 05/30/18 07:00 05/30/18 10:43 05/30/18 07:00 Intake and Output: 05/30/18 05/30/18 06:59 18:59 Intake Total 500 Output Total 1300 Balance -800 - Medications Medications: Current Medications Albuterol/Ipratropium (Duoneb 3 Mg/0.5 Mg (3 Ml) Ud) 3 ml INH RQ6 [facility] Last Admin: 05/30/18 13:15 Dose: 3 ml Amlodipine Besylate (Norvasc) 10 mg PO DAILY [facility] Last Admin: 05/30/18 09:06 Dose: 10 mg Carvedilol (Coreg) 25 mg PO BID [facility] Last Admin: 05/30/18 09:06 Dose: 25 mg Cyanocobalamin (Vitamin B12 1000 Mcg Tab) 1,000 mcg PO DAILY [facility] Last Admin: 05/30/18 09:06 Dose: 1,000 mcg Epoetin Scott (Procrit) 10,000 unit SC MWF [facility] Last Admin: 05/29/18 09:21 Dose: 10,000 unit Ferrous Gluconate (Fergon) 324 mg PO TID [facility] Last Admin: 05/30/18 13:40 Dose: 324 mg Furosemide (Lasix) 40 mg PO BID [facility] Hydralazine HCl (Apresoline) 50 mg PO BID [facility] Last Admin: 05/30/18 10:50 Dose: 50 mg Ferric Sodium Gluconate Complex 125 mg/ Sodium Chloride 110 mls @ 100 mls/hr IVPB DAILY [facility] Stop: 05/30/18 17:01 Last Admin: 05/30/18 09:47 Dose: 100 mls/hr Insulin Aspart (Novolog) 0 unit SC ACHS [facility]; Protocol Last Admin: 05/30/18 12:25 Dose: 4 units Levetiracetam (Keppra) 500 mg PO BID [facility] Last Admin: 05/30/18 09:06 Dose: 500 mg Prednisone (Prednisone Tab) 40 mg PO DAILY [facility] Stop: 06/09/18 10:01 Rosuvastatin Calcium (Crestor) 10 mg PO HS [facility] Last Admin: 05/29/18 22:28 Dose: 10 mg Sitagliptin Phosphate (Januvia) 25 mg PO DAILY [facility] Last Admin: 05/30/18 09:05 Dose: 25 mg Sodium Bicarbonate (Sodium Bicarbonate Tab) 1,300 mg PO BID [facility] Last Admin: 05/30/18 09:05 Dose: 1,300 mg Tamsulosin HCl (Flomax) 0.4 mg PO DAILY [facility] Last Admin: 05/30/18 09:06 Dose: 0.4 mg Thiamine HCl (Vitamin B1 Tab) 100 mg PO DAILY [facility] Last Admin: 05/30/18 09:06 Dose: 100 mg Vitamin B Complex/Vit C/Folic Acid (Nephro-Priscilla) 1 tab PO 0800 [facility] Last Admin: 05/30/18 08:33 Dose: 1 tab - Labs Labs: 05/30/18 07:31 05/30/18 07:31 PT 13.9 SECONDS (9.7-12.2) H 05/28/18 11:11 INR 1.3 05/28/18 11:11 APTT 34 SECONDS (21-34) 05/21/18 12:18 - Head Exam Head Exam: ATRAUMATIC, NORMOCEPHALIC - ENT Exam ENT Exam: Mucous Membranes Moist - Respiratory Exam Respiratory Exam: Clear to Ausculation Bilateral - Cardiovascular Exam Cardiovascular Exam: REGULAR RHYTHM - GI/Abdominal Exam GI & Abdominal Exam: Soft, Normal Bowel Sounds Assessment and Plan (1) Renal failure (ARF), acute on chronic Status: Acute (2) CHF exacerbation Status: Acute (3) Pedal edema Status: Acute
--- NOTE | 2018-05-30 17:32 | CP.PCM.PN ---
Subjective - Date & Time of Evaluation Date of Evaluation: 05/30/18 Time of Evaluation: 17:31 - Subjective Subjective: HOSPITALIST SERVICE Pt seen and examined at bedside, denies any acute complaints overnight, no sorness at bx site, no distension on bruising noted by him either, feels less SOB than before. Pt slept well, denies CP SOB FC [place] Objective - Vital Signs/Intake and Output Vital Signs (last 24 hours): Temp Pulse Resp BP Pulse Ox 98.1 F 83 20 148/72 91 L 05/30/18 15:30 05/30/18 15:30 05/30/18 15:30 05/30/18 15:30 05/30/18 15:30 Intake and Output: 05/30/18 05/30/18 06:59 18:59 Intake Total 500 Output Total 1300 450 Balance -800 -450 - Medications Medications: Current Medications Albuterol/Ipratropium (Duoneb 3 Mg/0.5 Mg (3 Ml) Ud) 3 ml INH RQ6 [facility] Last Admin: 05/30/18 13:15 Dose: 3 ml Amlodipine Besylate (Norvasc) 10 mg PO DAILY [facility] Last Admin: 05/30/18 09:06 Dose: 10 mg Carvedilol (Coreg) 25 mg PO BID [facility] Last Admin: 05/30/18 09:06 Dose: 25 mg Cyanocobalamin (Vitamin B12 1000 Mcg Tab) 1,000 mcg PO DAILY [facility] Last Admin: 05/30/18 09:06 Dose: 1,000 mcg Epoetin Scott (Procrit) 10,000 unit SC MWF [facility] Last Admin: 05/29/18 09:21 Dose: 10,000 unit Ferrous Gluconate (Fergon) 324 mg PO TID [facility] Last Admin: 05/30/18 13:40 Dose: 324 mg Furosemide (Lasix) 40 mg PO BID [facility] Hydralazine HCl (Apresoline) 50 mg PO BID [facility] Last Admin: 05/30/18 10:50 Dose: 50 mg Insulin Aspart (Novolog) 0 unit SC ACHS [facility]; Protocol Last Admin: 05/30/18 12:25 Dose: 4 units Levetiracetam (Keppra) 500 mg PO BID [facility] Last Admin: 05/30/18 09:06 Dose: 500 mg Prednisone (Prednisone Tab) 40 mg PO DAILY [facility] Stop: 06/09/18 10:01 Rosuvastatin Calcium (Crestor) 10 mg PO HS [facility] Last Admin: 05/29/18 22:28 Dose: 10 mg Sitagliptin Phosphate (Januvia) 25 mg PO DAILY [facility] Last Admin: 05/30/18 09:05 Dose: 25 mg Sodium Bicarbonate (Sodium Bicarbonate Tab) 1,300 mg PO BID [facility] Last Admin: 05/30/18 09:05 Dose: 1,300 mg Tamsulosin HCl (Flomax) 0.4 mg PO DAILY [facility] Last Admin: 05/30/18 09:06 Dose: 0.4 mg Thiamine HCl (Vitamin B1 Tab) 100 mg PO DAILY [facility] Last Admin: 05/30/18 09:06 Dose: 100 mg Vitamin B Complex/Vit C/Folic Acid (Nephro-Priscilla) 1 tab PO 0800 [facility] Last Admin: 05/30/18 08:33 Dose: 1 tab - Labs Labs: 05/30/18 07:31 05/30/18 07:31 PT 13.9 SECONDS (9.7-12.2) H 05/28/18 11:11 INR 1.3 05/28/18 11:11 APTT 34 SECONDS (21-34) 05/21/18 12:18 - Additional Findings Additional findings: - Constitutional Appears: Non-toxic, No Acute Distress - Head Exam Head Exam: ATRAUMATIC, NORMOCEPHALIC - Eye Exam Eye Exam: Normal appearance - ENT Exam ENT Exam: Mucous Membranes Moist - Neck Exam Neck Exam: Normal Inspection. absent: Lymphadenopathy - Respiratory Exam Respiratory Exam: Clear to Ausculation Bilateral, NORMAL BREATHING PATTERN. absent: Accessory Muscle Use, Rales, Rhonchi, Wheezes, Respiratory Distress on Nasal Canula - Cardiovascular Exam Cardiovascular Exam: REGULAR RHYTHM, +S1 - GI/Abdominal Exam GI & Abdominal Exam: Soft. absent: Distended, Firm, Guarding, Rigid - Exam Additional comments: lemons in place - Extremities Exam Extremities Exam: Pedal Edema (pitting b/l). absent: Calf Tenderness Additional comments: knee-high compression stockings - trace pitting pedal edema b/l - Neurological Exam Neurological Exam: Alert, Awake - Psychiatric Exam Psychiatric exam: Normal Affect, Normal Mood Assessment and Plan - Assessment and Plan (Free Text) Plan: Plan: HFpEF - Cardiology consulted ([place])- rec cardiac cath when kidney function improves still could be diastolic CHF f/u outpt w/ dr mcguire - Pulmonology consulted ([place]) - BNP 1550 on admission * repeat BNP 05/27/18 - 2530 - TSH, free T4 wnl - BANDAR negative x3 - Venous Dopplers: no DVT - Echo: normal EF, dilated LA, mod TR - Lexiscan: normal, EF 50-55% - CXR (05/25): acute CHF - Daily weights - Strict Is&Os - Fluid restriction 1200 mL - Compression stockings - Lasix 40 mg IV Q12H - Coreg 25 mg PO BID - Duoneb q6h - BiPAP started on 05/26 - pt only using at night. speaking in full sentences at bedside today. Acute on chronic renal failure, improving - Nephrology consulted ([place])- high risk for PCI, Oz score 16 (post- PCI nephropathy risk 57.3%, requiring dialysis 12.6%) * prn Lasix as needed * started iron, MVI and epogen. PRBC as needed added sodium bicarb 1300 mg bid d/c home pending bx results kappa/lamda ratio f/u outpt - BUN 95, Cr 3.2 - Renal US: enlarged prostate - Microalb/Cr ratio elevated (111) - Random urine total protein elevated (315) - Vit D low (24.3) - Complement, dsDNA Ab, random urine creatinine wnl - Procrit 10,000 MWF - Ferrlicet 125 mg IV daily - Fergon 324 mg PO TID - Nephrovite PO daily - Sodium bicarb 1300 mg PO BID Abdominal distention- suspect cirrhosis/ascites +/- urinary retention - GI consulted, Dr. Degroot - LFTs wnl - INR wnl - Liver US: hepatomegaly, steatosis, nodular (cirrhosis) Urinary retention Esinophila - Nephrology consulted, Dr. Haynes - Bladder scan PRN - Repeat bladder US: inconclusive as patient voided before imaging - Insert Lemons 05/26 - Urine positive for Esinophil - Started on Prednisone 60mg PO daily (2 of 14 doses given) - Flomax 0.4 mg PO daily Anemia, stable - suspect related to kidney failure/chronic disease - B12, folate wnl - Iron low (43), ferritin wnl - Procrit 10,000 MWF - Vit B12 1000 mcg PO daily Type 2 diabetes mellitus, chronic - A1c 8.6 - Lipid panel wnl: TG 116, chol 84, LDL 45, HDL 25 - Accuchecks ACHS - Hypoglycemia protocol - ISS medium - Januvia 25 mg PO daily (renally dosed) Hypertension, controlled - Vitals Q6H - Patient on Losartan and HCTZ at home- holding due to kidney function - Coreg 25 mg PO BID - Norvasc 10 mg PO daily - Lasix 40 mg IV Q12H Seizure disorder - Keppra level 21.9 (05/21) - Keppra 500 mg PO BID Alcohol use disorder - Liver US: hepatomegaly, steatosis, nodular (cirrhosis) - Cessation counseling H/o Gout - Uric acid 8.7 - Allopurinol 100 mg PO daily Ppx: VTE: Heparin 5000 units SC Q8H GI: Protonix 40 mg PO daily
[2018-05-31] MEDS: Albuterol-Ipratrop 3 mg / 0.5 (3 ml) UD INH SCH ×4 (01:00→20:47)
[2018-05-31] MEDS: (Novolin R) Insulin Human Regular 100 units/ml vial SC ONE ×2 (02:30→02:32)
[2018-05-31] MEDS: Multivitamin Vitamin B Complex (Nephro-Vite) Tab PO SCH (09:16)
[2018-05-31] MEDS: (Novolog) Insulin Aspart, Recombinant 100 u/ml 10 ml vial SC SCH ×4 (09:21→21:24)
[2018-05-31] MEDS: Epoetin Alfa 10,000 unit/ml Dialysis SC SCH (09:21)
--- NOTE | 2018-05-31 15:03 | CP.PCM.PN ---
<Deni Adkins - Last Filed: 05/31/18 17:04> Subjective - Date & Time of Evaluation Date of Evaluation: 05/31/18 Time of Evaluation: 15:03 - Subjective Subjective: Dr. Cage Cardiology Service. Patient seen and examined at bedside. Per nursing no acute events occurred overnight. Patient denies any chest pain, fevers, chills ,headaches, nausea, vomiting, abdominal pain, syncopal episodes, or any other complaints. Objective - Vital Signs/Intake and Output Vital Signs (last 24 hours): Temp Pulse Resp BP Pulse Ox 97.9 F 85 20 155/77 H 93 L 05/31/18 07:00 05/31/18 08:00 05/31/18 07:00 05/31/18 09:17 05/31/18 07:00 Intake and Output: 05/31/18 05/31/18 06:59 18:59 Output Total 1350 250 Balance -1350 -250 - Medications Medications: Current Medications Albuterol/Ipratropium (Duoneb 3 Mg/0.5 Mg (3 Ml) Ud) 3 ml INH RQ6 [facility] Last Admin: 05/31/18 08:35 Dose: 3 ml Amlodipine Besylate (Norvasc) 10 mg PO DAILY [facility] Last Admin: 05/31/18 09:17 Dose: 10 mg Carvedilol (Coreg) 25 mg PO BID [facility] Last Admin: 05/31/18 09:16 Dose: 25 mg Cyanocobalamin (Vitamin B12 1000 Mcg Tab) 1,000 mcg PO DAILY [facility] Last Admin: 05/31/18 09:17 Dose: 1,000 mcg Epoetin Scott (Procrit) 10,000 unit SC MWF [facility] Last Admin: 05/31/18 09:21 Dose: 10,000 unit Ferrous Gluconate (Fergon) 324 mg PO TID [facility] Last Admin: 05/31/18 13:18 Dose: 324 mg Furosemide (Lasix) 40 mg PO BID [facility] Last Admin: 05/31/18 09:17 Dose: 40 mg Hydralazine HCl (Apresoline) 50 mg PO BID [facility] Last Admin: 05/31/18 09:17 Dose: 50 mg Insulin Aspart (Novolog) 0 unit SC ACHS [facility]; Protocol Last Admin: 05/31/18 13:18 Dose: 8 units Levetiracetam (Keppra) 500 mg PO BID [facility] Last Admin: 05/31/18 09:17 Dose: 500 mg Rosuvastatin Calcium (Crestor) 10 mg PO HS [facility] Last Admin: 05/30/18 21:29 Dose: 10 mg Sitagliptin Phosphate (Januvia) 25 mg PO DAILY [facility] Last Admin: 05/31/18 09:17 Dose: 25 mg Sodium Bicarbonate (Sodium Bicarbonate Tab) 650 mg PO BID [facility] Last Admin: 05/31/18 09:52 Dose: Not Given Tamsulosin HCl (Flomax) 0.4 mg PO DAILY [facility] Last Admin: 05/31/18 09:17 Dose: 0.4 mg Thiamine HCl (Vitamin B1 Tab) 100 mg PO DAILY [facility] Last Admin: 05/31/18 09:17 Dose: 100 mg Vitamin B Complex/Vit C/Folic Acid (Nephro-Priscilla) 1 tab PO 0800 [facility] Last Admin: 05/31/18 09:16 Dose: 1 tab - Labs Labs: 05/30/18 07:31 05/30/18 07:31 PT 13.9 SECONDS (9.7-12.2) H 05/28/18 11:11 INR 1.3 05/28/18 11:11 APTT 34 SECONDS (21-34) 05/21/18 12:18 - Head Exam Head Exam: NORMAL INSPECTION - Eye Exam Eye Exam: EOMI, Normal appearance, PERRL Pupil Exam: NORMAL ACCOMODATION - ENT Exam ENT Exam: Mucous Membranes Moist, Normal Oropharynx - Neck Exam Neck Exam: Normal Inspection - Respiratory Exam Respiratory Exam: Clear to Ausculation Bilateral, NORMAL BREATHING PATTERN - Cardiovascular Exam Cardiovascular Exam: REGULAR RHYTHM, +S1, +S2 - GI/Abdominal Exam GI & Abdominal Exam: Normal Bowel Sounds - Back Exam Back Exam: NORMAL INSPECTION. absent: paraspinal tenderness - Neurological Exam Neurological Exam: Alert, Awake, Oriented x3 - Psychiatric Exam Psychiatric exam: Normal Affect, Normal Mood - Skin Skin Exam: Dry, Intact Assessment and Plan - Assessment and Plan (Free Text) Assessment: 67 year old male with a past medical history of hypertension, dm2, ckd, gout, and chf who presents to the hospital for chf exacerbation. Plan: Plan: 1. Acute on chronic diastolic heart failure Troponin (-)x3 BNP elevated on admission but patient has component of kidney dysfunction. Doppler Negative Patient would benefit from Cardiac catherization, however patient current kidney dysfunction puts him at a high risk for complications post cardiac cath. At this time patient not cleared for cardiac catherization. Medications: Lasix 40mg IVP Q12 Coreg 25mg PO BID [facility] Crestor 10mg PO HS Novasc 10mg PO Daily 2.CKD Nephrology consulted. Help appreciated Medications: Procrit 10,000 MWF Ferrlicet 125 mg IVP Daily Fergon 324mg PO TID [facility] Nephrovite 1 TAB PO 800 [facility] 3.DM Januvia 25mg PO Daily 4. bph -Flomax .4mg PO Daily [facility] Plan discussed with Attending Dr. Cage. Deni Adkins, PGY-2 <Barrett Cage - Last Filed: 05/31/18 22:25> Objective - Vital Signs/Intake and Output Vital Signs (last 24 hours): Temp Pulse Resp BP Pulse Ox 98.7 F 82 20 132/79 98 05/31/18 15:00 05/31/18 20:48 05/31/18 15:00 05/31/18 17:21 05/31/18 15:00 Intake and Output: 05/31/18 06/01/18 18:59 06:59 Intake Total 500 Output Total 250 450 Balance -250 50 - Medications Medications: Current Medications Albuterol/Ipratropium (Duoneb 3 Mg/0.5 Mg (3 Ml) Ud) 3 ml INH RQ6 [facility] Last Admin: 05/31/18 20:47 Dose: 3 ml Amlodipine Besylate (Norvasc) 10 mg PO DAILY [facility] Last Admin: 05/31/18 09:17 Dose: 10 mg Carvedilol (Coreg) 25 mg PO BID [facility] Last Admin: 05/31/18 17:19 Dose: 25 mg Cyanocobalamin (Vitamin B12 1000 Mcg Tab) 1,000 mcg PO DAILY [facility] Last Admin: 05/31/18 09:17 Dose: 1,000 mcg Epoetin Scott (Procrit) 10,000 unit SC MWF [facility] Last Admin: 05/31/18 09:21 Dose: 10,000 unit Ferrous Gluconate (Fergon) 324 mg PO TID [facility] Last Admin: 05/31/18 17:19 Dose: 324 mg Furosemide (Lasix) 40 mg PO BID [facility] Last Admin: 05/31/18 17:21 Dose: 40 mg Hydralazine HCl (Apresoline) 50 mg PO BID [facility] Last Admin: 05/31/18 17:20 Dose: 50 mg Insulin Aspart (Novolog) 0 unit SC ACHS [facility]; Protocol Last Admin: 05/31/18 21:24 Dose: 4 units Levetiracetam (Keppra) 500 mg PO BID [facility] Last Admin: 05/31/18 17:19 Dose: 500 mg Rosuvastatin Calcium (Crestor) 10 mg PO HS [facility] Last Admin: 05/31/18 21:26 Dose: 10 mg Sitagliptin Phosphate (Januvia) 25 mg PO DAILY [facility] Last Admin: 05/31/18 09:17 Dose: 25 mg Sodium Bicarbonate (Sodium Bicarbonate Tab) 650 mg PO BID [facility] Last Admin: 05/31/18 17:20 Dose: 650 mg Tamsulosin HCl (Flomax) 0.4 mg PO DAILY [facility] Last Admin: 05/31/18 09:17 Dose: 0.4 mg Thiamine HCl (Vitamin B1 Tab) 100 mg PO DAILY [facility] Last Admin: 05/31/18 09:17 Dose: 100 mg Vitamin B Complex/Vit C/Folic Acid (Nephro-Priscilla) 1 tab PO 0800 [facility] Last Admin: 05/31/18 09:16 Dose: 1 tab - Labs Labs: 05/31/18 17:19 05/31/18 17:19 PT 13.9 SECONDS (9.7-12.2) H 05/28/18 11:11 INR 1.3 05/28/18 11:11 APTT 34 SECONDS (21-34) 05/21/18 12:18 Assessment and Plan - Assessment and Plan (Free Text) Assessment: Patient seen and evaluated personally by me. Plan of care d/w the medical editor and as documented
--- NOTE | 2018-05-31 16:14 | CP.PCM.PN ---
Subjective - Date & Time of Evaluation Date of Evaluation: 05/31/18 Time of Evaluation: 16:12 - Subjective Subjective: Nephrology Consultation Note: Assessment: Stable Acute Kidney Injury (N17.9) ? hemodynamic. ? AIN as also with eosinophiluria and peripheral eosinophilia Diabetic chronic Kidney Disease (E11.22) Hypertensive Chronic Kidney Disease (I12.9) Chronic Kidney Disease (N18.3) Stage 3 with ? mg proteinuria (R80.9) likely due to DM/HTN Anemia (D64.9), metabolic acidosis HTN (I12.9) CHF exacerbation, fluid overload alcoholic cirrhosis of liver Plan No acute need for renal replacement therapy at this time Hypertension control with meds as ordered. Maintain hemodynamics stable. Avoid hypotension. Patient ARB held due to recent MICHELLE. will resume once volume status optimized and stable renal function. resume norvasc 10 Monitor Input/Output, daily weights and renal function with basic metabolic panel started iron, MVI and epogen. PRBC as needed added sodium bicarb 650 mg bid diuretics resumed and agreed with it, changed to PO cardiology pulmonary following added b12, thiamine and vitamin d once a month as well voiding trial d/c allopurinol. No NSAIDs. d/c steroids considering hyperglycemia/DM and very mild inflammatory changes on biopsy Dose meds/antibiotics for reduced GFR. Avoid fleets enema/magnesium based laxatives. Avoid nephrotoxins/NSAIDs/ iodinated contrast (unless needed emergently) Glycemic control Further work up/management as per primary team pt stable for d/c from renal perspective with outpt follow up Thanks for allowing me to participate in care of your patient. Will follow patient with you. Please call if any Qs. had d/w team and patient, Dr Jovan Haynes Office: [phone] Chief Complaint; SOB Reason for consult: Acute Kidney Injury on CKD HPI: Pt is a with hx of diabetes Mellitus (>10 years) with retinopathy s/p laser surgery, hypertension (>10 years) CKF, CKD 3 with baseline cr 1.8-22 in apr 2017 seizure presented with complaints of worsening SOB on exertion and lying down. admitted for CHF exacerbation. renal consult for MICHELLE on CKD 3. pt c/o leg swelling, cough. admits to drinking etoh 2 times a week, few sips of tequila as per per. denies smoking/drugs. not aware about kidney disease in past Denies OTC/herbal meds or NSAIDs No recent iodinated contrast exposure. No obvious episodes of low BP. ROS: s/p kidney biopsy 05/29/18" prelim results>>nodular glomerulosclerosis an diabetic nephropathy, very mild interstitial inflammation Cardiovascular: No chest pain. Pulmonary: improved shortness of breath Gastrointestinal: denies abdominal pain No nausea. No vomiting. Genitourinary: No pain while urinating. Denies blood in urine. All other negative except as mentioned in HPI Physical Examination: General Appearance: Comfortable, in no acute respiratory distress, co-operative . Vitals reviewed and noted as below Head; Atraumatic, normocephalic ENT: no ulcers no thrush. Tongue is midline. Oropharynx: no rash or ulcers. EYES: Pupils are equal, round and reactive to light accommodation. Eye muscles and extraocular movement intact. Sclera is anicteric. Neck; supple no lymphadenopathy, no thyromegaly or bruit Lungs: Normal respiratory rate/effort. Breath sounds bilateral improved Heart: Normal rate. s1s2 normal. No rub or gallop. Extremities: trace edema. No varicose veins. hyperpigmented changes in legs with some rash noted, pt says long time Neurological: Patient is alert, awake and oriented to person, place and time. No focal deficit. Strength bilateral appropriate and equal Skin: Warm and dry. Normal turgor. Palpitation: Normal elasticity for age Abdomen: Abdomen is soft. Bowel sounds +. There is no abdominal tenderness, no guarding/rigidity no organomegaly. ? ascites. Psych: limited insight and normal affect/mood MSK: no joint tenderness or swelling. Digits and nails normal, no deformity : kidney or bladder not palpable Labs/imaging reviewed. Past medical history, past surgical history, family history, social history, allergy reviewed and noted as below Family hx: no hx of CKD. Rest non-contribu Objective - Vital Signs/Intake and Output Vital Signs (last 24 hours): Temp Pulse Resp BP Pulse Ox 97.9 F 85 20 155/77 H 93 L 05/31/18 07:00 05/31/18 08:00 05/31/18 07:00 05/31/18 09:17 05/31/18 07:00 Intake and Output: 05/31/18 05/31/18 06:59 18:59 Output Total 1350 250 Balance -1350 -250 - Medications Medications: Current Medications Albuterol/Ipratropium (Duoneb 3 Mg/0.5 Mg (3 Ml) Ud) 3 ml INH RQ6 [facility] Last Admin: 05/31/18 13:25 Dose: Not Given Amlodipine Besylate (Norvasc) 10 mg PO DAILY [facility] Last Admin: 05/31/18 09:17 Dose: 10 mg Carvedilol (Coreg) 25 mg PO BID [facility] Last Admin: 05/31/18 09:16 Dose: 25 mg Cyanocobalamin (Vitamin B12 1000 Mcg Tab) 1,000 mcg PO DAILY [facility] Last Admin: 05/31/18 09:17 Dose: 1,000 mcg Epoetin Scott (Procrit) 10,000 unit SC [facility] Last Admin: 05/31/18 09:21 Dose: 10,000 unit Ferrous Gluconate (Fergon) 324 mg PO TID [facility] Last Admin: 05/31/18 13:18 Dose: 324 mg Furosemide (Lasix) 40 mg PO BID [facility] Last Admin: 05/31/18 09:17 Dose: 40 mg Hydralazine HCl (Apresoline) 50 mg PO BID [facility] Last Admin: 05/31/18 09:17 Dose: 50 mg Insulin Aspart (Novolog) 0 unit SC [facility]; Protocol Last Admin: 05/31/18 13:18 Dose: 8 units Levetiracetam (Keppra) 500 mg PO BID [facility] Last Admin: 05/31/18 09:17 Dose: 500 mg Rosuvastatin Calcium (Crestor) 10 mg PO HS [facility] Last Admin: 05/30/18 21:29 Dose: 10 mg Sitagliptin Phosphate (Januvia) 25 mg PO DAILY [facility] Last Admin: 05/31/18 09:17 Dose: 25 mg Sodium Bicarbonate (Sodium Bicarbonate Tab) 650 mg PO BID [facility] Last Admin: 05/31/18 09:52 Dose: Not Given Tamsulosin HCl (Flomax) 0.4 mg PO DAILY [facility] Last Admin: 05/31/18 09:17 Dose: 0.4 mg Thiamine HCl (Vitamin B1 Tab) 100 mg PO DAILY [facility] Last Admin: 05/31/18 09:17 Dose: 100 mg Vitamin B Complex/Vit C/Folic Acid (Nephro-Priscilla) 1 tab PO 0800 [facility] Last Admin: 05/31/18 09:16 Dose: 1 tab - Labs Labs: 05/30/18 07:31 05/30/18 07:31 PT 13.9 SECONDS (9.7-12.2) H 05/28/18 11:11 INR 1.3 05/28/18 11:11 APTT 34 SECONDS (21-34) 05/21/18 12:18
--- NOTE | 2018-05-31 16:45 | CP.PCM.PN ---
Subjective - Date & Time of Evaluation Date of Evaluation: 05/31/18 Time of Evaluation: 16:44 - Subjective Subjective: HOSPITALIST SERVICE Pt seen and examined at bedside, no new complaints overnight, denies bleeding from bx site, denies SOB, tolerated bleep well, breathing normally on room air. denies cp sob fc nv. Objective - Vital Signs/Intake and Output Vital Signs (last 24 hours): Temp Pulse Resp BP Pulse Ox 97.9 F 85 20 155/77 H 93 L 05/31/18 07:00 05/31/18 08:00 05/31/18 07:00 05/31/18 09:17 05/31/18 07:00 Intake and Output: 05/31/18 05/31/18 06:59 18:59 Output Total 1350 250 Balance -1350 -250 - Medications Medications: Current Medications Albuterol/Ipratropium (Duoneb 3 Mg/0.5 Mg (3 Ml) Ud) 3 ml INH RQ6 [facility] Last Admin: 05/31/18 13:25 Dose: Not Given Amlodipine Besylate (Norvasc) 10 mg PO DAILY [facility] Last Admin: 05/31/18 09:17 Dose: 10 mg Carvedilol (Coreg) 25 mg PO BID [facility] Last Admin: 05/31/18 09:16 Dose: 25 mg Cyanocobalamin (Vitamin B12 1000 Mcg Tab) 1,000 mcg PO DAILY [facility] Last Admin: 05/31/18 09:17 Dose: 1,000 mcg Epoetin Scott (Procrit) 10,000 unit SC MWF [facility] Last Admin: 05/31/18 09:21 Dose: 10,000 unit Ferrous Gluconate (Fergon) 324 mg PO TID [facility] Last Admin: 05/31/18 13:18 Dose: 324 mg Furosemide (Lasix) 40 mg PO BID [facility] Last Admin: 05/31/18 09:17 Dose: 40 mg Hydralazine HCl (Apresoline) 50 mg PO BID [facility] Last Admin: 05/31/18 09:17 Dose: 50 mg Insulin Aspart (Novolog) 0 unit SC ACHS [facility]; Protocol Last Admin: 05/31/18 13:18 Dose: 8 units Levetiracetam (Keppra) 500 mg PO BID [facility] Last Admin: 05/31/18 09:17 Dose: 500 mg Rosuvastatin Calcium (Crestor) 10 mg PO HS [facility] Last Admin: 05/30/18 21:29 Dose: 10 mg Sitagliptin Phosphate (Januvia) 25 mg PO DAILY [facility] Last Admin: 05/31/18 09:17 Dose: 25 mg Sodium Bicarbonate (Sodium Bicarbonate Tab) 650 mg PO BID [facility] Last Admin: 05/31/18 09:52 Dose: Not Given Tamsulosin HCl (Flomax) 0.4 mg PO DAILY [facility] Last Admin: 05/31/18 09:17 Dose: 0.4 mg Thiamine HCl (Vitamin B1 Tab) 100 mg PO DAILY [facility] Last Admin: 05/31/18 09:17 Dose: 100 mg Vitamin B Complex/Vit C/Folic Acid (Nephro-Priscilla) 1 tab PO 0800 [facility] Last Admin: 05/31/18 09:16 Dose: 1 tab - Labs Labs: 05/30/18 07:31 05/30/18 07:31 PT 13.9 SECONDS (9.7-12.2) H 05/28/18 11:11 INR 1.3 05/28/18 11:11 APTT 34 SECONDS (21-34) 05/21/18 12:18 - Additional Findings Additional findings: - Constitutional Appears: Non-toxic, No Acute Distress - Head Exam Head Exam: ATRAUMATIC, NORMOCEPHALIC - Eye Exam Eye Exam: Normal appearance - ENT Exam ENT Exam: Mucous Membranes Moist - Neck Exam Neck Exam: Normal Inspection. absent: Lymphadenopathy - Respiratory Exam Respiratory Exam: Clear to Ausculation Bilateral, NORMAL BREATHING PATTERN. absent: Accessory Muscle Use, Rales, Rhonchi, Wheezes, Respiratory Distress on Nasal Canula - Cardiovascular Exam Cardiovascular Exam: REGULAR RHYTHM, +S1 - GI/Abdominal Exam GI & Abdominal Exam: Soft. absent: Distended, Firm, Guarding, Rigid - Exam Additional comments: lemons removed - Extremities Exam Extremities Exam: Pedal Edema (pitting b/l). absent: Calf Tenderness Additional comments: knee-high compression stockings - trace pitting pedal edema b/l - Neurological Exam Neurological Exam: Alert, Awake - Psychiatric Exam Psychiatric exam: Normal Affect, Normal Mood Assessment and Plan - Assessment and Plan (Free Text) Assessment: HFpEF - Cardiology consulted ([place])- rec cardiac cath when kidney function improves still could be diastolic CHF f/u outpt w/ dr mcguire - Pulmonology consulted ([place]) - BNP 1550 on admission * repeat BNP 05/27/18 - 2530 - TSH, free T4 wnl - BANDAR negative x3 - Venous Dopplers: no DVT - Echo: normal EF, dilated LA, mod TR - Lexiscan: normal, EF 50-55% - CXR (05/25): acute CHF - Daily weights - Strict Is&Os - Fluid restriction 1200 mL - Compression stockings - Lasix 40 mg IV Q12H - Coreg 25 mg PO BID - Duoneb q6h - BiPAP started on 05/26 - pt only using at night. speaking in full sentences at bedside today. Acute on chronic renal failure, improving - Nephrology consulted ([place])- high risk for PCI, Oz score 16 (post- PCI nephropathy risk 57.3%, requiring dialysis 12.6%) * prn Lasix as needed * started iron, MVI and epogen. PRBC as needed added sodium bicarb 1300 mg bid home w/o steroids bx results reviewed kappa/lamda ratio f/u outpt - BUN 95, Cr 3.2 - Renal US: enlarged prostate - Microalb/Cr ratio elevated (111) - Random urine total protein elevated (315) - Vit D low (24.3) - Complement, dsDNA Ab, random urine creatinine wnl - Procrit 10,000 MWF - Ferrlicet 125 mg IV daily - Fergon 324 mg PO TID - Nephrovite PO daily - Sodium bicarb 1300 mg PO BID Abdominal distention- suspect cirrhosis/ascites +/- urinary retention - GI consulted, Dr. Degroot - LFTs wnl - INR wnl - Liver US: hepatomegaly, steatosis, nodular (cirrhosis) Urinary retention Esinophila - Nephrology consulted, Dr. Haynes - lemons removed - straight cath prn for bladder scans >200cc - bladder training - Stop Prednisone - Flomax 0.4 mg PO daily Anemia, stable - suspect related to kidney failure/chronic disease - B12, folate wnl - Iron low (43), ferritin wnl - Procrit 10,000 MWF - Vit B12 1000 mcg PO daily Type 2 diabetes mellitus, chronic - A1c 8.6 - Lipid panel wnl: TG 116, chol 84, LDL 45, HDL 25 - Accuchecks ACHS - Hypoglycemia protocol - ISS medium - Januvia 25 mg PO daily (renally dosed) Hypertension, controlled - Vitals Q6H - Patient on Losartan and HCTZ at home- holding due to kidney function - Coreg 25 mg PO BID - Norvasc 10 mg PO daily - Lasix 40 mg IV Q12H Seizure disorder - Keppra level 21.9 (05/21) - Keppra 500 mg PO BID Alcohol use disorder - Liver US: hepatomegaly, steatosis, nodular (cirrhosis) - Cessation counseling H/o Gout - Uric acid 8.7 - Allopurinol 100 mg PO daily Ppx: VTE: Heparin 5000 units SC Q8H GI: Protonix 40 mg PO daily DISPO: d/c tmrw pending bladder training
[2018-05-31 17:25] LABS: BASO % 0.1 % (0.0-2.0); HEMOGLOBIN 10.6 g/dL (12.0-18.0); LYMPH # 0.6 K/uL (1.0-4.3); LYMPH % 5.4 % (20.0-40.0); MEAN CORPUSCULAR HEMOGLOBIN 30.5 pg (27.0-31.0); MEAN CORPUSCULAR HGB CONC 31.7 g/dL (33.0-37.0); MEAN PLATELET VOLUME 9.3 fL (7.2-11.7); MONO # 0.7 K/uL (0.0-0.8); MONO % 6.7 % (0.0-10.0); NEUT # 9.5 K/uL (1.8-7.0); NEUT % 87.8 % (50.0-75.0); NRBC % 0.4 % (0.0-2.0); PLATELET COUNT 181 K/uL (130-400); RBC 3.47 Mil/uL (4.40-5.90); RED CELL DISTRIBUTION WIDTH 17.1 % (11.5-14.5); WHITE BLOOD COUNT 10.8 K/uL (4.8-10.8)
[2018-05-31 17:58] LABS: ALB/GLOB RATIO 1.4 (1.0-2.1); ALBUMIN 4.3 g/dL (3.5-5.0); CALCIUM 7.8 mg/dl (8.6-10.4)
--- NOTE | 2018-05-31 18:02 | CP.PCM.PN ---
Subjective - Date & Time of Evaluation Date of Evaluation: 05/31/18 Time of Evaluation: 17:00 - Subjective Subjective: Patient seen and examined Sitting comfortably in no distress Good urine output Breathing much improved BiPAP at night Objective - Vital Signs/Intake and Output Vital Signs (last 24 hours): Temp Pulse Resp BP Pulse Ox 98.7 F 81 20 132/79 98 05/31/18 15:00 05/31/18 15:00 05/31/18 15:00 05/31/18 17:21 05/31/18 15:00 Intake and Output: 05/31/18 05/31/18 06:59 18:59 Output Total 1350 250 Balance -1350 -250 - Medications Medications: Current Medications Albuterol/Ipratropium (Duoneb 3 Mg/0.5 Mg (3 Ml) Ud) 3 ml INH RQ6 [facility] Last Admin: 05/31/18 13:25 Dose: Not Given Amlodipine Besylate (Norvasc) 10 mg PO DAILY [facility] Last Admin: 05/31/18 09:17 Dose: 10 mg Carvedilol (Coreg) 25 mg PO BID [facility] Last Admin: 05/31/18 17:19 Dose: 25 mg Cyanocobalamin (Vitamin B12 1000 Mcg Tab) 1,000 mcg PO DAILY [facility] Last Admin: 05/31/18 09:17 Dose: 1,000 mcg Epoetin Scott (Procrit) 10,000 unit SC MWF [facility] Last Admin: 05/31/18 09:21 Dose: 10,000 unit Ferrous Gluconate (Fergon) 324 mg PO TID [facility] Last Admin: 05/31/18 17:19 Dose: 324 mg Furosemide (Lasix) 40 mg PO BID [facility] Last Admin: 05/31/18 17:21 Dose: 40 mg Hydralazine HCl (Apresoline) 50 mg PO BID [facility] Last Admin: 05/31/18 17:20 Dose: 50 mg Insulin Aspart (Novolog) 0 unit SC ACHS [facility]; Protocol Last Admin: 05/31/18 17:22 Dose: 10 units Levetiracetam (Keppra) 500 mg PO BID [facility] Last Admin: 05/31/18 17:19 Dose: 500 mg Rosuvastatin Calcium (Crestor) 10 mg PO HS [facility] Last Admin: 05/30/18 21:29 Dose: 10 mg Sitagliptin Phosphate (Januvia) 25 mg PO DAILY [facility] Last Admin: 05/31/18 09:17 Dose: 25 mg Sodium Bicarbonate (Sodium Bicarbonate Tab) 650 mg PO BID [facility] Last Admin: 05/31/18 17:20 Dose: 650 mg Tamsulosin HCl (Flomax) 0.4 mg PO DAILY [facility] Last Admin: 05/31/18 09:17 Dose: 0.4 mg Thiamine HCl (Vitamin B1 Tab) 100 mg PO DAILY [facility] Last Admin: 05/31/18 09:17 Dose: 100 mg Vitamin B Complex/Vit C/Folic Acid (Nephro-Priscilla) 1 tab PO 0800 [facility] Last Admin: 05/31/18 09:16 Dose: 1 tab - Labs Labs: 05/31/18 17:19 05/31/18 17:19 PT 13.9 SECONDS (9.7-12.2) H 05/28/18 11:11 INR 1.3 05/28/18 11:11 APTT 34 SECONDS (21-34) 05/21/18 12:18 - Head Exam Head Exam: ATRAUMATIC, NORMOCEPHALIC - ENT Exam ENT Exam: Mucous Membranes Moist - Neck Exam Neck Exam: Normal Inspection - Respiratory Exam Respiratory Exam: Clear to Ausculation Bilateral - Cardiovascular Exam Cardiovascular Exam: REGULAR RHYTHM - GI/Abdominal Exam GI & Abdominal Exam: Soft Assessment and Plan (1) Renal failure (ARF), acute on chronic Assessment & Plan: Continue present treatment BiPAP at night Pending biopsy report Continue diuretics Status: Acute (2) CHF exacerbation Status: Acute (3) Pedal edema Status: Acute
[2018-05-31 18:43] LABS: BANDS 1 % (0-2); LYMPHOCYTE 6 % (20-40); MONOCYTE 3 % (0-10); NEUTROPHIL 90 % (50-75); NUCLEATED RED BLOOD CELL 2 % (0-0); PLATELET ESTIMATE NORMAL (NORMAL); TOTAL CELLS COUNTED 100
[2018-06-01] MEDS: Albuterol-Ipratrop 3 mg / 0.5 (3 ml) UD INH SCH (01:00)
[2018-06-01] MEDS ORDERED: (Novolin R) Insulin Human Regular 100 units/ml vial SC ONE (02:59)
[2018-06-01 08:08] VITALS: TEMP 98.1; O2SAT 93
--- NOTE | 2018-06-01 10:25 | CP.PCM.DIS ---
Provider - Provider Date of Admission: 05/23/18 16:34 Attending physician: Stephen Ellington MD Consults: 05/21/18 15:00 Physician Consult Routine Comment: Consulting Provider: Barrett Cage Consulting Physician: Barrett Cage Reason for Consult: CHF exacerbation 05/21/18 15:01 Physician Consult Routine Comment: Consulting Provider: Georges Morfin Consulting Physician: Georges Morfin Reason for Consult: Acute on chronic renal failure 05/26/18 10:50 Pulmonology Consult Routine Comment: Consulting Provider: Mikel Morse Consulting Physician: Mikel Morse Reason for Consult: copd, on bipap 05/27/18 08:16 Physician Consult Routine Comment: Consulting Provider: Scooter Rocha Consulting Physician: Scooter Rocha Reason for Consult: CT guided kidney biopsy for MICHELLE on CKD 3 05/28/18 15:42 Gastroenterology Consult Routine Comment: Consulting Provider: Frandy Garcia Consulting Physician: Frandy Garcia Reason for Consult: new diagnoses cirrhosis; unclear if related to CHF vs alcohol Time Spent in preparation of Discharge (in minutes): 45 Diagnosis - Discharge Diagnosis (1) CKD (chronic kidney disease) stage 3, GFR 30-59 ml/min Status: Chronic (2) Alcoholic cirrhosis of liver Status: Chronic (3) CHF exacerbation Status: Resolved (4) Diabetes Status: Chronic (5) History of gout Status: Chronic (6) Hypertension Status: Chronic (7) Renal failure (ARF), acute on chronic Status: Resolved Hospital Course - Lab Results Lab Results: Most Recent Lab Values WBC 10.8 K/uL (4.8-10.8) 05/31/18 17:19 RBC 3.47 Mil/uL (4.40-5.90) L 05/31/18 17:19 Hgb 10.6 g/dL (12.0-18.0) L 05/31/18 17:19 Hct 33.3 % (35.0-51.0) L 05/31/18 17:19 MCV 96.0 fL (80.0-94.0) H 05/31/18 17:19 MCH 30.5 pg (27.0-31.0) 05/31/18 17:19 MCHC 31.7 g/dL (33.0-37.0) L 05/31/18 17:19 RDW 17.1 % (11.5-14.5) H 05/31/18 17:19 Plt Count 181 K/uL (130-400) 05/31/18 17:19 MPV 9.3 fL (7.2-11.7) 05/31/18 17:19 Neut % (Auto) 87.8 % (50.0-75.0) H 05/31/18 17:19 Lymph % (Auto) 5.4 % (20.0-40.0) L 05/31/18 17:19 [place] % (Auto) 6.7 % (0.0-10.0) 05/31/18 17:19 Eos % (Auto) 0.0 % (0.0-4.0) 05/31/18 17:19 Baso % (Auto) 0.1 % (0.0-2.0) 05/31/18 17:19 Neut # (Auto) 9.5 K/uL (1.8-7.0) H 05/31/18 17:19 Lymph # (Auto) 0.6 K/uL (1.0-4.3) L 05/31/18 17:19 [place] # (Auto) 0.7 K/uL (0.0-0.8) 05/31/18 17:19 Eos # (Auto) 0.0 K/uL (0.0-0.7) 05/31/18 17:19 Baso # (Auto) 0.0 K/uL (0.0-0.2) 05/31/18 17:19 Neutrophils % (Manual) 90 % (50-75) H 05/31/18 17:19 Band Neutrophils % 1 % (0-2) 05/31/18 17:19 Lymphocytes % (Manual) 6 % (20-40) L 05/31/18 17:19 Reactive Lymphs % 1 % (0-0) H 05/29/18 07:23 Monocytes % (Manual) 3 % (0-10) 05/31/18 17:19 Metamyelocytes % 1 % (0-0) H 05/29/18 07:23 Nucleated RBC % 2 % (0-0) H 05/31/18 17:19 Platelet Estimate Normal (NORMAL) 05/31/18 17:19 Polychromasia Slight 05/28/18 08:02 Hypochromasia (manual) Moderate 05/30/18 07:31 Poikilocytosis (manual Slight 05/30/18 07:31 Anisocytosis (manual) Slight 05/30/18 07:31 Microcytosis (manual) Slight 05/29/18 07:23 Macrocytosis (manual) Slight 05/30/18 07:31 Target Cells Slight 05/30/18 07:31 Tear Drop Cells Slight 05/30/18 07:31 Ovalocytes Slight 05/30/18 07:31 PT 13.9 SECONDS (9.7-12.2) H 05/28/18 11:11 INR 1.3 05/28/18 11:11 APTT 34 SECONDS (21-34) 05/21/18 12:18 Sodium 135 mmol/L (132-148) 05/31/18 17:19 Potassium 4.5 mmol/L (3.6-5.2) 05/31/18 17:19 Chloride 98 mmol/L (98-107) 05/31/18 17:19 Carbon Dioxide 24 mmol/L (22-30) 05/31/18 17:19 Anion Gap 17 (10-20) 05/31/18 17:19 BUN 106 mg/dL (9-20) H* 05/31/18 17:19 Creatinine 3.1 mg/dL (0.8-1.5) H 05/31/18 17:19 Est GFR ( Amer) 25 05/31/18 17:19 Est GFR (Non-Af Amer) 20 05/31/18 17:19 POC Glucose (mg/dL) 361 mg/dL (65-110) H 06/01/18 06:29 Random Glucose 421 mg/dL (75-110) H* D 05/31/18 17:19 Hemoglobin A1c 8.6 % (4.2-6.5) H 05/22/18 03:09 Uric Acid 8.7 mg/dL (3.5-8.5) H 05/22/18 12:49 Calcium 7.8 mg/dl (8.6-10.4) L 05/31/18 17:19 Phosphorus 4.9 mg/dL (2.5-4.5) H 05/30/18 07:31 Magnesium 2.0 mg/dL (1.6-2.3) 05/29/18 07:23 Iron 43 ug/dL (49-181) L 05/22/18 12:49 TIBC 280 ug/dL (250-450) 05/22/18 12:49 % Saturation 15 (20-55) L 05/22/18 12:49 Ferritin 49.0 ng/mL 05/22/18 12:49 Total Bilirubin 0.4 mg/dL (0.2-1.3) 05/31/18 17:19 AST 19 U/L (17-59) 05/31/18 17:19 ALT 32 U/L (21-72) 05/31/18 17:19 Alkaline Phosphatase 120 U/L (38-126) 05/31/18 17: Total Creatine Kinase 127 U/L (55-170) 05/22/18 03:09 CK-MB (Mass) 1.69 ng/mL (0.0-3.38) 05/22/18 03:09 Troponin I < 0.0120 ng/mL (0.00-0.120) 05/22/18 03:09 NT-Pro-B Natriuret Pep 2530 pg/mL (0-900) H 05/27/18 08:24 Total Protein 7.3 g/dL (6.3-8.3) 05/31/18 17:19 Total Protein (PEP) 6.9 g/dL (6.1-8.1) 05/23/18 07:14 Albumin 4.3 g/dL (3.5-5.0) 05/31/18 17: Albumin (PEP) 3.7 g/dL (3.8-4.8) L 05/23/18 07:14 Globulin 3.0 gm/dL (2.2-3.9) 05/31/18 17:19 Albumin/Globulin Ratio 1.4 (1.0-2.1) 05/31/18 17:19 Tqzsr-6-Iybeemxlk 0.4 g/dL (0.2-0.3) H 05/23/18 07:14 Xrhpo-5-Kgmeboryf 0.8 g/dL (0.5-0.9) 05/23/18 07:14 Wpyk-3-Hgkpswvn 0.4 g/dL (0.4-0.6) 05/23/18 07:14 Wvqc-7-Hfaignfj 0.4 g/dL (0.2-0.5) 05/23/18 07:14 Gamma Globulins 1.3 g/dL (0.8-1.7) 05/23/18 07:14 Abnorm Protein Band 1 TEST NOT PERFORMED 05/23/18 07:14 Abnorm Protein Band 2 TEST NOT PERFORMED 05/23/18 07:14 Abnorm Protein Band 3 TEST NOT PERFORMED 05/23/18 07:14 Triglycerides 116 mg/dL (0-149) 05/25/18 07:30 Cholesterol 84 mg/dL (0-199) 05/25/18 07:30 LDL Cholesterol Direct 45 mg/dL (0-129) 05/25/18 07:30 HDL Cholesterol 25 mg/dL (30-70) L 05/25/18 07:30 Vitamin B12 242 pg/mL (239-931) 05/22/18 12:49 25-OH Vitamin D Total 24.3 NG/ML (30.0-100.0) L 05/23/18 07:14 Folate 9.9 ng/mL 05/22/18 12:49 Procalcitonin 0.15 NG/ML (0.19-0.49) L 05/27/18 08:24 Free T4 0.80 ng/dL (0.78-2.19) 05/22/18 03:09 TSH 3rd Generation 3.12 mIU/L (0.46-4.68) 05/22/18 03:09 PTH Intact Whole Molec 119 pg/mL (14-64) H 05/22/18 12:49 Urine Color Yellow (YELLOW) 05/23/18 07:10 Urine Clarity Clear (Clear) 05/23/18 07:10 Urine pH 5.0 (5.0-8.0) 05/23/18 07:10 Ur Specific [place] 1.013 (1.003-1.030) 05/23/18 07:10 Urine Protein 1+ mg/dL (NEGATIVE) H 05/23/18 07:10 Urine Glucose (UA) Normal mg/dL (Normal) 05/23/18 07:10 Urine Ketones Negative mg/dL (NEGATIVE) 05/23/18 07:10 Urine Blood Negative (NEGATIVE) 05/23/18 07:10 Urine Nitrate Negative (NEGATIVE) 05/23/18 07:10 Urine Bilirubin Negative (NEGATIVE) 05/23/18 07:10 Urine Urobilinogen Normal mg/dL (0.2-1.0) 05/23/18 07:10 Ur Leukocyte Esterase Neg Aaron/uL (Negative) 05/23/18 07:10 Urine WBC (Auto) 1 /hpf (0-5) 05/23/18 07:10 Urine RBC (Auto) 1 /hpf (0-3) 05/23/18 07:10 Ur Squamous Epith Cells 1 /hpf (0-5) 05/23/18 07:10 Hyaline Casts 0-2 /lpf (0-2) 05/23/18 07:10 Urine Eosinophils Positive (NEGATIVE) H 05/26/18 09:09 Ur Random Creatinine 207.7 mg/dL 05/26/18 09:09 U Random Total Protein 315 mg/g creat (22-128) H 05/23/18 07:10 Ur Random Sodium 29 mmol/L 05/26/18 09:09 Urine Total Volume 16.0 mg/dL 05/23/18 07:10 Microalb/Creat Ratio 111 (<30) H 05/23/18 07:10 Levetiracetam 21.9 mcg/mL 05/21/18 12:18 SKYLA & SPEP Interp See note 05/23/18 07:14 Serum Immunofixation Not detected (Not Detected) 05/23/18 07:14 DINORAH Screen Negative (Negative) 05/22/18 12:54 Double Strand DNA Ab 2 IU/mL 05/22/18 12:49 Complement C3 104.0 mg/dL (88.0-165.0) 05/22/18 12:49 Complement C4 24.2 mg/dL (14.0-44.0) 05/22/18 12:[address]/Lambda Ratio 2.65 (1.29-2.55) H 05/23/18 07:[address] Light Chain Anal 350 mg/dL (176-443) 05/23/18 07:14 Lambda Light Chain Anal 132 mg/dL (91-240) 05/23/18 07:14 Hep Bs Antigen Negative (NEGATIVE) 05/22/18 12:49 Hep Bs Antibody Negative (NEGATIVE) 05/22/18 12:49 Hep B Core IgM Ab Negative (NEGATIVE) 05/22/18 12:49 Hepatitis C Antibody Negative (NEGATIVE) 05/22/18 12:49 HIV 1&2 Antibody Screen Negative (NEGATIVE) 05/22/18 12:49 Blood Type B POSITIVE 05/28/18 08:01 Blood Type Confirm B POSITIVE 05/28/18 08:01 Antibody Screen Negative 05/28/18 08:01 - Hospital Course Hospital Course: HPI: Patient is a 67 year old female with past medical history of HTN, seizures, Type 2 Diabetes, CHF (diagnosed 5 years ago), Chronic kidney disease, and Gout, who presents to the ED with his with complaints of worsening shortness of breath and bilateral leg swelling for the past two weeks. Patient states that he has been sleeping more propped up with 3 pillow for the past 2 weeks and he has noted that he can only walk up to a 1/2 block before he has to catch his breath. Patient has noted some weight gain, bilateral leg heaviness and tightness of his footwear for the past 2-3 weeks. Patient admits to shortness of breath, non-productive cough, orthopnea, nocturnal cough, dizziness, subjective fever and chills but denies any symptoms of chest pain, palpitations, nausea, vomiting, abdominal pain, headache, blurry vision, hematochezia, urinary symptoms and recent travels. Patient does not have a legal stenographer. PMD: Dr. Lance Awan PMHx: HTN, seizures, Type 2 Diabetes, CHF (diagnosed 5 years ago), Chronic kidney disease, and Gout PSHx: Right foot surgery FHx: Father (Heart Disease) and Mother: 85, no medical problems Medications: Norvasc 10mg PO daily, Valsartan-HCTZ 320/12.5mg PO daily, Lipitor 40mg PO HS, Keppra 500mg PO BID, Januvia 100mg PO daily, Tradjenta 5mg PO daily, Allopurinol 100mg PO daily Allergies: NKDA Pt was found to have HFpEF - Cardiology consulted ([place])- rec cardiac cath when kidney function improves still could be diastolic CHF f/u outpt w/ dr mcguire - Pulmonology consulted (Lito) - BNP 1550 on admission * repeat BNP 05/27/18 - 2530 - TSH, free T4 wnl - BANDAR negative x3 - Venous Dopplers: no DVT - Echo: normal EF, dilated LA, mod TR - Lexiscan: normal, EF 50-55% - CXR (05/25): acute CHF - Daily weights - Strict Is&Os - Fluid restriction 1200 mL - Compression stockings - Lasix 40 mg IV Q12H - Coreg 25 mg PO BID - Duoneb q6h - BiPAP started on 05/26 - pt only using at night. speaking in full sentences at bedside on discharger Acute on chronic renal failure, improving - Nephrology consulted ([place])- high risk for PCI, Oz score 16 (post- PCI nephropathy risk 57.3%, requiring dialysis 12.6%) * prn Lasix as needed * started iron, MVI and epogen. PRBC as needed added sodium bicarb 1300 mg bid home w/o steroids bx results reviewed kappa/lamda ratio f/u outpt - BUN 95, Cr 3.2 - Renal US: enlarged prostate - Microalb/Cr ratio elevated (111) - Random urine total protein elevated (315) - Vit D low (24.3) - Complement, dsDNA Ab, random urine creatinine wnl - Procrit 10,000 MWF - Ferrlicet 125 mg IV daily - Fergon 324 mg PO TID - Nephrovite PO daily - Sodium bicarb 1300 mg PO BID Abdominal distention- suspect cirrhosis/ascites +/- urinary retention - GI consulted, Dr. Degroot - LFTs wnl - INR wnl - Liver US: hepatomegaly, steatosis, nodular (cirrhosis) Urinary retention Esinophila - Nephrology consulted, Dr. Haynes - lemons removed - straight cath prn for bladder scans >200cc - bladder training - Stop Prednisone - Flomax 0.4 mg PO daily Anemia, stable - suspect related to kidney failure/chronic disease - B12, folate wnl - Iron low (43), ferritin wnl - Procrit 10,000 MWF - Vit B12 1000 mcg PO daily Type 2 diabetes mellitus, chronic - A1c 8.6 - Lipid panel wnl: TG 116, chol 84, LDL 45, HDL 25 - Accuchecks ACHS - Hypoglycemia protocol - ISS medium - Januvia 25 mg PO daily (renally dosed) Hypertension, controlled - Vitals Q6H - Patient on Losartan and HCTZ at home- holding due to kidney function - Coreg 25 mg PO BID - Norvasc 10 mg PO daily - Lasix 40 mg IV Q12H Seizure disorder - Keppra level 21.9 (05/21) - Keppra 500 mg PO BID Alcohol use disorder - Liver US: hepatomegaly, steatosis, nodular (cirrhosis) - Cessation counseling H/o Gout - Uric acid 8.7 - Allopurinol 100 mg PO daily Ppx: VTE: Heparin 5000 units SC Q8H GI: Protonix 40 mg PO daily Discharge Exam - Head Exam Head Exam: ATRAUMATIC, NORMOCEPHALIC Discharge Plan - Discharge Medications Prescriptions: amLODIPine [Norvasc] 10 mg PO DAILY #30 tab Atorvastatin Calcium 40 mg PO DAILY #30 tablet Carvedilol [Coreg] 25 mg PO BID #60 tab Cyanocobalamin [Vitamin B12 1000 mcg Tab] 1,000 mcg PO DAILY #30 tab Ferrous Gluconate [Fergon] 324 mg PO TID #30 tab Furosemide [Lasix] 40 mg PO BID #60 tab hydrALAZINE [Apresoline] 50 mg PO BID #60 tab levETIRAcetam [Keppra] 500 mg PO BID #60 tab Linagliptin [Tradjenta] 5 mg PO DAILY #30 tablet SITagliptin [Januvia] 25 mg PO DAILY #30 tab Sodium Bicarbonate Tab 650 mg PO BID #60 tab Tamsulosin [Flomax] 0.4 mg PO DAILY #30 cap Thiamine [Vitamin B1 Tab] 100 mg PO DAILY #30 tab Vitamin B Complex/Vit C/Folic [Nephro-Priscilla] 1 tab PO 0800 #30 tab - Follow Up Plan Condition: STABLE Disposition: HOME/ ROUTINE Instructions: Heart Failure, Adult (DC), High Blood Pressure (DC), Medicines for Heart Failure With Reduced Ejection Fraction, Diabetes and Diet Additional Instructions: Patient is to be discharged home: These are the only medications you should be on: Norvasc 10mg 1tab PO once a day @2pm #30 Carvedilol 25mg 1 tab PO BID @8am and 8pm #60 Vit B12 1000mcg 1 tab PO daily @ 8am #30 Ferrous Gluconate 324mg 1 tab PO TID @ 8am 2pm 8pm, #90 Lasix 40mg 1 tab PO BID @ 8am, 8pm # 60 Hydralizine 50mg 1 tab PO BID @8am 8pm # 60 Januvia 25mg 1 tab PO daily @8am #30 Levitracetam 500mg 1tab PO BID 8am and 8pm #60 Atorvastatin 40mg PO daily @8pm Sodium Bicarb 650mg 1 tab PO BID @ 8am, 8pm # 60 Flomax 0.4 1 tab PO qd @8am #30 Thiamine 100mg 1 tab PO daily @8am #30 Nephro-Priscilla 1 tab PO daily @ 8am #30 Tradjenta 5mg 1 tab PO daily @8am #30 INSTRUCTIONS: 1- Follow up with your primary medical doctor Dr Awan in 7-10days 2- Follow up with Chassis Engineer Dr Haynes in 7-10days call [phone] to schedule 3- Follow up with Nuclear Weapons Custodian Dr Morse in 7-10days call [phone] [place] debe ser dado de kelly a casa: Estos son los nicos medicamentos que debe porsche: Norvasc 10mg 1tab por va oral jackelyn vez al da @ 2pm # 30 Carvedilol 25 mg 1 pestaa por va oral dos veces al da a las 8 am y las 8 pm # 60 Vit B12 1000 mcg 1 pestaa por va oral todos los lauren @ 8 a.m. # 30 Gluconato ferroso 324 mg 1 pestaa por va oral rani veces al da @ 8 a.m. a 2 p.m. 8 p.m., # 90 Lasix 40 mg 1 pestaa por va oral dos veces al da @ 8 am, 8 pm # 60 Hydralizine 50 mg 1 pestaa por va oral dos veces al da @ 8 a.m. a 8 p.m. # 60 Januvia 25 mg 1 pestaa por va oral todos los lauren @ 8 am # 30 Levitracetam 500 mg 1 comprimido por va oral dos veces al da 8 a.m. y 8 p.m. # 60 Atorvastatin 40mg PO diario a las 8pm Sodium Bicarb 650 mg 1 lengeta por va oral dos veces al da @ 8am, 8pm # 60 Flomax 0.4 1 tab PO qd @ 8am # 30 Tiamine 100 mg 1 pestaa por va oral todos los lauren @ 8 a.m. # 30 Nephro-Priscilla 1 pestaa por va oral todos los lauren @ 8 am # 30 Tradjenta 5 mg 1 pestaa por va oral todos los lauren @ 8 a.m. # 30 INSTRUCCIONES: 1- Grace un seguimiento con james mdico de elizabeth, el Dr. Awan en - lauren 2- Grace un seguimiento con el nefrlogo Dr. Haynes en - lauren. Llame al [phone] para programar 3- Grace un seguimiento con el neumlogto Morse en - lauren, llame al [phone] Referrals: Mikel Morse MD [Staff Provider] - 7 Days Barrett Cage MD [Staff Provider] - 7 Days Georges Morfin MD [Staff Provider] - 7 Days
[2018-06-01] MEDS: (Novolog) Insulin Aspart, Recombinant 100 u/ml 10 ml vial SC SCH ×2 (10:54→14:10)
[2018-06-01] MEDS: Multivitamin Vitamin B Complex (Nephro-Vite) Tab PO SCH (10:58)
[2018-06-01 11:01] VITALS: BP 154/81
--- NOTE | 2018-06-01 15:07 | CP.PCM.PN ---
Subjective - Date & Time of Evaluation Date of Evaluation: 06/01/18 Time of Evaluation: 15:06 - Subjective Subjective: Nephrology Consultation Note: Assessment: Stable Acute Kidney Injury (N17.9) ? hemodynamic. ? AIN as also with eosinophiluria and peripheral eosinophilia Diabetic chronic Kidney Disease (E11.22) Hypertensive Chronic Kidney Disease (I12.9) Chronic Kidney Disease (N18.3) Stage 3 with ? mg proteinuria (R80.9) likely due to DM/HTN Anemia (D64.9), metabolic acidosis HTN (I12.9) CHF exacerbation, fluid overload alcoholic cirrhosis of liver Plan No acute need for renal replacement therapy at this time Hypertension control with meds as ordered. Maintain hemodynamics stable. Avoid hypotension. Patient ARB held due to recent MICHELLE. will resume once volume status optimized and stable renal function. resume norvasc 10 Monitor Input/Output, daily weights and renal function with basic metabolic panel started iron, MVI and epogen. PRBC as needed added sodium bicarb 650 mg bid diuretics continue as ordered cardiology pulmonary following added b12, thiamine and vitamin d once a month as well d/c allopurinol. No NSAIDs. d/c steroids considering hyperglycemia/DM and very mild inflammatory changes on biopsy Dose meds/antibiotics for reduced GFR. Avoid fleets enema/magnesium based laxatives. Avoid nephrotoxins/NSAIDs/ iodinated contrast (unless needed emergently) Glycemic control Further work up/management as per primary team pt stable for d/c from renal perspective with outpt follow up Thanks for allowing me to participate in care of your patient. Will follow patient with you. Please call if any Qs. had d/w team and patient, Jovan Haynes Office: [phone] Chief Complaint; SOB Reason for consult: Acute Kidney Injury on CKD HPI: Pt is a with hx of diabetes Mellitus (>10 years) with retinopathy s/p laser surgery, hypertension (>10 years) CKF, CKD 3 with baseline cr 1.8-22 in apr 2017 seizure presented with complaints of worsening SOB on exertion and lying down. admitted for CHF exacerbation. renal consult for MICHELLE on CKD 3. pt c/o leg swelling, cough. admits to drinking etoh 2 times a week, few sips of tequila as per per. denies smoking/drugs. not aware about kidney disease in past Denies OTC/herbal meds or NSAIDs No recent iodinated contrast exposure. No obvious episodes of low BP. ROS: s/p kidney biopsy 05/29/18" prelim results>>nodular glomerulosclerosis an diabetic nephropathy, very mild interstitial inflammation Cardiovascular: No chest pain. Pulmonary: improved shortness of breath Gastrointestinal: denies abdominal pain No nausea. No vomiting. Genitourinary: No pain while urinating. Denies blood in urine. All other negative except as mentioned in HPI Physical Examination: General Appearance: Comfortable, in no acute respiratory distress, co-operative . Vitals reviewed and noted as below Head; Atraumatic, normocephalic ENT: no ulcers no thrush. Tongue is midline. Oropharynx: no rash or ulcers. EYES: Pupils are equal, round and reactive to light accommodation. Eye muscles and extraocular movement intact. Sclera is anicteric. Neck; supple no lymphadenopathy, no thyromegaly or bruit Lungs: Normal respiratory rate/effort. Breath sounds bilateral improved Heart: Normal rate. s1s2 normal. No rub or gallop. Extremities: 1-2+ edema. No varicose veins. hyperpigmented changes in legs with some rash noted, pt says long time Neurological: Patient is alert, awake and oriented to person, place and time. No focal deficit. Strength bilateral appropriate and equal Skin: Warm and dry. Normal turgor. Palpitation: Normal elasticity for age Abdomen: Abdomen is soft. Bowel sounds +. There is no abdominal tenderness, no guarding/rigidity no organomegaly. ? ascites. Psych: limited insight and normal affect/mood MSK: no joint tenderness or swelling. Digits and nails normal, no deformity : kidney or bladder not palpable Labs/imaging reviewed. Past medical history, past surgical history, family history, social history, allergy reviewed and noted as below Family hx: no hx of CKD. Rest non-contribu Objective - Vital Signs/Intake and Output Vital Signs (last 24 hours): Temp Pulse Resp BP Pulse Ox 98.1 F 76 20 154/81 H 93 L 06/01/18 08:06 06/01/18 08:06 06/01/18 08:06 06/01/18 10:58 06/01/18 08:06 Intake and Output: 06/01/18 06/01/18 06:59 18:59 Intake Total 500 Output Total 450 Balance 50 - Labs Labs: 05/31/18 17:19 05/31/18 17:19 PT 13.9 SECONDS (9.7-12.2) H 05/28/18 11:11 INR 1.3 05/28/18 11:11 APTT 34 SECONDS (21-34) 05/21/18 12:18
[2018-06-01 16:23] VITALS: PULSE 77
== END 2018-06-01 14:21 | disposition home or self-care (01) | DRG 291 ==
LOC: C.ER 11:43 → C.9E 13:41 → C.5S 05-22 11:15 → OBSVTOIN 05-23 16:34
PROVIDERS: ADMIT Family Medicine; ATTEND Family Medicine
PROC: 0TB13ZX Excision of Left Kidney, Percutaneous Approach, Diagnostic (ICD-10-PCS; principal; 2018-05-29)
DX: I13.0 Hypertensive heart and chronic kidney disease with heart failure and stage 1 through stage 4 chronic kidney disease, or unspecified chronic kidney disease (principal); I50.33 Acute on chronic diastolic (congestive) heart failure; E87.2 Acidosis; N17.9 Acute kidney failure, unspecified; E11.22 Type 2 diabetes mellitus with diabetic chronic kidney disease; G40.909 Epilepsy, unspecified, not intractable, without status epilepticus; F10.10 Alcohol abuse, uncomplicated; E87.5 Hyperkalemia; N40.1 Benign prostatic hyperplasia with lower urinary tract symptoms; R33.8 Other retention of urine; N18.3 Chronic kidney disease, stage 3 (moderate); Z87.891 Personal history of nicotine dependence; D63.1 Anemia in chronic kidney disease; Z79.84 Long term (current) use of oral hypoglycemic drugs; K70.30 Alcoholic cirrhosis of liver without ascites; K21.9 Gastro-esophageal reflux disease without esophagitis; E11.319 Type 2 diabetes mellitus with unspecified diabetic retinopathy without macular edema